=== PATIENT | male | born 1945 | race Caucasian/White ===

== ENCOUNTER 2024-03-09 11:07 | Inpatient (IN) | payer MEDICARE, BC, SELFPAY ==
[2024-03-09] VITALS (84 sets, daily range): BP systolic 63–128; BP diastolic 33–93; BMI 25.7; BMI 25.1
--- NOTE | 2024-03-09 08:41 | ED.GENMED ---
History of Present Illness
General
Chief Complaint: Breathing Problem
Source: patient and ambulance crew
Exam Limitations: none
Time Seen by Provider: 03/09/24 08:25
Nursing documentation reviewed up to this point in time: agreed with
Travel History
Have you had any contact with someone who has COVID-19?: No
Do you have any symptoms of coronavirus? Fever > 100 degrees, chills, cough, shortness of breath, sore throat, loss of taste or smell, muscle aches, or headache?: No
History of Present Illness
History of Present Illness:
78-year-old male presents emerged department due to weakness, shortness of breath and fever. Last night he started coughing up blood. He has a history of CHF, COPD, atrial fibrillation. He takes CPAP at night.
Past History
Past History
ED Past Medical History: Arrthythmia (Atrial fibrillation), CAD, COPD, GERD, HTN and Other (History of sleep apnea, diverticulosis, stomach ulcers, back pain, degenerative joint disease,); Negative NIDDM
ED Past Surgical History: Tonsilectomy and Other (Recent surgery for bilateral knee replacements, multiple cardioversions, right wrist carpal total surgery, L4-L5 laminectomy)
Social History
Tobacco: Former smoker
Alcohol: Occasional
Drug: None
Personal:
Living: alone
Employment: Employed
Family History
Family History: Other (Father with cancer of the pancreas)
Review of Systems
Review of Systems
Allergies reviewed?: Yes
All Other Systems: Not applicable
Constitutional: Reports fever
EENT: Reports no symptoms
Respiratory: Reports cough, hemoptysis and trouble breathing
Cardiac: Reports no symptoms
ABD/GI: Reports no symptoms
: Reports no symptoms
Musculoskeletal: Reports no symptoms
Skin: Reports no symptoms
Neurological: Reports weakness
Endocrine: Reports no symptoms
Hematologic/Lymphatic: Reports no symptoms
Psychiatric: Reports no symptoms
Phy Exam
Physical Exam
Physical Exam:
Physical Exam
General: Ill-appearing, temperature 100.1
Neck: supple. no meningeal signs. normal posterior pharynx
Heart: s1/s2 tachycardia, no murmur. equal radial
pulses.
HEENT: Pupils equal round reactive to light, EOMI
Lungs: Moderate respiratory distress. Rhonchi and rails bilaterally, decreased breath sounds right lower lung
Abdomen: normal bowel sounds. not tender. no CVAT
Neuro: alert and oriented. no focal neurological deficits cranial nerves II through XII intact
Skin: no rash
Psychiatric: well kept. interactive and cooperative
Extremities: Bilateral tibial edema. no calf tenderness. negative homans. good distal pulses
Scores
Heart Failure Risk
Heart Failure Risk Score: Yes
History of Stroke or TIA: No
History of intubation for respiratory distress: No
Heart rate on ED arrival >/= 110: Yes
SaO2 <90% on arrival on room air: No
HR >/=110 during 3min walk test (or too ill to perform test): Yes
ECG has acute ischemic changes: No
Urea >/=12mmol/L (BUN 33.6mg/dL): Yes
Serum CO2>/=35mmol/L: No
Troponin I or T elevated to [place] Level (0.4mg/dL): No
NT-proBNP >/=5,000ng/L (5,000pg/ml): Yes
HF Risk Score: 4
Admission Status: HIGH RISK 26.1% Consider SNF treatment or admission to hospital
Course
Orders/Labs/Results
Orders:
Orders
03/09/24 08:28
Electrocardiogram (*1) Urgent
Reason for Study: Atrial Fibrillation
03/09/24 08:29
EKG- Treatment ONCE
Cr Chest Portable [CR Chest Portable - 1 View] Urgent
Comment:
Reason For Exam: coughing up blood
Reason Study Needs to be Portable: Patient Unstable
03/09/24 08:37
0.9% Sodium Chloride 500 ml [Nss] 500 ml IV BOLUS
Cefepime HCl [Maxipime] 2,000 mg IV NOW STA
Ipratropium/Albuterol Sulfate [Duoneb] 3 ml INH R NOW STA
03/09/24 08:40
O2 Therapy [RESP] Urgent
High Flow Nasal Cannula FIO2%: 50
Titrate/Wean O2 to maintain O2 sat greater than (%): 90
03/09/24 08:50
BNP [NT-proBNP] Urgent
COVID-19 Antigen Urgent
Source: Nasal Swab
Complete Blood Count/With Diff Urgent
Comprehensive Metabolic Panel Urgent
Lactic Acid Q4H
Comment: ON ICE, CANCEL 2ND ORDER IF FIRST LACTIC ACID LEVEL <2
Manual Differential Urgent
Prothrombin Time Urgent
Troponin I Urgent
Blood Culture Q30M
JAMIN Source: Blood/Venous
Specimen Description:
Comment: FROM 2 SEPARATE SITES
Blood Culture Q30M
JAMIN Source: Blood/Venous
Specimen Description:
Comment: FROM 2 SEPARATE SITES
Influenza A+B Rapid Molecular Urgent
JAMIN Source: Nasal Swab
Specimen Description:
03/09/24 09:30
Vancomycin [Vancocin] 2,000 mg 0.9% Sodium Chloride 500 ml [Nss] 500 ml IV NOW
03/09/24 Lunch
NPO
Allow oral meds: Yes
Allow clear liquids: Sips of Clears
03/09/24 10:15
Behavioral Health Technician Consult Urgent
Consulting Provider: Hector Marlow
Was physician already notified: Yes
Reason for consult: septic shock, PNA vs pulm hemorrhage/pulm edema
NORepinephrine 4 MG/250 ML [Levophed] 4 mg in 250 ml IV PER PROTOCOL
Initial dose in mcg/min, then titrate:: 4
Titrate to keep:: MAP > 65 mmHg
Titrate by mcg/min:: 1-2 mcg/min
Frequency of titrations (minutes):: 5
Maximum dose in ICU in mcg/min:: 30
Maximum dose in IMU in mcg/min:: 8
Maximum dose in IVU in mcg/min:: 4
Begin to taper infusion when:: Remained at goal for 4hrs
Taper by mcg/min:: 1-2 mcg/min
Frequency of taper (minutes) if patient maintains goal:: 30
Taper to off?: Yes
If infusion off & no longer maintaining goal:: Contact Provider
03/09/24 10:33
Procalcitonin Urgent
PCT Algorithmm Indication: Respiratory
03/09/24 10:40
Admit/Transfer Patient As Directed
Co-Sign Provider:
Level of Care: Inpatient admission
Assign to:: ICU
Physician / Group: mann gtz
Diagnosis: Septic shock, pneumonia, respiratory failure
Reason for Hospitalization: septic shock, PNA vs pulm hemorrhage/pulm edema,
Expected length of stay greater than two midnights?: Yes
ELOS- Estimated Length of Stay in days: 5
I certify the patient meets the requirements for IP care: Yes
IRAD CONSULT Routine
Consulting Provider: Silvano Shine
Was physician already notified: Yes
Reason for Consult/Procedure: Central Line
Acknowledgement that appropriate orders are entered: N/A
03/09/24 10:45
Hydrocortisone Sod Succinate [Solu-Cortef] 50 mg IV Q8
03/09/24 10:49
Code Status As Directed
Resuscitation Status: Full Code
03/09/24 12:23
Acetaminophen [Tylenol] 650 mg PO Q6HPRN PRN
NORepinephrine 4 MG/250 ML [Levophed] 4 mg in 250 ml IV PER PROTOCOL
Initial dose in mcg/min, then titrate:: 6
Titrate to keep:: MAP > 65 mmHg
Titrate by mcg/min:: 1-2 mcg/min
Frequency of titrations (minutes):: 5
Maximum dose in ICU in mcg/min:: 30
Maximum dose in IMU in mcg/min:: 8
Maximum dose in IVU in mcg/min:: 4
Begin to taper infusion when:: Remained at goal for 4hrs
Taper by mcg/min:: 1-2 mcg/min
Frequency of taper (minutes) if patient maintains goal:: 30
Taper to off?: Yes
If infusion off & no longer maintaining goal:: Contact Provider
Pantoprazole [Protonix IV] 40 mg IV BID
VANCOMYCIN Pharmacy to Dose [VANCOCIN Pharmacy to Dose] 1 each Pharmacy To Prepare [Call Pharmacy To Prepare] 0 ml IV PER PROTOCOL
03/09/24 12:23
CARDIOLOGY CONSULT Routine
Consulting Provider: Salvador He
Was physician already notified: Yes
Reason for consult: CHF
Legionella Urinary Antigen Urgent
JAMIN Source: Urine
Specimen Description:
Respiratory Culture/Gram Stain Urgent
JAMIN Source: Sputum
Specimen Description:
Strep pneumoniae Antigen Urgent
JAMNI Source: Urine
Specimen Description:
Activity As Directed
Activity Level: Out of Bed-Early Mobility
Intake/ Output As Directed
Frequency: Per unit guidelines
Pneumatic Compression Sleeves As Directed
Type: Knee high
Vital Signs As Directed
Frequency: Per unit guidelines
Weight As Directed
Frequency: Once
Comment: on admission
Pt Eval And Treat Routine
Activity Level: Out of Bed-Early Mobility
DX Deep Vein Thrombosis Video Routine
03/09/24 13:02
Lactic Acid Q4H
Comment: ON ICE, CANCEL 2ND ORDER IF FIRST LACTIC ACID LEVEL <2
03/09/24 20:00
Cefepime HCl [Maxipime] 1,000 mg IV Q12H
03/10/24 06:00
Basic Metabolic Panel IN AM
Comprehensive Metabolic Panel IN AM
03/10/24 08:00
Empagliflozin [Jardiance] 10 mg PO DAILY
03/11/24 06:00
Basic Metabolic Panel IN AM
03/12/24 06:00
Basic Metabolic Panel IN AM
Abnormal Lab Results
03/09/24 03/09/24
08:50 10:33
WBC 2.7 L 10^3/uL
(4.8-10.8)
RBC 3.70 L 10^6/uL
(4.70-6.10)
Hgb 12.0 L g/dL
(13.0-18.0)
Hct 35.6 L %
(39.0-52.0)
MCV 96.2 H fL
(80.0-94.0)
MCH 32.4 H pg
(27.0-31.0)
RDW 15.2 H %
(11.5-14.5)
Plt Count 95 L 10^3/uL
(130-400)
Band Neutrophils 20 H %
(0-3)
Lymphocytes (Manual) 14 L %
(20-51)
PT 43.5 H Sec
(11.4-14.6)
Sodium 130 L mmol/L
(135-145)
BUN 42 H mg/dl
(9-20)
Creatinine 1.5 H mg/dL
(0.7-1.3)
Lactic Acid 2.3 H mmol/L
(0.7-2.0)
Calcium 8.3 L mg/dl
(8.4-10.2)
Total Bilirubin 2.9 H mg/dl
(0.2-1.3)
Troponin I 0.148 H* ng/ml
Albumin 3.2 L g/dl
(3.5-5.0)
Procalcitonin 14.84 H* ng/ml
(0.0-0.25)
03/09/24 08:50
03/09/24 08:50
Vital Signs
Initial and Last Documented VS:
Initial Vital Signs
Temp Pulse Resp BP Pulse Ox
100.1 F 115 25 72/44 66
03/09/24 08:31 03/09/24 08:31 03/09/24 08:31 03/09/24 08:31 03/09/24 08:31
Last Documented Vital Signs
Temp Pulse Resp BP Pulse Ox
98.6 F 102 21 93/48 94
03/09/24 12:24 03/09/24 14:30 03/09/24 14:30 03/09/24 14:30 03/09/24 14:30
MDM/Problems Addressed
Differential Diagnosis Includes:
CHF, pneumonia, sepsis
MDM/Problems Addressed:
78-year-old male with pneumonia, hypotension, concerning for sepsis and CHF, right pleural effusion. Will give small dose IV fluids due to patient's CHF history, IV cefepime and vancomycin ordered. Will place on mid flow. Will likely add
Levophed. Admit to ICU
Chronic conditions affecting care: Cardiomyopathy, Arrhythmia, COPD and Cancer (non hodgkins)
Acute Exacerbation and/or Progression of Chronic Illness: Cardiomyopathy, Arrhythmia, COPD and Cancer (non hodgkins)
*Radiology
Radiology exam reviewed: preliminary read by ED provider (Left-sided infiltrate, right pleural effusion on chest x-ray)
*Pulse Oximetry
Patient hypoxic: yes
*EKG
Interpreted by ED Provider?: Yes
EKG Intrepretation Date: 03/09/24
EKG Intrepretation Time: 08:30
Interpretation: abnormal
Comparison EKG: no changes
Heart Rate: 122
Rate: tachycardiac
Rhythm: PVC's, sinus tachycardia and ventricular paced
[place]: left axis deviation
Interval: normal interval
QRS Pattern: right bundle branch block
Ischemia: non-specific ST changes
*Water/Wastewater Engineer Interpretation
Rate: tachycardiac
Interpretation: abnormal
Rhythm: PVC's, sinus tachycardia and ventricular paced
*Critical Care Note
Total Time (30-74mins, 75-104mins- exclusive of procedures): 30
comment:
Critical care statement: A total of 30 minutes of critical care time was provided for this patient. This includes management of unstable vital signs, evaluation of the patient at bedside, reviewing the patient's pertinent medical records, discussion
with consultants, review of old EKGs and review of pertinent medical records. This time with separate from time utilized to perform the aforementioned documented procedures
Data Reviewed
Review of Other/Old Records Reveals: Testing (Echocardiogram 06/05/2023 shows EF 30 to 35%)
Source: records
Further Testing Considered But Not Given:
CT scan considered, but not indicated at this time
Patient Management
Social determinants of health affecting care: Living situation
Discussion with other providers: Hospitalist
Escalation/DeEscalation of care consider admission/obs:
Admit to ICU indicated
ED Attending Note
-
Portions of this chart may have been created with voice recognition software.� Occasional wrong word or��sound alike� substitutions may have occurred due to the inherent limitations of voice recognition software.
Discharge Plan
Departure
Patient Disposition: Admit
Date of Disposition: 03/09/24
Time of Disposition: 09:25
Admit to: ICU
Presentation/result/management discussed w/ accepting MD/DO: Hospitalist
Patient with high blood pressure during this ER visit?: No
Condition: Serious
Discharge Problem:
Pneumonia, Pleural effusion on right, Hemoptysis
Interventions
Interventions:
*Risk Screen - Suicide Last Done: 03/09/24 08:31
*General Assessment Last Done: 03/09/24 08:31
*Neglect/Abuse Screening Last Done: 03/09/24 08:31
ED- Fall Risk Assessment Last Done: 03/09/24 08:38
*ED COVID-19 Vaccine History Last Done: 03/09/24 08:31
*Nursing Disposition Last Done: 03/09/24 12:28
ED- Cardiac Assessment Last Done: 03/09/24 08:38
ED- Pulmonary Assessment Last Done: 03/09/24 08:54
Discharge Date and Time
Discharge Date/Time: 03/09/24 12:28
[2024-03-09] MEDS: DUONEB 3 ML INH ×4 (09:00→20:34)
[2024-03-09] MEDS: NSS 500 IV ×2 (09:01→11:40)
[2024-03-09] MEDS: MAXIPIME 2000 MG IV (09:03)
[2024-03-09 09:15] LABS: Lactic Acid 2.3 mmol/L (0.7-2.0)
[2024-03-09 09:17] LABS: Hematocrit 35.6 % (39.0-52.0); Mean Corp Hgb Conc. 33.7 g/dL (33.0-37.0); Mean Corpuscular Hgb 32.4 pg (27.0-31.0); Mean Corpuscular Volume 96.2 fL (80.0-94.0); Mean Platelet Volume 9.4 fL (7.4-10.4); Nucleated Red Blood Cells % 0 % (-); Platelet Count 95 10^3/uL (130-400); Red Cell Dist. Width 15.2 % (11.5-14.5); White Blood Cell Count 2.7 10^3/uL (4.8-10.8)
[2024-03-09 09:18] LABS: INR 4.58; PT 43.5 Sec (11.4-14.6)
[2024-03-09 09:23] LABS: COVID-19 Antigen Negative (Negative)
[2024-03-09 09:35] LABS: NT-proBNP > 27000 pg/ml; Troponin I 0.148 ng/ml
[2024-03-09] MEDS: VANCOCIN 540 MG IV (09:51)
[2024-03-09] MEDS: LEVOPHED 250 IV ×4 (10:09→18:30)
[2024-03-09 10:20] LABS: Absolute Neutrophils -Man Diff 1.9 10^3/uL (1.4-6.5); Band Neutrophils 20 % (0-3); Lymphocytes 14 % (20-51); Segmented Neutrophils 53 % (42-75)
[2024-03-09 10:21] LABS: Metamyelocytes 3 % (-); Monocytes 8 % (2-9); Myelocytes 2 % (-); Normal RBC Morphology Yes; Platelets Checked Yes; Total Cells Counted 100
[2024-03-09 10:22] LABS: ALT (SGPT) 17 U/L (0-50); AST (SGOT) 37 U/L (17-59); Albumin 3.2 g/dl (3.5-5.0); Alkaline Phosphatase 110 U/L (38-126); Blood Urea Nitrogen 42 mg/dl (9-20); Calcium 8.3 mg/dl (8.4-10.2); Carbon Dioxide 29 mmol/L (22-30); Chloride 98 mmol/L (98-107); Estimated Creatinine Clearance 44 ml/min; Glucose 93 mg/dl (70-99); Potassium 3.9 mmol/L (3.5-5.1); Sodium 130 mmol/L (135-145); Total Bilirubin 2.9 mg/dl (0.2-1.3); Total Protein 6.5 g/dl (6.3-8.2); eGFR 47.65
--- NOTE | 2024-03-09 10:40 | HPS.HSE ---
Family Physician
-
Family Physician: Kylie Liu DO
Chief Complaint
-
Fever, hemoptysis, shortness of breath
History of Present Illness
78-year-old male with a past medical history of atrial fibrillation on Coumadin, newly diagnosed cirrhosis, CAD, COPD, KIKI on CPAP, GERD, peptic ulcer disease, CHF, and hypertension presents with a 1 day history of fever, hemoptysis, and shortness
of breath. Family reports that he was coughing up blood intermittently overnight, with fever. Associated symptoms include hematemesis, lethargy, agitation. Patient was found to be in acute hypoxic respiratory failure in the ER, and placed on a
nonrebreather. He was also found to have septic shock from pneumonia, with pulmonary edema. He is getting vancomycin and cefepime in the ER, and currently on a Levophed drip. He is on prednisone 60 mg daily since June 2023, unclear why.
Medical History
Past Medical History
Past Medical History: Reports Other
Additional Past Medical History:
Atrial fibrillation on Coumadin
Newly diagnosed cirrhosis
CAD
COPD
KIKI on CPAP
GERD
Essential hypertension
Peptic ulcer disease
History of non-Hodgkin's lymphoma status post chemo and radiation 2003
Diverticulosis
Chronic back pain
Degenerative joint disease
Bilateral inguinal hernia status post surgery
Past Surgical History: Reports Other
Additional Past Surgical History:
Bilateral knee replacements
Multiple cardioversions
Right wrist carpal tunnel surgery
L4-L5 laminectomy
Robot assisted laparoscopic repair bilateral inguinal hernias
Social History
Tobacco: Former Smoker
Alcohol: Former
Drug: None
Living: With Family
Family History
Family History: Not pertinent
Allergies / Home Medications
Allergies reflects when Allergies were last updated in [facility].
Home Medications with original date entered in [facility]
Allergy/Medication List:
Allergies
Allergy/AdvReac Type Severity Reaction Status Date / Time
No Known Allergies Allergy Verified 03/09/24 09:51
Home Medications Table - record
�Medication �Instructions �Recorded �Confirmed
warfarin 2.5 mg tablet (Jantoven) 2.5 mg PO DAILY Blood clot 07/13/21 03/09/24
prevention/tx
furosemide 20 mg tablet 20 mg PO DAILY 11/01/21 03/09/24
metoprolol succinate 50 mg 25 mg PO DAILY 11/01/21 03/09/24
tablet,extended release 24 hr
fluticasone fur. 100 mcg-umeclid 1 inh inhalation Q24H 10/23/22 03/09/24
62.5 mcg-vilant 25 mcg
inhalat.powder (Trelegy Ellipta)
potassium chloride 20 mEq 20 meq PO DAILY 10/23/22 03/09/24
tablet,extended
release(part/cryst) (Klor-Con M)
empagliflozin 10 mg tablet 10 mg PO DAILY 07/26/23 03/09/24
(Jardiance)
omeprazole 20 mg capsule,delayed 40 mg PO DAILY 07/26/23 03/09/24
release
prednisone 20 mg tablet 60 mg PO DAILY 03/09/24 03/09/24
Review of Systems
-
A 12 point ROS was completed and negative except as noted: Yes
Physical Exam
Vital Signs
Vital Signs
Temp Pulse Resp BP Pulse Ox
100.1 F 119 34 87/70 91
03/09/24 08:31 03/09/24 10:35 03/09/24 10:35 03/09/24 10:35 03/09/24 10:35
Physical Exam
General: Appears in Distress (In respiratory distress, appears acutely ill, lethargic appearing)
HEENT: NormoCephalic, Anicteric, Moist mucous membranes and Atraumatic
Respiratory: Crackles
Cardiac: Tachycardia
GI: Soft, Non Tender, Non Distended and Normal Bowel Sounds
Musculoskeletal: No Clubbing, No Cyanosis, Edema, Left Lower Extremity and Edema, Right Lower Extremity
Skin: Other (Hyperpigmentation of shins reflective of chronic venous stasis dermatitis)
Neuro: Other (Lethargic appearing)
Psych: Agitated
Laboratory Results
-
03/09/24 08:50
03/09/24 08:50
Laboratory Results
PT 43.5 Sec (11.4-14.6) H 03/09/24 08:50
INR 4.58 03/09/24 08:50
Lactic Acid 2.3 mmol/L (0.7-2.0) H 03/09/24 08:50
Total Bilirubin 2.9 mg/dl (0.2-1.3) H 03/09/24 08:50
AST 37 U/L (17-59) 03/09/24 08:50
ALT 17 U/L (0-50) 03/09/24 08:50
Alkaline Phosphatase 110 U/L (38-126) 03/09/24 08:50
Troponin I 0.148 ng/ml H* 03/09/24 08:50
Impression/Plan
-
HPI: 78-year-old male with a past medical history of atrial fibrillation on Coumadin, newly diagnosed cirrhosis, CAD, COPD, KIKI on CPAP, GERD, peptic ulcer disease, CHF, and hypertension presents with a 1 day history of fever, hemoptysis, and
shortness of breath. Family reports that he was coughing up blood intermittently overnight, with fever. Associated symptoms include hematemesis, lethargy, agitation. Patient was found to be in acute hypoxic respiratory failure in the ER, and
placed on a nonrebreather. He was also found to have septic shock from pneumonia, with pulmonary edema. He is getting vancomycin and cefepime in the ER, and currently on a Levophed drip. He is on prednisone 60 mg daily since June 2023, unclear
why.
#Septic shock, present upon admission
#Severe pneumonia
Patient with bandemia, tachycardia upon admission
Admit to ICU, high lift mule operator consulted, continue Levophed for MAP greater than 65
Unable to give fluid boluses secondary to CHF
IR consulted for central line placement
Follow-up blood cultures, check sputum culture and Gram stain, check urine Legionella/strep antigen, check MRSA nares
Start stress dose IV steroids�patient is on prednisone 60 mg p.o. daily since July 2023 at home, unclear why
Continue vancomycin and cefepime
Trend lactic acid, trend fever, trend white count
#Hemoptysis with concern for pulmonary hemorrhage
Check chest CT
#Acute on chronic heart failure with reduced ejection fraction
Echo 06/05/2023 EF 30-35%, global hypokinesis, mechanical mitral valve, mild MR, moderate TR
Unable to give Lasix now secondary to hypotension
Consult cardiology, patient will need Lasix once his blood pressure improves
Continue Jardiance, trend weights
#Coagulopathy
#Paroxysmal atrial fibrillation
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
EKG shows sinus tachycardia with first-degree AV block and occasional V paced complexes
INR elevated at 4.58 today, goal is 2.5�3.5
Hold Coumadin, trend INR
Hold home beta-kyle until blood pressure improves
Will order metoprolol 5 mg IV as needed
#Type II CO from demand ischemia
Trend troponin
#Hematemesis
Likely from swallowed blood products from hemoptysis
Protonix 40 mg IV twice daily, trend hemoglobin
#Hyponatremia
Due to CHF, monitor
#Acute kidney injury
Creatinine 1.5 today, baseline is normal
From CHF and sepsis
Monitor creatinine, no nephrotoxic drugs/NSAIDs
#Thrombocytopenia
Due to sepsis, monitor
#Recently diagnosed cirrhosis
Follows with Dr. Saunders outpatient
DVT prophylaxis�SCDs, hold Coumadin secondary to INR of 4.58
Full code
Updated family at bedside
Critical care time 33 minutes
--- NOTE | 2024-03-09 10:47 | CON.INTV ---
Consultation
Consultation Request
Date/Time Consultation Requested: 03/09/2024 - 1014
Date/Time Consultation Performed: 03/09/2024 - 1039
Requesting Provider: Dr. Junior
Performing Provider: Dr. Marlow
Reason for Consultation: Shock/PNA/Hemoptysis
Medical History
-
Chief Complaint: Weakness/SOB/fever/coughing up blood
History of Present Illness:
78-year-old male former tobacco smoker with a past medical history of moderate COPD, moderate restrictive lung disease, history of hemoptysis, history of LLL bronchiectasis, history of left-sided pneumonia, history of aspergillus, chronic
anticoagulation for mechanical mitral valve replacement (July 2021), history of COVID-19, HFrEF with RV dysfunction, pulmonary hypertension, history of NHL s/p chemo/XRT (2003), and chronic thrombocytopenia with unremarkable bone marrow biopsy
(10/2023) who presents with shortness of breath, weakness and fever. 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 Patient has low-grade fever to 100.1 �F in the ER, and tachycardic to 115 bpm, tachypnea to 25 respirator,
hypotensive to 72/44, and initially was saturating 66% on room air. Saturations improved to 91% with nonrebreather. Labs showed leukopenia to 2.7 with 20% bands, anemia to 12, elevated INR 4.58, hyponatremia 130, ADRIANA to 1.5, lactic acid elevated
at 2.3, elevated troponin 0.148, increased proBNP of >27,000, and negative COVID-19 antigen; flu A/B swab also negative. Blood cultures were collected. CXR shows a 10 cm left midlung airspace opacity with acute cardiogenic pulmonary edema and a
right-sided pleural effusion with compressive atelectasis. In the ER antibiotics were given with cefepime/vancomycin, he was also given DuoNebs x 1, given IV fluids with NS 0.5L and started on Levophed due to persistent hypotension with SBP in the
80s. Due to patient's vasopressor and oxygen requirements, he is being admitted to the ICU. Critical care services now consulted for additional management/recommendations.
When I saw the pt in ER, he was sitting upright in bed, in acute respiratory distress on NRB, saturating 89%, BP low w/ SBP in mid-80s on levophed at 16mcg/min. Pt awake, answering questions, but occasionally lethargic. and 2 sons at bedside -
I answered all their questions. Pt says he 'wants to go home.' He is ok with being placed onto a ventilator if it comes to that. He currently is not coughing up blood since he has been here in ER. He feels SOB, but denies chest pain, ANDRADE, abd
pain, N/V/f/c.
Of note, patient follows with us in the office with Dr. Nicolas, last office visit on 12/05/2023. Patient has known COPD with bronchiectasis, restrictive lung disease, history of left-sided pneumonia, history of Aspergillus, hemoptysis, and is on
chronic anticoagulation for mechanical mitral valve replacement in July 2021. He takes Trelegy for COPD. He has known bronchiectasis in the left lower lobe originally seen on CT from 2010. He also has a history of an elevated left
hemidiaphragm. Has history of KIKI on CPAP. His last PFT was from 12/05/2020 for showing moderate severity COPD with a positive/non-significant bronchodilator response, with evidence of moderate restrictive lung disease (vital capacity: 67%
predicted), with a very severe gas exchange capacity defect (DLco: 30%).
PMHx: COPD, restrictive lung disease, history of hemoptysis, chronic anticoagulation with warfarin due to mechanical mitral valve replacement (07/2021), history of left lower lobe bronchiectasis, elevated left hemidiaphragm, KIKI on CPAP, personal
history of COVID-19, chronic atrial fibrillation on Coumadin, history of tobacco abuse with [id number] history (quit in 2017), history of HFrEF with RV dysfunction, mild�moderate pulmonary hypertension, history of GI bleed, postnasal drip, history
of non-Hodgkin's lymphoma s/p chemo/radiation (2003), history of left-sided pneumonia due to Streptococcus pneumonia, history of aspergillus, history of Vieira's esophagus, history of thrombocytopenia s/p unremarkable bone marrow biopsy
PSHx: Appendectomy, right carpal tunnel repair, bilateral TKR, tonsillectomy, L4-L5 laminectomy, left�THR, DCCV X8 for recurrent A-fib, mitral valve replacement with Saint Deep mechanical valve (07/2021), bilateral inguinal hernia repair with mesh
(10/2021), bone marrow biopsy (October 2023)
Past Medical History
Past Medical History: Other (Above as per HPI)
Past Surgical History: Other (Above as per HPI)
Social History
Tobacco: Former Smoker ([id number] history, quit in 2017)
Alcohol: Daily (2-3 glasses of wine with dinner)
Drug: None
Personal:
Family History
Family History: CAD (Father), Cancer (Father: Pancreatic cancer) and Other (Mother: Alzheimer's dementia)
Allergies / Home Medications
Allergies
Allergy/AdvReac Type Severity Reaction Status Date / Time
No Known Allergies Allergy Verified 03/09/24 09:51
Home Medications
�Medication �Instructions �Recorded �Confirmed �Last Taken �Type
warfarin 2.5 mg tablet (Jantoven) 2.5 mg PO DAILY Blood clot 07/13/21 03/09/24 03/07/24 History
prevention/tx
furosemide 20 mg tablet 20 mg PO DAILY 11/01/21 03/09/24 03/08/24 History
metoprolol succinate 50 mg 25 mg PO DAILY 11/01/21 03/09/24 03/08/24 History
tablet,extended release 24 hr
fluticasone fur. 100 mcg-umeclid 1 inh inhalation Q24H 10/23/22 03/09/24 03/08/24 History
62.5 mcg-vilant 25 mcg
inhalat.powder (Trelegy Ellipta)
potassium chloride 20 mEq 20 meq PO DAILY 10/23/22 03/09/24 03/08/24 History
tablet,extended
release(part/cryst) (Klor-Con M)
empagliflozin 10 mg tablet 10 mg PO DAILY 07/26/23 03/09/24 07/25/23 History
(Jardiance)
omeprazole 20 mg capsule,delayed 40 mg PO DAILY 07/26/23 03/09/24 03/08/24 History
release
prednisone 20 mg tablet 60 mg PO DAILY 03/09/24 03/09/24 03/08/24 History
Review of Systems
-
History Source: Patient
All other systems: Negative unless noted
Vitals / Labs / Diagnostic Testing
Vital Signs
Temp Pulse Resp BP Pulse Ox
100.1 F 120 22 85/73 89
03/09/24 08:31 03/09/24 10:41 03/09/24 10:41 03/09/24 10:41 03/09/24 10:41
Lab Data
03/09/24 08:50
03/09/24 08:50
Laboratory Results
03/09/24
08:50
PT 43.5 H
INR 4.58
Microbiology
03/09/24 08:50 Nasal Swab Influenza Types A & B (RACHEL) - Final
Negative for Influenza A & B, NAAT
Negative results must be combined with clinical observations
and patient history.
Nucleic Acid Amplification test (NAAT)performed on the
[employer] platform.
Diagnostic Testing:
Physical Exam
-
HEENT: Normocephalic and Anicteric
Cardiovascular: S1/S2 and Peripheral Edema (+2 LE pitting edema)
Respiratory: Wheeze (negative), Rales (bilaterally), Rhonchi (bilaterally (L>R)) and Accessory Resp Muscle Use
GI: Soft, Non Distended and Non Tender
Neurology: Awake and Alert
Skin: Warm and Dry
General: Respiratory Distress, Fever (negative) and Chills (negative)
Assessment
-
Assessment: 78-year-old male former tobacco smoker with a past medical history of moderate COPD, moderate restrictive lung disease, history of hemoptysis, history of LLL bronchiectasis, history of left-sided pneumonia, history of aspergillus,
chronic anticoagulation for mechanical mitral valve replacement (July 2021), history of COVID-19, HFrEF with RV dysfunction, pulmonary hypertension, history of NHL s/p chemo/XRT (2003), and chronic thrombocytopenia with unremarkable bone marrow
biopsy (10/2023) who presents with shortness of breath, weakness and fever. 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 Patient has low-grade fever to 100.1 �F in the ER, and tachycardic to 115 bpm, tachypnea to 25 respirator,
hypotensive to 72/44, and initially was saturating 66% on room air. Saturations improved to 91% with nonrebreather. Labs showed leukopenia to 2.7 with 20% bands, anemia to 12, elevated INR 4.58, hyponatremia 130, ADRIANA to 1.5, lactic acid elevated
at 2.3, elevated troponin 0.148, increased proBNP of >27,000, and negative COVID-19 antigen; flu A/B swab also negative. Blood cultures were collected. CXR shows a 10 cm left midlung airspace opacity with acute cardiogenic pulmonary edema and a
right-sided pleural effusion with compressive atelectasis. In the ER antibiotics were given with cefepime/vancomycin, he was also given DuoNebs x 1, given IV fluids with NS 0.5L and started on Levophed due to persistent hypotension with SBP in the
80s. Due to patient's vasopressor and oxygen requirements, he is being admitted to the ICU. Critical care services now consulted for additional management/recommendations.
Chronic conditions BUSINESS PROJECT ANALYST: COPD, restrictive lung disease, history of hemoptysis, chronic anticoagulation with warfarin due to mechanical mitral valve replacement (07/2021), history of left lower lobe bronchiectasis, elevated left hemidiaphragm, KIKI on
CPAP, personal history of COVID-19, chronic atrial fibrillation on Coumadin, history of tobacco abuse with [id number]-uviz history (quit in 2018), history of HFrEF with RV dysfunction, mild�moderate pulmonary hypertension, history of GI bleed,
postnasal drip, history of non-Hodgkin's lymphoma s/p chemo/radiation (2004), history of left-sided pneumonia due to Streptococcus pneumonia, history of aspergillus, history of Vieira's esophagus, history of thrombocytopenia s/p unremarkable bone
marrow biopsy
Impression:
#Acute respiratory failure with hypoxia due to CAP + acute pulmonary edema with right pleural effusion
#Bandemia with 20% bands -due to septic shock from left side pneumonia
#Severe left-sided CAP
#Septic shock due to above
#Lactic acidosis
#Acute COPD exacerbation due to above
#Hemoptysis due to pneumonia in the setting of chronic anticoagulation with supratherapeutic INR
#Supratherapeutic INR (INR: 4.58)
#Hyponatremia
#Acute kidney injury (Cr baseline approx 1.1)
#Elevated troponin likely due to demand ischemia with type II AL
#Chronic pancytopenia
#Mechanical mitral valve replacement on Coumadin
#Chronic A-fib on Coumadin
#DM type II
Plan:
- Broad spectrum Abx with cefepime/vanc
- Infectious workup with blood, sputum and urine Cx with legionella/Strep PNA urine antigens, and MRSA swab
- May need bronchoscopy if hemoptysis worsens
- For now, administer small dose of vitamin K (2.5mg IVP x1) and hold coumadin; may need PCC vs FFP if hemoptysis worsens, but need to be very careful given his mechanical prosthesis in his MV
- Given his Hx of COPD and concurrent PNA with septic shock, start stress dose steroids with hydrocortisone 50mg IV q6hr x 3 days then wean as tolerated from there
- Check CT chest without contrast
- Maintain SpO2 >88-94%
- DuoNebs ATC with prn duonebs in between
- Wean off vasopressors as tolerated and maintain MAP>65
- Low threshold to intubate but need to be aware of his hypotension as he is at high risk of cardiac arrest with RSI as we would remove his respiratory drive
- Renally dose all meds and trend UOP, and sCr daily
- Trend sNa
- Replete electrolytes with K>4, Mg>2
- Maintain euglycemia with goal BG 140-180
- Incentive spirometer
- DVT ppx
- Guarded prognosis
I answered all the and sons questions. Pt remains full code. They are aware he is critically ill and at high risk of multiorgan failure and .
Critical care statement: A total of 40 minutes of critical care time was provided for this patient today. This includes management of unstable vital signs, evaluation of the patient at bedside, reviewing the patient's pertinent medical records
including radiographs, microbiology, laboratory evaluations, and discussion with primary team, consultants, pharmacy, nutrition, physical therapy, case management, charge nurse, critical care nursing, and respiratory therapy.
Data:
CXR 03-09-2024:
1. New large 10 cm airspace opacity in the left mid and lower lung which was not present 12/05/2023. Diagnostic possibilities are (1) severe pneumonia, (2) pulmonary hemorrhage, or (3) asymmetric alveolar pulmonary edema.
2. Moderate acute interstitial cardiogenic pulmonary edema.
3. Moderate to severe bilateral upper lobe emphysema.
4. Mild cardiomegaly with evidence for previous mitral valve replacement.
5. Small right pleural effusion and adjacent moderate compressive atelectasis in the right lower lobe.
[2024-03-09] MEDS: SOLU-CORTEF 50 MG IV ×2 (11:09→17:00)
[2024-03-09 11:31] LABS: Procalcitonin 14.84 ng/ml (0.0-0.25)
[2024-03-09 12:36] LABS: B.E. -0.3 mmol/L; HCO3 27.3 mmol/L (21-28); O2 Saturation % 91.3 % (94-98); PCO2 58 mmHg (35-48); PO2 61 mmHg (83-108); pH 7.28 (7.35-7.45)
--- NOTE | 2024-03-09 12:54 | PHA.VAN.IN ---
Assessment
- Assessment
Renal Function: Appears elevated from baseline
Maximum Temperature: 100.1
Minimum Temperature: 98.6
Concomitant Antimicrobials: Cefepime
Plan
- Plan
Initial / Loading Dose: Vanc 2000mg IV. Given 03/09 at 0951
Maintenance Regimen: PRN by level
Monitoring: R 03/10 AM
Pharmacokinetics Vancomycin I
- -
Patient Age: 78
Patient Sex: Male
Vancomycin Day #: 1
Indication: Pulmonary/Respiratory
Requesting Provider: Do
Height / Weight:
Height 5 ft 11 in
Actual Weight 81.6 kg
IBW in k.3
Adjusted BW in k.8
Pertinent Past Medical History: ADRIANA.
- Vital Signs / Lab Results
Temp Pulse Resp BP Pulse Ox
98.6 F 101 31 99/69 89
03/09/24 12:24 03/09/24 12:36 03/09/24 12:36 03/09/24 12:10 03/09/24 12:36
Lab Results - Hematology
03/09/24
08:50
WBC 2.7 L
Band Neutrophils 20 H
Lab Results - Chemistry
03/09/24
08:50
BUN 42 H
Creatinine 1.5 H
Estimated Creat Clear 44
Albumin 3.2 L
03/09/24
08:50
Lactic Acid 2.3 H
Microbiology Results
03/09/24 08:50 Influenza Types A & B (RACHEL) - Final
Nasal Swab Negative for Influenza A & B, NAAT
Negative results must be combined with clinical observations
and patient history.
Nucleic Acid Amplification test (NAAT)performed on the
[employer] platform.
--- NOTE | 2024-03-09 13:00 | PTCARENOTE ---
Pt arrived to ICU approx 1245 from ER via stretcher. Pt is oriented x3, BECKER, and cooperative. HR Afib with occ Sinus tach beat, occ PVC, 30% V paced, with BBB. Pt arrived with 2 L FA int's, new R FA 20g int placed on arrival. Levophed was at 18
mcg/min on arrival, and being titrated to presently to keeping MAP>65. Pt had 500 ml IVF boluses x2. Pt arrived on 15 L mid flow and was changed to high flow 55L, 100% as per Dr Marlow. Lobes with rhonchi noted bilat, diminished at R base. Pt
remains NPO. Attempted to use urinal, but did not have a need to void. Bladder scan done=96. Urinal at bedside. Lactic acid and PT/PTT drawn and sent to lab. Protonix and abx iv hung. Pt's and son at bedside and updated. Pt willing to bein
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 Pt denies any pain at this time. pneumatic bilat teds applied to lower exts.
[2024-03-09] MEDS: AQUAMEPHYTON 50.25 MG IV (13:20)
[2024-03-09 13:26] LABS: Lactic Acid 2.2 mmol/L (0.7-2.0)
[2024-03-09 13:30] LABS: APTT 54.5 Sec (23.4-35.0)
[2024-03-09] MEDS: NSS (PRESERVATIVE FREE) 10 ML IV ×2 (13:35→19:32)
[2024-03-09] MEDS: PROTONIX IV 40 MG IV ×2 (13:35→19:32)
[2024-03-09 15:29] LABS: B.E. -1.1 mmol/L; HCO3 25.7 mmol/L (21-28); O2 Saturation % 98.2 % (94-98); PCO2 51 mmHg (35-48); PO2 108 mmHg (83-108); pH 7.31 (7.35-7.45)
--- NOTE | 2024-03-09 16:00 | PTCARENOTE ---
Pt's levophed presently at 30 mcg keeping MAP>65. Dr Marlow in to see pt and updated. Central line R IJ was placed by IR Dr Shine at bedside as pt was unstable to go to IR. PCXR done. ABG was done on high flow, and pt was changed to NIV 10/16,
100% at 1300. Fio2 now weaned to 80%. O2 sat= presently 92%.
[2024-03-09] MEDS: ZITHROMAX INFUSION 250 IV (17:15)
--- NOTE | 2024-03-09 17:27 | PTCARENOTE ---
Pt's MAP was 63 with levophed at maxed titration rate. Dr Eid updated. Vasopressin drip started continuously at 0.03 units/h at 1700. MAP is presently 72 with levophed at 30 mcg/min and vasopressin drips. Pt urinated 100 ml of colleen urine in
urinal. Urine specimens sent to lab for Legionella and strep pna tests. Pt's son and daughter in room and updated. Pt denies any pain at this time. O2 sat=93% on NIV 10/16, 80%.
[2024-03-09] MEDS: FLEXBUMIN 100 IV (18:14)
--- NOTE | 2024-03-09 18:19 | PTCARENOTE ---
Albumin 25 gm/100ml hung now at 60 ml/hr x [address] Marlow. BP 110/64 (78), O2 sat=94% on present NIV settings. Pt turned to R and made comfortable.
[2024-03-09] MEDS: MAXIPIME 1000 MG IV (19:32)
[2024-03-09] MEDS: STERILE WATER FOR INJECTION 10 ML IV (19:32)
[2024-03-09 19:35] LABS: Lactic Acid 3.3 mmol/L (0.7-2.0)
--- NOTE | 2024-03-09 20:00 | PTCARENOTE ---
received patient. oriented x3. afib on monitor. levo and vaso gtts infusing to maintain MAP >65. + pulses. NIV in place, settings 12/5 FiO2 80%, satting 90-94%. denies SOB at this time. diminished breath sounds noted. NPO, hypoactive bowel sounds.
urinal at bedside. family at bedside and updated. supportive care provided. pt repositioned. RIJ CVC in place, CXR confirmed placement. levo gtt adjusted to double concentration. care ongoing.
[2024-03-09] MEDS: LEVOPHED 258 MG IV (20:04)
[2024-03-09] MEDS: NSS (PRESERVATIVE FREE) 0.125 ML IV (21:01)
[2024-03-09] MEDS: PITRESSIN 100 IV (21:01)
[2024-03-09] MEDS: ATIVAN 0.25 MG IV (21:01)
[2024-03-09] MEDS: LOPRESSOR 5 MG IV (21:54)
--- NOTE | 2024-03-09 23:46 | PTCARENOTE ---
patient reassessed. NIV settings unchanged, satting 90-93%. afib on monitor, PRN lopressor given for HR in 130s. pt repositioned for comfort. call cheatham within reach, care ongoing.
[2024-03-10] VITALS (23 sets, daily range): BP systolic 83–129; BP diastolic 54–80; BMI 25.3
[2024-03-10] MEDS: SOLU-CORTEF 50 MG IV ×5 (00:02→23:06)
[2024-03-10] MEDS: LEVOPHED 258 MG IV ×6 (00:02→22:37)
[2024-03-10] MEDS: DUONEB 3 ML INH ×6 (00:10→19:33)
[2024-03-10 03:37] LABS: Hematocrit 38.2 % (39.0-52.0); Hemoglobin 12.9 g/dL (13.0-18.0); Mean Corp Hgb Conc. 33.8 g/dL (33.0-37.0); Mean Corpuscular Hgb 32.4 pg (27.0-31.0); Mean Platelet Volume 9.4 fL (7.4-10.4); Platelet Count 121 10^3/uL (130-400); Red Blood Cell Count 3.98 10^6/uL (4.70-6.10); Red Cell Dist. Width 15.4 % (11.5-14.5); White Blood Cell Count 12.3 10^3/uL (4.8-10.8)
[2024-03-10 03:47] LABS: INR 3.76; PT 37.2 Sec (11.4-14.6)
[2024-03-10 03:51] LABS: Lactic Acid 2.8 mmol/L (0.7-2.0)
[2024-03-10 04:00] LABS: ALT (SGPT) 19 U/L (0-50); AST (SGOT) 43 U/L (17-59); Albumin 3.4 g/dl (3.5-5.0); Alkaline Phosphatase 78 U/L (38-126); Blood Urea Nitrogen 50 mg/dl (9-20); Calcium 7.8 mg/dl (8.4-10.2); Carbon Dioxide 21 mmol/L (22-30); Chloride 98 mmol/L (98-107); Estimated Creatinine Clearance 31 ml/min; Glucose 112 mg/dl (70-99); Magnesium 1.3 mg/dl (1.6-2.3); Phosphorus 5.7 mg/dl (2.5-4.5); Potassium 4.2 mmol/L (3.5-5.1); Sodium 129 mmol/L (135-145); Total Bilirubin 2.3 mg/dl (0.2-1.3); Total Protein 6.7 g/dl (6.3-8.2); eGFR 31.82
[2024-03-10 04:04] LABS: Vancomycin Random 13.8 ug/ml
[2024-03-10] MEDS: PITRESSIN 100 IV ×3 (04:10→23:45)
[2024-03-10] MEDS: NSS (PRESERVATIVE FREE) 0.125 ML IV (04:17)
[2024-03-10] MEDS: ATIVAN 0.25 MG IV (04:18)
[2024-03-10 04:41] LABS: Absolute Neutrophils -Man Diff 10.3 10^3/uL (1.4-6.5); Band Neutrophils 39 % (0-3); Lymphocytes 4 % (20-51); Segmented Neutrophils 45 % (42-75)
[2024-03-10 04:42] LABS: Metamyelocytes 6 % (-); Monocytes 5 % (2-9); Myelocytes 1 % (-); Normal RBC Morphology Yes; Platelets Checked Yes; Total Cells Counted 100
--- NOTE | 2024-03-10 04:55 | W.PN.UPDATE ---
Update Note
Progress Note Update
ARTERIAL LINE (A-Line) PLACEMENT
Date: 03/10/24
Time: 0445
Indication: Hemodynamic monitoring
Consent: patient able to verbalize consent
A time-out was completed verifying correct patient, procedure, site, positioning. Kulwant�s test was performed to ensure adequate perfusion. The patient�s left wrist was prepped and draped in sterile fashion.�A�20G Arrow arterial line was introduced
into the left radial artery. The catheter was threaded over the guide wire and the needle was removed with appropriate pulsatile�blood return. A sterile dressing applied. Perfusion to the extremity distal to the point of catheter insertion was
checked and found to be adequate.
Estimated Blood Loss: <5cc
The patient tolerated the procedure well and there were no complications.
--- NOTE | 2024-03-10 05:06 | PTCARENOTE ---
patient reassessed. pt drowsy but arousable to voice, remains oriented. NIV settings unchanged. ICU HOSPICE VOLUNTEER COORDINATOR placed left radial arterial line at bedside. AM labs sent. pt repositioned. call cheatham within reach, care ongoing.
[2024-03-10 05:17] LABS: B.E. -8.7 mmol/L; HCO3 21.3 mmol/L (21-28); O2 Saturation % 98.6 % (94-98); PCO2 64 mmHg (35-48); PO2 105 mmHg (83-108)
[2024-03-10 05:18] LABS: pH 7.13 (7.35-7.45)
[2024-03-10] MEDS: MAGNESIUM SULFATE 102 GRAMS IV (05:24)
--- NOTE | 2024-03-10 05:24 | PTCARENOTE ---
ABG results: pH 7.13, ICU FIELD ORGANIZER aware, NIV settings adjusted to 15/5 80%. repeat ABG ordered for 1000.
--- NOTE | 2024-03-10 05:50 | W.PN.HOSP.TC ---
Today's Communication/Plan
-
Vent settings sedation as per ICU
replete Mg
cont abx
pressor support
continue stress dose IV steroids
monitor renal function
Assessment / Plan
Assessment / Plan
Physical Exam
General: sedated intubated
HEENT: NormoCephalic, Anicteric, Moist mucous membranes and Atraumatic Pinpoint Pupils b/l Intubated
Respiratory: Clear to Auscultation b/l
Cardiac: Tachycardia
GI: Soft, Non Tender, Non Distended and Normal Bowel Sounds
Musculoskeletal: No Clubbing, No Cyanosis, No edema
Neuro: Sedated
HPI: 78-year-old male with a past medical history of atrial fibrillation on Coumadin, newly diagnosed cirrhosis, CAD, COPD, KIKI on CPAP, GERD, peptic ulcer disease, CHF, and hypertension presents with a 1 day history of fever, hemoptysis, and
shortness of breath. Family reports that he was coughing up blood intermittently overnight, with fever. Associated symptoms include hematemesis, lethargy, agitation. Patient was found to be in acute hypoxic respiratory failure in the ER, and
placed on a nonrebreather. He was also found to have septic shock from pneumonia, with pulmonary edema. He is getting vancomycin and cefepime in the ER, and currently on a Levophed drip. He is on prednisone 60 mg daily since June 2023, unclear
why.
#Septic shock, present upon admission
#Severe pneumonia
Patient with bandemia, tachycardia upon admission
Admitted to ICU, charge entry specialist consult appreciated, continue Levophed for MAP greater than 65, later vasopressin and phenylephrine added
Unable to give fluid boluses secondary to CHF
IR consult appreciated central line placed 03/09
Arterial Line placed 03/09
blood cultures NGTD, check sputum culture and Gram stain, check urine Legionella/strep antigen, check MRSA nares
Started on stress dose IV steroids�patient is on prednisone 60 mg p.o. daily since July 2023 at home, unclear why
cont stress dose IV steroids
Continue vancomycin cefepime azithromycin
Trend lactic acid, trend fever, trend white count
#Respiratory Failure/Acidosis s/p intubation 03/10 in AM following Manager Wastewater discussion with family
cont Vent settings sedation as Per ICU
#Hypomagnesemia
Monitor and Replete as necessary
#Hemoptysis with concern for pulmonary hemorrhage
CT Chest appreciated
1. Small bilateral pleural effusions, right greater than left.
2. Near complete atelectasis of the right lower lobe with soft tissue attenuation material within bronchi to the right lower lobe which could be related to either secretions or aspiration.
3. Combination of atelectasis and dense airspace consolidation throughout the left upper and lower lobes as above. As on the right, there is soft tissue attenuation opacification of left lower lobe bronchi could be related to either secretions or
aspiration.
4. Advanced emphysematous changes.
#Acute on chronic heart failure with reduced ejection fraction
Echo 06/05/2023 EF 30-35%, global hypokinesis, mechanical mitral valve, mild MR, moderate TR
Lasix on Hold d/t shock/hypotension
Cardio Consult Requested
Continue Jardiance, trend weights
#Coagulopathy
#Paroxysmal atrial fibrillation
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
EKG shows sinus tachycardia with first-degree AV block and occasional V paced complexes
INR elevated at 4.58 today, goal is 2.5�3.5
Hold Coumadin, INR trending down remains supratherapeutic
Holding home beta-kyle due to shock/hypotension
metoprolol 5 mg IV prn HR>120
#Type II AK from demand ischemia
Trend troponin
#Hematemesis
Likely from swallowed blood products from hemoptysis
Protonix 40 mg IV twice daily
H&H stable
#Hyponatremia
Due to CHF, monitor
#Acute kidney injury
baseline is normal, initial creatine 1.5 increased to 2.1
From CHF and septic shock
Monitor creatinine, avoid nephrotoxic drugs/NSAIDs
cont pressor support
#Thrombocytopenia
Due to sepsis, monitor
#Recently diagnosed cirrhosis
Follows with Dr. Saunders outpatient
DVT prophylaxis�SCDs, hold Coumadin secondary to supratherapeutic INR
Full code
Manager Wastewater discussion with family appreciated.
Total Critical Care Time___45__ minutes. I was immediately available to the patient and staff. I personally examined, reviewed labs, diagnostic images/reports, interpretations, treatment plans, discussed patient care with other providers entered
orders as appropriate and documented the medical record.
Anticipated Discharge: > 48 hours
Subjective/Interval History
-
Date of Service: March 10, 2024
intubated sedated in morning due to AMS respiratory failure acidosis pH 7.13.
Objective Data
-
Labs:
Laboratory Results
03/10/24 03/10/24 03/10/24
03:23 04:52 10:00
WBC 12.3 H
Hgb 12.9 L
Hct 38.2 L
Plt Count 121 L D
PT 37.2 H
INR 3.76
HCO3 Cancelled 21.3 Pending
Sodium 129 L
Potassium 4.2
Chloride 98
Carbon Dioxide 21 L
BUN 50 H
Creatinine 2.1 H
Glucose 112 H
Calcium 7.8 L
Total Bilirubin 2.3 H
AST 43
ALT 19
Alkaline Phosphatase 78
Vital Signs:
Vital Signs
Temp Pulse Resp BP Pulse Ox
97.5 F 114 33 83/54 94
03/10/24 03:40 03/10/24 05:30 03/10/24 05:30 03/10/24 05:03 03/10/24 05:30
I&O
03/08/24 03/09/24 03/10/24
06:59 06:59 06:59
Intake Total 1518.0 / 1518.0
Output Total 500 / 500
Balance 1018.0 / 1018.0
--- NOTE | 2024-03-10 06:32 | PTCARENOTE ---
pt less responsive this morning, ICU APPARATUS REPAIR MECHANIC made aware. no new orders at this time. bladder scan for 20ml. RIJ CVC dressing changed. care ongoing.
[2024-03-10] MEDS: STERILE WATER FOR INJECTION 10 ML IV (07:33)
[2024-03-10] MEDS: PROTONIX IV 40 MG IV ×2 (07:33→19:07)
[2024-03-10] MEDS: NSS (PRESERVATIVE FREE) 10 ML IV ×2 (07:33→19:07)
[2024-03-10] MEDS: MAXIPIME 1000 MG IV (07:33)
[2024-03-10 07:43] LABS: Glucose - Point of Care 110 mg/dl (70-99)
--- NOTE | 2024-03-10 07:43 | PHA.VAN.FU ---
Vancomycin Assessment / Plan
- Assessment
Renal Function: SCR Increasing
WBC's are: Trending Up
In the past 24 hrs, patient has been: Afebrile
Concomitant Antimicrobials: Azithromycin, Cefepime
- Assessment - Therapeutic Drug Monitoring
Random Level: 13.8
- Dosing Plan
Dosing by Level: Re-dose today (500mg)
- Monitoring Plan
Random Level: 03/11 @0600
- Follow Up
Pharmacy will continue to follow.
Vancomycin Follow UP
- -
Patient Age: 78
Patient Sex: Male
Vancomycin Day #: 2
Indication: Pulmonary/Respiratory
Requesting Provider: Do
Height / Weight:
Height 5 ft 11 in
Actual Weight 82.4 kg
IBW in k.3
Adjusted BW in k.8
Pertinent Past Medical History: ADRIANA.
- Vital Signs / Lab Results
Temp Pulse Resp BP Pulse Ox
97.4 F 118 28 83/54 97
03/10/24 06:55 03/10/24 07:23 03/10/24 07:23 03/10/24 05:03 03/10/24 07:23
Lab Results - Hematology
03/09/24 03/10/24
08:50 03:23
WBC 2.7 L 12.3 H
Band Neutrophils 20 H 39 H D
Lab Results - Chemistry
03/09/24 03/10/24
08:50 03:23
BUN 42 H 50 H
Creatinine 1.5 H 2.1 H
Estimated Creat Clear 44 31
Albumin 3.2 L 3.4 L
03/09/24 03/09/24 03/09/24
08:50 13:02 19:15
Lactic Acid 2.3 H 2.2 H 3.3 H
03/10/24
03:23
Lactic Acid 2.8 H
Microbiology Results
03/09/24 08:50 Influenza Types A & B (RACHEL) - Final
Nasal Swab Negative for Influenza A & B, NAAT
Negative results must be combined with clinical observations
and patient history.
Nucleic Acid Amplification test (NAAT)performed on the
[employer] platform.
Therapeutic Drug Monitoring
Random Vancomycin 13.8 ug/ml 03/10/24 03:23
[2024-03-10] MEDS: SODIUM BICARBONATE 50 MEQ IV (08:35)
[2024-03-10] MEDS: SUBLIMAZE 80 MCG IV (08:37)
[2024-03-10] MEDS: SUBLIMAZE 100 IV (08:40)
--- NOTE | 2024-03-10 08:43 | W.PN.ANESINT ---
Anesthesia Intubation Note
- Intubation Note
Intubation Note:
Diagnosis: Respiratory acidosis, respiratory distress
Blade: UE # 4
Tube Size: 8.0 hi lo ETT
Depth: 23 cm at Right lip
Side Taped: Right
Drugs Used: Propofol 50 mg
Grade View: Grade 1
EtCO2 Present: +ETCO2 via stat cap
Atraumatic: yes
Attempts: 1
Insertion Start and Stop Time:
SaO2 Pre: 97
SaO2 Post: 93
Glidescope Used: yes
Other Airway Adjustments:
Pre-Oxygenated: Bipap on arrival and ambu prior to intubation, easy ambu bag ventilation
Portable Chest X-Ray: ordered
RSI:
Suctioned: suctioned for bloody secretions in airway
Bilateral Breath Sounds Confirmed: yes +BBS
Vent Settings: See respiratory flow sheet
Left in care of respiratory, ICU staff and Dr. Sellers in stable condition...Pt on pressors (Vasopressin/Levo)
Settings per ___Attending Physician
[2024-03-10] MEDS: MAGNESIUM SULFATE 50 IV (09:17)
[2024-03-10] MEDS: VANCOCIN HCL 500 MG 100 IV (09:27)
[2024-03-10 09:33] LABS: COVID-19 Antigen Negative (Negative)
--- NOTE | 2024-03-10 10:11 | CON.CAR ---
Addendum entered and electronically signed by Channing Leo MD 03/10/24 12:02:
I saw and examined the patient.
The ELECTRICAL ASSEMBLY TECHNICIAN's note was reviewed and I agree with the note.
Comment: 78-year-old gentleman with a past medical history of permanent atrial fibrillation, mechanical mitral valve replacement on chronic Coumadin, coronary artery disease, heart failure with reduced EF, COPD, pulmonary hypertension non-Hodgkin's
lymphoma presents with shortness of breath and hemoptysis. Currently he is intubated and sedated. He is in septic shock requiring 3 vasopressors. Hemoglobin has been stable. He received a small dose of vitamin K for an INR 4.5 with hemoptysis.
Hemoglobin remained stable. On exam, he has significant bitemporal wasting and appears cachectic, ET tube in place, mechanical S1 with an irregularly irregular rhythm. He has rales mostly on the left side when auscultated anteriorly, no lower
extremity edema. CT scan reviewed shows extensive right-sided infiltrates on my review. The official report also discussed combination of atelectasis and consolidation in the left upper lobe and lower lobe. Advanced emphysema attic changes also
seen. I discussed this case with Dr. Eid, would avoid further vitamin K use as he has a mechanical mitral valve and permanent atrial fibrillation. There is no clear evidence of hemorrhagic shock. Hemoptysis seems to be secondary to pneumonia
and hypotension seems to be septic in etiology. He agrees. Would hold warfarin tonight as his INR is still greater than 3.5. But will consider to add back tomorrow. He is agreeable to this. Will follow clinically. Otherwise, ongoing treatment
of his acute septic shock with multiorgan system failure requiring ventilation and 3 vasopressors. Remainder as below..
Original Note:
Consultation
Consultation Request
Date/Time Consultation Requested: 03/09/2024 12:30
Date/Time Consultation Performed: 03/10/2024 10:00
Requesting Provider: Dr. Wallace
Performing Provider: DAV Veras for Dr. Leo
Reason for Consultation: Acute on chronic heart failure
Medical History
-
Chief Complaint: Hemoptysis
History of Present Illness:
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 Srinivasan), with permanent atrial fibrillation, mitral valve replacement (on warfarin), coronary artery disease, HFrEF, COPD, hypertension,
pulmonary hypertension, cirrhosis, and non-Hodgkin's lymphoma s/p chemo/XRT (2003), presented to the emergency department with a chief complaint of shortness of breath with associated hemoptysis. He presented with a low-grade fever, tachycardia,
tachypnea, and hypotension. He was placed on a nonrebreather and saturation improved from 66% to 91%. He had leukopenia on admission with 20% bands. His INR was 4.58 and he received vitamin K. His chest x-ray showed pleural effusions and near
complete atelectasis of the right lower lobe. He was admitted to the intensive care unit due to vasopressor and oxygen requirement. An A-line was placed overnight. This morning he was intubated.
Past Medical History
Past Medical History: Arrhythmias (Permanent atrial fibrillation), CAD, Cancer (NHL [prior XRT and chemotherapy, 2003]), CHF (HFrEF), COPD, HTN and Valvular Disease (S/p MVR)
Past Surgical History: Appendectomy and Cardiac
Social History
Tobacco: Former Smoker
Alcohol: Other (Unable to obtain)
Living: With Family
Employment: Retired
Family History
Family History: Unable to Obtain
Allergies / Home Medications
Allergy/AdvReac Type Severity Reaction Status Date / Time
No Known Allergies Allergy Verified 03/09/24 09:51
�Medication �Instructions �Recorded �Confirmed �Type
warfarin 2.5 mg tablet (Jantoven) 2.5 mg PO DAILY Blood clot 07/13/21 03/09/24 History
prevention/tx
furosemide 20 mg tablet 20 mg PO DAILY Fluid 11/01/21 03/09/24 History
Retention/Swelling
metoprolol succinate 50 mg 25 mg PO DAILY Heart 11/01/21 03/09/24 History
tablet,extended release 24 hr Disease/Condition
fluticasone fur. 100 mcg-umeclid 1 inh inhalation Q24H 10/23/22 03/09/24 History
62.5 mcg-vilant 25 mcg Lung/Breathing Issues
inhalat.powder (Trelegy Ellipta)
potassium chloride 20 mEq 20 meq PO DAILY Electrolyte 10/23/22 03/09/24 History
tablet,extended Repletion
release(part/cryst) (Klor-Con M)
empagliflozin 10 mg tablet 10 mg PO DAILY Heart Failure 07/26/23 03/09/24 History
(Jardiance)
omeprazole 20 mg capsule,delayed 40 mg PO DAILY Gastrointestinal 07/26/23 03/09/24 History
release Issue
prednisone 20 mg tablet 60 mg PO DAILY Anti-Inflammatory 03/09/24 03/09/24 History
Review of Systems
-
Unable to obtain full review of systems at this time due to: Patient Intubation
Physical Exam
Vital Signs
Temp Pulse Resp BP Pulse Ox
97.4 F 118 28 83/54 97
03/10/24 06:55 03/10/24 07:23 03/10/24 07:23 03/10/24 05:03 03/10/24 09:12
Lab Results
03/10/24 03:23
Troponin I 0.148 ng/ml H* 03/09/24 08:50
Zja-I-Lnkyydfopoc Pept > 35540 pg/ml 03/09/24 08:50
Physical Exam
General: Well Developed, Well Nourished, No Apparent Distress and Comfortable
HEENT: Normocephalic and Anicteric
Respiratory: Crackles and Other (Intubated)
Cardiac: S1/S2 and Irregular Rhythm
Breast: Deferred by me
GI: Soft, Non Tender and Non Distended
Rectal: Deferred by Provider
Genito-urinary: No Costovertebral Tender
Musculoskeletal: No Clubbing, No Cyanosis and No Edema
Skin: Warm
Neuro: Sedated
Hematologic/Lymphatic: No Lymphadenopathy
Psych: Calm
Impression / Plan
-
Septic shock, in the setting of pneumonia
-Hypotension, lactic acidosis, ADRIANA, hypoxia, and procalcitonin of 14.84
-Intubated 03/10/2024
-High vasopressor requirement (Levophed, vasopressin, phenylephrine), echocardiogram today
Hemoptysis, s/p vitamin K without acute blood loss
HFrEF (EF 30-35%), acute on chronic
-Diuresis with furosemide 40mg IV BID, closely monitor given ADRIANA
-Hold Jardiance in the setting of ADRIANA
-Trend daily weight, I/O, and BMP with diuresis
-Echocardiogram today
ADRIANA, trend
Permanent atrial fibrillation
-Rates will be elevated in the setting of septic shock
-Oral Anticoagulation: Warfarin (mechanical mitral valve), on hold
-[id number]: score at least 4 (Heart failure, age 75 or more, Vascular disease)
Abnormal troponin, likely nonischemic myocardial injury in the setting of acute illness (sepsis)
-Trend to peak
Status post mechanical mitral valve replacement
-Goal INR 2.5�3, warfarin on hold in the setting of hematemesis
-Hold further vitamin K
Hyponatremia, hypervolemic, follow with diuresis
CAD, nonobstructive, 20-30% pLAD stenosis by [facility] 2020
S/p Micra PPM
Cirrhosis
COPD
Former smoker, continued cessation recommended
Data Reviewed
-
EKG: Report Reviewed by me (Sinus tachycardia with some ventricular paced complexes, incomplete right bundle branch block, rate 122)
Radiology: Report Reviewed by me (CXR: Placement of ET tube. Large pneumonia throughout the left lung. Small bilateral pleural effusions)
Labs: Labs Reviewed by me
Old Records: Reviewed
[2024-03-10 10:18] LABS: B.E. -7.5 mmol/L; HCO3 20.1 mmol/L (21-28); O2 Saturation % 99.1 % (94-98); PCO2 48 mmHg (35-48); PO2 139 mmHg (83-108); pH 7.23 (7.35-7.45)
--- NOTE | 2024-03-10 10:32 | W.PN.INTV ---
Today's Communication / Plan
Recommendations
Mechanical ventilation started
Will adjust based on ABG results
Continue vasopressors
Continue with sedation
Repeat labs later today, may need bicarbonate drip
Follow renal function
Continue antibiotic
Follow cultures
Obtain tracheal aspirate
Prognosis guarded
Assessment
-
Assessment: 78-year-old male former tobacco smoker with a past medical history of moderate COPD, moderate restrictive lung disease, history of hemoptysis, history of LLL bronchiectasis, history of left-sided pneumonia, history of aspergillus,
chronic anticoagulation for mechanical mitral valve replacement (July 2021), history of COVID-19, HFrEF with RV dysfunction, pulmonary hypertension, history of NHL s/p chemo/XRT (2003), and chronic thrombocytopenia with unremarkable bone marrow
biopsy (10/2023) who presents with shortness of breath, weakness and fever. He also has been coughing up blood which started 1 night ACQUISITION LEAD. Patient has low-grade fever to 100.1 �F in the ER, and tachycardic to 115 bpm, tachypnea to 25 respirator,
hypotensive to 72/44, and initially was saturating 66% on room air. Saturations improved to 91% with nonrebreather. Labs showed leukopenia to 2.7 with 20% bands, anemia to 12, elevated INR 4.58, hyponatremia 130, ADRIANA to 1.5, lactic acid elevated
at 2.3, elevated troponin 0.148, increased proBNP of >27,000, and negative COVID-19 antigen; flu A/B swab also negative. Blood cultures were collected. CXR shows a 10 cm left midlung airspace opacity with acute cardiogenic pulmonary edema and a
right-sided pleural effusion with compressive atelectasis. In the ER antibiotics were given with cefepime/vancomycin, he was also given DuoNebs x 1, given IV fluids with NS 0.5L and started on Levophed due to persistent hypotension with SBP in the
80s. Due to patient's vasopressor and oxygen requirements, he is being admitted to the ICU. Critical care services now consulted for additional management/recommendations.
Chronic conditions ACQUISITION LEAD: COPD, restrictive lung disease, history of hemoptysis, chronic anticoagulation with warfarin due to mechanical mitral valve replacement (07/2021), history of left lower lobe bronchiectasis, elevated left hemidiaphragm, KIKI on
CPAP, personal history of COVID-19, chronic atrial fibrillation on Coumadin, history of tobacco abuse with [id number] history (quit in 2018), history of HFrEF with RV dysfunction, mild�moderate pulmonary hypertension, history of GI bleed,
postnasal drip, history of non-Hodgkin's lymphoma s/p chemo/radiation (2003), history of left-sided pneumonia due to Streptococcus pneumonia, history of aspergillus, history of Vieira's esophagus, history of thrombocytopenia s/p unremarkable bone
marrow biopsy
Impression:
#Acute respiratory failure with hypoxia due to CAP + acute pulmonary edema with right pleural effusion
Intubated 03/10/2024
#Bandemia with 20% bands -due to septic shock from left side pneumonia
#Severe left-sided CAP
#Septic shock due to above
#Lactic acidosis
#Acute COPD exacerbation due to above
#Hemoptysis due to pneumonia in the setting of chronic anticoagulation with supratherapeutic INR
#Supratherapeutic INR (INR: 4.58)
#Hyponatremia
#Acute kidney injury (Cr baseline approx 1.1)
#Elevated troponin likely due to demand ischemia with type II DE
#Chronic pancytopenia
#Mechanical mitral valve replacement on Coumadin
#Chronic A-fib on Coumadin
#DM type II
Former smoker
Former alcohol use.
Plan:
Critically ill, condition has deteriorated.
Intubated emergently 03/10/2024 due to worsening hypercapnic respiratory failure and septic shock.
-
Mechanical ventilation settings reviewed
Assist-control/450/24/80%/+5
Pkp 24.
appears comfortable. .
X-ray postintubation: ET tube in place. No pneumothorax. Severe pneumonia left greater than right. Improved lung volumes.
-
Sedation with fentanyl and propofol
Maintain RASS (0-1)
Continue- Broad spectrum Abx with cefepime/vanc/azithromycin
CT chest noted: Showed small bilateral pleural effusions. Right greater than left. Near complete atelectasis of the right lower lobe, soft tissue attenuation of the right mainstem bronchus. Likely mucous plugging. Left upper lobe infiltrate.
Advanced emphysema.
-Cultures negative so far.
Unable to provide a sputum, Obtain tracheal aspirate now that he is intubated.
- May need bronchoscopy if hemoptysis worsens, hold for now as FiO2 is 80%.
If on mechanical ventilation pulmonary mechanics suggest mucous plugging then bronchoscopy will be necessary. Will reevaluate later today.
-
Continue to quantify hemoptysis:
Status post vitamin K (2.5mg IVP x1) and hold coumadin; hold off on further reversal of INR given presence of mechanical valve. Today's INR 3.76.
Hemoglobin 12.9.
Coumadin on hold until INR is under 3.
-
Septic shock:
Norepinephrine/vasopressin/Herbert-Synephrine
Maintain mean arterial blood pressure 65 mmHg
Follow renal function.
Cote in place: Cote urinary output. Currently adequate.
Function and lactic acid.
Last echocardiogram available 06/05/2023: Showed moderate to severe reduced left ventricular action fraction. Global hypokinesis. EF 30-35%. Mechanical mitral valve. Moderate TR.
-
Continue stress dose of steroids for now. Hydrocortisone.
-
COPD history:
Continue DuoNebs
Steroids as above
-
Acute kidney injury
Metabolic acidosis
Continue hemodynamic support
Repeat BMP later, if acidosis worsen will place on bicarbonate drip.
Patient did receive 1 amp of bicarbonate earlier this morning.
Continue to follow electrolytes daily.
-
Maintain euglycemia with goal BG 140-180
Insulin will be provided as needed.
-
DVT ppx
GI prophylaxis with Protonix
OG tube
N.p.o. for now
-
Dr. Eid discussed in detail with son and at the bedside 03/10/2024.
They are aware he is critically ill and at high risk of multiorgan failure and .
Prognosis is guarded
Critical care statement: A total of 45 minutes of critical care time was provided for this patient today. This includes management of unstable vital signs, evaluation of the patient at bedside, reviewing the patient's pertinent medical records
including radiographs, microbiology, laboratory evaluations, and discussion with primary team, consultants, pharmacy, nutrition, physical therapy, case management, charge nurse, critical care nursing, and respiratory therapy.

Data:
CXR 03-09-2024:
1. New large 10 cm airspace opacity in the left mid and lower lung which was not present 12/05/2023. Diagnostic possibilities are (1) severe pneumonia, (2) pulmonary hemorrhage, or (3) asymmetric alveolar pulmonary edema.
2. Moderate acute interstitial cardiogenic pulmonary edema.
3. Moderate to severe bilateral upper lobe emphysema.
4. Mild cardiomegaly with evidence for previous mitral valve replacement.
5. Small right pleural effusion and adjacent moderate compressive atelectasis in the right lower lobe.
Subjective Dataa
Subjective Data
Date of Service:
Date of Service: March 10, 2024
Chief Complaint: Environmental Science Technician Follow Up (Acute hypoxemic and hypercarbic respiratory failure requiring intubation)
Subjective:
Patient deteriorated this morning, lethargic on noninvasive mechanical ventilation.
ABG demonstrated acute respiratory acidosis.
On multiple pressors, critically ill.
Anesthesia called for intubation immediately.
Review of Systems
General: Other (Unable to provide due to respiratory status)
Objective Data
Data Reviewed
Vital Signs / I&O / Oxygen:
Vital Signs
Temp Pulse Resp BP Pulse Ox
97.4 F 118 28 83/54 97
03/10/24 06:55 03/10/24 07:23 03/10/24 07:23 03/10/24 05:03 03/10/24 09:12
Intake and Output
03/09/24 03/10/24 03/11/24
06:59 06:59 06:59
Intake Total 1685.3 / 1750.6 340.7 / 340.7
Output Total 400 / 400 90 / 90
Balance 1285.3 / 1350.6 250.7 / 250.7
SaO2 [A/C] 93
SaO2 [NIV (Non Invasive 96
Ventilation)]
SaO2 97
Nasal Cannula flow liters per 55
minute
Physical Exam
General: Respiratory Distress (On noninvasive mechanical ventilation)
HEENT: Normocephalic
Cardiovascular: S1-S2
Respiratory: Crackles and Accessory Resp Muscle Use
GI: Soft and Non Distended
Neurology: Other (Lethargic, occasionally moving 4 extremities. Not following commands.)
Skin: Warm
Labs/Micro/Reports
Lab Data
03/10/24 03:23
Laboratory Results
03/09/24 03/09/24 03/09/24
12:26 13:02 15:22
PT
INR
APTT 54.5 H
pH 7.28 L 7.31 L
pCO2 58 H 51 H
pO2 61 L 108
HCO3 27.3 25.7
O2 Delivery Level
03/10/24 03/10/24 03/10/24
03:23 04:52 10:04
PT 37.2 H
INR 3.76
APTT
pH Cancelled 7.13 L* 7.23 L
pCO2 Cancelled 64 H 48
pO2 Cancelled 105 139 H
HCO3 Cancelled 21.3 20.1 L
O2 Delivery Level Cancelled
Microbiology
03/09/24 17:27 Urine Legionella Urinary Antigen - Final
Negative for Legionella pneumophila Serogroup 1 antigen.
A negative result does not rule out the possiblity of
Legionella infection due to other serogroups or species of
Legionella. Clinical correlation is recommended.
03/09/24 17:27 Urine Streptococcus pneumoniae Antigen (M - Final
Negative for Streptococcus pneumoniae antigen.
A negative result does not exclude infection with
Streptococcus pneumoniae. Clinical correlation is
recommended.
03/09/24 08:50 Blood/Venous Blood Culture - Preliminary
No Growth in 24 hours- Final report to follow
03/09/24 08:50 Blood/Venous Blood Culture - Preliminary
No Growth in 24 hours- Final report to follow
03/09/24 08:50 Nasal Swab Influenza Types A & B (RACHEL) - Final
Negative for Influenza A & B, NAAT
Negative results must be combined with clinical observations
and patient history.
Nucleic Acid Amplification test (NAAT)performed on the
[employer] platform.
[2024-03-10] MEDS: ZITHROMAX INFUSION 250 IV (11:11)
--- NOTE | 2024-03-10 11:45 | CM ---
CM following re: discharge planning.
Discussed in rounds, reviewed pt's chart, met with pt. Pt's spouse Connie and a niece at bedside.
Pt is a 78 year old male, admitted with primary dx of Acute respiratory failure with hypoxia due to CAP + acute pulmonary edema with right pleural effusion. Intubated 03/10/2024.
Per family, pt lives with spouse 2SH, 3 steps to enter, has 6 supportive children/stepchildren. 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 No DME, VN or SNF history.
PCP: Kylie Liu
Pharmacy: [facility].
D/C plan: uncertain at this time, most likely home with family support.
CM will follow with discharge plan updates as hospitalization progresses
[2024-03-10 12:56] LABS: Lactic Acid 3.6 mmol/L (0.7-2.0)
[2024-03-10 12:57] LABS: Chloride 98 mmol/L (98-107); Estimated Creatinine Clearance 31 ml/min; Glucose 132 mg/dl (70-99); Potassium 4.2 mmol/L (3.5-5.1); Sodium 129 mmol/L (135-145); eGFR 31.82
[2024-03-10 13:01] LABS: Blood Urea Nitrogen 53 mg/dl (9-20); Calcium 7.7 mg/dl (8.4-10.2); Carbon Dioxide 18 mmol/L (22-30); Magnesium 2.3 mg/dl (1.6-2.3)
[2024-03-10 13:04] LABS: Troponin I 0.531 ng/ml
[2024-03-10] MEDS: NEO-SYNEPHRINE 1% 260 MG IV (14:45)
--- NOTE | 2024-03-10 14:54 | PTCARENOTE ---
Patient received in AM with assessment as noted. Initially on NIV with no sedation, minimally responsive and not speaking. Sao2 98% on NIV 15/5, Fio2 80% with a resp rate in the 40's. made aware and patient intubated at approx 0810. #8 ET
tube, 23 cm on the right with good placement noted by CXR. Sao2 maintained >95%. Received hypotensive with MAP's in the 50's with Levophed infusing at 30 mcg/min and Vasopressin infusing 0.03 units/min. aware and Neosynepherine gtt added
post intubation. Initially infusing at 50 mcg/min but titrated up to 100 mcg by 0900 and again increased to 125 mcg at 1120 finally to 150 mcg/min at 1250 to maintain MAP's >65. Pressors infusing via right IJ TLC. Fentanyl gtt started post
intubation and currently infusing at 30 mcg/hr with the patient arousable to voice and able to interact weakly when awake. Denies pain. Soft wrist restraints maintained for patient safety with current order on chart and documentation as noted. A-fib
on monitor. Afebrile. B/P's as noted. Lungs decreased through out. Sao2 96% on vent setting A/C 24-450-70% peep 5. Suctions for scant blood tinged secretions. Hypo BS. No bowel movement today. Cote placed with small amounts of yellow/colleen urine
output noted. Family present through out shift and updated to patient condition. Patient currently in bed with side rails up, soft wrist restraints in place and at bedside.
--- NOTE | 2024-03-10 16:23 | W.PN.UPDATE ---
Update Note
Progress Note Update
Remains critically ill with multiorgan failure.
Multiple pressors.
Currently on high doses of norepinephrine, Herbert-Synephrine and also vasopressin.
Epinephrine will be added next if there is need for more support.
I have personally discussed critical situation with his .
Prognosis remains guarded.
Repeat ABG and laboratories now.
Ventilator will be adjusted. If there is significant metabolic acidosis will start bicarbonate drip as well.
[2024-03-10 16:33] LABS: B.E. -6.5 mmol/L; HCO3 20.6 mmol/L (21-28); O2 Saturation % 98.2 % (94-98); PCO2 46 mmHg (35-48); PO2 93 mmHg (83-108); pH 7.26 (7.35-7.45)
[2024-03-10 17:03] LABS: Blood Urea Nitrogen 54 mg/dl (9-20); Calcium 7.6 mg/dl (8.4-10.2); Carbon Dioxide 19 mmol/L (22-30); Chloride 97 mmol/L (98-107); Estimated Creatinine Clearance 35 ml/min; Glucose 135 mg/dl (70-99); Potassium 4.3 mmol/L (3.5-5.1); Sodium 127 mmol/L (135-145); eGFR 35.88
--- NOTE | 2024-03-10 19:30 | PTCARENOTE ---
rec'd patient. pt intubated, b/l soft wrist restraints in place. arouses to voice, follows commands, nods appropriately. denies pain. fent gtt infusing for sedation. afib on monitor w/ BBB. + pulses. levo, vaso, julia gtts infusing to maintain MAP
>65. #8 ETT, 23 @ lip. vent settings: AC 26/500/60%/5. RT adjusted FiO2 to 50% upon assessment. diminished breath sounds noted, especially in R base. blood tinged secretions through ETT and orally. ETT adjusted. NPO, hypoactive bowel sounds. lovelace
w/ therm in place, colleen urine noted. pt repositioned, extremities elevated on pillows. care ongoing.
[2024-03-10] MEDS: SUBLIMAZE 50 MCG IV (23:45)
[2024-03-11] VITALS (7 sets, daily range): BP systolic 88–137; BP diastolic 63–83; BMI 25.7
[2024-03-11] MEDS: OFIRMEV 100 IV ×4 (00:24→23:16)
[2024-03-11] MEDS: DUONEB 3 ML INH ×7 (00:52→23:09)
[2024-03-11] MEDS: LEVOPHED 258 MG IV ×4 (02:56→19:12)
[2024-03-11] MEDS: NEO-SYNEPHRINE 1% 260 MG IV (02:56)
[2024-03-11] MEDS: SUBLIMAZE 50 MCG IV ×2 (02:56→06:46)
[2024-03-11 03:16] LABS: B.E. -3.3 mmol/L; HCO3 21.3 mmol/L (21-28); Ionized Calcium 1.05 mMOL/L (1.15-1.33); O2 Saturation % 98.8 % (94-98); PCO2 36 mmHg (35-48); PO2 89 mmHg (83-108); Potassium 4.2 mMOL/L (3.5-5.1); Sodium 125 mMOL/L (136-145); pH 7.38 (7.35-7.45)
[2024-03-11 03:20] LABS: Hemoglobin 12.3 g/dL (13.0-18.0); Mean Corp Hgb Conc. 34.2 g/dL (33.0-37.0); Mean Corpuscular Hgb 31.9 pg (27.0-31.0); Mean Corpuscular Volume 93.5 fL (80.0-94.0); Mean Platelet Volume 10.7 fL (7.4-10.4); Platelet Count 100 10^3/uL (130-400); Red Blood Cell Count 3.85 10^6/uL (4.70-6.10); Red Cell Dist. Width 15.2 % (11.5-14.5); White Blood Cell Count 18.7 10^3/uL (4.8-10.8)
[2024-03-11 03:30] LABS: INR 2.59; PT 27.7 Sec (11.4-14.6)
[2024-03-11 03:32] LABS: Lactic Acid 2.9 mmol/L (0.7-2.0)
[2024-03-11 03:45] LABS: Blood Urea Nitrogen 58 mg/dl (9-20); Calcium 7.8 mg/dl (8.4-10.2); Carbon Dioxide 19 mmol/L (22-30); Chloride 96 mmol/L (98-107); Estimated Creatinine Clearance 39 ml/min; Glucose 165 mg/dl (70-99); Potassium 4.2 mmol/L (3.5-5.1); Sodium 127 mmol/L (135-145); eGFR 41.01
[2024-03-11 03:47] LABS: Troponin I 0.582 ng/ml
[2024-03-11 04:39] LABS: Magnesium 1.8 mg/dl (1.6-2.3)
[2024-03-11] MEDS: CALCIUM CHLORIDE 10% SYRINGE 60 MG IV (04:51)
--- NOTE | 2024-03-11 05:00 | PTCARENOTE ---
patient reassessed. neuro status unchanged. remains afib on monitor. temp increasing overnight, PRN ofirmev ordered. levo/vaso/julia gtts titrated per protocol to maintain MAP goal >65. fent gtt titrated per protocol. FiO2 decreased to 40%. ETT
adjusted, tube fragoso replaced. oral care and sxn provided q4h and as needed. lovelace care provided. AM labs sent. repleting lytes. pt repositioned. care ongoing.
[2024-03-11] MEDS: SOLU-CORTEF 50 MG IV ×4 (05:02→23:17)
[2024-03-11] MEDS: MAGNESIUM SULFATE 102 GRAMS IV (06:25)
--- NOTE | 2024-03-11 07:25 | W.PN.CD ---
Today's Communication / Plan
-
Restart warfarin
Wean pressors and vent as able
Impression / Plan
-
A: 78-year-old gentleman with a past medical history of permanent atrial fibrillation, mechanical mitral valve replacement on chronic Coumadin, coronary artery disease, heart failure with reduced EF, COPD, pulmonary hypertension non-Hodgkin's
lymphoma presents with shortness of breath and hemoptysis. He currently has respiratory failure 2/2 PNA requiring intubation and mechanical ventilation and septic shock requiring pressor support.
Septic shock, in the setting of pneumonia
-Hypotension, lactic acidosis, ADRIANA, hypoxia, and procalcitonin of 14.84
-Intubated 03/10/2024
-Continued high vasopressor requirement (Levophed, vasopressin, phenylephrine), echocardiogram below
Hemoptysis, s/p vitamin K without acute blood loss
HFrEF now 15-20% new, acute on chronic likely start diuresis tomorrow
-Oxygenating OK hold diuresis today, closely monitor given ADRIANA
-Hold Jardiance in the setting of ADRIANA
-Trend daily weight, I/O, and BMP with diuresis
-Echocardiogram below
ADRIANA, trend improving 1.7 today from 1.9 03/10
Permanent atrial fibrillation
-Rates will be elevated in the setting of septic shock and use of inotropes
-Oral Anticoagulation: Warfarin (mechanical mitral valve), restart warfarin if able to obtain NG tube or Enoxaparin 1/mg/kg SQ q12hr if unable to give warfarin
-[id number]: score at least 4 (Heart failure, age 75 or more, Vascular disease)
Abnormal troponin, likely nonischemic myocardial injury in the setting of acute illness (sepsis)
-Trend to peak
Status post mechanical mitral valve replacement
-Goal INR 2.5�3
-Restart warfarin Hgb stable
- warfarin 2.5 mg
Hyponatremia, hypervolemic, follow with diuresis
CAD, nonobstructive, 20-30% pLAD stenosis by [facility] 2020
S/p Micra PPM
Cirrhosis
COPD
Former smoker, continued cessation recommended
TTE March 10 2024: CONCLUSIONS
Severely reduced left ventricular systolic function. Left ventricular ejection
fraction appears 15-20% by visual assessment.
Global hypokinesis.
Normal right ventricular size with reduced systolic function.
Well seated normally functioning mechanical mitral valve.
Moderate tricuspid regurgitation with moderate pulmonary hypertension.
Compared to the images from 06/05/2023, the left ventricular systolic function
has decreased from 30 to 35% to 15 to 20%. The right ventricle is no longer
dilated but reduced systolic function is now seen.
Physical Exam
Vital Signs/Labs
Vital Signs
Temp Pulse Resp BP Pulse Ox
100.3 F 113 26 114/75 98
03/11/24 06:30 03/11/24 06:30 03/11/24 06:30 03/11/24 04:00 03/11/24 06:30
03/10/24 03/11/24 03/12/24
06:59 06:59 06:59
Actual Weight 181 lb 10.574 oz 183 lb 13.848 oz
03/11/24 03:06
03/11/24 03:06
PT 27.7 Sec (11.4-14.6) H 03/11/24 03:06
INR 2.59 03/11/24 03:06
APTT 54.5 Sec (23.4-35.0) H 03/09/24 13:02
Magnesium 1.8 mg/dl (1.6-2.3) 03/11/24 03:06
03/09/24
08:50
Ixh-L-Ohyllhcjurw Pept > 72625
LAB Results
03/09/24 03/10/24 03/11/24
08:50 12:26 03:06
Troponin I 0.148 H* 0.531 H* 0.582 H*
Physical Exam
Constitutional: No acute distress (intubated sedated )
Cardiovascular: Pedal edema is absent and Rhythm/rate is irregular
Respiratory: Respiratory effort normal (mechanical ventilation ) and Crackles Present (trace b/l )
GI: Soft
Neuro/Psych: Other (intubated sedated )
Data Reviewed
-
Date of Service: March 11, 2024
EKG: Tracing Personally Visualized and interpreted (AF RVR )
Echo: Report Reviewed by me
Labs: Labs Reviewed by me
--- NOTE | 2024-03-11 07:31 | W.PN.HOSP.TC ---
Today's Communication/Plan
-
antibiotics
vent settings sedation possible bronchoscopy as per ICU
monitor and replete electrolytes
resume Coumadin
wean pressors as tolerated
cont stress dose steroids
monitor renal function
Assessment / Plan
Assessment / Plan
Physical Exam
General: sedated intubated
HEENT: NormoCephalic, Anicteric, Moist mucous membranes and Atraumatic Pinpoint Pupils b/l Intubated
Respiratory: Clear to Auscultation b/l
Cardiac: Tachycardia
GI: Soft, Non Tender, Non Distended and Normal Bowel Sounds
Musculoskeletal: No Clubbing, No Cyanosis, No edema
Neuro: Sedated
HPI: 78-year-old male with a past medical history of atrial fibrillation on Coumadin, newly diagnosed cirrhosis, CAD, COPD, KIKI on CPAP, GERD, peptic ulcer disease, CHF, and hypertension presents with a 1 day history of fever, hemoptysis, and
shortness of breath. Family reports that he was coughing up blood intermittently overnight, with fever. Associated symptoms include hematemesis, lethargy, agitation. Patient was found to be in acute hypoxic respiratory failure in the ER, and
placed on a nonrebreather. He was also found to have septic shock from pneumonia, with pulmonary edema. He is getting vancomycin and cefepime in the ER, and currently on a Levophed drip. He is on prednisone 60 mg daily since June 2023, unclear
why.
#Septic shock, present upon admission
#Severe pneumonia
Patient with bandemia, tachycardia upon admission
Admitted to ICU, adjunct instructor in economics consult appreciated, continue Levophed for MAP greater than 65, later vasopressin and phenylephrine added
Unable to give fluid boluses secondary to CHF
IR consult appreciated central line placed 03/09
Arterial Line placed 03/09
blood cultures NGTD, check sputum culture and Gram stain, check urine Legionella/strep antigen, check MRSA nares
Started on stress dose IV steroids�patient is on prednisone 60 mg p.o. daily since July 2023 at home, unclear why
cont stress dose IV steroids
Continue cefepime azithromycin, MRSA screen neg Vancomycin discontinued
Trend lactic acid, monitor fever white count
IV Tylenol prn as per ICU
#Respiratory Failure/Acidosis s/p intubation 03/10 in AM following Warehouse Delivery Manager discussion with family
cont Vent settings sedation as Per ICU
#Hypomagnesemia
Monitor and Replete as necessary
#Hypocalcemia
Monitor and replete as necessary
#Hemoptysis with concern for pulmonary hemorrhage
CT Chest appreciated
1. Small bilateral pleural effusions, right greater than left.
2. Near complete atelectasis of the right lower lobe with soft tissue attenuation material within bronchi to the right lower lobe which could be related to either secretions or aspiration.
3. Combination of atelectasis and dense airspace consolidation throughout the left upper and lower lobes as above. As on the right, there is soft tissue attenuation opacification of left lower lobe bronchi could be related to either secretions or
aspiration.
4. Advanced emphysematous changes.
Possible bronchoscopy today 03/11 as per ICU
#Acute on chronic heart failure with reduced ejection fraction
Echo 06/05/2023 EF 30-35%, global hypokinesis, mechanical mitral valve, mild MR, moderate TR
Lasix on Hold d/t shock/hypotension
Cardio Consult Appreciated
Hold Jardiance d/t ADRIANA,
trend weights
#Coagulopathy
#Paroxysmal atrial fibrillation
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
EKG shows sinus tachycardia with first-degree AV block and occasional V paced complexes
INR elevated at 4.58 today, goal is 2.5�3.5
INR trended down to therapeutic levels, Coumadin resumed 03/11
Holding home beta-kyle due to shock/hypotension
metoprolol 5 mg IV prn HR>120
#Type II IA from demand ischemia
Trend troponin appears to have peaked at 0.148
#Hematemesis
Likely from swallowed blood products from hemoptysis
Protonix 40 mg IV twice daily
H&H stable
#Hyponatremia
Due to CHF, monitor
#Acute kidney injury likely d/t shock as above
baseline is normal, initial creatine 1.5 increased to 2.1 since trending down
From CHF and septic shock
Monitor creatinine, avoid nephrotoxic drugs/NSAIDs
cont pressor support
#Thrombocytopenia
Due to sepsis, monitor
Plt stable at this time
#Recently diagnosed cirrhosis
Follows with Dr. Saunders outpatient
DVT prophylaxis�SCDs, Coumadin resumed
Full code
Warehouse Delivery Manager discussion with family appreciated.
Total Critical Care Time___45__ minutes. I was immediately available to the patient and staff. I personally examined, reviewed labs, diagnostic images/reports, interpretations, treatment plans, discussed patient care with other providers entered
orders as appropriate and documented the medical record.
Anticipated Discharge: > 48 hours
Subjective/Interval History
-
Date of Service: March 11, 2024
Intubated sedated on 3 pressors
Objective Data
-
Labs:
Laboratory Results
03/11/24
03:06
WBC 18.7 H
Hgb 12.3 L
Hct 36.0 L
Plt Count 100 L
PT 27.7 H
INR 2.59
HCO3 21.3
Sodium 127 L
Potassium 4.2
Chloride 96 L
Carbon Dioxide 19 L
BUN 58 H
Creatinine 1.7 H
Glucose 165 H
Calcium 7.8 L
Vital Signs:
Vital Signs
Temp Pulse Resp BP Pulse Ox
100.3 F 118 26 114/75 97
03/11/24 06:30 03/11/24 07:27 03/11/24 07:27 03/11/24 04:00 03/11/24 07:28
I&O
0403/11/24 03/12/24
06:59 06:59 06:59
Intake Total 1685.3 / 1750.6 2701.6 / 2701.6
Output Total 400 / 400 905 / 905
Balance 1285.3 / 1350.6 1796.6 / 1796.6
[2024-03-11] MEDS: MAXIPIME 1000 MG IV ×3 (07:34→23:17)
[2024-03-11] MEDS: NSS (PRESERVATIVE FREE) 10 ML IV ×2 (07:35→19:12)
[2024-03-11] MEDS: STERILE WATER FOR INJECTION 10 ML IV ×3 (07:35→23:17)
[2024-03-11] MEDS: PROTONIX IV 40 MG IV ×2 (07:35→19:12)
[2024-03-11] MEDS: MIRALAX TUBE (07:35)
[2024-03-11 08:02] LABS: Absolute Neutrophils -Man Diff 18.1 10^3/uL (1.4-6.5); Band Neutrophils 29 % (0-3); Lymphocytes 1 % (20-51); Monocytes 2 % (2-9); Segmented Neutrophils 68 % (42-75)
[2024-03-11 08:03] LABS: Acanthocytes 1+; Anisocytosis Slight; Burr Cells 1+; Normal RBC Morphology No; Platelets Checked Yes; Total Cells Counted 100
[2024-03-11] MEDS: DIPRIVAN 100 IV ×2 (08:30→23:17)
--- NOTE | 2024-03-11 09:01 | PTOTSP ---
Chart reviewed. Patient is intubated, on 3 vasopressors and upwards trending troponins. Patient is not currently appropriate for skilled therapy evaluation. Will discharge at this time.
When patient is medically appropriate to participate in evaluation, please re-consult. Will discuss with RN and follow.
[2024-03-11 09:18] LABS: Troponin I 0.589 ng/ml
[2024-03-11 09:29] LABS: Triglycerides 119 mg/dl (10-149)
[2024-03-11] MEDS: SUBLIMAZE 100 IV (09:40)
[2024-03-11] MEDS: PITRESSIN 100 IV ×2 (09:40→19:12)
--- NOTE | 2024-03-11 10:43 | W.PN.INTV ---
Today's Communication / Plan
Recommendations
Continue mechanical ventilation without change
Continue current antibiotics
Bronchoscopy today
Follow renal function and electrolytes
Restart Coumadin
Start tube feedings today
Continue sedation without change
Prognosis is guarded
Assessment
-
Assessment: 78-year-old male former tobacco smoker with a past medical history of moderate COPD, moderate restrictive lung disease, history of hemoptysis, history of LLL bronchiectasis, history of left-sided pneumonia, history of aspergillus,
chronic anticoagulation for mechanical mitral valve replacement (July 2021), history of COVID-19, HFrEF with RV dysfunction, pulmonary hypertension, history of NHL s/p chemo/XRT (2003), and chronic thrombocytopenia with unremarkable bone marrow
biopsy (10/2023) who presents with shortness of breath, weakness and fever. He also has been coughing up blood which started 1 night MANAGER DISCOVERY. Patient has low-grade fever to 100.1 �F in the ER, and tachycardic to 115 bpm, tachypnea to 25 respirator,
hypotensive to 72/44, and initially was saturating 66% on room air. Saturations improved to 91% with nonrebreather. Labs showed leukopenia to 2.7 with 20% bands, anemia to 12, elevated INR 4.58, hyponatremia 130, ADRIANA to 1.5, lactic acid elevated
at 2.3, elevated troponin 0.148, increased proBNP of >27,000, and negative COVID-19 antigen; flu A/B swab also negative. Blood cultures were collected. CXR shows a 10 cm left midlung airspace opacity with acute cardiogenic pulmonary edema and a
right-sided pleural effusion with compressive atelectasis. In the ER antibiotics were given with cefepime/vancomycin, he was also given DuoNebs x 1, given IV fluids with NS 0.5L and started on Levophed due to persistent hypotension with SBP in the
80s. Due to patient's vasopressor and oxygen requirements, he is being admitted to the ICU. Critical care services now consulted for additional management/recommendations.
Chronic conditions MANAGER DISCOVERY: COPD, restrictive lung disease, history of hemoptysis, chronic anticoagulation with warfarin due to mechanical mitral valve replacement (07/2021), history of left lower lobe bronchiectasis, elevated left hemidiaphragm, KIKI on
CPAP, personal history of COVID-19, chronic atrial fibrillation on Coumadin, history of tobacco abuse with [id number] history (quit in 2018), history of HFrEF with RV dysfunction, mild�moderate pulmonary hypertension, history of GI bleed,
postnasal drip, history of non-Hodgkin's lymphoma s/p chemo/radiation (2003), history of left-sided pneumonia due to Streptococcus pneumonia, history of aspergillus, history of Vieira's esophagus, history of thrombocytopenia s/p unremarkable bone
marrow biopsy
Impression:
#Acute respiratory failure with hypoxia due to CAP + acute pulmonary edema with right pleural effusion
Intubated 03/10/2024
#Bandemia with 20% bands -due to septic shock from left side pneumonia
#Severe left-sided CAP
#Septic shock due to above
#Lactic acidosis
#Acute COPD exacerbation due to above
#Hemoptysis due to pneumonia in the setting of chronic anticoagulation with supratherapeutic INR
#Supratherapeutic INR (INR: 4.58)
#Hyponatremia
#Acute kidney injury (Cr baseline approx 1.1)
#Elevated troponin likely due to demand ischemia with type II MO
#Chronic pancytopenia
#Mechanical mitral valve replacement on Coumadin
#Chronic A-fib on Coumadin
#DM type II
Former smoker
Former alcohol use.
Plan:
Remains critically ill, requiring multiple vasopressors.
Intubated emergently 03/10/2024 due to worsening hypercapnic respiratory failure and septic shock.
-
Mechanical ventilation settings reviewed
Assist-control/500/24/40%/+5
Pkp 23-26.
appears comfortable on current mechanical ventilation settings.
Chest x-ray 03/11/2024: Reviewed showed persistent bilateral infiltrates left greater than right. Better variation. No pneumothorax.
ET tube in place
ABG 7.38
Continue mechanical ventilation without change.
-
Sedation with fentanyl and propofol
Maintain RASS (0-1)
-
Continue- Broad spectrum Abx with cefepime/azithromycin
Vancomycin discontinued 03/10/2024-MRSA screening negative.
Persistent low-grade fevers.
Leukocytosis noted.
CT chest noted: Showed small bilateral pleural effusions. Right greater than left. Near complete atelectasis of the right lower lobe, soft tissue attenuation of the right mainstem bronchus. Likely mucous plugging. Left upper lobe infiltrate.
Advanced emphysema.
-Cultures negative so far.
Unable to provide a sputum, Obtain tracheal aspirate now that he is intubated. Has not been able to produce.
Plan for bronchoscopy today. FiO2 is now 40%.
-
Continue to quantify hemoptysis: Improved.
INR is under 3.
Okay to restart Coumadin.
Doppler tube has been placed.
-
Septic shock:
Norepinephrine/vasopressin/Shc-Dtqfpyczjn-nicylmribte slightly better.
Maintain mean arterial blood pressure 65 mmHg
Follow renal function.Creatinine is improved today.
Continue Cote urinary output.
Lactic acid is slightly increased
Last echocardiogram available 06/05/2023: Showed moderate to severe reduced left ventricular action fraction. Global hypokinesis. EF 30-35%. Mechanical mitral valve. Moderate TR.
-
Echocardiogram 03/10/2024 noted with decreased LVEF down to 15-20 %.
Global hypokinesis
Normal right ventricle size with reduced systolic function. Moderate TR.
Cannot rule out cardiogenic component
Continue hemodynamic support
Restart Coumadin
-
Continue stress dose of steroids for now. Hydrocortisone without change.
-
COPD history:
Continue DuoNebs
Steroids as above
-
Acute kidney injury-creatinine is slightly improved.
Hyponatremia-continue support. Unable to diurese.
Metabolic acidosis, stable compared to yesterday. Will follow. May need low-dose bicarbonate drip.
Based on ABG acid-base status is compensated
Continue hemodynamic support
Continue to follow electrolytes daily.
-
Maintain euglycemia with goal BG 140-180
Insulin will be provided as needed.
-
DVT ppx
GI prophylaxis with Protonix
OG tube-start tube feedings today.
N.p.o. for now
-
Dr. Eid discussed in detail with son and at the bedside 03/10/2024, 03/11/2024.
They are aware he is critically ill and at high risk of multiorgan failure and .
Prognosis is guarded
Critical care statement: A total of 41 minutes of critical care time was provided for this patient today. This includes management of unstable vital signs, evaluation of the patient at bedside, reviewing the patient's pertinent medical records
including radiographs, microbiology, laboratory evaluations, and discussion with primary team, consultants, pharmacy, nutrition, physical therapy, case management, charge nurse, critical care nursing, and respiratory therapy.

Data:
CXR 03-09-2024:
1. New large 10 cm airspace opacity in the left mid and lower lung which was not present 12/05/2023. Diagnostic possibilities are (1) severe pneumonia, (2) pulmonary hemorrhage, or (3) asymmetric alveolar pulmonary edema.
2. Moderate acute interstitial cardiogenic pulmonary edema.
3. Moderate to severe bilateral upper lobe emphysema.
4. Mild cardiomegaly with evidence for previous mitral valve replacement.
5. Small right pleural effusion and adjacent moderate compressive atelectasis in the right lower lobe.
Subjective Dataa
Subjective Data
Date of Service:
Date of Service: March 11, 2024
Chief Complaint: Miner Follow Up (Acute hypoxemic and hypercarbic respiratory failure requiring intubation)
Subjective:
Remains critically ill, intubated, sedated on mechanical ventilation.
Requiring multiple pressors.
Review of Systems
General: Unobtainable - Sedation
Objective Data
Data Reviewed
Vital Signs / I&O / Oxygen:
Vital Signs
Temp Pulse Resp BP Pulse Ox
100.3 F 118 26 114/75 97
03/11/24 07:52 03/11/24 07:27 03/11/24 07:27 03/11/24 04:00 03/11/24 07:28
Intake and Output
03/10/24 03/11/24 03/12/24
06:59 06:59 06:59
Intake Total 1685.3 / 1750.6 2701.6 / 2701.6
Output Total 400 / 400 905 / 905
Balance 1285.3 / 1350.6 1796.6 / 1796.6
SaO2 [A/C] 96
SaO2 [NIV (Non Invasive 96
Ventilation)]
SaO2 97
Nasal Cannula flow liters per 55
minute
Physical Exam
General: Respiratory Distress (On noninvasive mechanical ventilation)
HEENT: Normocephalic and Other (ET tube with intermittent minimal bloody secretions.)
Cardiovascular: S1-S2
Respiratory: Crackles and Accessory Resp Muscle Use
GI: Soft and Non Distended
Neurology: Other (Lethargic, occasionally moving 4 extremities. Sedated.)
Skin: Warm
Labs/Micro/Reports
Lab Data
03/11/24 03:06
03/11/24 03:06
Laboratory Results
03/10/24 03/11/24
16:23 03:06
PT 27.7 H
INR 2.59
pH 7.26 L 7.38
pCO2 46 36
pO2 93 89
HCO3 20.6 L 21.3
O2 Delivery Level
Microbiology
03/09/24 08:50 Blood/Venous Blood Culture - Preliminary
No Growth in 48 hours- Final report to follow
03/09/24 08:50 Blood/Venous Blood Culture - Preliminary
No Growth in 48 hours- Final report to follow
03/10/24 11:48 Tracheal Aspirate Gram Stain - Preliminary
03/10/24 12:26 Nose Nasal Screen MRSA (PCR) - Final
MRSA not detected - performed by PCR methodology.
03/09/24 17:27 Urine Legionella Urinary Antigen - Final
Negative for Legionella pneumophila Serogroup 1 antigen.
A negative result does not rule out the possiblity of
Legionella infection due to other serogroups or species of
Legionella. Clinical correlation is recommended.
03/09/24 17:27 Urine Streptococcus pneumoniae Antigen (M - Final
Negative for Streptococcus pneumoniae antigen.
A negative result does not exclude infection with
Streptococcus pneumoniae. Clinical correlation is
recommended.
03/09/24 08:50 Nasal Swab Influenza Types A & B (RACHEL) - Final
Negative for Influenza A & B, NAAT
Negative results must be combined with clinical observations
and patient history.
Nucleic Acid Amplification test (NAAT)performed on the
[employer] platform.
[2024-03-11] MEDS: ZITHROMAX INFUSION 250 IV (11:58)
--- NOTE | 2024-03-11 13:17 | CM ---
CM following re: discharge planning.
Discussed in rounds, reviewed pt's chart, met with pt. Family at bedside. Per Rounds meeting, pt remains intubated, prognosis is guarded.
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
D/C plan: uncertain at this time and will depend on pt's progress.
CM will follow with discharge plan updates as hospitalization progresses
--- NOTE | 2024-03-11 13:35 | W.PN.UPDATE ---
Update Note
Progress Note Update
Procedure note: Bronchoscopy.
Consent obtained from 03/11/2024.
Patient already intubated and sedated.
Portable bronchoscope was introduced through the ET tube without resistance. ET tube is in adequate position.
Luz was sharp.
There is no significant secretions on the main luz.
On both mainstem bronchus there was scant whitish secretion. Easily clear with suctioning.
Bronchoscope was advanced through the tracheobronchial tree. Right lower lobe and right upper lobe clear of secretion or active bleeding.
Left upper lobe clear of secretion and bleeding.
Right lower lobe with a scant whitish secretion, washings were performed, about 30 cc of saline was instilled. Pinkish return.
No active bleeding was found.
Patient tolerated procedure well.
Sent for bacterial and fungal cultures.
--- NOTE | 2024-03-11 17:32 | PTCARENOTE ---
Patient received in AM with assessment as noted. Continues intubated and sedated with Fentanyl and Propofol. RASS -2 level of sedation maintained with the patient arousable to touch. Soft wrist restraints maintained with current order on chart and
documentation as noted. A-fib on monitor. Coumadin to be restarted today via Dobhoff feeding tube. T-max 101.5 and Ofirmev 1000 mg IV given. Continues on Levophed, Vasopressin and Neosynepherine gtts to maintained MAP's >65. Titration as noted on
process interventions. Lungs diminished but otherwise CTA. Tolerated bedside bronchoscopy without difficulty. Sao2 97% on vent setting A/C 26-500-40% peep 5. Suctions for scant olson secretions. Hypo BS. Left nares Dobhoff placed with good placement
noted by auscultation and x-ray. Jevity 1.5 at an initial rate of 10 ml/hr started. No bowel movement today. Cote draining colleen urine. Family into visit through shift and updated to patient condition. Patient currently in bed with soft wrist
restraints in place. Family at bedside. Will continue to monitor closely.
[2024-03-11] MEDS: COUMADIN 2.5 MG PO (17:47)
--- NOTE | 2024-03-11 20:00 | PTCARENOTE ---
rec'd patient. assessment as documented. b/l soft wrist restraints in place. drowsy but arouses to voice. sedated with prop and fent gtts. afib on monitor. levo/vaso/julia gtts infusing to maintain MAP >65 through RIJ CVC. arterial line leveled and
zeroed, correlating with NIBP. #8 ETT, 23 at lip, moved to center of lip. oral care and sxn provided. vent settings: AC 26/500/40%/5. scant secretions. diminished breath sounds noted. TF infusing through L nare DHT, increasing rate per order. no BM
noted. temp sensing lovelace draining colleen urine. pt repositioned. safe environment maintained. care ongoing.
[2024-03-11] MEDS: NOVOLOG FLEXPEN-LOW RESISTANCE 1 UNITS SC (23:28)
[2024-03-11 23:39] LABS: Glucose - Point of Care 189 mg/dl (70-99)
[2024-03-12] VITALS: BP 101/86
--- NOTE | 2024-03-12 | PTCARENOTE ---
no changes in assessment. CHG bath, lovelace care, oral care and sxn provided. levo/vaso/julia/prop/fent gtts continue. safe environment maintained. care ongoing.
[2024-03-12] MEDS: NEO-SYNEPHRINE 1% 260 MG IV (01:33)
[2024-03-12] MEDS: LEVOPHED 258 MG IV ×3 (01:34→21:47)
[2024-03-12] MEDS: DUONEB 3 ML INH ×6 (03:33→23:49)
[2024-03-12 04:00] VITALS: BP 108/71
--- NOTE | 2024-03-12 04:30 | PTCARENOTE ---
no changes noted in assessment. AM labs sent. pt repositioned, oral care and sxn provided, ETT adjusted. extremities remain elevated on pillows. care ongoing.
[2024-03-12 04:38] VITALS: BMI 26.2
[2024-03-12 04:45] LABS: B.E. -2.4 mmol/L; HCO3 21.6 mmol/L (21-28); PCO2 34 mmHg (35-48); PO2 144 mmHg (83-108); pH 7.41 (7.35-7.45)
[2024-03-12 04:46] LABS: O2 Therapy 40%
[2024-03-12 04:54] LABS: INR 1.98; PT 22.3 Sec (11.4-14.6)
[2024-03-12 04:59] LABS: Hematocrit 34.2 % (39.0-52.0); Mean Corp Hgb Conc. 35.1 g/dL (33.0-37.0); Mean Corpuscular Hgb 32.3 pg (27.0-31.0); Mean Corpuscular Volume 92.2 fL (80.0-94.0); Mean Platelet Volume 10.6 fL (7.4-10.4); Nucleated Red Blood Cells % 0 % (-); Platelet Count 98 10^3/uL (130-400); Red Blood Cell Count 3.71 10^6/uL (4.70-6.10); Red Cell Dist. Width 14.9 % (11.5-14.5); White Blood Cell Count 18.8 10^3/uL (4.8-10.8)
[2024-03-12 05:15] LABS: Blood Urea Nitrogen 60 mg/dl (9-20); Calcium 7.9 mg/dl (8.4-10.2); Carbon Dioxide 21 mmol/L (22-30); Chloride 97 mmol/L (98-107); Estimated Creatinine Clearance 51 ml/min; Glucose 198 mg/dl (70-99); Magnesium 2.1 mg/dl (1.6-2.3); Phosphorus 2.7 mg/dl (2.5-4.5); Potassium 4.3 mmol/L (3.5-5.1); Sodium 124 mmol/L (135-145); eGFR 56.58
[2024-03-12] MEDS: PITRESSIN 100 IV ×2 (05:17→16:17)
[2024-03-12] MEDS: SOLU-CORTEF 50 MG IV ×3 (05:17→22:55)
[2024-03-12] MEDS: NOVOLOG FLEXPEN-LOW RESISTANCE 1 UNITS SC (05:17)
[2024-03-12 05:56] LABS: Absolute Neutrophils -Man Diff 17.4 10^3/uL (1.4-6.5); Band Neutrophils 21 % (0-3); Lymphocytes 2 % (20-51); Monocytes 5 % (2-9); Normal RBC Morphology Yes; Platelets Checked Yes; Segmented Neutrophils 72 % (42-75); Total Cells Counted 100
[2024-03-12] MEDS: SUBLIMAZE 100 IV (05:57)
--- NOTE | 2024-03-12 07:03 | W.PN.HOSP.TC ---
Today's Communication/Plan
-
wean pressors as tolerated
stress dose steroids vent settings sedation as per ICU
cont abx
Warfarin Lovenox bridging
monitor and replete electrolytes
Hyperglycemia likely steroid induced, cont sliding scale glycemic control
Assessment / Plan
Assessment / Plan
Physical Exam
General: sedated intubated
HEENT: NormoCephalic, Anicteric, Moist mucous membranes and Atraumatic Pinpoint Pupils b/l Intubated
Respiratory: Clear to Auscultation b/l
Cardiac: Tachycardia
GI: Soft, Non Tender, Non Distended and Normal Bowel Sounds
Musculoskeletal: No Clubbing, No Cyanosis, No edema
Neuro: Sedated
HPI: 78-year-old male with a past medical history of atrial fibrillation on Coumadin, newly diagnosed cirrhosis, CAD, COPD, KIKI on CPAP, GERD, peptic ulcer disease, CHF, and hypertension presents with a 1 day history of fever, hemoptysis, and
shortness of breath. Family reports that he was coughing up blood intermittently overnight, with fever. Associated symptoms include hematemesis, lethargy, agitation. Patient was found to be in acute hypoxic respiratory failure in the ER, and
placed on a nonrebreather. He was also found to have septic shock from pneumonia, with pulmonary edema. He is getting vancomycin and cefepime in the ER, and currently on a Levophed drip. He is on prednisone 60 mg daily since June 2023, unclear
why.
#Septic shock, present upon admission
#Severe pneumonia
#Persistent Fever possible Drug Induced as opposed to infection
Admitted to ICU, power station operator consult appreciated
COVID Flu Neg
IR consult appreciated central line placed 03/09
Arterial Line placed 03/09
blood cultures NGTD
urine Legionella/strep antigen neg
patient is on prednisone 60 mg p.o. daily since July 2023 at home, unclear why
cont stress dose IV steroids as per ICU
Pressor requirement improved down from three pressors to two Levophed and vasopressin, phenylephrine discontinued
MRSA screen neg Vancomycin discontinued
empiric cefepime azithromycin changed to Levofloxacin d/t concern drug fever
urinalysis neg for UTI
Blood Cultures repeated 03/12
follow bronchoscopy culture results, tracheal aspirate cx appreciated rare usual respiratory tony
Trend lactic acid, monitor fever white count
IV Tylenol prn as per ICU
#Respiratory Failure/Acidosis s/p intubation 03/10 in AM following Facilities Specialist discussion with family
cont Vent settings sedation as Per ICU
#Hyperglycemia likely steroid induced
A1c appreciated 5.6 non-diabetic
cont sliding scale glycemic control
#Hypomagnesemia
Monitor and Replete as necessary
#Hypocalcemia
Monitor and replete as necessary
#Hemoptysis with concern for pulmonary hemorrhage
CT Chest appreciated
1. Small bilateral pleural effusions, right greater than left.
2. Near complete atelectasis of the right lower lobe with soft tissue attenuation material within bronchi to the right lower lobe which could be related to either secretions or aspiration.
3. Combination of atelectasis and dense airspace consolidation throughout the left upper and lower lobes as above. As on the right, there is soft tissue attenuation opacification of left lower lobe bronchi could be related to either secretions or
aspiration.
4. Advanced emphysematous changes.
Bronchoscopy performed 03/11 no active bleeding found
#Acute on chronic heart failure with reduced ejection fraction
Echo 06/05/2023 EF 30-35%, global hypokinesis, mechanical mitral valve, mild MR, moderate TR
Lasix on Hold d/t shock/hypotension
Cardio Consult Appreciated
Hold Jardiance d/t ADRIANA,
trend weights
#Coagulopathy
#Paroxysmal atrial fibrillation
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
EKG shows sinus tachycardia with first-degree AV block and occasional V paced complexes
INR elevated at 4.58 today, goal is 2.5�3.5
INR trended down to therapeutic levels, Coumadin resumed 03/11 levels then became subtherapeutic bridging with Lovenox started 03/12 As per Cardio
Holding home beta-kyle due to shock/hypotension
metoprolol 5 mg IV prn HR>120
#Type II AL from demand ischemia
Trend troponin appears to have peaked at 0.148
#Hematemesis
Likely from swallowed blood products from hemoptysis
Protonix 40 mg IV twice daily
H&H stable
#Hyponatremia
Due to CHF, monitor
#Acute kidney injury likely d/t shock as above
baseline is normal, initial creatine 1.5 increased to 2.1 since trending down
From CHF and septic shock
Monitor creatinine, avoid nephrotoxic drugs/NSAIDs
cont pressor support
#Thrombocytopenia
Due to sepsis, monitor
Plt stable at this time
#Recently diagnosed cirrhosis
Follows with Dr. Saunders outpatient
DVT prophylaxis�SCDs, Coumadin resumed
Full code
Facilities Specialist discussion with family appreciated.
Total Critical Care Time___44__ minutes. I was immediately available to the patient and staff. I personally examined, reviewed labs, diagnostic images/reports, interpretations, treatment plans, discussed patient care with other providers entered
orders as appropriate and documented the medical record.
Anticipated Discharge: > 48 hours
Subjective/Interval History
-
Date of Service: March 12, 2024
Sedated intubated. Pressor requirement down from 3 pressors to two. Fever resolved
Objective Data
-
Labs:
Laboratory Results
03/12/24 03/12/24
04:33 04:34
WBC 18.8 H
Hgb 12.0 L
Hct 34.2 L
Plt Count 98 L
PT 22.3 H
INR 1.98
HCO3 21.6
Sodium 124 L
Potassium 4.3
Chloride 97 L
Carbon Dioxide 21 L
BUN 60 H
Creatinine 1.3
Glucose 198 H
Calcium 7.9 L
Vital Signs:
Vital Signs
Temp Pulse Resp BP Pulse Ox
100.2 F 100 26 108/71 98
03/12/24 03:39 03/12/24 06:30 03/12/24 06:30 03/12/24 04:00 03/12/24 06:30
I&O
03/11/24 03/12/24 03/13/24
06:59 06:59 06:59
Intake Total 2701.6 / 2774.9 2630.2 / 2630.2
Output Total 905 / 905 1130 / 1130
Balance 1796.6 / 1869.9 1500.2 / 1500.2
[2024-03-12] MEDS: MAXIPIME 1000 MG IV (07:40)
[2024-03-12] MEDS: NSS (PRESERVATIVE FREE) 10 ML IV ×2 (07:40→19:25)
[2024-03-12] MEDS: MIRALAX 17 GRAMS TUBE (07:40)
[2024-03-12] MEDS: STERILE WATER FOR INJECTION 10 ML IV (07:40)
[2024-03-12] MEDS: PROTONIX IV 40 MG IV ×2 (07:40→19:25)
[2024-03-12 08:00] VITALS: BP 114/79
--- NOTE | 2024-03-12 08:00 | W.PN.CD ---
Today's Communication / Plan
-
- Shock physiology slowly improving
- LMWH to warfarin for MVR/AF (vitamin K given this admit...)
Impression / Plan
-
A: 78-year-old gentleman with a past medical history of permanent atrial fibrillation, mechanical mitral valve replacement on chronic Coumadin, coronary artery disease, heart failure with reduced EF, COPD, pulmonary hypertension non-Hodgkin's
lymphoma presents with shortness of breath and hemoptysis. He currently has respiratory failure 2/2 PNA requiring intubation and mechanical ventilation and shock requiring pressor support.
Septic shock, in the setting of pneumonia (could be component of cardiogenic with this EF)
-Intubated 03/10/2024
-Continued high vasopressor requirement (Levophed, vasopressin, <del>phenylephrine</del>)
Hemoptysis, s/p vitamin K without acute blood loss
HFrEF now 15-20% new, acute on chronic
-Hold Jardiance in the setting of ADRIANA
-Trend daily weight, I/O, and BMP with diuresis
-Echocardiogram below
ADRIANA, trend improving 1.7 today from 1.9 03/10
Permanent atrial fibrillation
-Rates OK
-Oral Anticoagulation: Warfarin (mechanical mitral valve), restart warfarin and bridge with LMWH.
Abnormal troponin, likely nonischemic myocardial injury in the setting of acute illness (sepsis)
Status post mechanical mitral valve replacement
- Goal INR 2.5�3.5
- Restart warfarin Hgb stable
- warfarin 5 mg
Hyponatremia, hypervolemic, follow with diuresis
CAD, nonobstructive, 20-30% pLAD stenosis by [facility] 2020
S/p Micra PPM
Cirrhosis
COPD
Former smoker, continued cessation recommended
CCT 34 minutes
Subjective: sedated
TTE March 10 2024: Severely reduced left ventricular systolic function. Left ventricular ejection fraction appears 15-20%. Well seated normally functioning mechanical mitral valve. Moderate tricuspid regurgitation with moderate pulmonary
hypertension.
Laboratory Data
07/18/21 03/10/24 03/10/24
03:59 03:23 12:26
Hgb 8.8 L
INR 3.76
Creatinine 1.0 2.1 H
03/10/24 03/11/24 03/12/24
16:23 03:06 04:33
Hgb 12.0 L
INR 2.59 1.98
Creatinine 1.9 H 1.7 H
03/12/24
04:34
Hgb
INR
Creatinine 1.3
Selected Entries
07/18/21
08:57 07/18/21
09:18
Pulse 60
Blood pressure 139/50
Generic Name Dose Route Start Last Admin
Trade Name Freq PRN Reason Stop Dose Admin
Aspirin 81 mg 07/16/21 08:00 07/18/21 07:29
Aspirin 81 Mg Chewable Tablet PO 08/13/21 07:59 Not Given
DAILY TINY
Atorvastatin Calcium 10 mg 07/16/21 18:00 07/17/21 18:13
Atorvastatin (Lipitor) 10 Mg Tablet PO 08/13/21 17:59 Not Given
QPM TINY
Furosemide 40 mg 07/17/21 08:00 07/18/21 08:57
Furosemide 40 Mg (10 Mg/Ml) 4 Ml Vial IV 08/14/21 07:59 40 mg
BID AT 0800,1600 TINY
Empagliflozin 10 mg 03/10/24 08:00 03/10/24 09:14
Empagliflozin (Jardiance) 10 Mg Tablet PO 04/07/24 07:59 Not Given
DAILY TINY
Vasopressin 20 units in 100 mls @ 0 mls/hr 03/09/24 16:45 03/12/24 05:17
Pitressin IV 100 mls
PER PROTOCOL TINY
Protocol
Per Protocol
Norepinephrine Bitartrate 8 mg 258 mls @ 0 mls/hr 03/09/24 20:00 03/12/24 07:41
/ Dextrose IV 258 mls
PER PROTOCOL TINY
Protocol
Per Protocol
Phenylephrine HCl 100 mg/ 260 mls @ 0 mls/hr 03/10/24 09:15 03/12/24 01:33
Sodium Chloride IV 260 mls
PER PROTOCOL TINY
Protocol
Per Protocol
Warfarin Sodium 2.5 mg 03/11/24 18:00 03/11/24 17:47
Warfarin 2.5 Mg Tablet PO 03/16/24 17:59 2.5 mg
QPM TINY
Physical Exam
Vital Signs/Labs
Vital Signs
Temp Pulse Resp BP Pulse Ox
37.5 C 100 26 108/71 98
03/12/24 07:37 03/12/24 06:30 03/12/24 06:30 03/12/24 04:00 03/12/24 06:30
03/11/24 03/12/24 03/13/24
06:59 06:59 06:59
Actual Weight 183 lb 13.848 oz 187 lb 9.814 oz
03/12/24 04:33
03/12/24 04:34
PT 22.3 Sec (11.4-14.6) H 03/12/24 04:33
INR 1.98 03/12/24 04:33
APTT 54.5 Sec (23.4-35.0) H 03/09/24 13:02
Magnesium 2.1 mg/dl (1.6-2.3) 03/12/24 04:34
Triglycerides 119 mg/dl (10-149) 03/11/24 08:44
03/09/24
08:50
Kll-R-Bxfeqjlgjon Pept > 62318
LAB Results
03/09/24 03/10/24 03/11/24
08:50 12:26 03:06
Troponin I 0.148 H* 0.531 H* 0.582 H*
03/11/24
08:44
Troponin I 0.589 H*
Physical Exam
Constitutional: No acute distress
EENT: Anicteric
Cardiovascular: Pedal edema is absent, Diastolic murmur absent, Rhythm/rate is irregular and Other ([facility] S1)
Respiratory: Respiratory effort normal
GI: Soft
Data Reviewed
-
Date of Service: March 12, 2024
--- NOTE | 2024-03-12 08:44 | PN.CDI ---
CDI
- -
CDI:
Physician Documentation Request
Admit Date: 03/09/24 11:07
Dear Doctor Krystal,
Patient admitted with septic shock.
03/11 Cardiology note, 'Abnormal troponin, likely nonischemic myocardial injury in the setting of acute illness (sepsis).'
03/11 PN, 'Type II AK from demand ischemia....Trend troponin appears to have peaked at 0.148.'
Laboratory Tests
03/09/24 03/10/24 03/11/24
08:50 12:26 03:06
Troponin I 0.148 H* 0.531 H* 0.582 H*
03/11/24
08:44
Troponin I 0.589 H*
Due to conflicting documentation, please clarify in your note the diagnosis associated with the elevated troponin levels:
Non-ischemic myocardial injury
Type 2 AK from demand ischemia
Other
Use of terms such as suspected, likely, concern for, or probable (associated with a specific diagnosis that is being evaluated, monitored, or treated as if it exists) are acceptable and can be coded in the inpatient setting, when documented at the
time of discharge.
Thank you,
Aruna BOTELLO,RN,CCDS
CDI Specialist
Available via [employer] text
Please use your independent medical judgment in providing your response.
[2024-03-12 09:55] LABS: Urine Albumin 1+ (Neg - Trace); Urine Bilirubin 1+ (Negative); Urine Character Slightly Cloudy (Clear); Urine Color Yellow; Urine Glucose Negative (Negative); Urine Ketone Negative (Negative); Urine Leukocyte Negative (Negative); Urine Nitrite Negative (Negative); Urine Occult Blood 3+ (Negative); Urine Specific Gravity 1.015 (<1.030); Urine Urobilinogen Negative (Neg - 1+)
[2024-03-12 10:18] LABS: Urine Hyaline Cast 0-2 /LPF (0-2)
[2024-03-12 10:20] LABS: Urine Amorphous Seen; Urine Bacteria Few (Negative); Urine White Cell 0-2 /HPF (0-5)
[2024-03-12] MEDS: LOVENOX 80 MG SC ×2 (10:26→20:22)
--- NOTE | 2024-03-12 10:45 | W.PN.INTV ---
Today's Communication / Plan
Recommendations
Continue mechanical ventilation without change
Check UA
Check blood cultures
Transition to Levaquin
Discontinue cefepime and azithromycin
Follow renal function
Will consider diuretics
Coumadin/Lovenox bridge
Continue tube feedings
Will consider spontaneous breathing trial in the next 24 hours.
Assessment
-
Assessment: 78-year-old male former tobacco smoker with a past medical history of moderate COPD, moderate restrictive lung disease, history of hemoptysis, history of LLL bronchiectasis, history of left-sided pneumonia, history of aspergillus,
chronic anticoagulation for mechanical mitral valve replacement (July 2021), history of COVID-19, HFrEF with RV dysfunction, pulmonary hypertension, history of NHL s/p chemo/XRT (2003), and chronic thrombocytopenia with unremarkable bone marrow
biopsy (10/2023) who presents with shortness of breath, weakness and fever. 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 Patient has low-grade fever to 100.1 �F in the ER, and tachycardic to 115 bpm, tachypnea to 25 respirator,
hypotensive to 72/44, and initially was saturating 66% on room air. Saturations improved to 91% with nonrebreather. Labs showed leukopenia to 2.7 with 20% bands, anemia to 12, elevated INR 4.58, hyponatremia 130, ADRIANA to 1.5, lactic acid elevated
at 2.3, elevated troponin 0.148, increased proBNP of >27,000, and negative COVID-19 antigen; flu A/B swab also negative. Blood cultures were collected. CXR shows a 10 cm left midlung airspace opacity with acute cardiogenic pulmonary edema and a
right-sided pleural effusion with compressive atelectasis. In the ER antibiotics were given with cefepime/vancomycin, he was also given DuoNebs x 1, given IV fluids with NS 0.5L and started on Levophed due to persistent hypotension with SBP in the
80s. Due to patient's vasopressor and oxygen requirements, he is being admitted to the ICU. Critical care services now consulted for additional management/recommendations.
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
CPAP, personal history of COVID-19, chronic atrial fibrillation on Coumadin, history of tobacco abuse with 24-byir-rpvh history (quit in 2018), history of HFrEF with RV dysfunction, mild�moderate pulmonary hypertension, history of GI bleed,
postnasal drip, history of non-Hodgkin's lymphoma s/p chemo/radiation (2003), history of left-sided pneumonia due to Streptococcus pneumonia, history of aspergillus, history of Vieira's esophagus, history of thrombocytopenia s/p unremarkable bone
marrow biopsy
Impression:
#Acute respiratory failure with hypoxia due to CAP + acute pulmonary edema with right pleural effusion
Intubated 03/10/2024
#Bandemia with 20% bands -due to septic shock from left side pneumonia
#Severe left-sided CAP
#Septic shock due to above
#Lactic acidosis
#Acute COPD exacerbation due to above
#Hemoptysis due to pneumonia in the setting of chronic anticoagulation with supratherapeutic INR
#Supratherapeutic INR (INR: 4.58)
#Hyponatremia
#Acute kidney injury (Cr baseline approx 1.1)
#Elevated troponin likely due to demand ischemia with type II WA
#Chronic pancytopenia
#Mechanical mitral valve replacement on Coumadin
#Chronic A-fib on Coumadin
#DM type II
Former smoker
Former alcohol use.
Plan:
Remains critically ill, requiring multiple vasopressors.
Intubated emergently 03/10/2024 due to worsening hypercapnic respiratory failure and septic shock.
-
Mechanical ventilation settings reviewed
Assist-control/500/24/40%/+5
Pkp 23-26.
appears comfortable on current mechanical ventilation settings.
Chest x-ray 03/12/2024: Stable small to moderate right pleural effusion. Left-sided infiltrate to my view improved. No pneumothorax.
ET tube in place-no significant secretions
ABG 03/12/2024: 7.41//144.
Continue mechanical ventilation without change.
-
Sedation with fentanyl and propofol
Maintain RASS (0-1)
Continue with sedation breaks per protocol
-
Persistent leukocytosis and fevers.
Hemodynamics improved. Less pressor requirements.
Rule out noninfectious fever
Discontinue cefepime and azithromycin.
Start levofloxacin, I will completing this patient total 7 days of antibiotics.
Bronchoscopy performed 03/11/2024: Scant whitish secretion. No active bleeding.
Bronchoscopy cultures pending.
Will check urine culture and repeat blood cultures.
Clinically does not appear to have worsening pneumonia. Pulmonary mechanics improved. No significant increase secretions. FiO2 improved.
-
Vancomycin discontinued 03/10/2024-MRSA screening negative.
-
CT chest noted: Showed small bilateral pleural effusions. Right greater than left. Near complete atelectasis of the right lower lobe, soft tissue attenuation of the right mainstem bronchus. Likely mucous plugging. Left upper lobe infiltrate.
Advanced emphysema.
Chest x-ray as above.
Will obtain right sided ultrasound, if pleural effusion moderate likely thoracentesis.
-
Continue to quantify hemoptysis: Resolved.
Bronchoscopy 03/11/2024 without active bleeding per
Continue Coumadin
Discussed with cardiology started Lovenox for bridge.
-
Septic shock:
Vasopressor requirement significantly improved.
Now on Levophed and vasopressin
Herbert-Synephrine has been discontinued
Renal function is improving.
Maintain mean arterial blood pressure 65 mmHg
Continue Cote urinary output.
-
Last echocardiogram available 06/05/2023: Showed moderate to severe reduced left ventricular action fraction. Global hypokinesis. EF 30-35%. Mechanical mitral valve. Moderate TR.
-
Echocardiogram 03/10/2024 noted with decreased LVEF down to 15-20 %.
Global hypokinesis
Normal right ventricle size with reduced systolic function. Moderate TR.
Cannot rule out cardiogenic component
Continue hemodynamic support
Continue Coumadin/Lovenox
Will consider some diuresis in the next 24 hours.
-
Continue stress dose of steroids for now. Hydrocortisone has been decreased to 50 mL IV every 8 on 03/12/2024.
If hemodynamics continues to improve we will continue to wean down.
-
COPD history:
Continue DuoNebs
Steroids as above
-
Acute kidney injury-creatinine is slightly improved.
Hyponatremia-continue support. Will consider diuresis in the next 24 hours.
Metabolic acidosis, improved.
Based on ABG acid-base status is compensated
Continue hemodynamic support
Continue to follow electrolytes daily.
-
Maintain euglycemia with goal BG 140-180
Insulin will be provided as needed.
-
DVT ppx-on anticoagulation.
GI prophylaxis with Protonix
OG tube-tube feedings tolerating
N.p.o. for now
-
Dr. Eid discussed in detail with son and at the bedside 03/10/2024, 03/11/2024, 03/12/2024.
Remains critically ill but slightly improved compared to last 24 hours.
Prognosis is guarded
Critical care statement: A total of 43 minutes of critical care time was provided for this patient today. This includes management of unstable vital signs, evaluation of the patient at bedside, reviewing the patient's pertinent medical records
including radiographs, microbiology, laboratory evaluations, and discussion with primary team, consultants, pharmacy, nutrition, physical therapy, case management, charge nurse, critical care nursing, and respiratory therapy.

Data:
CXR 03-09-2024:
1. New large 10 cm airspace opacity in the left mid and lower lung which was not present 12/05/2023. Diagnostic possibilities are (1) severe pneumonia, (2) pulmonary hemorrhage, or (3) asymmetric alveolar pulmonary edema.
2. Moderate acute interstitial cardiogenic pulmonary edema.
3. Moderate to severe bilateral upper lobe emphysema.
4. Mild cardiomegaly with evidence for previous mitral valve replacement.
5. Small right pleural effusion and adjacent moderate compressive atelectasis in the right lower lobe.
Subjective Dataa
Subjective Data
Date of Service:
Date of Service: March 12, 2024
Chief Complaint: Systems Manager Follow Up (Acute hypoxemic and hypercarbic respiratory failure requiring intubation)
Subjective:
Remains critically ill, intubated, on mechanical ventilation, on pressors.
Now also febrile
Vasopressor requirements has improved.
Review of Systems
General: Unobtainable - Sedation
Objective Data
Data Reviewed
Vital Signs / I&O / Oxygen:
Vital Signs
Temp Pulse Resp BP Pulse Ox
99.5 F 93 26 114/79 99
03/12/24 07:37 03/12/24 08:33 03/12/24 08:33 03/12/24 08:00 03/12/24 08:33
Intake and Output
03/11/24 03/12/24 03/13/24
06:59 06:59 06:59
Intake Total 2701.6 / 2774.9 2630.2 / 2741.7 539.9 / 539.9
Output Total 905 / 905 1130 / 1130 135 / 135
Balance 1796.6 / 1869.9 1500.2 / 1611.7 404.9 / 404.9
SaO2 [A/C] 98
SaO2 [NIV (Non Invasive 96
Ventilation)]
SaO2 99
Nasal Cannula flow liters per 55
minute
Physical Exam
General: Respiratory Distress (On noninvasive mechanical ventilation)
HEENT: Normocephalic and Other (ET tube no significant secretions.)
Cardiovascular: S1-S2
Respiratory: Crackles and Accessory Resp Muscle Use
GI: Soft and Non Distended
Neurology: Other (Lethargic, occasionally moving 4 extremities. Sedated. )
Skin: Warm
Labs/Micro/Reports
Lab Data
03/12/24 04:33
03/12/24 04:34
Laboratory Results
03/12/24
04:33
PT 22.3 H
INR 1.98
pH 7.41
pCO2 34 L
pO2 144 H
HCO3 21.6
O2 Delivery Level 40%
Microbiology
03/09/24 08:50 Blood/Venous Blood Culture - Preliminary
No Growth in 72 hours- Final report to follow
03/09/24 08:50 Blood/Venous Blood Culture - Preliminary
No Growth in 72 hours- Final report to follow
03/11/24 15:19 Bronch Right Lower Lobe Gram Stain - Preliminary
03/11/24 15:19 Bronch Washing Fungal Culture - Preliminary
Culture in progress.
Positive cultures are reported as soon as detected.
Final report to follow in four to five weeks.
03/10/24 11:48 Tracheal Aspirate Respiratory Culture - Preliminary
03/10/24 11:48 Tracheal Aspirate Gram Stain - Preliminary
03/10/24 12:26 Nose Nasal Screen MRSA (PCR) - Final
MRSA not detected - performed by PCR methodology.
03/09/24 17:27 Urine Legionella Urinary Antigen - Final
Negative for Legionella pneumophila Serogroup 1 antigen.
A negative result does not rule out the possiblity of
Legionella infection due to other serogroups or species of
Legionella. Clinical correlation is recommended.
03/09/24 17:27 Urine Streptococcus pneumoniae Antigen (M - Final
Negative for Streptococcus pneumoniae antigen.
A negative result does not exclude infection with
Streptococcus pneumoniae. Clinical correlation is
recommended.
03/09/24 08:50 Nasal Swab Influenza Types A & B (RACHEL) - Final
Negative for Influenza A & B, NAAT
Negative results must be combined with clinical observations
and patient history.
Nucleic Acid Amplification test (NAAT)performed on the
[employer] platform.
[2024-03-12 11:05] LABS: Glycohemoglobin (HgbA1c) 5.6 % (4.0-5.6)
[2024-03-12] MEDS: NOVOLOG FLEXPEN-LOW RESISTANCE 2 UNITS SC (11:37)
[2024-03-12 11:41] LABS: Glucose - Point of Care 211 mg/dl (70-99)
--- NOTE | 2024-03-12 11:55 | PTCARENOTE ---
Pt opens eyes. Sedation weaned. Follows simple commands. Afib, HR 70-80s. +1 general pitting edema, +2 in hands. SpO2 99% on A/C 26/500/40%/5. No secretions noted from ETT. 700ml residual from NGT. MD notified and tube feeds placed on hold.
No BM this shift. Abdomen soft, + BS. Patti urine via lovelace. Weaning Levophed. Remains on Vasopressin. Family updated at beside.
[2024-03-12 12:45] LABS: ALT (SGPT) 20 U/L (0-50); AST (SGOT) 37 U/L (17-59); Albumin 2.7 g/dl (3.5-5.0); Alkaline Phosphatase 82 U/L (38-126); Direct Bilirubin 1.3 mg/dl (0.0-0.4); Total Bilirubin 2.1 mg/dl (0.2-1.3); Total Protein 5.9 g/dl (6.3-8.2)
[2024-03-12] MEDS: JARDIANCE 10 MG TUBE (12:59)
--- NOTE | 2024-03-12 14:22 | CM ---
CM following re: discharge planning.
Discussed in rounds, reviewed pt's chart, met with pt. Family at bedside. Per Rounds meeting, pt remains intubated, remains critically ill but slightly improved compared to last 24 hours.
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
D/C plan: uncertain at this time and will depend on pt's progress.
CM will follow with discharge plan updates as hospitalization progresses
[2024-03-12] MEDS: LASIX 20 MG IV (15:30)
[2024-03-12] MEDS: LEVAQUIN 750 MG TUBE (15:30)
[2024-03-12 16:00] VITALS: BP 91/74
--- NOTE | 2024-03-12 16:00 | PTCARENOTE ---
Weaning pressors as able. noted new DTI on sacrum. barrier cream applied. all other assessments unchanged.
[2024-03-12] MEDS: DIPRIVAN 100 IV (16:17)
[2024-03-12 17:51] LABS: Glucose - Point of Care 184 mg/dl (70-99)
[2024-03-12] MEDS: COUMADIN 5 MG PO (18:19)
[2024-03-12] MEDS: NOVOLOG FLEXPEN-MODERATE RESISTANCE 1 UNITS SC (18:23)
--- NOTE | 2024-03-12 20:00 | PTCARENOTE ---
Resumed care of pt this evening. Received pt on two pressors, Levo gtt at 8 mcg/min and vaso gtt at 0.03 units/min, both infusing via rt triple lumen IJ central line. Pt is also on fentanyl gtt at 25mcg/hr and propofol gtt 10 mcg/kg/min also both
infusing via rt IJ. Upon assessment pt is intubated and sedated. Pt opens eyes spontaneously and responds to verbal and tactile cues by nodding head appropriately. Pt has generalized weakness but can move all 4 extremities. Pt has a #8 ETT, marked
23cm at the left lip. Pt is tolerating current vent settings: FIO2 0.40/TV 400/Rate 26/PEEP +5, satting at 99% pulse ox. No secretions noted upon suction and during mouth care. On auscultation pt lungs sound diminished at the bases. Pt is in Afib on
tele monitor, has an irregular apical, and B/L pedal pulses are present by doppler. Pt has +2 pitting edema B/L hands and +1 GA. Pt has a rt nare dobhoff w/ placement verified by this RN. Tube feeds held due to excess residuals, 250mL drawn and
instilled back by this RN. BS are hypoactive. Cote cath in place draining clear yellow urine. Protective sacral foam in place. VSS.
[2024-03-12 21:22] VITALS: BP 100/68
[2024-03-12 21:29] LABS: B.E. 0.7 mmol/L; HCO3 24.2 mmol/L (21-28); Ionized Calcium 1.13 mMOL/L (1.15-1.33); O2 Saturation % 99.2 % (94-98); PCO2 34 mmHg (35-48); PO2 149 mmHg (83-108); Potassium 3.7 mMOL/L (3.5-5.1); Sodium 125 mMOL/L (136-145); pH 7.46 (7.35-7.45)
[2024-03-12 23:24] LABS: Glucose - Point of Care 247 mg/dl (70-99)
[2024-03-12] MEDS: NOVOLOG FLEXPEN-MODERATE RESISTANCE 3 UNITS SC (23:34)
[2024-03-13] VITALS (15 sets, daily range): BP systolic 84–98; BP diastolic 49–65; PULSE 2–88; BMI 26.3
--- NOTE | 2024-03-13 00:22 | PTCARENOTE ---
Levo gtt titrated down to 5mcg/min per protocol. Pt continues to tolerate vent settings satting at 99% pulse ox.
[2024-03-13 01:50] LABS: % Basophils 0.5 % (0-2); % Immature Granulocytes 0.6 % (0-0.5); % Lymphocytes 3.8 % (20.5-51.1); % Neutrophils 87.1 % (42.2-75.2); Absolute Basophils 0.1 10^3/uL (0-0.2); Absolute Immature Granulocytes 0.1 10^3/uL (0-0.05); Absolute Lymphocytes 0.4 10^3/uL (1.2-3.4); Absolute Monocytes 0.9 10^3/uL (0.1-0.6); Hemoglobin 11.4 g/dL (13.0-18.0); Mean Corp Hgb Conc. 36.8 g/dL (33.0-37.0); Mean Corpuscular Hgb 32.5 pg (27.0-31.0); Mean Corpuscular Volume 88.3 fL (80.0-94.0); Mean Platelet Volume 11.8 fL (7.4-10.4); Nucleated Red Blood Cells % 0 % (-); Platelet Count 64 10^3/uL (130-400); Red Blood Cell Count 3.51 10^6/uL (4.70-6.10); White Blood Cell Count 11.5 10^3/uL (4.8-10.8)
[2024-03-13 02:03] LABS: INR 2.52; Lactic Acid 1.5 mmol/L (0.7-2.0); PT 27.5 Sec (11.4-14.6)
[2024-03-13 02:23] LABS: Blood Urea Nitrogen 60 mg/dl (9-20); Calcium 8.2 mg/dl (8.4-10.2); Carbon Dioxide 22 mmol/L (22-30); Chloride 96 mmol/L (98-107); Estimated Creatinine Clearance 51 ml/min; Glucose 160 mg/dl (70-99); Phosphorus 1.9 mg/dl (2.5-4.5); Potassium 3.7 mmol/L (3.5-5.1); Sodium 125 mmol/L (135-145); eGFR 56.58
[2024-03-13] MEDS: PITRESSIN 100 IV (02:38)
[2024-03-13] MEDS: DIPRIVAN 100 IV (04:12)
[2024-03-13] MEDS: DUONEB 3 ML INH ×2 (04:16→07:15)
[2024-03-13] MEDS: KCL 50 IV (04:24)
[2024-03-13] MEDS: SODIUM PHOSPHATE 255 MEQ IV (04:24)
[2024-03-13] MEDS: SOLU-CORTEF 50 MG IV ×2 (05:23→20:56)
[2024-03-13 05:25] LABS: Glucose - Point of Care 154 mg/dl (70-99)
[2024-03-13] MEDS: NOVOLOG FLEXPEN-MODERATE RESISTANCE 1 UNITS SC ×2 (05:27→17:21)
--- NOTE | 2024-03-13 06:00 | PTCARENOTE ---
Unable to taper pressors any further due to intolerance.
--- NOTE | 2024-03-13 06:51 | W.PN.HOSP.TC ---
Today's Communication/Plan
-
wean pressors as tolerated
stress dose steroids vent settings sedation breathing trials as per ICU
cont abx
cont Warfarin hold Lovenox INR therapeutic
monitor and replete electrolytes
Hyperglycemia likely steroid induced, cont sliding scale glycemic control
Assessment / Plan
Assessment / Plan
Physical Exam
General: Awake calm cooperative on breathing trial
HEENT: NormoCephalic, Anicteric, Moist mucous membranes and Atraumatic Pinpoint Pupils b/l Intubated
Respiratory: Clear to Auscultation b/l
Cardiac: S1/S2 NSR
GI: Soft, Non Tender, Non Distended and Normal Bowel Sounds
Musculoskeletal: No Clubbing, No Cyanosis, No edema
Neuro: Awake calm cooperative on breathing trial
HPI: 78-year-old male with a past medical history of atrial fibrillation on Coumadin, newly diagnosed cirrhosis, CAD, COPD, KIKI on CPAP, GERD, peptic ulcer disease, CHF, and hypertension presents with a 1 day history of fever, hemoptysis, and
shortness of breath. Family reports that he was coughing up blood intermittently overnight, with fever. Associated symptoms include hematemesis, lethargy, agitation. Patient was found to be in acute hypoxic respiratory failure in the ER, and
placed on a nonrebreather. He was also found to have septic shock from pneumonia, with pulmonary edema. He is getting vancomycin and cefepime in the ER, and currently on a Levophed drip. He is on prednisone 60 mg daily since June 2023, unclear
why.
#Septic shock, present upon admission
#Severe pneumonia
#Persistent Fever possible Drug Induced as opposed to infection
Admitted to ICU, fagot maker consult appreciated
COVID Flu Neg
IR consult appreciated central line placed 03/09
Arterial Line placed 03/09
blood cultures NGTD
urine Legionella/strep antigen neg
patient is on prednisone 60 mg p.o. daily since July 2023 at home, unclear why
cont stress dose IV steroids as per ICU
Pressor requirement improved down from three pressors to two Levophed and vasopressin, phenylephrine discontinued
03/13 pressor requirements cont to improve, on low dose levophed and vasopressin
MRSA screen neg Vancomycin discontinued
empiric cefepime azithromycin changed to Levofloxacin d/t concern drug fever (fever since resolved)
urinalysis neg for UTI
Blood Cultures repeated 03/12 NGTD
follow bronchoscopy culture results, tracheal aspirate cx appreciated rare usual respiratory tony
Lactic Acidosis resolved
monitor fever white count
IV Tylenol prn as per ICU
#Respiratory Failure/Acidosis s/p intubation 03/10
cont Vent settings, sedation, breathing trials started 03/13 as Per ICU
#Hyperglycemia likely steroid induced
A1c appreciated 5.6 non-diabetic
cont sliding scale glycemic control
#Hypophosphatemia
#Hypomagnesemia
#Hypocalcemia
Monitor and replete as necessary
#Hemoptysis with concern for pulmonary hemorrhage
CT Chest appreciated
1. Small bilateral pleural effusions, right greater than left.
2. Near complete atelectasis of the right lower lobe with soft tissue attenuation material within bronchi to the right lower lobe which could be related to either secretions or aspiration.
3. Combination of atelectasis and dense airspace consolidation throughout the left upper and lower lobes as above. As on the right, there is soft tissue attenuation opacification of left lower lobe bronchi could be related to either secretions or
aspiration.
4. Advanced emphysematous changes.
Bronchoscopy performed 03/11 no active bleeding found
#Acute on chronic heart failure with reduced ejection fraction
Echo 06/05/2023 EF 30-35%, global hypokinesis, mechanical mitral valve, mild MR, moderate TR
Lasix Held d/t shock/hypotension
Cardio Consult Appreciated
Holding Jardiance d/t ADRIANA,
trend weights
agree start of lasix as per ICU 03/12
#Coagulopathy
#Paroxysmal atrial fibrillation
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
EKG shows sinus tachycardia with first-degree AV block and occasional V paced complexes
INR elevated at 4.58 today, goal is 2.5�3.5
INR trended down to therapeutic levels, Coumadin resumed 03/11 levels then became subtherapeutic bridging with Lovenox started 03/12
03/13 INR therapeutic Lovenox placed on hold, continuing Coumadin
Holding home beta-kyle due to shock/hypotension
metoprolol 5 mg IV prn HR>120
#Type II OR from demand ischemia
Troponin peaked at 0.148 since trended down
#Hematemesis
Likely from swallowed blood products from hemoptysis
Protonix 40 mg IV twice daily
H&H stable
#Hyponatremia
Due to CHF, monitor
Stable 120s
monitor response to lasix as above
#Acute kidney injury likely d/t shock as above resolving
baseline is normal, initial creatine 1.5 increased to 2.1 since trended down to 1.3
From CHF and septic shock
Monitor creatinine, avoid nephrotoxic drugs/NSAIDs
weaning off pressor support as above
#Thrombocytopenia
Due to sepsis, monitor
will transfuse if <20 or <50 with active bleeding
#Recently diagnosed cirrhosis
Follows with Dr. Saunders outpatient
DVT prophylaxis�SCDs, Coumadin resumed
Full code
Preventative Maintenance Technician discussion with family appreciated.
Total Critical Care Time___46__ minutes. I was immediately available to the patient and staff. I personally examined, reviewed labs, diagnostic images/reports, interpretations, treatment plans, discussed patient care with other providers entered
orders as appropriate and documented the medical record.
Anticipated Discharge: > 48 hours
Subjective/Interval History
-
Date of Service: March 13, 2024
Remains intubated but off sedation on breathing trial, no acute distress, awake, communicative with head gestures (nodding/shaking). Calm cooperative.
Objective Data
-
Labs:
Laboratory Results
03/12/24 03/12/24 03/13/24
20:39 21:16 01:33
WBC 11.5 H
Hgb 11.4 L
Hct 31.0 L
Plt Count 64 L D
PT 27.5 H
INR 2.52
HCO3 Cancelled 24.2
Sodium 125 L
Potassium 3.7
Chloride 96 L
Carbon Dioxide 22
BUN 60 H
Creatinine 1.3
Glucose 160 H
Calcium 8.2 L
Vital Signs:
Vital Signs
Temp Pulse Resp BP Pulse Ox
98.3 F 85 26 97/62 98
03/13/24 03:28 03/13/24 06:00 03/13/24 06:00 03/13/24 04:06 03/13/24 06:00
I&O
03/11/24 03/12/24 03/13/24
06:59 06:59 06:59
Intake Total 2701.6 / 2774.9 2630.2 / 2741.7 1196.1 / 1196.1
Output Total 905 / 905 1130 / 1130 2267 / 2267
Balance 1796.6 / 1869.9 1500.2 / 1611.7 -1070.9 / -1070.9
--- NOTE | 2024-03-13 08:27 | W.PN.CD ---
Today's Communication / Plan
-
Diuresis
Wean pressors/vent
starting warfarin tonight INR goal 2.5-3 for mechanical MVR and AF if <2.5 lovenox bridge
Impression / Plan
-
A: 78-year-old gentleman with a past medical history of permanent atrial fibrillation, mechanical mitral valve replacement on chronic Coumadin, coronary artery disease, heart failure with reduced EF, COPD, pulmonary hypertension non-Hodgkin's
lymphoma presents with shortness of breath and hemoptysis. He currently has respiratory failure 2/2 PNA requiring intubation and mechanical ventilation and shock requiring pressor support.
Septic shock, in the setting of pneumonia (could be component of cardiogenic with this EF) Resolving
-Intubated 03/10/2024
-Improving vasopressor requirement (Levophed, vasopressin, <del>phenylephrine</del>)
Hemoptysis, s/p vitamin K without acute blood loss resolveed
HFrEF now 15-20% new, acute on chronic
- Agree with diuresis he has some pitting edema around his hips
-Hold Jardiance in the setting of ADRIANA
-Trend daily weight, I/O, and BMP with diuresis
-Echocardiogram below
ADRIANA, nearly resolved 1.3 March 2
Permanent atrial fibrillation
-Rates OK and improving
-Oral Anticoagulation: Warfarin (mechanical mitral valve), restart warfarin and bridge with LMWH.
Status post mechanical mitral valve replacement
- Goal INR 2.5�3.5
- Restart warfarin Hgb stable
- warfarin 5 mg
Abnormal troponin, likely nonischemic myocardial injury in the setting of acute illness (sepsis)
Hyponatremia, hypervolemic, follow with diuresis
CAD, nonobstructive, 20-30% pLAD stenosis by [facility] 2020
S/p Micra PPM
Cirrhosis
COPD
Former smoker, continued cessation recommended
Subjective: sedated by able to shake head yes/no to questions
TTE March 10 2024: Severely reduced left ventricular systolic function. Left ventricular ejection fraction appears 15-20%. Well seated normally functioning mechanical mitral valve. Moderate tricuspid regurgitation with moderate pulmonary
hypertension.
Laboratory Data
07/18/21 03/10/24 03/10/24
03:59 03:23 12:26
Hgb 8.8 L
INR 3.76
Creatinine 1.0 2.1 H
03/10/24 03/11/24 03/12/24
16:23 03:06 04:33
Hgb 12.0 L
INR 2.59 1.98
Creatinine 1.9 H 1.7 H
03/12/24
04:34
Hgb
INR
Creatinine 1.3
Selected Entries
07/18/21
08:57 07/18/21
09:18
Pulse 60
Blood pressure 139/50
Generic Name Dose Route Start Last Admin
Trade Name Freq PRN Reason Stop Dose Admin
Aspirin 81 mg 07/16/21 08:00 07/18/21 07:29
Aspirin 81 Mg Chewable Tablet PO 08/13/21 07:59 Not Given
DAILY TINY
Atorvastatin Calcium 10 mg 07/16/21 18:00 07/17/21 18:13
Atorvastatin (Lipitor) 10 Mg Tablet PO 08/13/21 17:59 Not Given
QPM TINY
Furosemide 40 mg 07/17/21 08:00 07/18/21 08:57
Furosemide 40 Mg (10 Mg/Ml) 4 Ml Vial IV 08/14/21 07:59 40 mg
BID AT 0800,1600 TINY
Empagliflozin 10 mg 03/10/24 08:00 03/10/24 09:14
Empagliflozin (Jardiance) 10 Mg Tablet PO 04/07/24 07:59 Not Given
DAILY TINY
Vasopressin 20 units in 100 mls @ 0 mls/hr 03/09/24 16:45 03/12/24 05:17
Pitressin IV 100 mls
PER PROTOCOL TINY
Protocol
Per Protocol
Norepinephrine Bitartrate 8 mg 258 mls @ 0 mls/hr 03/09/24 20:00 03/12/24 07:41
/ Dextrose IV 258 mls
PER PROTOCOL TINY
Protocol
Per Protocol
Phenylephrine HCl 100 mg/ 260 mls @ 0 mls/hr 03/10/24 09:15 03/12/24 01:33
Sodium Chloride IV 260 mls
PER PROTOCOL TINY
Protocol
Per Protocol
Warfarin Sodium 2.5 mg 03/11/24 18:00 03/11/24 17:47
Warfarin 2.5 Mg Tablet PO 03/16/24 17:59 2.5 mg
QPM TINY
Physical Exam
Vital Signs/Labs
Vital Signs
Temp Pulse Resp BP Pulse Ox
99.0 F 78 15 97/62 98
03/13/24 07:43 03/13/24 07:23 03/13/24 07:23 03/13/24 04:06 03/13/24 07:23
03/12/24 03/13/24 03/14/24
06:59 06:59 06:59
Actual Weight 187 lb 9.814 oz 188 lb 7.924 oz
03/13/24 01:33
03/13/24 01:33
PT 27.5 Sec (11.4-14.6) H 03/13/24 01:33
INR 2.52 03/13/24 01:33
APTT 54.5 Sec (23.4-35.0) H 03/09/24 13:02
Magnesium 2.0 mg/dl (1.6-2.3) 03/13/24 01:33
Triglycerides 119 mg/dl (10-149) 03/11/24 08:44
03/09/24
08:50
Tgc-G-[id number] Pept > 71702
LAB Results
03/10/24 03/11/24 03/11/24
12:26 03:06 08:44
Troponin I 0.531 H* 0.582 H* 0.589 H*
03/13/24
01:33
Troponin I 0.200 H*
Physical Exam
Constitutional: No acute distress
Cardiovascular: Rhythm/rate is irregular, Pedal edema present (trace around hips ) and Other (mechanical s1 )
Respiratory: Respiratory effort normal
GI: Soft
Neuro/Psych: Oriented (to person can shake head )
Data Reviewed
-
Date of Service: March 13, 2024
Medical Decision Making: Reviewed Test Results
EKG: Tracing Personally Visualized and interpreted (AF )
Echo: Report Reviewed by me
Labs: Labs Reviewed by me
Critical Care Time (in minutes): 32 discussed with pond sawyer
[2024-03-13] MEDS: LASIX 20 MG IV (08:47)
[2024-03-13] MEDS: PROTONIX IV 40 MG IV ×2 (08:47→20:56)
[2024-03-13] MEDS: MIRALAX 17 GRAMS TUBE (08:48)
[2024-03-13] MEDS: FLUSH (NSS) 1 FLUSH IV (08:48)
[2024-03-13] MEDS: NSS (PRESERVATIVE FREE) 10 ML IV ×2 (08:48→20:56)
[2024-03-13 08:52] LABS: B.E. 0.8 mmol/L; HCO3 23.6 mmol/L (21-28); O2 Saturation % 98.5 % (94-98); PCO2 31 mmHg (35-48); PO2 121 mmHg (83-108); pH 7.49 (7.35-7.45)
--- NOTE | 2024-03-13 09:59 | W.PN.INTV ---
Today's Communication / Plan
Recommendations
Spontaneous breathing trial today
IV Lasix
Continue antibiotics
Continue nebulizers
Tube feedings
Bowel regimen
Continue Coumadin
Assessment
-
Assessment: 78-year-old male former tobacco smoker with a past medical history of moderate COPD, moderate restrictive lung disease, history of hemoptysis, history of LLL bronchiectasis, history of left-sided pneumonia, history of aspergillus,
chronic anticoagulation for mechanical mitral valve replacement (July 2021), history of COVID-19, HFrEF with RV dysfunction, pulmonary hypertension, history of NHL s/p chemo/XRT (2003), and chronic thrombocytopenia with unremarkable bone marrow
biopsy (10/2023) who presents with shortness of breath, weakness and fever. He also has been coughing up blood which started 1 night [employer]. Patient has low-grade fever to 100.1 �F in the ER, and tachycardic to 115 bpm, tachypnea to 25 respirator,
hypotensive to 72/44, and initially was saturating 66% on room air. Saturations improved to 91% with nonrebreather. Labs showed leukopenia to 2.7 with 20% bands, anemia to 12, elevated INR 4.58, hyponatremia 130, ADRIANA to 1.5, lactic acid elevated
at 2.3, elevated troponin 0.148, increased proBNP of >27,000, and negative COVID-19 antigen; flu A/B swab also negative. Blood cultures were collected. CXR shows a 10 cm left midlung airspace opacity with acute cardiogenic pulmonary edema and a
right-sided pleural effusion with compressive atelectasis. In the ER antibiotics were given with cefepime/vancomycin, he was also given DuoNebs x 1, given IV fluids with NS 0.5L and started on Levophed due to persistent hypotension with SBP in the
80s. Due to patient's vasopressor and oxygen requirements, he is being admitted to the ICU. Critical care services now consulted for additional management/recommendations.
Chronic conditions [employer]: COPD, restrictive lung disease, history of hemoptysis, chronic anticoagulation with warfarin due to mechanical mitral valve replacement (07/2021), history of left lower lobe bronchiectasis, elevated left hemidiaphragm, KIKI on
CPAP, personal history of COVID-19, chronic atrial fibrillation on Coumadin, history of tobacco abuse with [id number] history (quit in 2018), history of HFrEF with RV dysfunction, mild�moderate pulmonary hypertension, history of GI bleed,
postnasal drip, history of non-Hodgkin's lymphoma s/p chemo/radiation (2003), history of left-sided pneumonia due to Streptococcus pneumonia, history of aspergillus, history of Vieira's esophagus, history of thrombocytopenia s/p unremarkable bone
marrow biopsy
Impression:
#Acute respiratory failure with hypoxia due to CAP + acute pulmonary edema with right pleural effusion
Intubated 03/10/2024
#Bandemia with 20% bands -due to septic shock from left side pneumonia
#Severe left-sided CAP
#Septic shock due to above
#Lactic acidosis
#Acute COPD exacerbation due to above
#Hemoptysis due to pneumonia in the setting of chronic anticoagulation with supratherapeutic INR
#Supratherapeutic INR (INR: 4.58)
#Hyponatremia
#Acute kidney injury (Cr baseline approx 1.1)
#Elevated troponin likely due to demand ischemia with type II [place]
#Chronic pancytopenia
#Mechanical mitral valve replacement on Coumadin
#Chronic A-fib on Coumadin
#DM type II
Former smoker
Former alcohol use.
Plan:
Remains critically ill, requiring multiple vasopressors.
Intubated emergently 03/10/2024 due to worsening hypercapnic respiratory failure and septic shock.
-
Mechanical ventilation settings reviewed
Assist-control/500/16/40%/+5
Pkp 24
appears comfortable on current mechanical ventilation settings.
Chest x-ray 03/12/2024: Stable small to moderate right pleural effusion. Left-sided infiltrate to my view improved. No pneumothorax.
ET tube in place-no significant secretions
ABG 03/13/2024: 7.4/40/141
Continue mechanical ventilation without change.
Will attempt to wean off sedation and start spontaneous breathing trial. Hopefully can extubate.
-
Sedation with fentanyl and propofol if not extubated. Will try to minimize.
Maintain RASS (0-1)
Continue with sedation breaks per protocol
-/
Fever improved/leukocytosis improved.
Hemodynamics improved. Less pressor requirements.
Suspect noninfectious fever.
Vancomycin discontinued 03/10/2024-MRSA screening negative.
Discontinued cefepime and azithromycin. 03/12/2024.
Started levofloxacin, complete 2 more days of antibiotics. 03/15/2024 will be last day.
Monitor QT.
-
Bronchoscopy performed 03/11/2024: Scant whitish secretion. No active bleeding.
Bronchoscopy cultures pending.
Repeat urine and blood cultures negative
-
CT chest noted: Showed small bilateral pleural effusions. Right greater than left. Near complete atelectasis of the right lower lobe, soft tissue attenuation of the right mainstem bronchus. Likely mucous plugging. Left upper lobe infiltrate.
Advanced emphysema.
Chest x-ray as above.
Right ultrasound with moderate effusion. Given improved leukocytosis and fever hold on thoracentesis. Will readdress at a later point.
-
Hemoptysis: Resolved.
Bronchoscopy 03/11/2024 without active bleeding
Continue Coumadin, follow INR.
-
Septic shock:
Vasopressor requirement significantly improved.
Now on Levophed and vasopressin
Herbert-Synephrine has been discontinued
Renal function is improving.
Maintain mean arterial blood pressure 65 mmHg
Continue Cote urinary output.
-
Last echocardiogram available 06/05/2023: Showed moderate to severe reduced left ventricular action fraction. Global hypokinesis. EF 30-35%. Mechanical mitral valve. Moderate TR.
-
Echocardiogram 03/10/2024 noted with decreased LVEF down to 15-20 %.
Global hypokinesis
Normal right ventricle size with reduced systolic function. Moderate TR.
Cannot rule out cardiogenic component
Continue Coumadin/Lovenox
20 mg of IV Lasix will be given today.
Responded well to diuresis negative fluid balance.
-
Continue stress dose of steroids for now. Hydrocortisone decreased to 50 mg every 12 hours. Will need to maintain baseline dose as the patient is chronically on prednisone.
-
COPD history:
Continue DuoNebs
Steroids as above
-
Acute kidney injury-improved.
Hyponatremia-continue support. Hopefully to improve with diuresis.
Metabolic acidosis, improved.
Based on ABG acid-base status is compensated
Continue hemodynamic support
Continue to follow electrolytes daily.
-
Maintain euglycemia with goal BG 140-180
Insulin will be provided as needed.
-
DVT ppx-on anticoagulation.
GI prophylaxis with Protonix
OG tube-tube feedings tolerating, bowel regimen will be started.
N.p.o. for now
-
Dr. Eid discussed in detail with son and at the bedside 03/10/2024, 03/11/2024, 03/12/2024, 03/13/2024.
Prognosis is guarded
Critical care statement: A total of 37 minutes of critical care time was provided for this patient today. This includes management of unstable vital signs, evaluation of the patient at bedside, reviewing the patient's pertinent medical records
including radiographs, microbiology, laboratory evaluations, and discussion with primary team, consultants, pharmacy, nutrition, physical therapy, case management, charge nurse, critical care nursing, and respiratory therapy.

Data:
CXR 03-09-2024:
1. New large 10 cm airspace opacity in the left mid and lower lung which was not present 12/05/2023. Diagnostic possibilities are (1) severe pneumonia, (2) pulmonary hemorrhage, or (3) asymmetric alveolar pulmonary edema.
2. Moderate acute interstitial cardiogenic pulmonary edema.
3. Moderate to severe bilateral upper lobe emphysema.
4. Mild cardiomegaly with evidence for previous mitral valve replacement.
5. Small right pleural effusion and adjacent moderate compressive atelectasis in the right lower lobe.
Subjective Dataa
Subjective Data
Date of Service:
Date of Service: March 13, 2024
Chief Complaint: Central Supply Technician Follow Up (Acute hypoxemic and hypercarbic respiratory failure requiring intubation)
Subjective:
Remains critically ill, on mechanical ventilation. On pressors.
Overall FiO2 has improved.
Vasopressor requirement has decreased.
Unable to provide history.
Review of Systems
General: Unobtainable - Sedation
Objective Data
Data Reviewed
Vital Signs / I&O / Oxygen:
Vital Signs
Temp Pulse Resp BP Pulse Ox
99.0 F 114 25 97/54 98
03/13/24 07:43 03/13/24 09:30 03/13/24 09:30 03/13/24 08:00 03/13/24 09:30
Intake and Output
03/12/24 03/13/24 03/14/24
06:59 06:59 06:59
Intake Total 2630.2 / 2741.7 1196.1 / 1222.0 443.7 / 443.7
Output Total 1130 / 1130 2267 / 2307 125 / 125
Balance 1500.2 / 1611.7 -1070.9 / -1085.0 318.7 / 318.7
SaO2 [A/C] 98
SaO2 [NIV (Non Invasive 96
Ventilation)]
SaO2 98
Nasal Cannula flow liters per 55
minute
Physical Exam
General: Respiratory Distress (On noninvasive mechanical ventilation)
HEENT: Normocephalic and Other (ET tube no significant secretions.)
Cardiovascular: S1-S2
Respiratory: Crackles and Accessory Resp Muscle Use
GI: Soft and Non Distended
Neurology: Other (Lethargic, occasionally moving 4 extremities. Follows commands with sedation breaks per)
Skin: Warm
Labs/Micro/Reports
Lab Data
03/13/24 01:33
03/13/24 01:33
Laboratory Results
03/12/24 03/12/24 03/13/24
20:39 21:16 01:33
PT 27.5 H
INR 2.52
pH Cancelled 7.46 H
pCO2 Cancelled 34 L
pO2 Cancelled 149 H
HCO3 Cancelled 24.2
O2 Delivery Level Cancelled Not Reportable
03/13/24
08:40
PT
INR
pH 7.49 H
pCO2 31 L
pO2 121 H
HCO3 23.6
O2 Delivery Level
Microbiology
03/12/24 09:35 Blood/Venous Blood Culture - Preliminary
No Growth in 24 hours- Final report to follow
03/12/24 09:32 Blood/Venous Blood Culture - Preliminary
No Growth in 24 hours- Final report to follow
03/09/24 08:50 Blood/Venous Blood Culture - Preliminary
No Growth in 4 days- Final report to follow
03/09/24 08:50 Blood/Venous Blood Culture - Preliminary
No Growth in 4 days- Final report to follow
03/11/24 15:19 Bronch Washing Fungal Smear - Final
No yeast or fungal elements seen.
03/10/24 11:48 Tracheal Aspirate Respiratory Culture - Final
03/10/24 11:48 Tracheal Aspirate Gram Stain - Final
03/11/24 15:19 Bronch Right Lower Lobe Respiratory Culture - Preliminary
NO GROWTH
03/11/24 15:19 Bronch Right Lower Lobe Gram Stain - Preliminary
03/11/24 15:19 Bronch Washing Fungal Culture - Preliminary
Culture in progress.
Positive cultures are reported as soon as detected.
Final report to follow in four to five weeks.
03/10/24 12:26 Nose Nasal Screen MRSA (PCR) - Final
MRSA not detected - performed by PCR methodology.
03/09/24 17:27 Urine Legionella Urinary Antigen - Final
Negative for Legionella pneumophila Serogroup 1 antigen.
A negative result does not rule out the possiblity of
Legionella infection due to other serogroups or species of
Legionella. Clinical correlation is recommended.
03/09/24 17:27 Urine Streptococcus pneumoniae Antigen (M - Final
Negative for Streptococcus pneumoniae antigen.
A negative result does not exclude infection with
Streptococcus pneumoniae. Clinical correlation is
recommended.
[2024-03-13 10:04] LABS: B.E. 0 mmol/L; HCO3 24.8 mmol/L (21-28); O2 Saturation % 99.1 % (94-98); PCO2 40 mmHg (35-48); PO2 141 mmHg (83-108)
[2024-03-13] MEDS: JARDIANCE 10 MG TUBE (10:19)
[2024-03-13] MEDS: SENOKOT-S 1 TABLET TUBE ×2 (10:19→20:56)
--- NOTE | 2024-03-13 10:34 | PTCARENOTE ---
Pt successfully extubated at 1025 to aerosol mask. Sats currently 98%. Weaning levo as able, vasopressin remains off. Family at bedside.
[2024-03-13 11:47] LABS: Glucose - Point of Care 135 mg/dl (70-99)
[2024-03-13] MEDS: NOVOLOG FLEXPEN-MODERATE RESISTANCE SC (11:56)
--- NOTE | 2024-03-13 12:21 | PTCARENOTE ---
Systems reviewed. No new changes. Pt groggy since extubation. Currently weaned levo to 2mc/min, bp borderline. Family at bedside. Pt remains on aerosol mask.
--- NOTE | 2024-03-13 14:11 | PN.CDI ---
CDI
- -
CDI:
Physician Documentation Request
Admit Date: 03/09/24 11:07
Dear Doctor Krystal,
Patient admitted with septic shock.
03/12 Nursing skin assessment, 'DTI (Deep Tissue Injury) sacral pressure injury.'
Physician documentation of the type and location of wounds is required for compliant documentation. Based on the above clinical findings and your assessment, please provide the following in your progress note:
Type (etiology) of ulcer/wound:
- Pressure (decubitus) ulcer
- Other
- Unable to determine
For a pressure ulcer, please also include the stage* of the ulcer:
- Stage 1 - Skin intact, non-blanchable redness
- Stage 2 - Partial thickness loss of dermis, includes intact or open blister
- Stage 3 - Full thickness tissue not including bone, tendon or muscle
- Stage 4 - Full thickness tissue loss, including exposed bone, tendon or muscle
- Unstageable - Full thickness loss in which the base of the ulcer is covered by slough (yellow, olson, posey, green or brown) and/or eschar (olson, brown or black) in the wound bed.
- Unable to determine
Use of terms such as suspected, likely, concern for, or probable (associated with a specific diagnosis that is being evaluated, monitored, or treated as if it exists) are acceptable and can be coded in the inpatient setting, when documented at the
time of discharge.
Thank you,
Aruna BOTELLO,RN,CCDS
CDI Specialist
Available via Sharon text
Please use your independent medical judgment in providing your response.
*Source: National Pressure Ulcer Advisory Panel (NPUAP)
--- NOTE | 2024-03-13 14:18 | WOUNDNOTE ---
SACRUM/LEFT BUTTOCK
--- NOTE | 2024-03-13 14:23 | WOUNDNOTE ---
WOC RN NOTE: Patient on HAP report for new DTI of sacrum reported on 03/12. Patient admitted to [facility] on 03/09 and was intubated on 03/10. Chart reviewed and patient assessed with the assistance of RN, Annelise. Patient has evolving DTI of sacral coccxy and
left buttock that may worsen or open. The wound is blue/purple and non-blanchable. There is also a serous filled blister on the left buttock. Staff had already properly sacral foam dressing and maintained patient on turning schedule. At time of
assessment, no sting barrier was applied to wound and the silicone foam dressing was maintained. Patient was positioned on a left semi-side lying position. Heels intact. Patient is on a Centrella Max Air and receiving nutrition through feeding tube.
Patients and other family members were informed about the wound by this jingle writer. Family made aware that wound may worsen. Hospitalist made aware of new DTI. Patient has multiple co-morbidities including use of multiple vasopressors, respiratory
failure, sepsis, and chronic steroid use. Wounds may worsen and new wounds may develop even with optimal care. Please contact WOC RN if wound worsens or new wounds develop.
--- NOTE | 2024-03-13 15:24 | PTCARENOTE ---
Pt c/o sob. Does not appear in distress, just very weak. Dr Eid aware. Pt placed on bipap, less tachy, less tachypneic. Sleeping currently with sats 96%. 10/16 with 8l
[2024-03-13] MEDS: LEVAQUIN 750 MG TUBE (15:35)
--- NOTE | 2024-03-13 15:46 | W.PN.UPDATE ---
Update Note
Progress Note Update
Will maintain BiPAP for increased work of breathing.
He looks more comfortable.
May take breaks if necessary.
Hold on further diuresis, blood pressure is borderline. Will keep A-line for today.
Will obtain electrolytes and replete as necessary.
--- NOTE | 2024-03-13 16:15 | WOUNDNOTE ---
LEFT UPPER ARM WOUND
[2024-03-13 17:03] LABS: Blood Urea Nitrogen 67 mg/dl (9-20); Calcium 8.2 mg/dl (8.4-10.2); Carbon Dioxide 23 mmol/L (22-30); Chloride 95 mmol/L (98-107); Estimated Creatinine Clearance 47 ml/min; Glucose 144 mg/dl (70-99); Sodium 126 mmol/L (135-145); eGFR 51.77
[2024-03-13 17:21] LABS: Glucose - Point of Care 151 mg/dl (70-99)
[2024-03-13] MEDS: COUMADIN 2.5 MG TUBE (17:21)
--- NOTE | 2024-03-13 23:00 | PTCARENOTE ---
Titrated x2 concentrated levo gtt to 4mcg/min per protocol.
[2024-03-14] VITALS (23 sets, daily range): BP systolic 86–108; BP diastolic 54–92; PULSE 2–90; O2SAT 100; BMI 26.4
[2024-03-14] MEDS: NOVOLOG FLEXPEN-MODERATE RESISTANCE 1 UNITS SC (00:29)
[2024-03-14 00:39] LABS: Glucose - Point of Care 153 mg/dl (70-99)
[2024-03-14 05:36] LABS: % Basophils 0.5 % (0-2); % Immature Granulocytes 1.2 % (0-0.5); % Lymphocytes 4.6 % (20.5-51.1); % Monocytes 7.5 % (1.7-9.3); % Neutrophils 86.2 % (42.2-75.2); Absolute Basophils 0.1 10^3/uL (0-0.2); Absolute Immature Granulocytes 0.1 10^3/uL (0-0.05); Absolute Lymphocytes 0.5 10^3/uL (1.2-3.4); Absolute Monocytes 0.7 10^3/uL (0.1-0.6); Absolute Neutrophils 8.6 10^3/uL (1.4-6.5); Hematocrit 30.9 % (39.0-52.0); Mean Corp Hgb Conc. 35.6 g/dL (33.0-37.0); Mean Corpuscular Hgb 32.1 pg (27.0-31.0); Mean Corpuscular Volume 90.1 fL (80.0-94.0); Mean Platelet Volume 11.3 fL (7.4-10.4); Nucleated Red Blood Cells % 0 % (-); Platelet Count 66 10^3/uL (130-400); Red Blood Cell Count 3.43 10^6/uL (4.70-6.10); Red Cell Dist. Width 15.3 % (11.5-14.5); White Blood Cell Count 9.9 10^3/uL (4.8-10.8)
[2024-03-14 05:46] LABS: PT 48.7 Sec (11.4-14.6)
[2024-03-14] MEDS: LEVOPHED 258 MG IV (05:58)
[2024-03-14 06:02] LABS: Blood Urea Nitrogen 65 mg/dl (9-20); Calcium 8.5 mg/dl (8.4-10.2); Carbon Dioxide 24 mmol/L (22-30); Chloride 96 mmol/L (98-107); Estimated Creatinine Clearance 47 ml/min; Glucose 146 mg/dl (70-99); Phosphorus 2.8 mg/dl (2.5-4.5); Potassium 3.9 mmol/L (3.5-5.1); Sodium 128 mmol/L (135-145); Triglycerides 96 mg/dl (10-149); eGFR 51.77
[2024-03-14] MEDS: NOVOLOG FLEXPEN-MODERATE RESISTANCE SC ×2 (06:11→12:07)
[2024-03-14 06:32] LABS: INR 5.18
--- NOTE | 2024-03-14 07:01 | W.PN.HOSP.TC ---
Today's Communication/Plan
-
wean pressors as tolerated
wean O2 supplementation as tolerated
cont abx
hold Coumadin, daily INR checks
ST/PT/OT
diuresis as per cardio
Assessment / Plan
Assessment / Plan
Physical Exam
General: Awake calm cooperative on breathing trial
HEENT: NormoCephalic, Anicteric, Moist mucous membranes on 4L nasal cannula
Respiratory: Clear to Auscultation b/l
Cardiac: S1/S2 NSR
GI: Soft, Non Tender, Non Distended and Normal Bowel Sounds
Musculoskeletal: No Clubbing, No Cyanosis, No edema
Neuro: AOx3
HPI: 78-year-old male with a past medical history of atrial fibrillation on Coumadin, newly diagnosed cirrhosis, CAD, COPD, KIKI on CPAP, GERD, peptic ulcer disease, CHF, and hypertension presents with a 1 day history of fever, hemoptysis, and
shortness of breath. Family reports that he was coughing up blood intermittently overnight, with fever. Associated symptoms include hematemesis, lethargy, agitation. Patient was found to be in acute hypoxic respiratory failure in the ER, and
placed on a nonrebreather. He was also found to have septic shock from pneumonia, with pulmonary edema. He is getting vancomycin and cefepime in the ER, and currently on a Levophed drip. He is on prednisone 60 mg daily since June 2023, unclear
why.
#Septic shock, present upon admission
#Severe pneumonia
#Persistent Fever possible Drug Induced as opposed to infection
Admitted to ICU, supercalender operator helper consult appreciated
COVID Flu Neg
IR consult appreciated central line placed 03/09
Arterial Line placed 03/09
blood cultures NGTD
urine Legionella/strep antigen neg
patient is on prednisone 60 mg p.o. daily since July 2023 at home, unclear why
cont stress dose IV steroids as per ICU
Pressor requirement improved down from three pressors to two Levophed and vasopressin, phenylephrine discontinued, further improved to low dose Levophed only, vasopressin discontinued
MRSA screen neg Vancomycin discontinued
empiric cefepime azithromycin changed to Levofloxacin d/t concern drug fever (fever since resolved)
cont Levaquin total 6 days of abx received since admission, planned for 3 more days, total 9 days
urinalysis neg for UTI
Blood Cultures repeated 03/12 NGTD
follow bronchoscopy culture results, tracheal aspirate cx appreciated rare usual respiratory tony
Lactic Acidosis resolved
monitor fever white count
#Respiratory Failure/Acidosis s/p intubation 03/10
extubated 03/13 to BIPAP gradually weaned off, stable respiratory status on 4L 03/14 speech eval appreciated appropriate regular diet, NG tube discontinued
#Hyperglycemia likely steroid induced
A1c appreciated 5.6 non-diabetic
cont sliding scale glycemic control
#Hypophosphatemia
#Hypomagnesemia
#Hypocalcemia
Monitor and replete as necessary
#Hemoptysis with concern for pulmonary hemorrhage
CT Chest appreciated
1. Small bilateral pleural effusions, right greater than left.
2. Near complete atelectasis of the right lower lobe with soft tissue attenuation material within bronchi to the right lower lobe which could be related to either secretions or aspiration.
3. Combination of atelectasis and dense airspace consolidation throughout the left upper and lower lobes as above. As on the right, there is soft tissue attenuation opacification of left lower lobe bronchi could be related to either secretions or
aspiration.
4. Advanced emphysematous changes.
Bronchoscopy performed 03/11 no active bleeding found
#Acute on chronic heart failure with reduced ejection fraction
Echo 06/05/2023 EF 30-35%, global hypokinesis, mechanical mitral valve, mild MR, moderate TR
Lasix Held d/t shock/hypotension
Jardiance held d/t ADRIANA, since resumed as per Cardio
trend weights
cardio eval appreciated
diuresis as per supercalender operator helper/cardio
#Coagulopathy
#Paroxysmal atrial fibrillation
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
EKG shows sinus tachycardia with first-degree AV block and occasional V paced complexes
INR elevated at 4.58 today, goal is 2.5�3.5
INR trended down to therapeutic levels, Coumadin resumed 03/11 levels then became subtherapeutic bridging with Lovenox started 03/12
03/13 INR therapeutic Lovenox placed on hold, continuing Coumadin
03/14 INR supratherapeutic Coumadin placed on hold, resume when INR therapeutic
Holding home beta-kyle due to shock/hypotension
metoprolol 5 mg IV prn HR>120
#Type II NE from demand ischemia vs nonischemic myocardial injury in the setting of acute illness (sepsis)
Troponin peaked at 0.148 since trended down
#Hematemesis
Likely from swallowed blood products from hemoptysis
Protonix 40 mg PO twice daily
H&H stable
#Hyponatremia
Due to CHF, monitor
Stable 120s improving following restart Lasix
#Acute kidney injury likely d/t shock as above resolving
baseline is normal, initial creatine 1.5 increased to 2.1 since trended down
From CHF and septic shock
Monitor creatinine, avoid nephrotoxic drugs/NSAIDs
weaning off pressor support as above
#Thrombocytopenia
Due to sepsis, monitor
will transfuse if <20 or <50 with active bleeding
#Recently diagnosed cirrhosis
Follows with Dr. Saunders outpatient
DVT prophylaxis�supratherapeutic INR (coumadin on hold)
Full code
Pack Master discussion with family appreciated.
Total Critical Care Time___45__ minutes. I was immediately available to the patient and staff. I personally examined, reviewed labs, diagnostic images/reports, interpretations, treatment plans, discussed patient care with other providers entered
orders as appropriate and documented the medical record.
Anticipated Discharge: 24 - 48 hours
Subjective/Interval History
-
Date of Service: March 14, 2024
Awake coherent conversant, no acute distress sitting up comfortably in bed reports feeling 'much better' stable respiratory status on 4L. Son Eber present during evaluation.
Objective Data
-
Labs:
Laboratory Results
03/14/24
05:18
WBC 9.9
Hgb 11.0 L
Hct 30.9 L
Plt Count 66 L
PT 48.7 H
INR 5.18 H* D
Sodium 128 L
Potassium 3.9
Chloride 96 L
Carbon Dioxide 24
BUN 65 H
Creatinine 1.4 H
Glucose 146 H
Calcium 8.5
Vital Signs:
Vital Signs
Temp Pulse Resp BP Pulse Ox
96.9 F L 72 24 94/62 97
03/14/24 05:00 03/14/24 06:00 03/14/24 06:00 03/14/24 06:00 03/14/24 06:00
I&O
03/13/24 03/14/24 03/15/24
06:59 06:59 06:59
Intake Total 1196.1 / 1222.0 944.6 / 944.6
Output Total 2267 / 2307 1313 / 1313
Balance -1070.9 / -1085.0 -368.4 / -368.4
[2024-03-14] MEDS: MIRALAX 17 GRAMS TUBE (07:44)
[2024-03-14] MEDS: SENOKOT-S 1 TABLET TUBE (07:44)
[2024-03-14] MEDS: PROTONIX IV 40 MG IV (07:44)
[2024-03-14] MEDS: JARDIANCE 10 MG TUBE (07:44)
[2024-03-14] MEDS: SOLU-CORTEF 50 MG IV (07:44)
[2024-03-14] MEDS: NSS (PRESERVATIVE FREE) 10 ML IV (07:45)
--- NOTE | 2024-03-14 08:27 | W.PN.INTV ---
Today's Communication / Plan
Recommendations
Supratherapeutic INR, hold warfarin
Levophed and vasopressin discontinued
Monitor blood pressure with target MAP> 65
Monitor and replete electrolytes
Speech and swallow
BiPAP as needed
PT/OT
Assessment
-
Assessment: 78-year-old male former tobacco smoker with a past medical history of moderate COPD, moderate restrictive lung disease, history of hemoptysis, history of LLL bronchiectasis, history of left-sided pneumonia, history of aspergillus,
chronic anticoagulation for mechanical mitral valve replacement (July 2021), history of COVID-19, HFrEF with RV dysfunction, pulmonary hypertension, history of NHL s/p chemo/XRT (2003), and chronic thrombocytopenia with unremarkable bone marrow
biopsy (10/2023) who presents with shortness of breath, weakness and fever. 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 Patient has low-grade fever to 100.1 �F in the ER, and tachycardic to 115 bpm, tachypnea to 25 respirator,
hypotensive to 72/44, and initially was saturating 66% on room air. Saturations improved to 91% with nonrebreather. Labs showed leukopenia to 2.7 with 20% bands, anemia to 12, elevated INR 4.58, hyponatremia 130, ADRIANA to 1.5, lactic acid elevated
at 2.3, elevated troponin 0.148, increased proBNP of >27,000, and negative COVID-19 antigen; flu A/B swab also negative. Blood cultures were collected. CXR shows a 10 cm left midlung airspace opacity with acute cardiogenic pulmonary edema and a
right-sided pleural effusion with compressive atelectasis. In the ER antibiotics were given with cefepime/vancomycin, he was also given DuoNebs x 1, given IV fluids with NS 0.5L and started on Levophed due to persistent hypotension with SBP in the
80s. Due to patient's vasopressor and oxygen requirements, he is being admitted to the ICU. Critical care services now consulted for additional management/recommendations.
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
CPAP, personal history of COVID-19, chronic atrial fibrillation on Coumadin, history of tobacco abuse with [id number] history (quit in 2018), history of HFrEF with RV dysfunction, mild�moderate pulmonary hypertension, history of GI bleed,
postnasal drip, history of non-Hodgkin's lymphoma s/p chemo/radiation (2003), history of left-sided pneumonia due to Streptococcus pneumonia, history of aspergillus, history of Vieira's esophagus, history of thrombocytopenia s/p unremarkable bone
marrow biopsy
Impression:
#Acute respiratory failure with hypoxia due to CAP + acute pulmonary edema with right pleural effusion
Intubated 03/10/2024, extubated 03/13/2024.
#Bandemia with 20% bands -due to septic shock from left side pneumonia
#Severe left-sided CAP
#Septic shock due to above
#Lactic acidosis
#Acute COPD exacerbation due to above
#Hemoptysis due to pneumonia in the setting of chronic anticoagulation with supratherapeutic INR
#Supratherapeutic INR (INR: 5.18)
#Hyponatremia
#Acute kidney injury (Cr baseline approx 1.1)
#Elevated troponin likely due to demand ischemia with type II [place]
#Chronic pancytopenia
#Mechanical mitral valve replacement on Coumadin
#Chronic A-fib on Coumadin
#DM type II
Former smoker
Former alcohol use.
Plan:
Acute respiratory failure with hypoxia due to CAP + acute pulmonary edema with right pleural effusion:
- Intubated emergently 03/10/2024 due to worsening hypercapnic respiratory failure and septic shock.
- Extubated 03/13/2024 to BiPAP,
- Oxygen requirement improved, now on 4 L oxygen NC and saturating at 97%.
- BiPAP at night, and as needed during the day.
- Patient appears comfortable sitting and tolerated out of bed.
- Continue Levophed, vasopressin discontinued.
- Monitor BP and wean off Levophed as needed, maintain MAP> 65.
- Continue levofloxacin day 3.
- Chest x-ray 03/12/2024: Stable small to moderate right pleural effusion. Left-sided infiltrate to my view improved. No pneumothorax.
Fever improved/leukocytosis improved.
- Suspect noninfectious fever.
- Bronchoscopy performed 03/11/2024: Scant whitish secretion. No active bleeding. Cultures with no growth.
- Repeat urine and blood cultures negative.
- Discontinued 03/10/2024-MRSA screening negative.
- Discontinued cefepime and azithromycin. 03/12/2024.
- Continue levofloxacin, complete 1 more day of antibiotics. 03/15/2024 will be last day.
- Monitor QT.
- Speech and swallow evaluation.
- PT/OT .
CT chest noted: Showed small bilateral pleural effusions. Right greater than left. Near complete atelectasis of the right lower lobe, soft tissue attenuation of the right mainstem bronchus. Likely mucous plugging. Left upper lobe infiltrate.
Advanced emphysema.
Chest x-ray as above.
Right ultrasound with moderate effusion. Given improved leukocytosis and fever hold on thoracentesis. Will readdress at a later point.
Hemoptysis: Resolved.
- Bronchoscopy 03/11/2024 without active bleeding
- Supratherapeutic INR 5.18 after resuming warfarin.
- Hold Coumadin for today, follow INR.
-
Septic shock:
- Vasopressor requirement significantly improved.
- Levophed and vasopressin has been discontinued.
- Herbert-Synephrine has been discontinued.
- Renal function is improving, continue to monitor.
- IV fluid as needed, restart Levophed if appropriate.
- Maintain mean arterial blood pressure >65 mmHg
- Discontinue Cote when appropriate.
HFrEF:
- S/p mechanical mitral valve replacement. On warfarin with goal INR 2.5-3 5.5.
- Supratherapeutic INR as above.
- Hold anticoagulation.
- Echocardiogram 03/10/2024 noted with decreased LVEF down to 15-20 %. Last echocardiogram available 06/05/2023: Showed moderate to severe reduced left ventricular action fraction. Global hypokinesis. EF 30-35%. Mechanical mitral valve. Moderate
TR.
- Hold IV diuresis.
- Discontinue A-line when appropriate.
- Monitor and replete electrolytes as necessary.
- Responded well to diuresis negative fluid balance.
- Repeat echo prior to discharge and consider cath if LVEF remains severely depressed per cardiology.
COPD history:
- Continue DuoNebs
-Steroids discontinued
Acute kidney injury-
- Improved.
- Hyponatremia-continue support. Improving.
- Metabolic acidosis with compensated acid-base status, improved.
- Continue hemodynamic support
- Continue to follow electrolytes daily.
Maintain euglycemia with goal BG 140-180
- Weight trending up, will treat with 40 mg IV Lasix once.
- Resume Jardiance.
- Insulin will be provided as needed.
-
DVT ppx- SCD
GI prophylaxis with Protonix

Data:
CXR 03/13/2024:
There is moderate diffuse prominence of the bronchovascular markings throughout both lungs which more likely reflects pulmonary edema than diffuse interstitial pneumonia as there is mild cardiomegaly and small bilateral pleural effusions.
Correlation with the patient's BNP is recommended.
Chest ultrasound 03/12/2024:
Moderate right pleural effusion. Stable
CXR 03-09-2024:
1. New large 10 cm airspace opacity in the left mid and lower lung which was not present 12/05/2023. Diagnostic possibilities are (1) severe pneumonia, (2) pulmonary hemorrhage, or (3) asymmetric alveolar pulmonary edema.
2. Moderate acute interstitial cardiogenic pulmonary edema.
3. Moderate to severe bilateral upper lobe emphysema.
4. Mild cardiomegaly with evidence for previous mitral valve replacement.
5. Small right pleural effusion and adjacent moderate compressive atelectasis in the right lower lobe.
Chest CT 03/09/2024:
1. Small bilateral pleural effusions, right greater than left.
2. Near complete atelectasis of the right lower lobe with soft tissue attenuation material within bronchi to the right lower lobe which could be related to either secretions or aspiration.
3. Combination of atelectasis and dense airspace consolidation throughout the left upper and lower lobes as above. As on the right, there is soft tissue attenuation opacification of left lower lobe bronchi could be related to either secretions or
aspiration.
4. Advanced emphysematous changes.
Echo 03/10/2024:
Severely reduced left ventricular systolic function. Left ventricular ejection
fraction appears 15-20% by visual assessment.
Global hypokinesis.
Normal right ventricular size with reduced systolic function.
Well seated normally functioning mechanical mitral valve.
Moderate tricuspid regurgitation with moderate pulmonary hypertension.
Compared to the images from 06/05/2023, the left ventricular systolic function
has decreased from 30 to 35% to 15 to 20%. The right ventricle is no longer
dilated but reduced systolic function is now seen.
Subjective Dataa
Subjective Data
Date of Service:
Date of Service: March 14, 2024
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
Subjective:
There was no significant acute events reported overnight. Pressor requirements has decreased, vasopressor discontinued, BP not at goal yet with titration of x 2 Levophed per protocol. However overall FiO2 continue to improve, patient currently on
4L oxygen via NC and saturating at 100%. Patient seen this morning in bed, comfortable with son at bedside.
Review of Systems
General: Fever (Negative) and Chills (Negative)
Cardiopulmonary: Dyspnea (Negative), Wheezing (Negative), Chest Pain (Negative) and Edema (Negative)
GI: Abdominal Pain (Negative) and Nausea (Negative)
Neuro: Headache (Negative)
Genitourinary: Cote
Objective Data
Data Reviewed
Vital Signs / I&O / Oxygen:
Vital Signs
Temp Pulse Resp BP Pulse Ox
96.9 F L 70 23 94/62 96
03/14/24 07:39 03/14/24 07:00 03/14/24 07:00 03/14/24 06:00 03/14/24 07:00
Intake and Output
03/13/24 03/14/24 03/15/24
06:59 06:59 06:59
Intake Total 1196.1 / 1222.0 944.6 / 1007.1 260.0 / 260.0
Output Total 2267 / 2307 1313 / 1313 150 / 150
Balance -1070.9 / -1085.0 -368.4 / -305.9 110.0 / 110.0
SaO2 [A/C] 98
SaO2 [NIV (Non Invasive 96
Ventilation)]
SaO2 96
Nasal Cannula flow liters per 55
minute
Physical Exam
General: Respiratory Distress (On noninvasive mechanical ventilation) and Comfortable
HEENT: Normocephalic
Cardiovascular: S1-S2, Irregular Rhythm, Murmur (Negative) and JVD (Negative)
Respiratory: Clear, Crackles and Non-Labored Respirations
GI: Soft, Non Distended and Non Tender
Neurology: Awake, Alert, Oriented, AO x 3 and Other (Lethargic, occasionally moving 4 extremities. Follows commands with sedation breaks per)
Skin: Warm
Labs/Micro/Reports
Lab Data
03/14/24 05:18
03/14/24 05:18
Laboratory Results
03/13/24 03/13/24 03/14/24
08:40 09:51 05:18
PT 48.7 H
INR 5.18 H* D
pH 7.49 H 7.40
pCO2 31 L 40
pO2 121 H 141 H
HCO3 23.6 24.8
O2 Delivery Level
Microbiology
03/11/24 15:19 Bronch Right Lower Lobe Respiratory Culture - Final
NO GROWTH
03/11/24 15:19 Bronch Right Lower Lobe Gram Stain - Final
03/12/24 09:35 Blood/Venous Blood Culture - Preliminary
No Growth in 24 hours- Final report to follow
03/12/24 09:32 Blood/Venous Blood Culture - Preliminary
No Growth in 24 hours- Final report to follow
03/09/24 08:50 Blood/Venous Blood Culture - Preliminary
No Growth in 4 days- Final report to follow
03/09/24 08:50 Blood/Venous Blood Culture - Preliminary
No Growth in 4 days- Final report to follow
03/11/24 15:19 Bronch Washing Fungal Smear - Final
No yeast or fungal elements seen.
03/10/24 11:48 Tracheal Aspirate Respiratory Culture - Final
03/10/24 11:48 Tracheal Aspirate Gram Stain - Final
03/11/24 15:19 Bronch Washing Fungal Culture - Preliminary
Culture in progress.
Positive cultures are reported as soon as detected.
Final report to follow in four to five weeks.
--- NOTE | 2024-03-14 08:49 | W.PN.CD ---
Today's Communication / Plan
-
still on pressors: once off, will resume Toprol XL first; then assess for other GDMT
jardiance has been resumed
weight is up: lasix 40mg IV x1
Impression / Plan
-
A: 78-year-old gentleman with a past medical history of permanent atrial fibrillation, mechanical mitral valve replacement on chronic Coumadin, coronary artery disease, heart failure with reduced EF, COPD, pulmonary hypertension non-Hodgkin's
lymphoma presents with shortness of breath and hemoptysis. Also respiratory failure 2/2 PNA requiring intubation and mechanical ventilation and shock requiring pressor support.
Shock, likely primarily septic in the setting of pneumonia (could be component of cardiogenic with severely depressed EF): improved
-now extubated
-Improving vasopressor requirement: was on 3 pressors, now down to levophed
-weaning levophed
Hemoptysis, s/p vitamin K
-hemoptysis resolved, INR trended down, but now supratherapeutic INR after resuming warfarin (5.18)
-no coumadin today
-trend INR
h/o NICM, now with decline in LVEF, HFrEF now 15-20%, acute on chronic (prior LVEF 30-35% in 05/2023)
-Echocardiogram 03/10 below
-still on pressors: once off, will resume Toprol XL first; then assess for other GDMT
-jardiance has been resumed
-weight is up: lasix 40mg IV x1
-will repeat echo when patient closer to discharge: will need to consider cath if LVEF remains severely depressed
ADRIANA: peak 2.1
-improving, down to 1.4
Permanent atrial fibrillation
-Rate controlled
-Oral Anticoagulation: Warfarin (mechanical mitral valve), per INR
Status post mechanical mitral valve replacement
- Goal INR 2.5�3.5
- warfarin per INR
Abnormal troponin, likely nonischemic myocardial injury in the setting of acute illness (sepsis)
Hyponatremia, hypervolemic, follow with diuresis
CAD, nonobstructive, 20-30% pLAD stenosis by [facility] 2020
S/p Micra PPM
Cirrhosis
COPD
Former smoker, continued cessation recommended
CCT 35 minutes.
Subjective: sedated by able to shake head yes/no to questions
TTE March 10 2024: Severely reduced left ventricular systolic function. Left ventricular ejection fraction appears 15-20%. Well seated normally functioning mechanical mitral valve. Mean gradient 5. Moderate tricuspid regurgitation with moderate
pulmonary hypertension.
Laboratory Data
07/18/21 03/10/24 03/10/24
03:59 03:23 12:26
Hgb 8.8 L
INR 3.76
Creatinine 1.0 2.1 H
03/10/24 03/11/24 03/12/24
16:23 03:06 04:33
Hgb 12.0 L
INR 2.59 1.98
Creatinine 1.9 H 1.7 H
03/12/24
04:34
Hgb
INR
Creatinine 1.3
Selected Entries
07/18/21
08:57 07/18/21
09:18
Pulse 60
Blood pressure 139/50
Generic Name Dose Route Start Last Admin
Trade Name Freq PRN Reason Stop Dose Admin
Aspirin 81 mg 07/16/21 08:00 07/18/21 07:29
Aspirin 81 Mg Chewable Tablet PO 08/13/21 07:59 Not Given
DAILY TINY
Atorvastatin Calcium 10 mg 07/16/21 18:00 07/17/21 18:13
Atorvastatin (Lipitor) 10 Mg Tablet PO 08/13/21 17:59 Not Given
QPM TINY
Furosemide 40 mg 07/17/21 08:00 07/18/21 08:57
Furosemide 40 Mg (10 Mg/Ml) 4 Ml Vial IV 08/14/21 07:59 40 mg
BID AT 0800,1600 TINY
Empagliflozin 10 mg 03/10/24 08:00 03/10/24 09:14
Empagliflozin (Jardiance) 10 Mg Tablet PO 04/07/24 07:59 Not Given
DAILY TINY
Vasopressin 20 units in 100 mls @ 0 mls/hr 03/09/24 16:45 03/12/24 05:17
Pitressin IV 100 mls
PER PROTOCOL TINY
Protocol
Per Protocol
Norepinephrine Bitartrate 8 mg 258 mls @ 0 mls/hr 03/09/24 20:00 03/12/24 07:41
/ Dextrose IV 258 mls
PER PROTOCOL TINY
Protocol
Per Protocol
Phenylephrine HCl 100 mg/ 260 mls @ 0 mls/hr 03/10/24 09:15 03/12/24 01:33
Sodium Chloride IV 260 mls
PER PROTOCOL TINY
Protocol
Per Protocol
Warfarin Sodium 2.5 mg 03/11/24 18:00 03/11/24 17:47
Warfarin 2.5 Mg Tablet PO 03/16/24 17:59 2.5 mg
QPM TINY
Physical Exam
Vital Signs/Labs
Vital Signs
Temp Pulse Resp BP Pulse Ox
96.9 F L 70 23 94/62 96
03/14/24 07:39 03/14/24 07:00 03/14/24 07:00 03/14/24 06:00 03/14/24 07:00
03/13/24 03/14/24 03/15/24
06:59 06:59 06:59
Actual Weight 85.5 kg 85.7 kg
03/14/24 05:18
03/14/24 05:18
PT 48.7 Sec (11.4-14.6) H 03/14/24 05:18
INR 5.18 H* D 03/14/24 05:18
APTT 54.5 Sec (23.4-35.0) H 03/09/24 13:02
Magnesium 2.0 mg/dl (1.6-2.3) 03/14/24 05:18
Triglycerides 96 mg/dl (10-149) 03/14/24 05:18
03/09/24
08:50
Cjn-L-Jchpyujhakh Pept > 73556
LAB Results
03/11/24 03/13/24
08:44 01:33
Troponin I 0.589 H* 0.200 H*
Physical Exam
Constitutional: No acute distress
EENT: Moist mucous membranes
Cardiovascular: Systolic murmur absent, Rhythm/rate is irregular, Pedal edema present and JVD present
Respiratory: Respiratory effort normal and Lungs clear to auscul.
GI: Soft and Distention absent
Neuro/Psych: AO x 3
Data Reviewed
-
Date of Service: March 14, 2024
EKG: Other (Tele: A fib 70s, 5 beats NSVT)
Echo: Report Reviewed by me
Labs: Labs Reviewed by me
Critical Care Time (in minutes): 35
[2024-03-14 09:44] LABS: TSH Reflex To Free T4 3.62 uIU/ml (0.47-4.68)
[2024-03-14] MEDS: LASIX 40 MG IV (10:23)
--- NOTE | 2024-03-14 10:35 | PTOTSP ---
Speech Language Pathology
Pt seen for clinical bedside swallow evaluation. P.O. trials of puree, regular solids, and thin liquids provided. Adequate mastication, bolus formation, and A-P transit noted with no oral residue. No overt signs of aspiration. Pt is at
increased risk of aspiration given recent extubation.
Recommend:
(1) Regular solids/thin liquids
(2) Aspiration precautions: slow rate, single sips, sit upright
(3) Meds as tolerated
(4) CASING FLUSHER to continue to follow
[2024-03-14 12:16] LABS: Glucose - Point of Care 128 mg/dl (70-99)
--- NOTE | 2024-03-14 12:20 | PTCARENOTE ---
Levophed weaned off. A-line, lovelace and DHT d/c'd. Pt OOB in chair. SpO2 96 - 100% on 4L NC. Lungs diminished. No BM. Pt denies feeling constipated. All other assessments unchanged.
[2024-03-14 12:55] LABS: Cortisol, Random 92.5 ug/dl
--- NOTE | 2024-03-14 14:08 | CM ---
CM following re: discharge planning.
Reviewed pt's chart, met with pt. pt's family at bedside. Pt extubated on 03/13/24, doing better, Bi-pap as need, on 4L NC.
Pt and OT evaluations noted - acute rehab recommended. Both pt and his family are aware and they requested [place] [facility]. A referral to [place] [facility] made.
D/C plan: [place] [facility] when medically stable.
CM will follow to assist pt with discharge to [place] [facility].
[2024-03-14] MEDS: LEVAQUIN 750 MG PO (16:35)
[2024-03-14 16:48] LABS: Glucose - Point of Care 112 mg/dl (70-99)
--- NOTE | 2024-03-14 19:15 | PTCARENOTE ---
Pt c/o frequent urge to void. Has voided 700ml+ since catheter d/c'd but in small amounts (50-100ml at a time). PVR bladder scan 336 ml.
Poor appetite. Refused lunch. Ate 25-30% of dinner.
Up to [facility] with 2 assist and walker. Only smear of BM. Pt requesting to try again later tonight.
[2024-03-14] MEDS: PROTONIX 40 MG PO (20:26)
[2024-03-14] MEDS: SENOKOT-S 1 TABLET PO (20:26)
--- NOTE | 2024-03-14 20:45 | PTCARENOTE ---
Rec'd care of patient at 1910. Patient oob in chair. Alert and oriented. Afib with BBB and PVCs on tele monitor. Trace anasarca. +1 edema in b/l LE. Palpable pulses. Pulse ox 99-100% on 4L nc. Lung sounds diminished in b/l base. Moist, productive
cough. Utilizing yankauer. +BS. No BM. Will attempt to use bedside commode prior to going to bed. Voiding frequent, small amounts in urinal. Scrotal edema present. Sacral foam c/d/i. VSS. No complaints. RIJ triple lumen cath capped.
[2024-03-14 21:59] LABS: Glucose - Point of Care 154 mg/dl (70-99)
[2024-03-15] VITALS (21 sets, daily range): BP systolic 90–105; BP diastolic 49–77; PULSE 2–77; BMI 25.5
--- NOTE | 2024-03-15 00:04 | PTCARENOTE ---
2330 patient transferred from chair to bedside commode for BM. Small amount of brown, liquid stool. Assisted with 2 RNs and RW to bed. Small shuffled steps. Once back in bed, RT contacted to place patient on BiPAP 10/16 for HS. VSS. All other
assessments unchanged.
--- NOTE | 2024-03-15 03:40 | PTCARENOTE ---
No changes in assessment. VSS. AM labs sent.
[2024-03-15 03:41] LABS: % Basophils 0.6 % (0-2); % Eosinophils 0.1 % (0-6); % Immature Granulocytes 1.4 % (0-0.5); % Lymphocytes 5.6 % (20.5-51.1); % Monocytes 5.8 % (1.7-9.3); % Neutrophils 86.5 % (42.2-75.2); Absolute Basophils 0.1 10^3/uL (0-0.2); Absolute Immature Granulocytes 0.1 10^3/uL (0-0.05); Absolute Lymphocytes 0.5 10^3/uL (1.2-3.4); Absolute Monocytes 0.5 10^3/uL (0.1-0.6); Absolute Neutrophils 7.2 10^3/uL (1.4-6.5); Hemoglobin 10.6 g/dL (13.0-18.0); Mean Corp Hgb Conc. 35.3 g/dL (33.0-37.0); Mean Corpuscular Hgb 32.2 pg (27.0-31.0); Mean Corpuscular Volume 91.2 fL (80.0-94.0); Mean Platelet Volume 10.5 fL (7.4-10.4); Nucleated Red Blood Cells % 0.2 % (-); Platelet Count 52 10^3/uL (130-400); Red Blood Cell Count 3.29 10^6/uL (4.70-6.10); Red Cell Dist. Width 14.9 % (11.5-14.5); White Blood Cell Count 8.4 10^3/uL (4.8-10.8)
[2024-03-15 03:58] LABS: PT 54.1 Sec (11.4-14.6)
[2024-03-15 04:00] LABS: INR 6.03
--- NOTE | 2024-03-15 04:02 | PTCARENOTE ---
INR 6.03. ENGINEERING INTERN notified.
[2024-03-15 04:04] LABS: Blood Urea Nitrogen 71 mg/dl (9-20); Calcium 8.5 mg/dl (8.4-10.2); Carbon Dioxide 30 mmol/L (22-30); Chloride 97 mmol/L (98-107); Estimated Creatinine Clearance 55 ml/min; Glucose 87 mg/dl (70-99); Magnesium 1.9 mg/dl (1.6-2.3); Phosphorus 2.3 mg/dl (2.5-4.5); Potassium 3.7 mmol/L (3.5-5.1); Sodium 130 mmol/L (135-145); eGFR > 60.00
--- NOTE | 2024-03-15 05:17 | PTCARENOTE ---
Pt continuing to void in small increments. Voided 125. PVR checked- 210.
--- NOTE | 2024-03-15 06:39 | W.PN.HOSP.TC ---
Today's Communication/Plan
-
IMU Downgrade
wean O2 supplementation as tolerated
once Albumin for blood pressure support
PT/OT
Assessment / Plan
Assessment / Plan
Physical Exam
General: Awake calm cooperative on breathing trial
HEENT: NormoCephalic, Anicteric, Moist mucous membranes on 4L nasal cannula
Respiratory: Clear to Auscultation b/l
Cardiac: S1/S2 NSR
GI: Soft, Non Tender, Non Distended and Normal Bowel Sounds
Musculoskeletal: No Clubbing, No Cyanosis, No edema
Neuro: AOx3
HPI: 78-year-old male with a past medical history of atrial fibrillation on Coumadin, newly diagnosed cirrhosis, CAD, COPD, KIKI on CPAP, GERD, peptic ulcer disease, CHF, and hypertension presents with a 1 day history of fever, hemoptysis, and
shortness of breath. Family reports that he was coughing up blood intermittently overnight, with fever. Associated symptoms include hematemesis, lethargy, agitation. Patient was found to be in acute hypoxic respiratory failure in the ER, and
placed on a nonrebreather. He was also found to have septic shock from pneumonia, with pulmonary edema. He is getting vancomycin and cefepime in the ER, and currently on a Levophed drip. He is on prednisone 60 mg daily since June 2023, unclear
why.
#Septic shock, present upon admission
#Severe pneumonia
#Persistent Fever possible Drug Induced as opposed to infection
Admitted to ICU, regulatory coordinator consult appreciated
COVID Flu Neg
IR consult appreciated central line placed 03/09 discontinued
Arterial Line placed 03/09 discontinued
blood cultures NGTD
urine Legionella/strep antigen neg
reportedly patient was on prednisone 60 mg p.o. daily since July 2023 at home, unclear why
Weaned off pressors Levophed vasopressin phenylephrine, tapered off stress dose steroids, BP relatively stable albeit low normal, once albumin given.
MRSA screen neg Vancomycin discontinued
empiric cefepime azithromycin changed to Levofloxacin d/t concern drug fever (fever since resolved)
completed total 7 days abx
urinalysis neg for UTI
Blood Cultures repeated 03/12 NGTD
follow bronchoscopy culture results, tracheal aspirate cx appreciated rare usual respiratory tony
Lactic Acidosis resolved
monitor fever white count
#Respiratory Failure/Acidosis s/p intubation 03/10
extubated 03/13 to BIPAP gradually weaned off, stable respiratory status on 4L 03/14 speech eval appreciated appropriate regular diet, NG tube discontinued
Downgraded to IMU 03/15 CXR planned Mon 03/17 as per pulm
#Hyperglycemia likely steroid induced
A1c appreciated 5.6 non-diabetic
cont sliding scale glycemic control
#Hypophosphatemia
#Hypomagnesemia
#Hypocalcemia
Monitor and replete as necessary
#Hemoptysis with concern for pulmonary hemorrhage
CT Chest appreciated
1. Small bilateral pleural effusions, right greater than left.
2. Near complete atelectasis of the right lower lobe with soft tissue attenuation material within bronchi to the right lower lobe which could be related to either secretions or aspiration.
3. Combination of atelectasis and dense airspace consolidation throughout the left upper and lower lobes as above. As on the right, there is soft tissue attenuation opacification of left lower lobe bronchi could be related to either secretions or
aspiration.
4. Advanced emphysematous changes.
Bronchoscopy performed 03/11 no active bleeding found
#Acute on chronic heart failure with reduced ejection fraction
Echo 06/05/2023 EF 30-35%, global hypokinesis, mechanical mitral valve, mild MR, moderate TR
Lasix Held d/t shock/hypotension
Jardiance held d/t ADRIANA, since resumed as per Cardio
trend weights
intermittent diuresis over course of hospitalization limited by low pressures/pressor requirements
cardio eval appreciated
#Coagulopathy
#Paroxysmal atrial fibrillation
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
EKG shows sinus tachycardia with first-degree AV block and occasional V paced complexes
INR elevated at 4.58 today, goal is 2.5�3.5
INR trended down to therapeutic levels, Coumadin resumed 03/11 levels then became subtherapeutic bridging with Lovenox started 03/12
03/13 INR therapeutic Lovenox placed on hold, continuing Coumadin
03/14 INR supratherapeutic Coumadin placed on hold, resume when INR therapeutic
Holding home beta-kyle due to shock/hypotension
metoprolol 5 mg IV prn HR>120
#Type II VT from demand ischemia vs nonischemic myocardial injury in the setting of acute illness (sepsis)
Troponin peaked at 0.148 since trended down
#Hematemesis
Likely from swallowed blood products from hemoptysis
Protonix 40 mg PO twice daily
H&H stable
#Hyponatremia
Due to CHF, monitor
Stable 120s improving following restart Lasix
#Acute kidney injury likely d/t shock as above resolving
baseline is normal, initial creatine 1.5 increased to 2.1 since trended down
From CHF and septic shock
Monitor creatinine, avoid nephrotoxic drugs/NSAIDs
weaned off pressor support as above
#Thrombocytopenia
Due to sepsis, monitor
will transfuse if <20 or <50 with active bleeding
DTI (Deep Tissue Injury) sacral pressure injury
cont local wound care
#Recently diagnosed cirrhosis
Follows with Dr. Saunders outpatient
PT/OT appreciated Acute Rehab
DVT prophylaxis�supratherapeutic INR (coumadin on hold)
Full code
Discussed with patient and his son Eber
I spent a total of 55 minutes with the patient or on the floor. More than 50% of this time involved counseling and coordination of care.
Anticipated Discharge: 24 - 48 hours
Subjective/Interval History
-
Date of Service: March 15, 2024
AOx3 reports overall feeling well though weak. Remains dependent on nasal cannula oxygen supplementation.
Objective Data
-
Labs:
Laboratory Results
03/15/24
03:29
WBC 8.4
Hgb 10.6 L
Hct 30.0 L
Plt Count 52 L D
PT 54.1 H
INR 6.03 H*
Sodium 130 L
Potassium 3.7
Chloride 97 L
Carbon Dioxide 30
BUN 71 H
Creatinine 1.2
Glucose 87
Calcium 8.5
Vital Signs:
Vital Signs
Temp Pulse Resp BP Pulse Ox
97.6 F 74 19 90/49 99
03/15/24 03:24 03/15/24 06:00 03/15/24 06:00 03/15/24 06:00 03/15/24 05:30
I&O
03/13/24 03/14/24 03/15/24
06:59 06:59 06:59
Intake Total 1196.1 / 1222.0 944.6 / 1007.1 788.8 / 788.8
Output Total 2267 / 2307 1313 / 1313 1650 / 1650
Balance -1070.9 / -1085.0 -368.4 / -305.9 -861.2 / -861.2
[2024-03-15 07:44] LABS: Glucose - Point of Care 115 mg/dl (70-99)
[2024-03-15] MEDS: SENOKOT-S 1 TABLET PO ×2 (09:25→20:30)
[2024-03-15] MEDS: MIRALAX 17 GRAMS PO (09:25)
[2024-03-15] MEDS: JARDIANCE 10 MG PO (09:26)
[2024-03-15] MEDS: NEUTRA-PHOS POWDER PACKET 250 MG PO ×3 (09:26→22:05)
[2024-03-15] MEDS: PROTONIX 40 MG PO ×2 (09:26→20:30)
[2024-03-15 09:34] LABS: ALT (SGPT) 24 U/L (0-50); AST (SGOT) 32 U/L (17-59); Albumin 2.6 g/dl (3.5-5.0); Alkaline Phosphatase 71 U/L (38-126); Total Bilirubin 1.8 mg/dl (0.2-1.3); Total Protein 5.6 g/dl (6.3-8.2)
--- NOTE | 2024-03-15 09:48 | W.PN.INTV ---
Today's Communication / Plan
Recommendations
Complete antibiotics today
Diuresis as able
Nebulizers as needed
Eventually restart inhalers
Continue nutrition orally
Physical therapy/Occupational Therapy
Wean down FiO2 as able
Monitor off of steroids
Chest x-ray 03/17/2024
Transfer to IMU
Pulmonary will follow
Assessment
-
Assessment: 78-year-old male former tobacco smoker with a past medical history of moderate COPD, moderate restrictive lung disease, history of hemoptysis, history of LLL bronchiectasis, history of left-sided pneumonia, history of aspergillus,
chronic anticoagulation for mechanical mitral valve replacement (July 2021), history of COVID-19, HFrEF with RV dysfunction, pulmonary hypertension, history of NHL s/p chemo/XRT (2003), and chronic thrombocytopenia with unremarkable bone marrow
biopsy (10/2023) who presents with shortness of breath, weakness and fever. 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 Patient has low-grade fever to 100.1 �F in the ER, and tachycardic to 115 bpm, tachypnea to 25 respirator,
hypotensive to 72/44, and initially was saturating 66% on room air. Saturations improved to 91% with nonrebreather. Labs showed leukopenia to 2.7 with 20% bands, anemia to 12, elevated INR 4.58, hyponatremia 130, ADRIANA to 1.5, lactic acid elevated
at 2.3, elevated troponin 0.148, increased proBNP of >27,000, and negative COVID-19 antigen; flu A/B swab also negative. Blood cultures were collected. CXR shows a 10 cm left midlung airspace opacity with acute cardiogenic pulmonary edema and a
right-sided pleural effusion with compressive atelectasis. In the ER antibiotics were given with cefepime/vancomycin, he was also given DuoNebs x 1, given IV fluids with NS 0.5L and started on Levophed due to persistent hypotension with SBP in the
80s. Due to patient's vasopressor and oxygen requirements, he is being admitted to the ICU. Critical care services now consulted for additional management/recommendations.
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
CPAP, personal history of COVID-19, chronic atrial fibrillation on Coumadin, history of tobacco abuse with [id number] history (quit in 2017), history of HFrEF with RV dysfunction, mild�moderate pulmonary hypertension, history of GI bleed,
postnasal drip, history of non-Hodgkin's lymphoma s/p chemo/radiation (2003), history of left-sided pneumonia due to Streptococcus pneumonia, history of aspergillus, history of Vieira's esophagus, history of thrombocytopenia s/p unremarkable bone
marrow biopsy
Impression:
#Acute respiratory failure with hypoxia due to CAP + acute pulmonary edema with right pleural effusion
Intubated 03/10/2024, extubated 03/13/2024.
#Bandemia with 20% bands -due to septic shock from left side pneumonia
#Severe left-sided CAP
#Septic shock due to above
#Lactic acidosis
#Acute COPD exacerbation due to above
#Hemoptysis due to pneumonia in the setting of chronic anticoagulation with supratherapeutic INR
#Supratherapeutic INR (INR: 5.18)
#Hyponatremia
#Acute kidney injury (Cr baseline approx 1.1)
#Elevated troponin likely due to demand ischemia with type II KS
#Chronic pancytopenia
#Mechanical mitral valve replacement on Coumadin
#Chronic A-fib on Coumadin
#DM type II
Former smoker
Former alcohol use.
Plan:
Acute respiratory failure with hypoxia due to CAP + acute pulmonary edema with right pleural effusion:
- Intubated emergently 03/10/2024 due to worsening hypercapnic respiratory failure and septic shock.
- Extubated 03/13/2024 to BiPAP.
-Clinically improving.
Continue to wean down FiO2 to maintain pulse ox above 90%. Currently at 3-4 L.
- BiPAP at night, and as needed during the day.
-Increase physical activity as tolerated.
Shock: Improving.
Wean off Levophed as able
- Monitor BP and wean off Levophed as needed, maintain MAP> 65.
- Continue levofloxacin day 02/13.
- Chest x-ray 03/12/2024: Stable small to moderate right pleural effusion. Left-sided infiltrate to my view improved. No pneumothorax.
Repeat chest x-ray 03/17/2024.
Afebrile. Leukocytosis resolved.
- Suspect noninfectious fever.
- Bronchoscopy performed 03/11/2024: Scant whitish secretion. No active bleeding. Cultures with no growth.
- Repeat urine and blood cultures negative.
- Discontinued 03/10/2024-MRSA screening negative.
- Discontinued cefepime and azithromycin. 03/12/2024.
- Continue levofloxacin- 03/15/2024 will be last day.
- Monitor QT.
-
- PT/OT as tolerated.
CT chest noted: Showed small bilateral pleural effusions. Right greater than left. Near complete atelectasis of the right lower lobe, soft tissue attenuation of the right mainstem bronchus. Likely mucous plugging. Left upper lobe infiltrate.
Advanced emphysema.
Chest x-ray as above.
Right ultrasound with moderate effusion. Given improved leukocytosis and fever hold on thoracentesis. Repeat chest x-ray 03/17/2024.
Hemoptysis: Resolved.
- Bronchoscopy 03/11/2024 without active bleeding
- Supratherapeutic INR 5.18 after resuming warfarin.
- Hold Coumadin for today, follow INR daily.
-
Septic shock: Resolved.
At some point on 3 pressors.
-
HFrEF:
- S/p mechanical mitral valve replacement. On warfarin with goal INR 2.5-3 5.5.
- Supratherapeutic INR as above.
- Hold anticoagulation.
- Echocardiogram 03/10/2024 noted with decreased LVEF down to 15-20 %. Last echocardiogram available 06/05/2023: Showed moderate to severe reduced left ventricular action fraction. Global hypokinesis. EF 30-35%. Mechanical mitral valve. Moderate
TR.
-Intermittent diuresis as able
Sodium improving
Negative fluid balance
Arterial line has been discontinued per
Cardiology following
COPD history: Not bronchospastic on exam.
- Continue DuoNebs
-Steroids discontinued, monitor closely
Acute kidney injury-
- Improved.
- Hyponatremia-continue support. Improving. Should improve with diuresis.
- Metabolic acidosis resolved.
- Continue to follow electrolytes daily.
Maintain euglycemia with goal BG 140-180
- Weight trending up, will treat with 40 mg IV Lasix once.
- Resume Jardiance.
- Insulin will be provided as needed.
-
DVT ppx- SCD
GI prophylaxis with Protonix
-
Transfer to intermediate care unit.

Data:
CXR 03/13/2024:
There is moderate diffuse prominence of the bronchovascular markings throughout both lungs which more likely reflects pulmonary edema than diffuse interstitial pneumonia as there is mild cardiomegaly and small bilateral pleural effusions.
Correlation with the patient's BNP is recommended.
Chest ultrasound 03/12/2024:
Moderate right pleural effusion. Stable
CXR 03-09-2024:
1. New large 10 cm airspace opacity in the left mid and lower lung which was not present 12/05/2023. Diagnostic possibilities are (1) severe pneumonia, (2) pulmonary hemorrhage, or (3) asymmetric alveolar pulmonary edema.
2. Moderate acute interstitial cardiogenic pulmonary edema.
3. Moderate to severe bilateral upper lobe emphysema.
4. Mild cardiomegaly with evidence for previous mitral valve replacement.
5. Small right pleural effusion and adjacent moderate compressive atelectasis in the right lower lobe.
Chest CT 03/09/2024:
1. Small bilateral pleural effusions, right greater than left.
2. Near complete atelectasis of the right lower lobe with soft tissue attenuation material within bronchi to the right lower lobe which could be related to either secretions or aspiration.
3. Combination of atelectasis and dense airspace consolidation throughout the left upper and lower lobes as above. As on the right, there is soft tissue attenuation opacification of left lower lobe bronchi could be related to either secretions or
aspiration.
4. Advanced emphysematous changes.
Echo 03/10/2024:
Severely reduced left ventricular systolic function. Left ventricular ejection
fraction appears 15-20% by visual assessment.
Global hypokinesis.
Normal right ventricular size with reduced systolic function.
Well seated normally functioning mechanical mitral valve.
Moderate tricuspid regurgitation with moderate pulmonary hypertension.
Compared to the images from 06/05/2023, the left ventricular systolic function
has decreased from 30 to 35% to 15 to 20%. The right ventricle is no longer
dilated but reduced systolic function is now seen.
Subjective Dataa
Subjective Data
Date of Service:
Date of Service: March 15, 2024
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
Subjective:
No new complaints
Improving respiratory symptoms
Intermittent coughing without hemoptysis
Review of Systems
General: Fever (n)
Cardiopulmonary: Dyspnea (improved)
GI: Abdominal Pain (n), Nausea (n) and Vomiting (n)
Neuro: Headache (n)
Objective Data
Data Reviewed
Vital Signs / I&O / Oxygen:
Vital Signs
Temp Pulse Resp BP Pulse Ox
97.6 F 74 19 90/49 99
03/15/24 07:15 03/15/24 06:00 03/15/24 06:00 03/15/24 06:00 03/15/24 05:30
Intake and Output
03/14/24 03/15/24 03/16/24
06:59 06:59 06:59
Intake Total 944.6 / 1007.1 788.8 / 788.8
Output Total 1313 / 1313 1650 / 1650
Balance -368.4 / -305.9 -861.2 / -861.2
SaO2 [A/C] 98
SaO2 [NIV (Non Invasive 96
Ventilation)]
SaO2 99
Nasal Cannula flow liters per 4
minute
Physical Exam
General: Respiratory Distress (On noninvasive mechanical ventilation) and Comfortable
HEENT: Normocephalic
Cardiovascular: S1-S2, Irregular Rhythm, Murmur (Negative) and JVD (Negative)
Respiratory: Clear, Crackles and Non-Labored Respirations
GI: Soft, Non Distended and Non Tender
Neurology: Awake, Alert, Oriented, AO x 3 and Other (Lethargic, occasionally moving 4 extremities. Follows commands with sedation breaks per)
Skin: Warm
Labs/Micro/Reports
Lab Data
03/15/24 03:29
03/15/24 03:29
Laboratory Results
03/15/24
03:29
PT 54.1 H
INR 6.03 H*
Microbiology
03/12/24 09:35 Blood/Venous Blood Culture - Preliminary
No Growth in 72 hours- Final report to follow
03/12/24 09:32 Blood/Venous Blood Culture - Preliminary
No Growth in 72 hours- Final report to follow
03/09/24 08:50 Blood/Venous Blood Culture - Final
No Growth - Final Report
03/09/24 08:50 Blood/Venous Blood Culture - Final
No Growth - Final Report
03/11/24 15:19 Bronch Right Lower Lobe Respiratory Culture - Final
NO GROWTH
03/11/24 15:19 Bronch Right Lower Lobe Gram Stain - Final
03/11/24 15:19 Bronch Washing Fungal Smear - Final
No yeast or fungal elements seen.
03/10/24 11:48 Tracheal Aspirate Respiratory Culture - Final
03/10/24 11:48 Tracheal Aspirate Gram Stain - Final
--- NOTE | 2024-03-15 11:50 | W.PN.CD ---
Addendum entered and electronically signed by Lior Lebron MD 03/15/24 13:53:
Patient seen and examined in collaboration with GANDY DANCER; agree with below.
-Slowly improving; now off of pressors.
-Volume status appears to be relatively stable today; no Lasix due to low blood pressure.
-Continue to monitor INR.
Original Note:
Today's Communication / Plan
-
-monitor BP's and assess for timing for resumption of metoprolol (not yet, BP still low)
-monitor volume. No lasix today.
Impression / Plan
-
A: 78-year-old gentleman with a past medical history of permanent atrial fibrillation, mechanical mitral valve replacement on chronic Coumadin, coronary artery disease, heart failure with reduced EF, COPD, pulmonary hypertension non-Hodgkin's
lymphoma presents with shortness of breath and hemoptysis. Also respiratory failure 2/2 PNA requiring intubation and mechanical ventilation and shock requiring pressor support.
Shock, likely primarily septic in the setting of pneumonia (could be component of cardiogenic with severely depressed EF): improved
-now extubated and off pressors
Hemoptysis, s/p vitamin K
-hemoptysis resolved, INR trended down, but now supratherapeutic INR after resuming warfarin (6.03)
-no Coumadin today
-trend INR
h/o NICM, now with decline in LVEF, HFrEF now 15-20%, acute on chronic (prior LVEF 30-35% in 05/2023)
-BP still low. Hopefully will be able to resume Toprol XL soon; then assess for other GDMT
-Jardiance has been resumed
-s/p a dose of IV lasix yesterday- weight down. No lasix today.
-will repeat echo when patient closer to discharge: will need to consider cath if LVEF remains severely depressed
ADRIANA: peak 2.1
-improved, down to 1.2
Permanent atrial fibrillation
-Rate controlled
-Oral Anticoagulation: Warfarin (mechanical mitral valve), per INR- as above
Status post mechanical mitral valve replacement
- Goal INR 2.5�3.5
- warfarin per INR- as above
Abnormal troponin, likely nonischemic myocardial injury in the setting of acute illness (sepsis)
Hyponatremia, hypervolemic, follow with diuresis
CAD, nonobstructive, 20-30% pLAD stenosis by [facility] 2020
S/p Micra PPM
Cirrhosis
COPD
Former smoker, continued cessation recommended
Subjective:
Breathing better, but feels tired overall.
TTE March 10 2024: Severely reduced left ventricular systolic function. Left ventricular ejection fraction appears 15-20%. Well seated normally functioning mechanical mitral valve. Mean gradient 5. Moderate tricuspid regurgitation with moderate
pulmonary hypertension.
Laboratory Data
07/18/21 03/10/24 03/10/24
03:59 03:23 12:26
Hgb 8.8 L
INR 3.76
Creatinine 1.0 2.1 H
03/10/24 03/11/24 03/12/24
16:23 03:06 04:33
Hgb 12.0 L
INR 2.59 1.98
Creatinine 1.9 H 1.7 H
03/12/24
04:34
Hgb
INR
Creatinine 1.3
Selected Entries
07/18/21
08:57 07/18/21
09:18
Pulse 60
Blood pressure 139/50
Generic Name Dose Route Start Last Admin
Trade Name Freq PRN Reason Stop Dose Admin
Aspirin 81 mg 07/16/21 08:00 07/18/21 07:29
Aspirin 81 Mg Chewable Tablet PO 08/13/21 07:59 Not Given
DAILY TINY
Atorvastatin Calcium 10 mg 07/16/21 18:00 07/17/21 18:13
Atorvastatin (Lipitor) 10 Mg Tablet PO 08/13/21 17:59 Not Given
QPM TINY
Furosemide 40 mg 07/17/21 08:00 07/18/21 08:57
Furosemide 40 Mg (10 Mg/Ml) 4 Ml Vial IV 08/14/21 07:59 40 mg
BID AT 0800,1600 TINY
Empagliflozin 10 mg 03/10/24 08:00 03/10/24 09:14
Empagliflozin (Jardiance) 10 Mg Tablet PO 04/07/24 07:59 Not Given
DAILY TINY
Vasopressin 20 units in 100 mls @ 0 mls/hr 03/09/24 16:45 03/12/24 05:17
Pitressin IV 100 mls
PER PROTOCOL TINY
Protocol
Per Protocol
Norepinephrine Bitartrate 8 mg 258 mls @ 0 mls/hr 03/09/24 20:00 03/12/24 07:41
/ Dextrose IV 258 mls
PER PROTOCOL TINY
Protocol
Per Protocol
Phenylephrine HCl 100 mg/ 260 mls @ 0 mls/hr 03/10/24 09:15 03/12/24 01:33
Sodium Chloride IV 260 mls
PER PROTOCOL TINY
Protocol
Per Protocol
Warfarin Sodium 2.5 mg 03/11/24 18:00 03/11/24 17:47
Warfarin 2.5 Mg Tablet PO 03/16/24 17:59 2.5 mg
QPM TINY
Physical Exam
Vital Signs/Labs
Vital Signs
Temp Pulse Resp BP Pulse Ox
97.9 F 75 20 105/50 95
03/15/24 11:27 03/15/24 09:30 03/15/24 09:30 03/15/24 09:00 03/15/24 09:30
03/14/24 03/15/24 03/16/24
06:59 06:59 06:59
Actual Weight 85.7 kg 82.8 kg
03/15/24 03:29
05/04/24 03:29
PT 54.1 Sec (11.4-14.6) H 03/15/24 03:29
INR 6.03 H* 03/15/24 03:29
APTT 54.5 Sec (23.4-35.0) H 03/09/24 13:02
Magnesium 1.9 mg/dl (1.6-2.3) 03/15/24 03:29
Triglycerides 96 mg/dl (10-149) 03/14/24 05:18
03/09/24
08:50
Czp-[id number] Pept > 37554
LAB Results
03/13/24
01:33
Troponin I 0.200 H*
Physical Exam
Constitutional: No acute distress
EENT: Anicteric
Cardiovascular: Rhythm/rate is irregular
Respiratory: Wheeze Absent
Neuro/Psych: AO x 3
Data Reviewed
-
Date of Service: March 15, 2024
EKG: Other (AFIB)
[2024-03-15] MEDS: SYMBICORT 160/4.5 MCG INHALER INH (11:59)
[2024-03-15] MEDS: SPIRIVA RESPIMAT 2.5 MCG INH (11:59)
[2024-03-15] MEDS: NEUTRA-PHOS POWDER PACKET PO ×2 (14:16→18:16)
--- NOTE | 2024-03-15 14:19 | PTCARENOTE ---
Pt reports feeling tired today. Pt refusing to get OOB at this time. Per report, pt was OOB in recliner for about 12hrs yesterday. Turning pt q2h. Pt has not has significant BM since admission. Hyperactive BS at this time. Pt denies feeling
constipated and denies urge to go at this time. notified and ordering Dulcolax PO.
[2024-03-15] MEDS: FLEXBUMIN 50 IV (15:18)
[2024-03-15] MEDS: LEVAQUIN 750 MG PO (15:19)
[2024-03-15] MEDS: DULCOLAX 5 MG PO (15:19)
[2024-03-15 17:58] LABS: Glucose - Point of Care 95 mg/dl (70-99)
[2024-03-15 17:58] LABS: Glucose - Point of Care 106 mg/dl (70-99)
[2024-03-15] MEDS: SYMBICORT 160/4.5 MCG INHALER 2 PUFF INH (20:18)
[2024-03-15 22:19] LABS: Glucose - Point of Care 127 mg/dl (70-99)
[2024-03-16] VITALS (12 sets, daily range): BP systolic 95–113; BP diastolic 46–61; PULSE 2–86; BMI 25.2
--- NOTE | 2024-03-16 03:27 | PTCARENOTE ---
Rec'd care of patient at 1900. Patient resting comfortably in chair. Assisted x2 RW back to bed at 2200. Patient alert and oriented. Utilizing call cheatham appropriately. Afib on tele monitor. Rate controlled. VSS. Transitioned from 2L nc to BiPAP HS
around 2200. Lung sounds diminished in b/l bases. Crackles auscultated scattered on right posteriorly. Edema in b/l LE also noted to be increased to +2. When asked about fluid intake for the day, patient stated he drank a lot. Education on HF and
fluid restriction provided.
[2024-03-16 05:02] LABS: % Basophils 0.4 % (0-2); % Eosinophils 0.4 % (0-6); % Immature Granulocytes 1.4 % (0-0.5); % Lymphocytes 5.6 % (20.5-51.1); % Neutrophils 88.2 % (42.2-75.2); Absolute Immature Granulocytes 0.1 10^3/uL (0-0.05); Absolute Lymphocytes 0.5 10^3/uL (1.2-3.4); Absolute Monocytes 0.3 10^3/uL (0.1-0.6); Absolute Neutrophils 7.3 10^3/uL (1.4-6.5); Hematocrit 28.5 % (39.0-52.0); Mean Corp Hgb Conc. 35.1 g/dL (33.0-37.0); Mean Corpuscular Hgb 32.6 pg (27.0-31.0); Mean Corpuscular Volume 92.8 fL (80.0-94.0); Mean Platelet Volume 9.4 fL (7.4-10.4); Nucleated Red Blood Cells % 0 % (-); Platelet Count 65 10^3/uL (130-400); Red Blood Cell Count 3.07 10^6/uL (4.70-6.10); White Blood Cell Count 8.3 10^3/uL (4.8-10.8)
[2024-03-16 05:15] LABS: PT 47.4 Sec (11.4-14.6)
[2024-03-16 05:43] LABS: INR 5.11
[2024-03-16 05:45] LABS: Blood Urea Nitrogen 65 mg/dl (9-20); Calcium 8.7 mg/dl (8.4-10.2); Carbon Dioxide 29 mmol/L (22-30); Chloride 97 mmol/L (98-107); Estimated Creatinine Clearance 60 ml/min; Glucose 98 mg/dl (70-99); Magnesium 1.9 mg/dl (1.6-2.3); Phosphorus 3.5 mg/dl (2.5-4.5); Sodium 131 mmol/L (135-145); eGFR > 60.00
[2024-03-16 05:55] LABS: Potassium 4.3 mmol/L (3.5-5.1)
--- NOTE | 2024-03-16 06:42 | W.PN.HOSP.TC ---
Today's Communication/Plan
-
Downgrade to Tele
wean O2 supplementation as tolerated
bowel regimen
PT/OT
lasix BB as per Cardio
discharge planning Acute rehab
Assessment / Plan
Assessment / Plan
Physical Exam
General: Awake calm cooperative on breathing trial
HEENT: NormoCephalic, Anicteric, Moist mucous membranes on 2L nasal cannula
Respiratory: Clear to Auscultation b/l
Cardiac: S1/S2 NSR
GI: Soft, Non Tender, Non Distended and Normal Bowel Sounds
Musculoskeletal: No Clubbing, No Cyanosis, No edema
Neuro: AOx3
HPI: 78-year-old male with a past medical history of atrial fibrillation on Coumadin, newly diagnosed cirrhosis, CAD, COPD, KIKI on CPAP, GERD, peptic ulcer disease, CHF, and hypertension presents with a 1 day history of fever, hemoptysis, and
shortness of breath. Family reports that he was coughing up blood intermittently overnight, with fever. Associated symptoms include hematemesis, lethargy, agitation. Patient was found to be in acute hypoxic respiratory failure in the ER, and
placed on a nonrebreather. He was also found to have septic shock from pneumonia, with pulmonary edema. He is getting vancomycin and cefepime in the ER, and currently on a Levophed drip. He is on prednisone 60 mg daily since June 2023, unclear
why.
#Septic shock, present upon admission
#Severe pneumonia
#Persistent Fever possible Drug Induced as opposed to infection
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
COVID Flu Neg
IR consult appreciated central line placed 03/09 to be discontinued prior to downgrade from ICU
Arterial Line placed 03/09 discontinued
blood cultures NGTD
urine Legionella/strep antigen neg
reportedly patient was on prednisone 60 mg p.o. daily since July 2023 at home, unclear why, this has been refuted though following discussion with family, likely was not taking.
Weaned off pressors Levophed vasopressin phenylephrine, tapered off stress dose steroids, BP relatively stable albeit low normal, once albumin given.
MRSA screen neg Vancomycin discontinued
empiric cefepime azithromycin changed to Levofloxacin d/t concern drug fever (fever since resolved)
completed total 7 days abx
urinalysis neg for UTI
Blood Cultures repeated 03/12 NGTD
follow bronchoscopy culture results, tracheal aspirate cx appreciated rare usual respiratory tony
Lactic Acidosis resolved
monitor fever white count
#Respiratory Failure/Acidosis s/p intubation 03/10
extubated 03/13 to BIPAP gradually weaned off, stable respiratory status on 4L 03/14 speech eval appreciated appropriate regular diet, NG tube discontinued
Downgraded to IMU 03/15 CXR planned Mon 03/17 as per pulm
BP and respiratory status continues to improve. Downgraded to Tele 03/16 (remains in ICU bed pending room placement)
#Constipation
miralax senna colace,
Lactulose added to bowel regimen
#Hyperglycemia likely steroid induced
A1c appreciated 5.6 non-diabetic
no significant hyperglycemia since discontinuation of stress steroids
ok to discontinue routine FS at this time
#Hypophosphatemia
#Hypomagnesemia
#Hypocalcemia
Monitor and replete as necessary
#Hemoptysis with concern for pulmonary hemorrhage
CT Chest appreciated
1. Small bilateral pleural effusions, right greater than left.
2. Near complete atelectasis of the right lower lobe with soft tissue attenuation material within bronchi to the right lower lobe which could be related to either secretions or aspiration.
3. Combination of atelectasis and dense airspace consolidation throughout the left upper and lower lobes as above. As on the right, there is soft tissue attenuation opacification of left lower lobe bronchi could be related to either secretions or
aspiration.
4. Advanced emphysematous changes.
Bronchoscopy performed 03/11 no active bleeding found
#Acute on chronic heart failure with reduced ejection fraction
Echo 06/05/2023 EF 30-35%, global hypokinesis, mechanical mitral valve, mild MR, moderate TR
Lasix Held d/t shock/hypotension
Jardiance held d/t ADRIANA, since resumed as per Cardio
trend weights
intermittent diuresis over course of hospitalization limited by low pressures/pressor requirements
cardio eval appreciated
#Coagulopathy
#Paroxysmal atrial fibrillation
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
EKG shows sinus tachycardia with first-degree AV block and occasional V paced complexes
INR elevated at 4.58 today, goal is 2.5�3.5
INR trended down to therapeutic levels, Coumadin resumed 03/11 levels then became subtherapeutic bridging with Lovenox started 03/12
03/13 INR therapeutic Lovenox placed on hold, continuing Coumadin
03/14 INR supratherapeutic Coumadin placed on hold, resume when INR therapeutic
Holding home beta-kyle due to shock/hypotension, defer to cardiology when safe to resume
metoprolol 5 mg IV prn HR>120
#Type II IA from demand ischemia vs nonischemic myocardial injury in the setting of acute illness (sepsis)
Troponin peaked at 0.148 since trended down
#Hematemesis
Likely from swallowed blood products from hemoptysis
Protonix 40 mg PO twice daily
H&H stable
#Hyponatremia
Due to CHF, monitor
Stable 120s improving following restart Lasix
Since improved, at appropriate rate, to low 130s
#Acute kidney injury likely d/t shock as above resolving
baseline is normal, initial creatine 1.5 increased to 2.1 since trended down
From CHF and septic shock
Monitor creatinine, avoid nephrotoxic drugs/NSAIDs
weaned off pressor support as above
#Thrombocytopenia
Due to sepsis, monitor
will transfuse if <20 or <50 with active bleeding
DTI (Deep Tissue Injury) sacral pressure injury
cont local wound care
#Recently diagnosed cirrhosis
Follows with Dr. Saunders outpatient
PT/OT appreciated Acute Rehab
DVT prophylaxis�supratherapeutic INR (coumadin on hold)
Full code
Discussed with patient and his son Eber
I spent a total of 55 minutes with the patient or on the floor. More than 50% of this time involved counseling and coordination of care.
Anticipated Discharge: 24 - 48 hours
Subjective/Interval History
-
Date of Service: March 16, 2024
Seen and examined at bedside in no acute distress sitting up comfortably in bed. AOx3 denies new acute issues. Remains on low dose oxygen NC supplementation. Denies SOB.
Objective Data
-
Labs:
Laboratory Results
03/16/24
04:53
WBC 8.3
Hgb 10.0 L
Hct 28.5 L
Plt Count 65 L D
PT 47.4 H
INR 5.11 H*
Sodium 131 L
Potassium 4.3
Chloride 97 L
Carbon Dioxide 29
BUN 65 H
Creatinine 1.1
Glucose 98
Calcium 8.7
Vital Signs:
Vital Signs
Temp Pulse Resp BP Pulse Ox
98.1 F 78 27 106/54 96
03/16/24 03:21 03/16/24 06:00 03/16/24 06:00 03/16/24 06:00 03/16/24 05:30
I&O
03/14/24 03/15/24 03/16/24
06:59 06:59 06:59
Intake Total 944.6 / 1007.1 788.8 / 788.8 510 / 510
Output Total 1313 / 1313 1650 / 1650 1025 / 1025
Balance -368.4 / -305.9 -861.2 / -861.2 -515 / -515
[2024-03-16] MEDS: JARDIANCE 10 MG PO (07:51)
[2024-03-16] MEDS: MIRALAX 17 GRAMS PO (07:51)
[2024-03-16] MEDS: SENOKOT-S 1 TABLET PO ×2 (07:51→20:03)
[2024-03-16] MEDS: PROTONIX 40 MG PO ×2 (07:51→20:03)
[2024-03-16 08:01] LABS: Glucose - Point of Care 107 mg/dl (70-99)
[2024-03-16] MEDS: SYMBICORT 160/4.5 MCG INHALER 2 PUFF INH ×2 (08:35→19:59)
[2024-03-16] MEDS: SPIRIVA RESPIMAT 2.5 MCG 2 PUFF INH (08:35)
[2024-03-16 09:59] LABS: ALT (SGPT) 19 U/L (0-50); AST (SGOT) 32 U/L (17-59); Albumin 2.6 g/dl (3.5-5.0); Alkaline Phosphatase 78 U/L (38-126); Direct Bilirubin 1.2 mg/dl (0.0-0.4); Total Bilirubin 2.1 mg/dl (0.2-1.3); Total Protein 5.5 g/dl (6.3-8.2)
--- NOTE | 2024-03-16 10:12 | W.PN.CD ---
Today's Communication / Plan
-
-Hemoptysis resolved; INR trended down, but now supratherapeutic INR after resuming warfarin (6.03-->5.11 today).
-Will continue to hold Lasix for now due to low blood pressure.
Impression / Plan
-
A: 78-year-old gentleman with a past medical history of permanent atrial fibrillation, mechanical mitral valve replacement on chronic Coumadin, coronary artery disease, heart failure with reduced EF (15-20%), COPD, pulmonary hypertension
non-Hodgkin's lymphoma presents with shortness of breath and hemoptysis. Also respiratory failure 2/2 PNA requiring intubation and mechanical ventilation and shock requiring pressor support.
Shock, likely primarily septic in the setting of pneumonia (could be component of cardiogenic with severely depressed EF): improved
-now extubated and off pressors
Hemoptysis, s/p vitamin K
-Hemoptysis resolved; INR trended down, but now supratherapeutic INR after resuming warfarin (6.03-->5.11 today).
-Coumadin again being held.
NICM, now with decline in LVEF, HFrEF now 15-20%, acute on chronic (prior LVEF 30-35% in 05/2023)
-Unable to resume Toprol-XL or other GDMT due to low blood pressure.
-Jardiance has been resumed
-Will continue to hold Lasix for now due to low blood pressure.
-Will repeat echo when patient closer to discharge; will need to consider cath if LVEF remains severely depressed.
ADRIANA: peak 2.1
-improved, down to 1.2
Permanent atrial fibrillation
-Remains rate controlled
-Oral Anticoagulation: Warfarin (mechanical mitral valve), per INR- as above
Status post mechanical mitral valve replacement
- Goal INR 2.5�3.5
- warfarin per INR- as above
Abnormal troponin, likely nonischemic myocardial injury in the setting of acute illness (sepsis)
Hyponatremia, hypervolemic, follow with diuresis
CAD, nonobstructive, 20-30% pLAD stenosis by [facility] 2020
S/p Micra PPM
Cirrhosis
COPD
Former smoker, continued cessation recommended
Subjective:
No major events overnight.
TTE March 10 2024: Severely reduced left ventricular systolic function. Left ventricular ejection fraction appears 15-20%. Well seated normally functioning mechanical mitral valve. Mean gradient 5. Moderate tricuspid regurgitation with moderate
pulmonary hypertension.
Laboratory Data
07/18/21 03/10/24 03/10/24
03:59 03:23 12:26
Hgb 8.8 L
INR 3.76
Creatinine 1.0 2.1 H
03/10/24 03/11/24 03/12/24
16:23 03:06 04:33
Hgb 12.0 L
INR 2.59 1.98
Creatinine 1.9 H 1.7 H
03/12/24
04:34
Hgb
INR
Creatinine 1.3
Selected Entries
07/18/21
08:57 07/18/21
09:18
Pulse 60
Blood pressure 139/50
Generic Name Dose Route Start Last Admin
Trade Name Freq PRN Reason Stop Dose Admin
Aspirin 81 mg 07/16/21 08:00 07/18/21 07:29
Aspirin 81 Mg Chewable Tablet PO 08/13/21 07:59 Not Given
DAILY TINY
Atorvastatin Calcium 10 mg 07/16/21 18:00 07/17/21 18:13
Atorvastatin (Lipitor) 10 Mg Tablet PO 08/13/21 17:59 Not Given
QPM TINY
Furosemide 40 mg 07/17/21 08:00 07/18/21 08:57
Furosemide 40 Mg (10 Mg/Ml) 4 Ml Vial IV 08/14/21 07:59 40 mg
BID AT 0800,1600 TINY
Empagliflozin 10 mg 03/10/24 08:00 03/10/24 09:14
Empagliflozin (Jardiance) 10 Mg Tablet PO 04/07/24 07:59 Not Given
DAILY TINY
Vasopressin 20 units in 100 mls @ 0 mls/hr 03/09/24 16:45 03/12/24 05:17
Pitressin IV 100 mls
PER PROTOCOL TINY
Protocol
Per Protocol
Norepinephrine Bitartrate 8 mg 258 mls @ 0 mls/hr 03/09/24 20:00 03/12/24 07:41
/ Dextrose IV 258 mls
PER PROTOCOL TINY
Protocol
Per Protocol
Phenylephrine HCl 100 mg/ 260 mls @ 0 mls/hr 03/10/24 09:15 03/12/24 01:33
Sodium Chloride IV 260 mls
PER PROTOCOL TINY
Protocol
Per Protocol
Warfarin Sodium 2.5 mg 03/11/24 18:00 03/11/24 17:47
Warfarin 2.5 Mg Tablet PO 03/16/24 17:59 2.5 mg
QPM TINY
Physical Exam
Vital Signs/Labs
Vital Signs
Temp Pulse Resp BP Pulse Ox
97.8 F 88 22 102/57 95
03/16/24 07:30 03/16/24 09:30 03/16/24 09:30 03/16/24 08:00 03/16/24 09:30
03/15/24 03/16/24 03/17/24
06:59 06:59 06:59
Actual Weight 82.8 kg 82 kg
03/16/24 04:53
03/16/24 04:53
PT 47.4 Sec (11.4-14.6) H 03/16/24 04:53
INR 5.11 H* 03/16/24 04:53
APTT 54.5 Sec (23.4-35.0) H 03/09/24 13:02
Magnesium 1.9 mg/dl (1.6-2.3) 03/16/24 04:53
Triglycerides 96 mg/dl (10-149) 03/14/24 05:18
03/09/24
08:50
[id number] Pept > [id number]
Physical Exam
Constitutional: No acute distress and Comfortable
EENT: Anicteric
Cardiovascular: Systolic murmur absent, Rhythm/rate is irregular, Pedal edema present (1+) and S1S2 is normal
Respiratory: Respiratory effort normal and Lungs clear to auscul.
GI: Soft
Neuro/Psych: AO x 3
Other: Skin (warm, dry, intact)
Data Reviewed
-
Date of Service: March 16, 2024
EKG: Tracing Personally Visualized and interpreted (Telemetry: A-fib)
Labs: Labs Reviewed by me
Critical Care Time (in minutes): 34
--- NOTE | 2024-03-16 10:30 | PTCARENOTE ---
pt received aox3, on 2LNC, afib on monitor. able to make needs known. turned and repositioned. educated about importance of turning with at bedside- verbalized understanding. all safety precautions in place, call cheatham within reach
[2024-03-16] MEDS: DUPHALAC/CHRONULAC 20 GRAMS PO ×2 (11:39→20:03)
--- NOTE | 2024-03-16 13:26 | W.PN.INTV ---
Today's Communication / Plan
Recommendations
Continue with current care
BiPAP as needed at during the night
Oxygen supplementation, currently on 2 L per
Inhalers
Physical therapy as tolerated
Diuresis as able per cardiology
Follow INR
Assessment
-
Assessment: 78-year-old male former tobacco smoker with a past medical history of moderate COPD, moderate restrictive lung disease, history of hemoptysis, history of LLL bronchiectasis, history of left-sided pneumonia, history of aspergillus,
chronic anticoagulation for mechanical mitral valve replacement (July 2021), history of COVID-19, HFrEF with RV dysfunction, pulmonary hypertension, history of NHL s/p chemo/XRT (2003), and chronic thrombocytopenia with unremarkable bone marrow
biopsy (10/2023) who presents with shortness of breath, weakness and fever. 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 Patient has low-grade fever to 100.1 �F in the ER, and tachycardic to 115 bpm, tachypnea to 25 respirator,
hypotensive to 72/44, and initially was saturating 66% on room air. Saturations improved to 91% with nonrebreather. Labs showed leukopenia to 2.7 with 20% bands, anemia to 12, elevated INR 4.58, hyponatremia 130, ADRIANA to 1.5, lactic acid elevated
at 2.3, elevated troponin 0.148, increased proBNP of >27,000, and negative COVID-19 antigen; flu A/B swab also negative. Blood cultures were collected. CXR shows a 10 cm left midlung airspace opacity with acute cardiogenic pulmonary edema and a
right-sided pleural effusion with compressive atelectasis. In the ER antibiotics were given with cefepime/vancomycin, he was also given DuoNebs x 1, given IV fluids with NS 0.5L and started on Levophed due to persistent hypotension with SBP in the
80s. Due to patient's vasopressor and oxygen requirements, he is being admitted to the ICU. Critical care services now consulted for additional management/recommendations.
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
CPAP, personal history of COVID-19, chronic atrial fibrillation on Coumadin, history of tobacco abuse with [id number] history (quit in 2018), history of HFrEF with RV dysfunction, mild�moderate pulmonary hypertension, history of GI bleed,
postnasal drip, history of non-Hodgkin's lymphoma s/p chemo/radiation (2003), history of left-sided pneumonia due to Streptococcus pneumonia, history of aspergillus, history of Veiira's esophagus, history of thrombocytopenia s/p unremarkable bone
marrow biopsy.
Transferred out of the ICU 03/15/2024. Pulmonary will continue to follow for hypoxemia.
Impression:
#Acute respiratory failure with hypoxia due to CAP + acute pulmonary edema with right pleural effusion
Intubated 03/10/2024, extubated 03/13/2024.
#Bandemia with 20% bands -due to septic shock from left side pneumonia
#Severe left-sided CAP
#Septic shock due to above
#Lactic acidosis
#Acute COPD exacerbation due to above
#Hemoptysis due to pneumonia in the setting of chronic anticoagulation with supratherapeutic INR
#Supratherapeutic INR (INR: 5.18)
#Hyponatremia
#Acute kidney injury (Cr baseline approx 1.1)
#Elevated troponin likely due to demand ischemia with type II SD
#Chronic pancytopenia
#Mechanical mitral valve replacement on Coumadin
#Chronic A-fib on Coumadin
#DM type II
Former smoker
Former alcohol use.
Plan:
Acute respiratory failure with hypoxia due to CAP + acute pulmonary edema with right pleural effusion:
- Intubated emergently 03/10/2024 due to worsening hypercapnic respiratory failure and septic shock.
- Extubated 03/13/2024 to BiPAP.
-Clinically improving.
-
Continues to clinically improve. 03/16/2024
Oxygen supplementation down to 2 L.
-
Shock has resolved
Completed course of Levaquin 03/15/2024
-
- Chest x-ray 03/12/2024: Stable small to moderate right pleural effusion. Left-sided infiltrate to my view improved. No pneumothorax.
Repeat chest x-ray 03/17/2024.
Afebrile. Leukocytosis resolved.
- Bronchoscopy performed 03/11/2024: Scant whitish secretion. No active bleeding. Cultures with no growth.
- Repeat urine and blood cultures negative.
- Discontinued 03/10/2024-MRSA screening negative.
- Discontinued cefepime and azithromycin. 03/12/2024.
- Continue levofloxacin- 03/15/2024 completed course per
CT chest noted: Showed small bilateral pleural effusions. Right greater than left. Near complete atelectasis of the right lower lobe, soft tissue attenuation of the right mainstem bronchus. Likely mucous plugging. Left upper lobe infiltrate.
Advanced emphysema.
Chest x-ray as above.
Right ultrasound with moderate effusion. Given improved leukocytosis and fever hold on thoracentesis. Repeat chest x-ray 03/17/2024.
Hemoptysis: Resolved.
- Bronchoscopy 03/11/2024 without active bleeding
- Supratherapeutic INR 5.11 after resuming warfarin.
- Hold Coumadin for today, follow INR daily.
-
HFrEF:
- S/p mechanical mitral valve replacement. On warfarin with goal INR 2.5-3 5.5.
- Supratherapeutic INR as above.
- Hold anticoagulation.
- Echocardiogram 03/10/2024 noted with decreased LVEF down to 15-20 %. Last echocardiogram available 06/05/2023: Showed moderate to severe reduced left ventricular action fraction. Global hypokinesis. EF 30-35%. Mechanical mitral valve. Moderate
TR.
-Intermittent diuresis as able
Cardiology following
COPD history: Not bronchospastic on exam.
Restarted Pulmicort/Spiriva.
DuoNebs as needed.
-Steroids discontinued, monitor closely
-
Acute kidney injury-resolved
-
Significant deconditioning/muscle mass loss.
Aggressive physical therapy/Occupational Therapy/nutrition
May need placement prior to going home.
-
Maintain euglycemia with goal BG 140-180
Insulin as needed
-
DVT ppx- SCD
GI prophylaxis with Protonix
-
Okay to transition to telemetry.
Pulmonary will continue to follow

Data:
CXR 03/13/2024:
There is moderate diffuse prominence of the bronchovascular markings throughout both lungs which more likely reflects pulmonary edema than diffuse interstitial pneumonia as there is mild cardiomegaly and small bilateral pleural effusions.
Correlation with the patient's BNP is recommended.
Chest ultrasound 03/12/2024:
Moderate right pleural effusion. Stable
CXR 03-09-2024:
1. New large 10 cm airspace opacity in the left mid and lower lung which was not present 12/05/2023. Diagnostic possibilities are (1) severe pneumonia, (2) pulmonary hemorrhage, or (3) asymmetric alveolar pulmonary edema.
2. Moderate acute interstitial cardiogenic pulmonary edema.
3. Moderate to severe bilateral upper lobe emphysema.
4. Mild cardiomegaly with evidence for previous mitral valve replacement.
5. Small right pleural effusion and adjacent moderate compressive atelectasis in the right lower lobe.
Chest CT 03/09/2024:
1. Small bilateral pleural effusions, right greater than left.
2. Near complete atelectasis of the right lower lobe with soft tissue attenuation material within bronchi to the right lower lobe which could be related to either secretions or aspiration.
3. Combination of atelectasis and dense airspace consolidation throughout the left upper and lower lobes as above. As on the right, there is soft tissue attenuation opacification of left lower lobe bronchi could be related to either secretions or
aspiration.
4. Advanced emphysematous changes.
Echo 03/10/2024:
Severely reduced left ventricular systolic function. Left ventricular ejection
fraction appears 15-20% by visual assessment.
Global hypokinesis.
Normal right ventricular size with reduced systolic function.
Well seated normally functioning mechanical mitral valve.
Moderate tricuspid regurgitation with moderate pulmonary hypertension.
Compared to the images from 06/05/2023, the left ventricular systolic function
has decreased from 30 to 35% to 15 to 20%. The right ventricle is no longer
dilated but reduced systolic function is now seen.
Subjective Dataa
Subjective Data
Date of Service:
Date of Service: March 16, 2024
Chief Complaint: Authorization Rep Follow Up (Acute hypoxemic and hypercarbic respiratory failure requiring intubation)
Subjective:
No overnight events
Continues to improve
Continues to feel better
Continues to have minimal intermittent coughing
On low rate supplemental oxygen per
Review of Systems
General: Fever (n)
Cardiopulmonary: Dyspnea (none at rest) and Cough
GI: Abdominal Pain (n) and Nausea (n)
Objective Data
Data Reviewed
Vital Signs / I&O / Oxygen:
Vital Signs
Temp Pulse Resp BP Pulse Ox
97.4 F 90 28 95/54 92
03/16/24 11:30 03/16/24 13:00 03/16/24 13:00 03/16/24 12:00 03/16/24 13:00
Intake and Output
03/15/24 03/16/24 03/17/24
06:59 06:59 06:59
Intake Total 788.8 / 788.8 510 / 510
Output Total 1650 / 1650 1025 / 1025 375 / 375
Balance -861.2 / -861.2 -515 / -515 -375 / -375
SaO2 [A/C] 98
SaO2 [NIV (Non Invasive 96
Ventilation)]
SaO2 92
Nasal Cannula flow liters per 2
minute
Physical Exam
General: Respiratory Distress (On noninvasive mechanical ventilation) and Comfortable
HEENT: Normocephalic
Cardiovascular: S1-S2, Irregular Rhythm, Murmur (Negative) and JVD (Negative)
Respiratory: Clear, Crackles and Non-Labored Respirations
GI: Soft, Non Distended and Non Tender
Neurology: Awake, Alert, Oriented, AO x 3 and Other (Lethargic, occasionally moving 4 extremities. Follows commands with sedation breaks per)
Skin: Warm
Labs/Micro/Reports
Lab Data
03/16/24 04:53
03/16/24 04:53
Laboratory Results
03/16/24
04:53
PT 47.4 H
INR 5.11 H*
Microbiology
03/12/24 09:35 Blood/Venous Blood Culture - Preliminary
No Growth in 4 days- Final report to follow
03/12/24 09:32 Blood/Venous Blood Culture - Preliminary
No Growth in 4 days- Final report to follow
03/09/24 08:50 Blood/Venous Blood Culture - Final
No Growth - Final Report
03/09/24 08:50 Blood/Venous Blood Culture - Final
No Growth - Final Report
03/11/24 15:19 Bronch Right Lower Lobe Respiratory Culture - Final
NO GROWTH
03/11/24 15:19 Bronch Right Lower Lobe Gram Stain - Final
--- NOTE | 2024-03-16 15:41 | PTCARENOTE ---
pt oob to commode- large bm- transfer to chair. no complaints at this time. family at bedside.
--- NOTE | 2024-03-16 16:22 | PTCARENOTE ---
pt tolerating clears. 3rd unit of prbc infusing. assessment unchanged. one large bm.
[2024-03-16 16:46] LABS: Glucose - Point of Care 149 mg/dl (70-99)
[2024-03-16 21:25] LABS: Glucose - Point of Care 225 mg/dl (70-99)
[2024-03-16] MEDS: MELATONIN 5 MG PO (23:31)
[2024-03-17] VITALS (12 sets, daily range): BP systolic 94–119; BP diastolic 52–58; PULSE 2–88; O2SAT 99; BMI 25.6
--- NOTE | 2024-03-17 00:08 | PTCARENOTE ---
Rec'd care of patient at 1915. Patient resting comfortably in bed. VSS. Afib on tele monitor. Rate controlled. Transitioned from 2L nc to BiPAP at 2200. Patient complaining of being unable to sleep. Order for melatonin obtained and administered.
Full assessment and care as charted on worklist.
[2024-03-17 03:41] LABS: % Basophils 0.3 % (0-2); % Eosinophils 0.9 % (0-6); % Immature Granulocytes 1.3 % (0-0.5); % Lymphocytes 4.9 % (20.5-51.1); % Monocytes 3.8 % (1.7-9.3); % Neutrophils 88.8 % (42.2-75.2); Absolute Eosinophils 0.1 10^3/uL (0-0.7); Absolute Immature Granulocytes 0.1 10^3/uL (0-0.05); Absolute Lymphocytes 0.4 10^3/uL (1.2-3.4); Absolute Monocytes 0.3 10^3/uL (0.1-0.6); Absolute Neutrophils 6.9 10^3/uL (1.4-6.5); Hematocrit 29.2 % (39.0-52.0); Hemoglobin 10.2 g/dL (13.0-18.0); Mean Corp Hgb Conc. 34.9 g/dL (33.0-37.0); Mean Corpuscular Hgb 32.9 pg (27.0-31.0); Mean Corpuscular Volume 94.2 fL (80.0-94.0); Mean Platelet Volume 10.8 fL (7.4-10.4); Nucleated Red Blood Cells % 0 % (-); Platelet Count 76 10^3/uL (130-400); White Blood Cell Count 7.7 10^3/uL (4.8-10.8)
[2024-03-17 03:57] LABS: PT 49.1 Sec (11.4-14.6)
[2024-03-17 04:02] LABS: Blood Urea Nitrogen 55 mg/dl (9-20); Calcium 8.5 mg/dl (8.4-10.2); Carbon Dioxide 31 mmol/L (22-30); Chloride 98 mmol/L (98-107); Estimated Creatinine Clearance 66 ml/min; Glucose 128 mg/dl (70-99); Magnesium 1.9 mg/dl (1.6-2.3); Phosphorus 3.4 mg/dl (2.5-4.5); Potassium 4.3 mmol/L (3.5-5.1); Sodium 130 mmol/L (135-145); eGFR > 60.00
[2024-03-17 04:07] LABS: INR 5.34
--- NOTE | 2024-03-17 04:15 | PTCARENOTE ---
INR 5.34. CAP AND STUD MACHINE OPERATOR notified.
[2024-03-17] MEDS: SPIRIVA RESPIMAT 2.5 MCG 2 PUFF INH (07:28)
[2024-03-17] MEDS: SYMBICORT 160/4.5 MCG INHALER 2 PUFF INH ×2 (07:28→19:43)
--- NOTE | 2024-03-17 07:45 | W.PN.INTV ---
Today's Communication / Plan
Recommendations
Coumadin remains on hold
Antibiotics, steroids discontinued
Chest x-ray stable
Increase activity, out of bed to chair, PT/OT
Will require intermittent chest x-ray
Will require follow-up CT chest in 4 to 6 weeks
Disposition efforts
Assessment
-
Assessment: 78-year-old male former tobacco smoker with a past medical history of moderate COPD, moderate restrictive lung disease, history of hemoptysis, history of LLL bronchiectasis, history of left-sided pneumonia, history of aspergillus,
chronic anticoagulation for mechanical mitral valve replacement (July 2021), history of COVID-19, HFrEF with RV dysfunction, pulmonary hypertension, history of NHL s/p chemo/XRT (2003), and chronic thrombocytopenia with unremarkable bone marrow
biopsy (10/2023) who presents with shortness of breath, weakness and fever. He also has been coughing up blood which started 1 night [employer]. Patient has low-grade fever to 100.1 �F in the ER, and tachycardic to 115 bpm, tachypnea to 25 respirator,
hypotensive to 72/44, and initially was saturating 66% on room air. Saturations improved to 91% with nonrebreather. Labs showed leukopenia to 2.7 with 20% bands, anemia to 12, elevated INR 4.58, hyponatremia 130, ADRIANA to 1.5, lactic acid elevated
at 2.3, elevated troponin 0.148, increased proBNP of >27,000, and negative COVID-19 antigen; flu A/B swab also negative. Blood cultures were collected. CXR shows a 10 cm left midlung airspace opacity with acute cardiogenic pulmonary edema and a
right-sided pleural effusion with compressive atelectasis. In the ER antibiotics were given with cefepime/vancomycin, he was also given DuoNebs x 1, given IV fluids with NS 0.5L and started on Levophed due to persistent hypotension with SBP in the
80s. Due to patient's vasopressor and oxygen requirements, he is being admitted to the ICU. Critical care services now consulted for additional management/recommendations.
Chronic conditions [employer]: COPD, restrictive lung disease, history of hemoptysis, chronic anticoagulation with warfarin due to mechanical mitral valve replacement (07/2021), history of left lower lobe bronchiectasis, elevated left hemidiaphragm, KIKI on
CPAP, personal history of COVID-19, chronic atrial fibrillation on Coumadin, history of tobacco abuse with 43-ujde-lrit history (quit in 2018), history of HFrEF with RV dysfunction, mild�moderate pulmonary hypertension, history of GI bleed,
postnasal drip, history of non-Hodgkin's lymphoma s/p chemo/radiation (2003), history of left-sided pneumonia due to Streptococcus pneumonia, history of aspergillus, history of Vieira's esophagus, history of thrombocytopenia s/p unremarkable bone
marrow biopsy.
Transferred out of the ICU 03/15/2024. Pulmonary will continue to follow for hypoxemia.
Impression:
#Acute respiratory failure with hypoxia due to CAP + acute pulmonary edema with right pleural effusion
Intubated 03/10/2024, extubated 03/13/2024.
#Bandemia with 20% bands -due to septic shock from left side pneumonia
#Severe left-sided CAP
#Septic shock due to above
#Lactic acidosis
#Acute COPD exacerbation due to above
#Hemoptysis due to pneumonia in the setting of chronic anticoagulation with supratherapeutic INR
#Supratherapeutic INR (INR: 5.18)
#Hyponatremia
#Acute kidney injury (Cr baseline approx 1.1)
#Elevated troponin likely due to demand ischemia with type II TX
#Chronic pancytopenia
#Mechanical mitral valve replacement on Coumadin
#Chronic A-fib on Coumadin
#DM type II
Former smoker
Former alcohol use.
Plan:
At this time, patient appears to be objectively and subjectively improved
Denies any further episodes of hemoptysis, INR 5.34, platelets trending upwards
Chest x-ray today with persistent bibasilar infiltrate, rounded area of consolidation/effusion right base
Tolerated BiPAP overnight 12/5 with 2 L
-1 L
Moving forward
Continue to wean oxygen as able
Continue with nocturnal BiPAP
Oxygen supplementation down to 2 L.
Shock has resolved
Completed course of Levaquin 03/15/2024
Chest x-ray with stable right pleuroparenchymal process
Follow clinically
Will require eventual CT chest, consider in the next 4 to [address] chest with near complete atelectasis of right lower lobe with questionable soft tissue attenuation of the right mainstem bronchus
Bronchoscopy unremarkable, no obvious airway process
Follow right pleuroparenchymal process, may require thoracentesis but can follow clinically for now
Intermittent chest x-ray as clinically indicated
Coumadin remains on hold, supratherapeutic INR noted
Follow-up for hemoptysis recurrent
Cultures negative, remains off antibiotic, completed course
S/p mechanical mitral valve replacement. On warfarin with goal INR 2.5-3 5.5.
- Supratherapeutic INR as above.
- Hold anticoagulation.
- Echocardiogram 03/10/2024 noted with decreased LVEF down to 15-20 %. Last echocardiogram available 06/05/2023: Showed moderate to severe reduced left ventricular action fraction. Global hypokinesis. EF 30-35%. Mechanical mitral valve. Moderate
TR.
-Intermittent diuresis as able
Cardiology following
COPD history: Not bronchospastic on exam.
Restarted Pulmicort/Spiriva.
DuoNebs as needed.
Steroids discontinued
Significant deconditioning/muscle mass loss.
Aggressive physical therapy/Occupational Therapy/nutrition
May need placement prior to going home.
DVT ppx- SCD
GI prophylaxis with Protonix
Disposition efforts

Data:
CXR 03/13/2024:
There is moderate diffuse prominence of the bronchovascular markings throughout both lungs which more likely reflects pulmonary edema than diffuse interstitial pneumonia as there is mild cardiomegaly and small bilateral pleural effusions.
Correlation with the patient's BNP is recommended.
Chest ultrasound 03/12/2024:
Moderate right pleural effusion. Stable
CXR 03-09-2024:
1. New large 10 cm airspace opacity in the left mid and lower lung which was not present 12/05/2023. Diagnostic possibilities are (1) severe pneumonia, (2) pulmonary hemorrhage, or (3) asymmetric alveolar pulmonary edema.
2. Moderate acute interstitial cardiogenic pulmonary edema.
3. Moderate to severe bilateral upper lobe emphysema.
4. Mild cardiomegaly with evidence for previous mitral valve replacement.
5. Small right pleural effusion and adjacent moderate compressive atelectasis in the right lower lobe.
Chest CT 03/09/2024:
1. Small bilateral pleural effusions, right greater than left.
2. Near complete atelectasis of the right lower lobe with soft tissue attenuation material within bronchi to the right lower lobe which could be related to either secretions or aspiration.
3. Combination of atelectasis and dense airspace consolidation throughout the left upper and lower lobes as above. As on the right, there is soft tissue attenuation opacification of left lower lobe bronchi could be related to either secretions or
aspiration.
4. Advanced emphysematous changes.
Echo 03/10/2024:
Severely reduced left ventricular systolic function. Left ventricular ejection
fraction appears 15-20% by visual assessment.
Global hypokinesis.
Normal right ventricular size with reduced systolic function.
Well seated normally functioning mechanical mitral valve.
Moderate tricuspid regurgitation with moderate pulmonary hypertension.
Compared to the images from 06/05/2023, the left ventricular systolic function
has decreased from 30 to 35% to 15 to 20%. The right ventricle is no longer
dilated but reduced systolic function is now seen.
Subjective Dataa
Subjective Data
Date of Service:
Date of Service: March 17, 2024
Chief Complaint: Shanker Out Follow Up (Acute hypoxemic and hypercarbic respiratory failure requiring intubation)
Subjective:
Patient denies significant shortness of breath, denies any further hemoptysis, chest pain, nausea, hematemesis.
Objective Data
Data Reviewed
Vital Signs / I&O / Oxygen:
Vital Signs
Temp Pulse Resp BP Pulse Ox
97.7 F 78 17 104/53 96
03/17/24 07:22 03/17/24 07:34 03/17/24 07:34 03/17/24 04:00 03/17/24 07:34
Intake and Output
03/16/24 03/17/24 03/18/24
06:59 06:59 06:59
Intake Total 510 / 510
Output Total 1025 / 1025 1050 / 1050
Balance -515 / -515 -1050 / -1050
SaO2 [A/C] 98
SaO2 [NIV (Non Invasive 96
Ventilation)]
SaO2 96
Nasal Cannula flow liters per 2
minute
Physical Exam
General: Comfortable and Other (Right IJ dressing)
HEENT: Normocephalic and Anicteric (n)
Cardiovascular: S1-S2, Irregular Rhythm, Murmur (Negative), JVD (Negative), Peripheral Edema (1+) and Calf Tenderness (n)
Respiratory: Clear, Wheeze (n), Crackles ( mild at the base), Rhonchi (n), Non-Labored Respirations and Stridor (n)
GI: Soft, Non Distended and Non Tender
Neurology: Awake, Alert and No Motor Deficits (Follows commands, moves extremities)
Skin: Warm
Labs/Micro/Reports
Lab Data
03/17/24 03:24
03/17/24 03:24
Laboratory Results
03/17/24
03:24
PT 49.1 H
INR 5.34 H*
Microbiology
03/12/24 09:35 Blood/Venous Blood Culture - Preliminary
No Growth in 4 days- Final report to follow
03/12/24 09:32 Blood/Venous Blood Culture - Preliminary
No Growth in 4 days- Final report to follow
03/09/24 08:50 Blood/Venous Blood Culture - Final
No Growth - Final Report
03/09/24 08:50 Blood/Venous Blood Culture - Final
No Growth - Final Report
[2024-03-17] MEDS: JARDIANCE 10 MG PO (07:57)
[2024-03-17] MEDS: SENOKOT-S 1 TABLET PO ×2 (07:57→20:00)
[2024-03-17] MEDS: PROTONIX 40 MG PO ×2 (07:57→20:00)
[2024-03-17] MEDS: MIRALAX PO (07:57)
[2024-03-17] MEDS: DUPHALAC/CHRONULAC 20 GRAMS PO ×2 (07:57→20:00)
--- NOTE | 2024-03-17 08:22 | PTCARENOTE ---
Addendum entered by Abigail Marc RN 03/17/24 10:45:
a paced on monitor at times
Original Note:
pt received aox3, on 2LNC. denies discomfort at this time. afib with pvcs on monitor. all safety precautions in place, call cheatham within reach.
--- NOTE | 2024-03-17 09:44 | W.PN.CD ---
Today's Communication / Plan
-
-Hemoptysis resolved; INR trended down, but now supratherapeutic INR after resuming warfarin (6.03-->5.11-->5.34 today).
-Coumadin is being held.
-Holding Lasix for now due to low blood pressure.
Impression / Plan
-
A: 78-year-old gentleman with a past medical history of permanent atrial fibrillation, mechanical mitral valve replacement on chronic Coumadin, coronary artery disease, heart failure with reduced EF (15-20%), COPD, pulmonary hypertension
non-Hodgkin's lymphoma presents with shortness of breath and hemoptysis. Also respiratory failure 2/2 PNA requiring intubation and mechanical ventilation and shock requiring pressor support.
Shock, likely primarily septic in the setting of pneumonia (could be component of cardiogenic with severely depressed EF): improved
-now extubated and off pressors
Hemoptysis, s/p vitamin K
-Hemoptysis resolved; INR trended down, but now supratherapeutic INR after resuming warfarin (6.03-->5.11--> 5.34 today).
-Coumadin is being held.
NICM, now with decline in LVEF, HFrEF now 15-20%, acute on chronic (prior LVEF 30-35% in 05/2023)
-Unable to resume Toprol-XL or other GDMT due to low blood pressure.
-Jardiance has been resumed
-Holding Lasix for now due to low blood pressure.
-Will repeat echo when patient closer to discharge; will need to consider cath if LVEF remains severely depressed.
ADRIANA: peak 2.1
-resolved
Permanent atrial fibrillation
-Remains rate controlled
-Oral Anticoagulation: Warfarin (mechanical mitral valve), per INR- held as above
Status post mechanical mitral valve replacement
- Goal INR 2.5�3.5
- warfarin being held per INR- as above
Abnormal troponin, likely nonischemic myocardial injury in the setting of acute illness (sepsis)
Hyponatremia, hypervolemic, follow with diuresis
CAD, nonobstructive, 20-30% pLAD stenosis by [facility] 2020
S/p Micra PPM
Cirrhosis
COPD
Former smoker, continued cessation recommended
Subjective:
No major cardiac events overnight.
TTE March 10 2024: Severely reduced left ventricular systolic function. Left ventricular ejection fraction appears 15-20%. Well seated normally functioning mechanical mitral valve. Mean gradient 5. Moderate tricuspid regurgitation with moderate
pulmonary hypertension.
Laboratory Data
07/18/21 03/10/24 03/10/24
03:59 03:23 12:26
Hgb 8.8 L
INR 3.76
Creatinine 1.0 2.1 H
03/10/24 03/11/24 03/12/24
16:23 03:06 04:33
Hgb 12.0 L
INR 2.59 1.98
Creatinine 1.9 H 1.7 H
03/12/24
04:34
Hgb
INR
Creatinine 1.3
Selected Entries
07/18/21
08:57 07/18/21
09:18
Pulse 60
Blood pressure 139/50
Generic Name Dose Route Start Last Admin
Trade Name Freq PRN Reason Stop Dose Admin
Aspirin 81 mg 07/16/21 08:00 07/18/21 07:29
Aspirin 81 Mg Chewable Tablet PO 08/13/21 07:59 Not Given
DAILY TINY
Atorvastatin Calcium 10 mg 07/16/21 18:00 07/17/21 18:13
Atorvastatin (Lipitor) 10 Mg Tablet PO 08/13/21 17:59 Not Given
QPM TINY
Furosemide 40 mg 07/17/21 08:00 07/18/21 08:57
Furosemide 40 Mg (10 Mg/Ml) 4 Ml Vial IV 08/14/21 07:59 40 mg
BID AT 0800,1600 TINY
Empagliflozin 10 mg 03/10/24 08:00 03/10/24 09:14
Empagliflozin (Jardiance) 10 Mg Tablet PO 04/07/24 07:59 Not Given
DAILY TINY
Vasopressin 20 units in 100 mls @ 0 mls/hr 03/09/24 16:45 03/12/24 05:17
Pitressin IV 100 mls
PER PROTOCOL TINY
Protocol
Per Protocol
Norepinephrine Bitartrate 8 mg 258 mls @ 0 mls/hr 03/09/24 20:00 03/12/24 07:41
/ Dextrose IV 258 mls
PER PROTOCOL TINY
Protocol
Per Protocol
Phenylephrine HCl 100 mg/ 260 mls @ 0 mls/hr 03/10/24 09:15 03/12/24 01:33
Sodium Chloride IV 260 mls
PER PROTOCOL TINY
Protocol
Per Protocol
Warfarin Sodium 2.5 mg 03/11/24 18:00 03/11/24 17:47
Warfarin 2.5 Mg Tablet PO 03/16/24 17:59 2.5 mg
QPM TINY
Physical Exam
Vital Signs/Labs
Vital Signs
Temp Pulse Resp BP Pulse Ox
97.7 F 80 25 102/54 93
03/17/24 07:22 03/17/24 08:00 03/17/24 08:00 03/17/24 08:00 03/17/24 08:00
03/16/24 03/17/24 03/18/24
06:59 06:59 06:59
Actual Weight 82 kg 83.2 kg
03/17/24 03:24
03/17/24 03:24
PT 49.1 Sec (11.4-14.6) H 03/17/24 03:24
INR 5.34 H* 03/17/24 03:24
APTT 54.5 Sec (23.4-35.0) H 03/09/24 13:02
Magnesium 1.9 mg/dl (1.6-2.3) 03/17/24 03:24
Triglycerides 96 mg/dl (10-149) 03/14/24 05:18
03/09/24
08:50
Ivb-O-Srjflphylaw Pept > 01028
Physical Exam
Constitutional: No acute distress and Comfortable
EENT: Anicteric
Cardiovascular: Pedal edema is absent, Systolic murmur absent, Rhythm/rate is irregular and S1S2 is normal
Respiratory: Respiratory effort normal and Rhonchi Present
GI: Soft
Neuro/Psych: AO x 3
Other: Skin (warm, dry, intact)
Data Reviewed
-
Date of Service: March 17, 2024
EKG: Tracing Personally Visualized and interpreted (Telemetry: Afib)
Labs: Labs Reviewed by me
--- NOTE | 2024-03-17 14:20 | CM ---
Addendum entered by Madan Mccurdy 03/17/24 15:23:
Updated PT and OT evaluations requested, spoke to PT and OT and they will evaluate the pt shortly
[facility] rehab nursing report: [phone]
Discharge instructions fax: [phone]
D/C plan: [facility]
Original Note:
CM following re: discharge planning.
Reviewed pt's chart, met with pt. Pt's family at bedside. Per Rounds meeting, pt requires 2L NC, doing better, continue supportive care.
Pt and OT evaluations noted - acute rehab recommended. Pt referred to [facility] on Sunday and pt is accepted based on bed availability.
D/C plan: [facility] when medically stable.
CM will follow to assist pt with discharge to [facility].
--- NOTE | 2024-03-17 14:27 | W.PN.HOSP.TC ---
Today's Communication/Plan
-
consult PMR for placement
wean O2
monitor labs, vitals
Assessment / Plan
Assessment / Plan
HPI: 78-year-old male with a past medical history of atrial fibrillation on Coumadin, newly diagnosed cirrhosis, CAD, COPD, KIKI on CPAP, GERD, peptic ulcer disease, CHF, and hypertension presents with a 1 day history of fever, hemoptysis, and
shortness of breath. Family reports that he was coughing up blood intermittently overnight, with fever. Associated symptoms include hematemesis, lethargy, agitation. Patient was found to be in acute hypoxic respiratory failure in the ER, and
placed on a nonrebreather. He was also found to have septic shock from pneumonia, with pulmonary edema. He is getting vancomycin and cefepime in the ER, and currently on a Levophed drip. He is on prednisone 60 mg daily since June 2023, unclear
why.
Assessment:
Septic shock, present upon admission
Severe pneumonia
- completed antibiotics and steroid course
Acute respiratory failure with hypoxia due to severe left sided CAP + acute pulmonary edema with right pleural effusion
VDRF (Intubated 03/10/2024, extubated 03/13/2024)
- extubated to BiPAP and now on 2L NC
Acute COPD exacerbation due to above
- steroids discontinued
Hemoptysis due to pneumonia in the setting of chronic anticoagulation with supratherapeutic INR
- s/p bronch 03/11: unremarkable
Constipation
- Miralax/Senna/Colace
- Lactulose added to bowel regimen
Hyperglycemia likely steroid induced
- A1c appreciated 5.6 non-diabetic
- no significant hyperglycemia since discontinuation of stress steroids
Hypophosphatemia
Hypomagnesemia
Hypocalcemia
- Monitor and replete as necessary
Acute on chronic heart failure with reduced ejection fraction
- Echo 06/05/2023 EF 30-35%, global hypokinesis, mechanical mitral valve, mild MR, moderate TR
- Lasix Held d/t shock/hypotension
- Jardiance held d/t ADRIANA, since resumed as per Cardiology
Coagulopathy
Paroxysmal atrial fibrillation
Mechanical aortic valve on Coumadin
- supratherapeutic INR (goal 2.5 to 3.5)
- holding Coumadin
- holding off BB due to hypotension
Type II SD from demand ischemia vs nonischemic myocardial injury in the setting of acute illness (sepsis)
- Troponin peaked at 0.148 since trended down
Hematemesis
- Likely from swallowed blood products from hemoptysis
- Protonix 40 mg PO twice daily
- H&H stable
Hyponatremia
- Due to CHF, monitor
- Stable 120s improving following restart Lasix
- Since improved, at appropriate rate, to low 130s
Acute kidney injury likely d/t shock as above resolving
- baseline is normal, initial creatine 1.5 increased to 2.1 since trended down
- From CHF and septic shock
- Monitor creatinine, avoid nephrotoxic drugs/NSAIDs
- weaned off pressor support as above
Thrombocytopenia
- Due to sepsis, monitor
- will transfuse if <20 or <50 with active bleeding
DTI (Deep Tissue Injury) sacral pressure injury
- cont local wound care
Recently diagnosed cirrhosis
- Follows with Dr. Saunders outpatient
DVT ppx: Supratherapeutic INR
Code: Full
Dispo: Acute rehab pending evaluations
Anticipated Discharge: 24 - 48 hours
Subjective/Interval History
-
Date of Service: March 17, 2024
no SOB, hemoptysis
no chest pain
now down to 2L NC
Objective Data
-
Labs:
Laboratory Results
03/17/24
03:24
WBC 7.7
Hgb 10.2 L
Hct 29.2 L
Plt Count 76 L
PT 49.1 H
INR 5.34 H*
Sodium 130 L
Potassium 4.3
Chloride 98
Carbon Dioxide 31 H
BUN 55 H
Creatinine 1.0
Glucose 128 H
Calcium 8.5
Vital Signs:
Vital Signs
Temp Pulse Resp BP Pulse Ox
98 F 77 28 101/52 95
03/17/24 11:06 03/17/24 13:00 03/17/24 13:00 03/17/24 12:00 03/17/24 13:00
I&O
03/16/24 03/17/24 03/18/24
06:59 06:59 06:59
Intake Total 510 / 510 480 / 480
Output Total 1025 / 1025 1050 / 1050 500 / 500
Balance -515 / -515 -1050 / -1050 -20 / -20
Physical Exam
-
General: No Apparent Distress
HEENT: Normocephalic and Atraumatic
Respiratory: Crackles (mild at bases); Negative Wheezes
Cardiac: Irregular Rhythm
GI: Soft
Genito-urinary: No Costovertebral Tender
Neuro: AO x 3
Psych: Calm
Data Reviewed
-
Total Time Spent with Patient (in minutes): 41
Labs: Labs Reviewed by me
--- NOTE | 2024-03-17 15:09 | PTCARENOTE ---
pt sent to 336- report given to rn- and family aware of transfer- pt verbalized understanding. sent with all belongings. oob to chair for couple hours. poc discussed with dr. mantilla
--- NOTE | 2024-03-17 17:44 | WOUNDNOTE ---
WOC RN note: t/c [address] and spoke with PCT Jose who confirmed patient is on an air overlay mattress.
[2024-03-17] MEDS: FIRST-MOUTHWASH BLM SUSPENSION 5 ML PO (18:04)
[2024-03-18] VITALS (8 sets, daily range): BP systolic 103–123; BP diastolic 45–56; PULSE 2–90; O2SAT 94; BMI 25.0
--- NOTE | 2024-03-18 04:55 | PTCARENOTE ---
pt had 26 beat run of VT, typically in afib and apaced. pt asymptomatic. DAV Barr notified, no new orders. has 6am labs ordered already. pt comfortable with call cheatham in reach.
[2024-03-18] MEDS: FIRST-MOUTHWASH BLM SUSPENSION 5 ML PO ×3 (04:58→17:44)
[2024-03-18 06:15] LABS: INR 4.37; PT 41.9 Sec (11.4-14.6)
[2024-03-18 06:26] LABS: % Basophils 0.1 % (0-2); % Eosinophils 1.6 % (0-6); % Immature Granulocytes 1.7 % (0-0.5); % Lymphocytes 4.2 % (20.5-51.1); % Monocytes 4.3 % (1.7-9.3); % Neutrophils 88.1 % (42.2-75.2); Absolute Eosinophils 0.1 10^3/uL (0-0.7); Absolute Immature Granulocytes 0.1 10^3/uL (0-0.05); Absolute Lymphocytes 0.3 10^3/uL (1.2-3.4); Absolute Monocytes 0.3 10^3/uL (0.1-0.6); Absolute Neutrophils 6.7 10^3/uL (1.4-6.5); Hematocrit 31.9 % (39.0-52.0); Hemoglobin 10.4 g/dL (13.0-18.0); Mean Corp Hgb Conc. 32.6 g/dL (33.0-37.0); Mean Corpuscular Hgb 31.8 pg (27.0-31.0); Mean Corpuscular Volume 97.6 fL (80.0-94.0); Mean Platelet Volume 9.9 fL (7.4-10.4); Nucleated Red Blood Cells % 0 % (-); Platelet Count 86 10^3/uL (130-400); Red Blood Cell Count 3.27 10^6/uL (4.70-6.10); Red Cell Dist. Width 15.3 % (11.5-14.5); White Blood Cell Count 7.6 10^3/uL (4.8-10.8)
[2024-03-18 06:44] LABS: Blood Urea Nitrogen 40 mg/dl (9-20); Calcium 8.6 mg/dl (8.4-10.2); Carbon Dioxide 33 mmol/L (22-30); Chloride 98 mmol/L (98-107); Estimated Creatinine Clearance 73 ml/min; Glucose 108 mg/dl (70-99); Magnesium 1.9 mg/dl (1.6-2.3); Phosphorus 3.1 mg/dl (2.5-4.5); Potassium 4.3 mmol/L (3.5-5.1); Sodium 131 mmol/L (135-145); eGFR > 60.00
[2024-03-18] MEDS: SYMBICORT 160/4.5 MCG INHALER 2 PUFF INH ×2 (08:03→18:08)
[2024-03-18] MEDS: SPIRIVA RESPIMAT 2.5 MCG 2 PUFF INH (08:03)
[2024-03-18] MEDS: DUPHALAC/CHRONULAC 20 GRAMS PO (08:16)
[2024-03-18] MEDS: PROTONIX 40 MG PO ×2 (08:16→19:36)
[2024-03-18] MEDS: JARDIANCE 10 MG PO (08:16)
[2024-03-18] MEDS: MIRALAX 17 GRAMS PO (08:17)
[2024-03-18] MEDS: SENOKOT-S 1 TABLET PO ×2 (08:17→19:36)
--- NOTE | 2024-03-18 08:33 | CON.MD ---
Documented by User: Lady Cabrera PA-C 03/18/24 20:31
Consultation - Medical
-
Referring Provider: Tyrone Mix
Chief Complaint: deconditioning, s/p shock, Pneumonia, respiratory failure
History of Present Illness: 78-year-old male with PMH of (atrial fibrillation on Coumadin, CHF, and hypertension newly diagnosed cirrhosis, CAD, COPD, KIKI on CPAP, GERD, peptic ulcer disease, Chronic Prednisone use since 2022) presented to ER on
with a 1 day history of fever, hemoptysis, lethargy, agitation and shortness of breath. He was found to be in acute hypoxic respiratory failure in the ER. He was then found to have septic shock from pneumonia, with pulmonary edema. He received
vancomycin, cefepime and Levophed drip in the ER. He was intubated on 03/10/2024, and extubated on 03/13/2024. Currently on BiPAP and 2 L nasal cannula. He is status post bronchoscopy on 03/11 due to hemoptysis in the setting of pneumonia and chronic
anticoagulation. Study was unremarkable. He completed a course of antibiotic and steroid for septic shock and severe pneumonia.
Had echocardiogram done today showing 03/18/24- Left ventricular ejection fraction is 25% with global hypokinesis.
Normal right ventricular size and function.
Severe biatrial enlargement.
Mechanical MV is well seated with a mean gradient of 4 mmHg.
Moderate tricuspid regurgitation.
Estimated PASP 58 mmHg and an estimated RA 15 mmHg.
Compared to previous echo images of 03/10/2024 there has been some improvement
in LVEF from 15-20% to 25%.
Past Medical History: atrial fibrillation on Coumadin, CHF, and hypertension newly diagnosed cirrhosis, CAD, COPD, KIKI on CPAP, GERD, peptic ulcer disease, Chronic Prednisone use since 2022)
Procedure History: Bilateral Knee Replacement
Family History: not pertinent
Social History:
Functional Level Premorbidly: Independent with all activities
Functional Level Currently: Bed mobility�min assist, transfer sit to stand�min assist, ambulates 20 x 3 with rolling walker with min assist. Standing
Tobacco: Denies
Alcohol: Denies
Drug use: Denies
Lives with: Spouse
24-hour assistance available:
Number of floors: multi level
# steps to enter: 3
# steps to second floor: FF
Potential First floor set up: no
Driving:
Occupation: Retired
�
Allergies:
Allergy/AdvReac Type Severity Reaction Status Date / Time
No Known Allergies Allergy Verified 03/09/24 09:51
Review of Systems:
Constitutional: (x) Normal _
Eye: (x) Normal _
Ear/Nose/Throat: (x) Normal _
Respiratory: (x) septic shock, pneumonia
Cardiovascular: (x) PAF
Gastrointestinal: (x) Normal _
Genitourinary: (x) Normal _
Musculoskeletal: (x) Normal _
Integumentary: (x) DTI sacral
Neurologic: (x) Normal _
Psychiatric: (x) Normal _
Endocrine: (x) Normal _
Hematologic/Lymphatic: (x) Normal _
Allergic/Immunologic: (x) Normal _
Medications:
Active Current Visit Medication List
Category Date Time Status
Budesonide/Formoterol 160/4.5 [Symbicort 160/4.5 Mcg Med 03/15/24 10:30 Active
Inhaler]
2 puff INH R BID
Dextrose 50%-Water [Dextrose 50% Syringe] Med 03/11/24 21:00 Active
12.5 grams IV [id number] PRN
Docusate W/Senna [Senokot-S] Med 03/14/24 12:41 Active
1 tablet PO BID
Empagliflozin [Jardiance] Med 03/14/24 12:41 Active
10 mg PO DAILY
Flush (0.9% Sodium Chloride) [Flush (Nss)] Med 03/09/24 13:00 Active
See Dose Instructions IV PER PROTOCOL
Glucagon [GlucaGen] Med 03/11/24 21:00 Active
1 mg IM PRN PRN
Ipratropium/Albuterol Sulfate [Duoneb] Med 03/13/24 11:27 Active
3 ml INH R Q4HPRN PRN
Lactulose [Duphalac/Chronulac] Med 03/16/24 11:00 Active
20 grams PO BID
Mag&Al/Sim/Diphenhyd/Lidocaine [First-Mouthwash Blm Med 03/17/24 13:45 Active
Suspension]
5 ml PO QIDPRN PRN
Pantoprazole [Protonix] Med 03/14/24 20:00 Active
40 mg PO BID
Polyethylene Glycol Powder [Miralax] Med 03/14/24 12:43 Active
17 grams PO DAILY
Tiotropium [place] 2.5 Mcg [Spiriva Respimat 2.5 Mcg] Med 03/15/24 11:00 Active
2 puff INH R DAILY
Vitals:
Temp Pulse Resp BP Pulse Ox
97.6 F 79 16 110/56 99
03/18/24 07:30 03/18/24 07:30 03/18/24 07:30 03/18/24 07:30 03/18/24 07:30
Height 5 ft 11 in
Actual Weight 81.25 kg
Body Mass Index (BMI) 25.0
Physical Exam:
General Appearance/Observation: Thin individual with muscle wasting, resting in bed, appears in no apparent distress on 3L O2
Pain/Comfort Assessment: Denies
Mood/Affect: Appropriate
Integumentary/Operative Site:
�� Pressure Ulcer Evaluation: absent over heels.
��
�� Other Type of Wound: none notable at the moment. Ecchymosis noted, dressing on right lateral neck
��
Eyes: Conjunctiva/Lids: normal ��� Pupils: pupils equal round
Ears/Nose/Throat: oral mucosa some what dry,,� throat clear.������������ Lips/Teeth/Gums: normal
Neck: No muscle spasm or tenderness
Cardiovascular: Heart: regular, murmur
Pulses: dorsalis pedis 1+ bilaterally
Respiratory: Respiratory Effort/Chest Expansion: normal ������� Auscultation: Clear to auscultation bilaterally
Gastrointestinal: abdomen not tender, no distension, normal abdominal bowel sounds
Genitourinary: No Cote
Extremities: Edema: bilateral feet Cyanosis: None Trophic changes: None
Neurology Exam:
Orientation: Alert, Oriented to self, Time, Place
Memory: Intact for immediate medical concerns
Higher cortical function
Repetition: Intact
Comprehension: Intact
Two step command: Intact
Naming: Intact
Cranial Nerves:
�� CNII: Pupillary light reflex: Intact��� Visual Field:
�� CN III, IV, : Extraocular muscles: Intact
�� CN V: Facial Sensation at Forehead: Intact, Maxilla: Intact, Mandible: Intact
�� CN VII: Facial movement: Symmetric
�� CN VIII: Hearing: Normal
�� CN IX/X: Speech & swallow: Normal, Position of Uvula: Midline
�� CN XI: Shoulder shrug: Symmetric
�� CN XII: Tongue protrusion: Midline
Sensory:
�� Light touch: Intact in bilateral upper and lower extremities
��
Reflexes:
�� Biceps: 2+ bilaterally
�� Brachioradialis: 2+ bilaterally
�� Triceps: 2+ bilaterally
�� Patellar: 2+ bilaterally
�� Achilles: 2+ bilaterally
�� Babinski: Down going bilaterally
�� Clonus: None
�� Iveth: Negative bilaterally
Cerebellar: Dysmetria/Ataxia:
Musculoskeletal:
Motor: (Manual muscle scale 0-5)
Muscle SA EF WE EE FF FA HF KE DF EHL PF
Right� 5 5 5 5 5 5 5 5 5
Left 5 5 5 5 5 5 5 5 5
Tone: Normal in all extremities
Range of Motion: Passively within normal limits in all extremities
Lab Results:
Labs
WBC 7.6 10^3/uL (4.8-10.8) 03/18/24 05:33
RBC 3.27 10^6/uL (4.70-6.10) L 03/18/24 05:33
Hgb 10.4 g/dL (13.0-18.0) L 03/18/24 05:33
Hct 31.9 % (39.0-52.0) L 03/18/24 05:33
MCV 97.6 fL (80.0-94.0) H 03/18/24 05:33
MCH 31.8 pg (27.0-31.0) H 03/18/24 05:33
MCHC 32.6 g/dL (33.0-37.0) L 03/18/24 05:33
RDW 15.3 % (11.5-14.5) H 03/18/24 05:33
Plt Count 86 10^3/uL (130-400) L 03/18/24 05:33
Plt Count Comment Yes 03/12/24 04:33
MPV 9.9 fL (7.4-10.4) 03/18/24 05:33
Abs Immat Gran (auto) 0.1 10^3/uL (0-0.05) H 03/18/24 05:33
Absolute Neuts (auto) 6.7 10^3/uL (1.4-6.5) H 03/18/24 05:33
Absolute Lymphs (auto) 0.3 10^3/uL (1.2-3.4) L 03/18/24 05:33
Absolute Monos (auto) 0.3 10^3/uL (0.1-0.6) 03/18/24 05:33
Absolute Eos (auto) 0.1 10^3/uL (0-0.7) 03/18/24 05:33
Absolute Basos (auto) 0.0 10^3/uL (0-0.2) 03/18/24 05:33
Total Counted 100 03/12/24 04:33
Immature Gran % 1.7 % (0-0.5) H 03/18/24 05:33
Neutrophils % 88.1 % (42.2-75.2) H 03/18/24 05:33
Lymphocytes % 4.2 % (20.5-51.1) L 03/18/24 05:33
Monocytes % 4.3 % (1.7-9.3) 03/18/24 05:33
Eosinophils % 1.6 % (0-6) 03/18/24 05:33
Basophils % 0.1 % (0-2) 03/18/24 05:33
Nucleated RBC % 0 % (-) 03/18/24 05:33
Abs Neuts (Manual) 17.4 10^3/uL (1.4-6.5) H 03/12/24 04:33
Segmented Neutrophils 72 % (42-75) 03/12/24 04:33
Band Neutrophils 21 % (0-3) H D 03/12/24 04:33
Lymphocytes (Manual) 2 % (20-51) L 03/12/24 04:33
Monocytes (Manual) 5 % (2-9) 03/12/24 04:33
Metamyelocytes 6 % (-) 03/10/24 03:23
Myelocytes 1 % (-) 03/10/24 03:23
Normal RBC Morphology Yes 03/12/24 04:33
Anisocytosis Slight 03/11/24 03:06
Steven Cells 1+ 03/11/24 03:06
Acanthocytes (Spur) 1+ 03/11/24 03:06
PT 41.9 Sec (11.4-14.6) H 03/18/24 05:33
INR 4.37 03/18/24 05:33
APTT 54.5 Sec (23.4-35.0) H 03/09/24 13:02
pH 7.40 (7.35-7.45) 03/13/24 09:51
pCO2 40 mmHg (35-48) 03/13/24 09:51
pO2 141 mmHg (83-108) H 03/13/24 09:51
HCO3 24.8 mmol/L (21-28) 03/13/24 09:51
Base Excess 0 mmol/L 03/13/24 09:51
ABG O2 Sat (Measured) 99.1 % (94-98) H 03/13/24 09:51
Sodium 125 mMOL/L (136-145) L 03/12/24 21:16
Potassium 3.7 mMOL/L (3.5-5.1) 03/12/24 21:16
O2 Delivery Level 03/13/24 09:51
Sodium 131 mmol/L (135-145) L 03/18/24 05:33
Potassium 4.3 mmol/L (3.5-5.1) 03/18/24 05:33
Chloride 98 mmol/L (98-107) 03/18/24 05:33
Carbon Dioxide 33 mmol/L (22-30) H 03/18/24 05:33
BUN 40 mg/dl (9-20) H 03/18/24 05:33
Creatinine 0.9 mg/dL (0.7-1.3) 03/18/24 05:33
Estimated Creat Clear 73 ml/min 03/18/24 05:33
eGFR > 60.00 03/18/24 05:33
Glucose 108 mg/dl (70-99) H 03/18/24 05:33
Hemoglobin A1c 5.6 % (4.0-5.6) 03/12/24 04:33
Lactic Acid 1.5 mmol/L (0.7-2.0) 03/13/24 01:33
Calcium 8.6 mg/dl (8.4-10.2) 03/18/24 05:33
Ionized Calcium 1.13 mMOL/L (1.15-1.33) L 03/12/24 21:16
Phosphorus 3.1 mg/dl (2.5-4.5) 03/18/24 05:33
Magnesium 1.9 mg/dl (1.6-2.3) 03/18/24 05:33
Total Bilirubin 2.1 mg/dl (0.2-1.3) H 03/16/24 04:53
Direct Bilirubin 1.2 mg/dl (0.0-0.4) H 03/16/24 04:53
AST 32 U/L (17-59) 03/16/24 04:53
ALT 19 U/L (0-50) 03/16/24 04:53
Alkaline Phosphatase 78 U/L (38-126) 03/16/24 04:53
Troponin I 0.200 ng/ml H* 03/13/24 01:33
Kpc-C-Oenzfltgigi Pept > 21566 pg/ml 03/09/24 08:50
Total Protein 5.5 g/dl (6.3-8.2) L 03/16/24 04:53
Albumin 2.6 g/dl (3.5-5.0) L 03/16/24 04:53
Triglycerides 96 mg/dl (10-149) 03/14/24 05:18
Procalcitonin 14.84 ng/ml (0.0-0.25) H* 03/09/24 10:33
TSH (Reflex) 3.62 uIU/ml (0.47-4.68) 03/14/24 05:18
Random Cortisol 92.5 ug/dl 03/14/24 05:18
Urine Color Yellow 03/12/24 09:34
Urine Clarity Slightly cloudy (Clear) 03/12/24 09:34
Urine pH 5.0 (5.0-9.0) 03/12/24 09:34
Ur Specific [place] 1.015 (<1.030) 03/12/24 09:34
Urine Ketones Negative (Negative) 03/12/24 09:34
Urine Occult Blood 3+ (Negative) A 03/12/24 09:34
Urine Nitrite Negative (Negative) 03/12/24 09:34
Urine Bilirubin 1+ (Negative) A 03/12/24 09:34
Urine Urobilinogen Negative (Neg - 1+) 03/12/24 09:34
Ur Leukocyte Esterase Negative (Negative) 03/12/24 09:34
Urine RBC 3-6 /HPF (0-2) A 03/12/24 09:34
Urine WBC 0-2 /HPF (0-5) 03/12/24 09:34
Amorphous Crystals Seen 03/12/24 09:34
Urine Bacteria Few (Negative) A 03/12/24 09:34
Hyaline Casts 0-2 /LPF (0-2) 03/12/24 09:34
Granular Casts 6-10 /LPF (0) 03/12/24 09:34
Urine Glucose Negative (Negative) 03/12/24 09:34
Urine Albumin 1+ (Neg - Trace) A 03/12/24 09:34
Random Vancomycin 13.8 ug/ml 03/10/24 03:23
SARS-CoV-2 Antigen Negative (Negative) 03/10/24 09:12
POC Glucose 225 mg/dl (70-99) H 03/16/24 21:13
�
Diagnostic Results: as per HPI
Assessment: 78-year-old male with PMH of (atrial fibrillation on Coumadin, CHF, and hypertension newly diagnosed cirrhosis, CAD, COPD, KIKI on CPAP, GERD, peptic ulcer disease, Chronic Prednisone use since 2022) presented to ER on with a 1 day
history of fever, hemoptysis, lethargy, agitation and shortness of breath. He was found to be in acute hypoxic respiratory failure in the ER. He was then found to have septic shock from pneumonia, with pulmonary edema. He received vancomycin,
cefepime and Levophed drip in the ER. He was intubated on 03/10/2024, and extubated on 03/13/2024. Currently on BiPAP and 2 L nasal cannula. He is status post bronchoscopy on 03/11 due to hemoptysis in the setting of pneumonia and chronic
anticoagulation. Study was unremarkable. He completed a course of antibiotic and steroid for septic shock and severe pneumonia.
Plan
PT/OT to increase independence with ADLs, improve balance, coordination, endurance, strength, mobility, community reintegration, decreased burden of care on others and family education.
Deconditioning: s/p shock. pneumonia and acute on chronic heart failure. Cont PT/OT
Acute on chronic heart failure with reduced ejection fraction: Echo 06/05/2023 EF 30-35%, global hypokinesis, mechanical mitral valve, mild MR, moderate TR. 03/18/24- Left ventricular ejection fraction is 25% with global hypokinesis. Normal right
ventricular size and function. Severe biatrial enlargement. Compared to previous echo images of 03/10/2024 there has been some improvement in LVEF from 15-20% to 25%.
- Lasix Held d/t shock/hypotension
- Jardiance held d/t ADRIANA, since resumed as per Cardiology
Septic shock, Severe pneumonia: completed antibiotics and steroid course. Guaifenesin for thick secretions if needed
Acute respiratory failure with hypoxia: due to severe left sided CAP + acute pulmonary edema with right pleural effusion. (Intubated 03/10/2024, extubated 03/13/2024- on BiPAP and now on 3L NC)
Hemoptysis: In the setting of chronic anticoagulation and pneumonia. Bronchoscopy 03/11: unremarkable
Hyperglycemia: likely steroid induced. Improved since discontinuation of steroids- A1c- 5.6 non-diabetic
Paroxysmal atrial fibrillation: Mechanical aortic valve on Coumadin. Coumadin on hold due to elevated INR. BB held due to hypotension.
UT from demand ischemia vs nonischemic myocardial injury in the setting of acute illness (sepsis)
- Troponin peaked at 0.148 since trended down
Hyponatremia:
- Due to CHF, monitor
- Stable 120s improving following restart Lasix
- Since improved, at appropriate rate, to low 130s
Acute kidney injury: likely d/t shock and CHF. Initial creatine 1.5 up to to 2.1 since trended down. avoid nephrotoxic drugs/NSAIDs
Cirrhosis of the liver: Recently diagnosed. Follow-up with Dr. Chip VAZ
Thrombocytopenia: Due to sepsis. Per neuro: will transfuse if <20 or <50 with active bleeding
HTN: continue medications, monitor closely
HLD: Statin
COPD: Acute exacerbation was due to respiratory failure. Steroids discontinued
Bilateral lower extremity edema: Consider TEDS as able. Increased fluid will cause more force requirement to move lower extremities which requires more strength and increases fatigue.
DTI- Sacral Pressure injury:� Vitamin C, zinc, multivitamin.� Weight shifts in wheelchair and bed.� Roho cushion.� Pressure-relief boots.� Continue local wound care.
Skin: monitor for pressure sores/rashes/lesions.
Psych: Psychology consult.� Monitor mood, adjust medications as needed.
Pain: acetaminophen or oxycodone as needed.
Bowel: Colace and Senna, PRN bisacodyl.
Bladder: Time void, PVRs, PRN straight cath.
Alcohol Abuse: Alcohol cessation education, offering of outpatient alcohol abuse program
GI Prophylaxis: Pantoprazole
DVT Prophylaxis: Mechanical. On No anticoagulation currently due to supratherapeutic INR.
Pulmonary: Incentive spirometry
Safety: Continue to reinforce assistance with all transfers.
Code Status:� Full code
Dispo (date/plan/equipment needs): Home with family care.� Social history reviewed.
Functional and Medical Goals: Modified Independent with ADL�s, ambulation, transfers
Summary of recommendations:
- Discharge Destination: Acute inpatient rehabilitation when patient is medically stable and able to tolerate 3 hours of intense therapy. Would appreciate cardiology input regarding treatment plan or intervention based on current EF, INR level, UT,
if any restrictions,etc prior to discharge/transfer.
Deconditioning: s/p shock. pneumonia and acute on chronic heart failure. Cont PT/OT
Acute on chronic heart failure with reduced ejection fraction: Echo 06/05/2023 EF 30-35%, global hypokinesis, mechanical mitral valve, mild MR, moderate TR. 03/18/24- Left ventricular ejection fraction is 25% with global hypokinesis. Normal right
ventricular size and function. Severe biatrial enlargement. Compared to previous echo images of 03/10/2024 there has been some improvement in LVEF from 15-20% to 25%.
- Lasix Held d/t shock/hypotension
- Jardiance held d/t ADRIANA, since resumed as per Cardiology
* Would appreciate cardiology input regarding treatment intervention, plans based on current EF, INR level, UT, restrictions,etc prior to discharge/transfer.
Paroxysmal atrial fibrillation: Mechanical aortic valve on Coumadin. Coumadin on hold due to elevated INR. BB held due to hypotension.
UT from demand ischemia vs nonischemic myocardial injury in the setting of acute illness (sepsis)
- Troponin peaked at 0.148 since trended down
Hyponatremia:
- Due to CHF, monitor
- Stable 120s improving following restart Lasix
- Since improved, at appropriate rate, to low 130s
Bowel: Colace and Senna, PRN bisacodyl.
Bladder: Time void, PVRs, PRN straight cath.
Thank you for allowing me to care for your patient. Please contact me with any questions or concerns.
This note was dictated using a voice recognition system. Please excuse any typographical errors from [employer] emergency services manager. If you believe there are any discrepancies, please notify our office.

Documented by User: Silvano French MD 03/18/24 21:55
Consultation - Medical
-
Referring Provider: Tyrone Mix
Chief Complaint: deconditioning, s/p shock, Pneumonia, respiratory failure
History of Present Illness: 78-year-old male with PMH of (atrial fibrillation on Coumadin, CHF, and hypertension newly diagnosed cirrhosis, CAD, COPD, KIKI on CPAP, GERD, peptic ulcer disease, Chronic Prednisone use since 2022) presented to ER on
with a 1 day history of fever, hemoptysis, lethargy, agitation and shortness of breath. He was found to be in acute hypoxic respiratory failure in the ER. He was then found to have septic shock from pneumonia, with pulmonary edema. He received
vancomycin, cefepime and Levophed drip in the ER. He was intubated on 03/10/2024, and extubated on 03/13/2024. Currently on BiPAP and 2 L nasal cannula. He is status post bronchoscopy on 03/11 due to hemoptysis in the setting of pneumonia and chronic
anticoagulation. Study was unremarkable. He completed a course of antibiotic and steroid for septic shock and severe pneumonia.
Had echocardiogram done today showing 03/18/24- Left ventricular ejection fraction is 25% with global hypokinesis.
Normal right ventricular size and function.
Severe biatrial enlargement.
Mechanical MV is well seated with a mean gradient of 4 mmHg.
Moderate tricuspid regurgitation.
Estimated PASP 58 mmHg and an estimated RA 15 mmHg.
Compared to previous echo images of 03/10/2024 there has been some improvement
in LVEF from 15-20% to 25%.
Past Medical History: atrial fibrillation on Coumadin, CHF, and hypertension newly diagnosed cirrhosis, CAD, COPD, KIKI on CPAP, GERD, peptic ulcer disease, Chronic Prednisone use since 2022)
Procedure History: Bilateral Knee Replacement
Family History: not pertinent
Social History:
Functional Level Premorbidly: Independent with all activities
Functional Level Currently: Bed mobility�min assist, transfer sit to stand�min assist, ambulates 20 x 3 with rolling walker with min assist. Standing
Tobacco: Denies
Alcohol: Denies
Drug use: Denies
Lives with: Spouse
24-hour assistance available: Yes
Number of floors: multi level
# steps to enter: 3
# steps to second floor: FF
Potential First floor set up: no
Driving:
Occupation: Retired
Allergies:
Allergy/AdvReac Type Severity Reaction Status Date / Time
No Known Allergies Allergy Verified 03/09/24 09:51
Review of Systems:
Constitutional: (x) abNormal _ fatigue
Eye: (x) Normal _
Ear/Nose/Throat: (x) Normal _
Respiratory: (x) septic shock, pneumonia
Cardiovascular: (x) PAF
Gastrointestinal: (x) Normal _
Genitourinary: (x) Normal _
Musculoskeletal: (x) Normal _
Integumentary: (x) DTI sacral
Neurologic: (x) Normal _
Psychiatric: (x) Normal _
Endocrine: (x) Normal _
Hematologic/Lymphatic: (x) Normal _
Allergic/Immunologic: (x) Normal _
Medications:
Active Current Visit Medication List
Category Date Time Status
Budesonide/Formoterol 160/4.5 [Symbicort 160/4.5 Mcg Med 03/15/24 10:30 Active
Inhaler]
2 puff INH R BID
Dextrose 50%-Water [Dextrose 50% Syringe] Med 03/11/24 21:00 Active
12.5 grams IV [id number] PRN
Docusate W/Senna [Senokot-S] Med 03/14/24 12:41 Active
1 tablet PO BID
Empagliflozin [Jardiance] Med 03/14/24 12:41 Active
10 mg PO DAILY
Flush (0.9% Sodium Chloride) [Flush (Nss)] Med 03/09/24 13:00 Active
See Dose Instructions IV PER PROTOCOL
Glucagon [GlucaGen] Med 03/11/24 21:00 Active
1 mg IM PRN PRN
Ipratropium/Albuterol Sulfate [Duoneb] Med 03/13/24 11:27 Active
3 ml INH R Q4HPRN PRN
Lactulose [Duphalac/Chronulac] Med 03/16/24 11:00 Active
20 grams PO BID
Mag&Al/Sim/Diphenhyd/Lidocaine [First-Mouthwash Blm Med 03/17/24 13:45 Active
Suspension]
5 ml PO QIDPRN PRN
Pantoprazole [Protonix] Med 03/14/24 20:00 Active
40 mg PO BID
Polyethylene Glycol Powder [Miralax] Med 03/14/24 12:43 Active
17 grams PO DAILY
Tiotropium [place] 2.5 Mcg [Spiriva Respimat 2.5 Mcg] Med 03/15/24 11:00 Active
2 puff INH R DAILY
Vitals:
Temp Pulse Resp BP Pulse Ox
97.6 F 79 16 110/56 99
03/18/24 07:30 03/18/24 07:30 03/18/24 07:30 03/18/24 07:30 03/18/24 07:30
Height 5 ft 11 in
Actual Weight 81.25 kg
Body Mass Index (BMI) 25.0
Physical Exam:
General Appearance/Observation: Thin individual with muscle wasting, resting in bed, appears in no apparent distress on 3L O2
Pain/Comfort Assessment: Denies
Mood/Affect: Appropriate
Integumentary/Operative Site: Ecchymosis noted, dressing on right lateral neck
Eyes: Conjunctiva/Lids: normal ��� Pupils: pupils equal round
Ears/Nose/Throat: oral mucosa some what dry,� throat clear.������������ Lips/Teeth/Gums: normal
Neck: No muscle spasm or tenderness
Cardiovascular: Heart: regular, murmur
Pulses: dorsalis pedis 1+ bilaterally
Respiratory: Respiratory Effort/Chest Expansion: normal ���Does get winded easily.���� Auscultation: Clear to auscultation bilaterally
Gastrointestinal: abdomen not tender, no distension, normal abdominal bowel sounds
Genitourinary: No Cote
Extremities: Edema: mild bilateral feet Cyanosis: None Trophic changes: None
Neurology Exam:
Orientation: Alert, Oriented to self, Time, Place
Memory: Intact for immediate medical concerns
Repetition: Intact
Comprehension: Intact
Two step command: Intact
Naming: Intact
Cranial Nerves:
�� CNII: Pupillary light reflex: Intact
�� CN III, IV, : Extraocular muscles: Intact
�� CN V: Facial Sensation at Forehead: Intact, Maxilla: Intact, Mandible: Intact
�� CN VII: Facial movement: Symmetric
�� CN VIII: Hearing: Normal
�� CN IX/X: Speech & swallow: Normal, Position of Uvula: Midline
�� CN XI: Shoulder shrug: Symmetric
�� CN XII: Tongue protrusion: Midline
Sensory:
�� Light touch: Intact in bilateral upper and lower extremities
��
Reflexes:
�� Biceps: 2+ bilaterally
�� Brachioradialis: 2+ bilaterally
�� Triceps: 2+ bilaterally
�� Patellar: 2+ bilaterally
�� Achilles: 2+ bilaterally
�� Babinski: Down going bilaterally
�� Clonus: None
�� Iveth: Negative bilaterally
Cerebellar: Dysmetria/Ataxia:
Musculoskeletal: Motor: (Manual muscle scale 0-5)
Muscle SA EF WE EE FF FA HF KE DF EHL PF
Right� 4 5 5 5 5 5 2 5 5 5 5
Left 4 5 5 5 5 5 2 5 5 5 5
Tone: Normal in all extremities
Range of Motion: Passively within normal limits in all extremities
Lab Results:
Labs
WBC 7.6 10^3/uL (4.8-10.8) 03/18/24 05:33
RBC 3.27 10^6/uL (4.70-6.10) L 03/18/24 05:33
Hgb 10.4 g/dL (13.0-18.0) L 03/18/24 05:33
Hct 31.9 % (39.0-52.0) L 03/18/24 05:33
MCV 97.6 fL (80.0-94.0) H 03/18/24 05:33
MCH 31.8 pg (27.0-31.0) H 03/18/24 05:33
MCHC 32.6 g/dL (33.0-37.0) L 03/18/24 05:33
RDW 15.3 % (11.5-14.5) H 03/18/24 05:33
Plt Count 86 10^3/uL (130-400) L 03/18/24 05:33
Plt Count Comment Yes 03/12/24 04:33
MPV 9.9 fL (7.4-10.4) 03/18/24 05:33
Abs Immat Gran (auto) 0.1 10^3/uL (0-0.05) H 03/18/24 05:33
Absolute Neuts (auto) 6.7 10^3/uL (1.4-6.5) H 03/18/24 05:33
Absolute Lymphs (auto) 0.3 10^3/uL (1.2-3.4) L 03/18/24 05:33
Absolute Monos (auto) 0.3 10^3/uL (0.1-0.6) 03/18/24 05:33
Absolute Eos (auto) 0.1 10^3/uL (0-0.7) 03/18/24 05:33
Absolute Basos (auto) 0.0 10^3/uL (0-0.2) 03/18/24 05:33
Total Counted 100 03/12/24 04:33
Immature Gran % 1.7 % (0-0.5) H 03/18/24 05:33
Neutrophils % 88.1 % (42.2-75.2) H 03/18/24 05:33
Lymphocytes % 4.2 % (20.5-51.1) L 03/18/24 05:33
Monocytes % 4.3 % (1.7-9.3) 03/18/24 05:33
Eosinophils % 1.6 % (0-6) 03/18/24 05:33
Basophils % 0.1 % (0-2) 03/18/24 05:33
Nucleated RBC % 0 % (-) 03/18/24 05:33
Abs Neuts (Manual) 17.4 10^3/uL (1.4-6.5) H 03/12/24 04:33
Segmented Neutrophils 72 % (42-75) 03/12/24 04:33
Band Neutrophils 21 % (0-3) H D 03/12/24 04:33
Lymphocytes (Manual) 2 % (20-51) L 03/12/24 04:33
Monocytes (Manual) 5 % (2-9) 03/12/24 04:33
Metamyelocytes 6 % (-) 03/10/24 03:23
Myelocytes 1 % (-) 03/10/24 03:23
Normal RBC Morphology Yes 03/12/24 04:33
Anisocytosis Slight 03/11/24 03:06
Steven Cells 1+ 03/11/24 03:06
Acanthocytes (Spur) 1+ 03/11/24 03:06
PT 41.9 Sec (11.4-14.6) H 03/18/24 05:33
INR 4.37 03/18/24 05:33
APTT 54.5 Sec (23.4-35.0) H 03/09/24 13:02
pH 7.40 (7.35-7.45) 03/13/24 09:51
pCO2 40 mmHg (35-48) 03/13/24 09:51
pO2 141 mmHg (83-108) H 03/13/24 09:51
HCO3 24.8 mmol/L (21-28) 03/13/24 09:51
Base Excess 0 mmol/L 03/13/24 09:51
ABG O2 Sat (Measured) 99.1 % (94-98) H 03/13/24 09:51
Sodium 125 mMOL/L (136-145) L 03/12/24 21:16
Potassium 3.7 mMOL/L (3.5-5.1) 03/12/24 21:16
O2 Delivery Level 03/13/24 09:51
Sodium 131 mmol/L (135-145) L 03/18/24 05:33
Potassium 4.3 mmol/L (3.5-5.1) 03/18/24 05:33
Chloride 98 mmol/L (98-107) 03/18/24 05:33
Carbon Dioxide 33 mmol/L (22-30) H 03/18/24 05:33
BUN 40 mg/dl (9-20) H 03/18/24 05:33
Creatinine 0.9 mg/dL (0.7-1.3) 03/18/24 05:33
Estimated Creat Clear 73 ml/min 03/18/24 05:33
eGFR > 60.00 03/18/24 05:33
Glucose 108 mg/dl (70-99) H 03/18/24 05:33
Hemoglobin A1c 5.6 % (4.0-5.6) 03/12/24 04:33
Lactic Acid 1.5 mmol/L (0.7-2.0) 03/13/24 01:33
Calcium 8.6 mg/dl (8.4-10.2) 03/18/24 05:33
Ionized Calcium 1.13 mMOL/L (1.15-1.33) L 03/12/24 21:16
Phosphorus 3.1 mg/dl (2.5-4.5) 03/18/24 05:33
Magnesium 1.9 mg/dl (1.6-2.3) 03/18/24 05:33
Total Bilirubin 2.1 mg/dl (0.2-1.3) H 03/16/24 04:53
Direct Bilirubin 1.2 mg/dl (0.0-0.4) H 03/16/24 04:53
AST 32 U/L (17-59) 03/16/24 04:53
ALT 19 U/L (0-50) 03/16/24 04:53
Alkaline Phosphatase 78 U/L (38-126) 03/16/24 04:53
Troponin I 0.200 ng/ml H* 03/13/24 01:33
Sab-B-Djxrjuxblnn Pept > 09693 pg/ml 03/09/24 08:50
Total Protein 5.5 g/dl (6.3-8.2) L 03/16/24 04:53
Albumin 2.6 g/dl (3.5-5.0) L 03/16/24 04:53
Triglycerides 96 mg/dl (10-149) 03/14/24 05:18
Procalcitonin 14.84 ng/ml (0.0-0.25) H* 03/09/24 10:33
TSH (Reflex) 3.62 uIU/ml (0.47-4.68) 03/14/24 05:18
Random Cortisol 92.5 ug/dl 03/14/24 05:18
Urine Color Yellow 03/12/24 09:34
Urine Clarity Slightly cloudy (Clear) 03/12/24:34
Urine pH 5.0 (5.0-9.0) 03/12/24 09:34
Ur Specific [place] 1.015 (<1.030) 03/12/24 09:34
Urine Ketones Negative (Negative) 03/12/24 09:34
Urine Occult Blood 3+ (Negative) A 03/12/24 09:34
Urine Nitrite Negative (Negative) 03/12/24:34
Urine Bilirubin 1+ (Negative) A 03/12/24:34
Urine Urobilinogen Negative (Neg - 1+) 03/12/24 09:34
Ur Leukocyte Esterase Negative (Negative) 03/12/24 09:34
Urine RBC 3-6 /HPF (0-2) A 03/12/24 09:34
Urine WBC 0-2 /HPF (0-5) 03/12/24 09:34
Amorphous Crystals Seen 03/12/24 09:34
Urine Bacteria Few (Negative) A 03/12/24:34
Hyaline Casts 0-2 /LPF (0-2) 03/12/24 09:34
Granular Casts 6-10 /LPF (0) 03/12/24 09:34
Urine Glucose Negative (Negative) 03/12/24:34
Urine Albumin 1+ (Neg - Trace) A 03/12/24 09:34
Random Vancomycin 13.8 ug/ml 03/10/24 03:23
SARS-CoV-2 Antigen Negative (Negative) 03/10/24 09:12
POC Glucose 225 mg/dl (70-99) H 03/16/24 21:13
Diagnostic Results: as per HPI
Assessment: 78-year-old male with PMH of (atrial fibrillation on Coumadin, CHF, and hypertension newly diagnosed cirrhosis, CAD, COPD, KIKI on CPAP, GERD, peptic ulcer disease, Chronic Prednisone use since 2022) presented to ER on with a 1 day
history of fever, hemoptysis, lethargy, agitation and shortness of breath. He was found to be in acute hypoxic respiratory failure in the ER. He was then found to have septic shock from pneumonia, with pulmonary edema. He received vancomycin,
cefepime and Levophed drip in the ER. He was intubated on 03/10/2024, and extubated on 03/13/2024. Currently on BiPAP and 2 L nasal cannula. He is status post bronchoscopy on 03/11 due to hemoptysis in the setting of pneumonia and chronic
anticoagulation. Study was unremarkable. He completed a course of antibiotic and steroid for septic shock and severe pneumonia.
Plan
PT/OT to increase independence with ADLs, improve balance, coordination, endurance, strength, mobility, community reintegration, decreased burden of care on others and family education.
Deconditioning: s/p shock. pneumonia and acute on chronic heart failure. Cont PT/OT
Acute on chronic heart failure with reduced ejection fraction: Echo 06/05/2023 EF 30-35%, global hypokinesis, mechanical mitral valve, mild MR, moderate TR. 03/18/24- Left ventricular ejection fraction is 25% with global hypokinesis. Normal right
ventricular size and function. Severe biatrial enlargement. Compared to previous echo images of 03/10/2024 there has been some improvement in LVEF from 15-20% to 25%.
- Lasix Held d/t shock/hypotension
- Jardiance held d/t ADRIANA, since resumed as per Cardiology
Septic shock, Severe pneumonia: completed antibiotics and steroid course. Guaifenesin for thick secretions if needed
Acute respiratory failure with hypoxia: due to severe left sided CAP + acute pulmonary edema with right pleural effusion. (Intubated 03/10/2024, extubated 03/13/2024- on BiPAP and now on 3L NC)
Hemoptysis: In the setting of chronic anticoagulation and pneumonia. Bronchoscopy 03/11: unremarkable
Hyperglycemia: likely steroid induced. Improved since discontinuation of steroids- A1c- 5.6 non-diabetic
Paroxysmal atrial fibrillation: Mechanical aortic valve on Coumadin. Coumadin on hold due to elevated INR. BB held due to hypotension.
UT from demand ischemia vs nonischemic myocardial injury in the setting of acute illness (sepsis)
- Troponin peaked at 0.148 since trended down
Hyponatremia:
- Due to CHF, monitor
- Stable 120s improving following restart Lasix
- Since improved, at appropriate rate, to low 130s
Acute kidney injury: likely d/t shock and CHF. Initial creatine 1.5 up to to 2.1 since trended down. avoid nephrotoxic drugs/NSAIDs
Cirrhosis of the liver: Recently diagnosed. Follow-up with Dr. Saunders OP
Thrombocytopenia: Due to sepsis. Per neuro: will transfuse if <20 or <50 with active bleeding
HTN: continue medications, monitor closely
HLD: Statin
COPD: Acute exacerbation was due to respiratory failure. Steroids discontinued
Bilateral lower extremity edema: Consider TEDS as able. Increased fluid will cause more force requirement to move lower extremities which requires more strength and increases fatigue.
DTI- Sacral Pressure injury:� Vitamin C, zinc, multivitamin.� Weight shifts in wheelchair and bed.� Roho cushion.� Pressure-relief boots.� Continue local wound care.
Skin: monitor for pressure sores/rashes/lesions.
Psych: Psychology consult.� Monitor mood, adjust medications as needed.
Pain: acetaminophen or oxycodone as needed.
Bowel: Colace and Senna, PRN bisacodyl.
Bladder: Time void, PVRs, PRN straight cath.
Alcohol Abuse: Alcohol cessation education, offering of outpatient alcohol abuse program
GI Prophylaxis: Pantoprazole
DVT Prophylaxis: Mechanical. On No anticoagulation currently due to supratherapeutic INR.
Pulmonary: Incentive spirometry
Safety: Continue to reinforce assistance with all transfers.
Code Status:� Full code
Dispo (date/plan/equipment needs): Home with family care.� Social history reviewed.
Functional and Medical Goals: Modified Independent with ADL�s, ambulation, transfers
Attending Statement:
I saw and examined the patient today.� Reviewed care plan with patient, therapy, nursing, and physician or assistant.� I agree with the above subjective and physical exam, and plan as documented by FLORENCIA Cabrera with adjusts made as necessary.
A total of 60 minutes were spent with the patient preparing for the evaluation, obtaining history, performing examination and evaluation, counseling, data review, case management, care coordination, short order fry cook, and EMR documentation.
Summary of recommendations:
- Discharge Destination: Acute inpatient rehabilitation when patient is medically stable and able to tolerate 3 hours of intense therapy. Would appreciate cardiology input regarding treatment plan or intervention based on current EF, INR level, UT,
if any restrictions,etc prior to discharge/transfer.
Deconditioning: s/p shock. pneumonia and acute on chronic heart failure. Cont PT/OT
Acute on chronic heart failure with reduced ejection fraction: Echo 06/05/2023 EF 30-35%, global hypokinesis, mechanical mitral valve, mild MR, moderate TR. 03/18/24- Left ventricular ejection fraction is 25% with global hypokinesis. Normal right
ventricular size and function. Severe biatrial enlargement. Compared to previous echo images of 03/10/2024 there has been some improvement in LVEF from 15-20% to 25%.
- Lasix Held d/t shock/hypotension
- Jardiance held d/t ADRIANA, since resumed as per Cardiology
* Would appreciate cardiology input regarding treatment intervention, plans based on current EF, INR level, UT, restrictions,etc prior to discharge/transfer.
Paroxysmal atrial fibrillation: Mechanical aortic valve on Coumadin. Coumadin on hold due to elevated INR. BB held due to hypotension.
UT from demand ischemia vs nonischemic myocardial injury in the setting of acute illness (sepsis)
- Troponin peaked at 0.148 since trended down
Hyponatremia:
- Due to CHF, monitor
- Stable 120s improving following restart Lasix
- Since improved, at appropriate rate, to low 130s
Bowel: Colace and Senna, PRN bisacodyl.
Bladder: Time void, PVRs, PRN straight cath.
Thank you for allowing me to care for your patient. Please contact me with any questions or concerns.
--- NOTE | 2024-03-18 08:47 | W.PN.CD ---
Addendum entered and electronically signed by Tony Srinivasan MD 03/18/24 11:21:
new severelyt reduced EF GDMT limited by BP
Repeat TTE for eval of lv fxn
Original Note:
Today's Communication / Plan
-
IV diuresis today
Hold warfarin INR > 4 today likely resume tomorrow
Impression / Plan
-
A: 78-year-old gentleman with a past medical history of permanent atrial fibrillation, mechanical mitral valve replacement on chronic Coumadin, coronary artery disease, heart failure with reduced EF (15-20%), COPD, pulmonary hypertension
non-Hodgkin's lymphoma presents with shortness of breath and hemoptysis. Also respiratory failure 2/2 PNA requiring intubation and mechanical ventilation and shock requiring pressor support.
Shock, likely primarily septic in the setting of pneumonia (could be component of cardiogenic with severely depressed EF): improved
-now extubated and off pressors
Hemoptysis, s/p vitamin K
-Hemoptysis resolved; INR trended down, but now supratherapeutic INR after resuming warfarin (6.03-->5.11--> 5.34 -> 4.37).
-Coumadin is being held.
NICM, now with decline in LVEF, HFrEF now 15-20%, acute on chronic (prior LVEF 30-35% in 05/2023)
-Unable to resume Toprol-XL or other GDMT due to low blood pressure.
-Jardiance has been resumed
-Lasix IV 40 today
-Will repeat echo when patient closer to discharge; will need to consider cath if LVEF remains severely depressed.
ADRIANA: peak 2.1
-resolved
Permanent atrial fibrillation
-Remains rate controlled
-Oral Anticoagulation: Warfarin (mechanical mitral valve), per INR- held as above
Status post mechanical mitral valve replacement
- Goal INR 2.5�3.5
- warfarin being held per INR- as above
Abnormal troponin, likely nonischemic myocardial injury in the setting of acute illness (sepsis)
Hyponatremia, hypervolemic, follow with diuresis
CAD, nonobstructive, 20-30% pLAD stenosis by [facility] 2020
S/p Micra PPM
Cirrhosis
COPD
Former smoker, continued cessation recommended
Subjective:
Feels better every day anxious to get to rehab
TTE March 10 2024: Severely reduced left ventricular systolic function. Left ventricular ejection fraction appears 15-20%. Well seated normally functioning mechanical mitral valve. Mean gradient 5. Moderate tricuspid regurgitation with moderate
pulmonary hypertension.
Laboratory Data
07/18/21 03/10/24 03/10/24
03:59 03:23 12:26
Hgb 8.8 L
INR 3.76
Creatinine 1.0 2.1 H
03/10/24 03/11/24 03/12/24
16:23 03:06 04:33
Hgb 12.0 L
INR 2.59 1.98
Creatinine 1.9 H 1.7 H
03/12/24
04:34
Hgb
INR
Creatinine 1.3
Selected Entries
07/18/21
08:57 07/18/21
09:18
Pulse 60
Blood pressure 139/50
Generic Name Dose Route Start Last Admin
Trade Name Freq PRN Reason Stop Dose Admin
Aspirin 81 mg 07/16/21 08:00 07/18/21 07:29
Aspirin 81 Mg Chewable Tablet PO 08/13/21 07:59 Not Given
DAILY TINY
Atorvastatin Calcium 10 mg 07/16/21 18:00 07/17/21 18:13
Atorvastatin (Lipitor) 10 Mg Tablet PO 08/13/21 17:59 Not Given
QPM TINY
Furosemide 40 mg 07/17/21 08:00 07/18/21 08:57
Furosemide 40 Mg (10 Mg/Ml) 4 Ml Vial IV 08/14/21 07:59 40 mg
BID AT 0800,1600 TINY
Empagliflozin 10 mg 03/10/24 08:00 03/10/24 09:14
Empagliflozin (Jardiance) 10 Mg Tablet PO 04/07/24 07:59 Not Given
DAILY TINY
Vasopressin 20 units in 100 mls @ 0 mls/hr 03/09/24 16:45 03/12/24 05:17
Pitressin IV 100 mls
PER PROTOCOL TINY
Protocol
Per Protocol
Norepinephrine Bitartrate 8 mg 258 mls @ 0 mls/hr 03/09/24 20:00 03/12/24 07:41
/ Dextrose IV 258 mls
PER PROTOCOL TINY
Protocol
Per Protocol
Phenylephrine HCl 100 mg/ 260 mls @ 0 mls/hr 03/10/24 09:15 03/12/24 01:33
Sodium Chloride IV 260 mls
PER PROTOCOL TINY
Protocol
Per Protocol
Warfarin Sodium 2.5 mg 03/11/24 18:00 03/11/24 17:47
Warfarin 2.5 Mg Tablet PO 03/16/24 17:59 2.5 mg
QPM TINY
Physical Exam
Vital Signs/Labs
Vital Signs
Temp Pulse Resp BP Pulse Ox
97.6 F 79 16 110/56 99
03/18/24 07:30 03/18/24 07:30 03/18/24 07:30 03/18/24 07:30 03/18/24 07:30
03/17/24 03/18/24 03/19/24
06:59 06:59 06:59
Actual Weight 183 lb 6.793 oz 179 lb 2 oz
03/18/24 05:33
03/18/24 05:33
PT 41.9 Sec (11.4-14.6) H 03/18/24 05:33
INR 4.37 03/18/24 05:33
APTT 54.5 Sec (23.4-35.0) H 03/09/24 13:02
Magnesium 1.9 mg/dl (1.6-2.3) 03/18/24 05:33
Triglycerides 96 mg/dl (10-149) 03/14/24 05:18
03/09/24
08:50
Asr-E-Zwrewrzhkum Pept > 35161
Physical Exam
Constitutional: No acute distress
EENT: Anicteric
Cardiovascular: Rhythm/rate is irregular (mechanical s1/s2 ) and Pedal edema present
Respiratory: Respiratory effort normal and Lungs clear to auscul.
GI: Soft
Neuro/Psych: AO x 3
Data Reviewed
-
Date of Service: March 18, 2024
Medical Decision Making: Reviewed Test Results
EKG: Tracing Personally Visualized and interpreted (AF)
Echo: Report Reviewed by me
Labs: Labs Reviewed by me
--- NOTE | 2024-03-18 09:41 | W.PN.PUL3 ---
Today's Communication / Plan
-
Symbicort + Spiriva
PPI BID
Diet as per BATTERY CONTAINER INSPECTOR
PT/OT recommending acute rehab
Wean down O2 as tolerated while keeping SpO2 >88%
Encourage IS
Up OOB as tolerated
Assessment
-
Assessment: 78-year-old male former tobacco smoker with a past medical history of moderate COPD, moderate restrictive lung disease, history of hemoptysis, history of LLL bronchiectasis, history of left-sided pneumonia, history of aspergillus,
chronic anticoagulation for mechanical mitral valve replacement (July 2021), history of COVID-19, HFrEF with RV dysfunction, pulmonary hypertension, history of NHL s/p chemo/XRT (2003), and chronic thrombocytopenia with unremarkable bone marrow
biopsy (10/2023) who presents with shortness of breath, weakness and fever. He also has been coughing up blood which started 1 night TELEHEALTH NURSE. Patient has low-grade fever to 100.1 �F in the ER, and tachycardic to 115 bpm, tachypnea to 25 respirator,
hypotensive to 72/44, and initially was saturating 66% on room air. Saturations improved to 91% with nonrebreather. Labs showed leukopenia to 2.7 with 20% bands, anemia to 12, elevated INR 4.58, hyponatremia 130, ADRIANA to 1.5, lactic acid elevated
at 2.3, elevated troponin 0.148, increased proBNP of >27,000, and negative COVID-19 antigen; flu A/B swab also negative. Blood cultures were collected. CXR shows a 10 cm left midlung airspace opacity with acute cardiogenic pulmonary edema and a
right-sided pleural effusion with compressive atelectasis. In the ER antibiotics were given with cefepime/vancomycin, he was also given DuoNebs x 1, given IV fluids with NS 0.5L and started on Levophed due to persistent hypotension with SBP in the
80s. Due to patient's vasopressor and oxygen requirements, he is being admitted to the ICU. Critical care services now consulted for additional management/recommendations.
Chronic conditions TELEHEALTH NURSE: COPD, restrictive lung disease, history of hemoptysis, chronic anticoagulation with warfarin due to mechanical mitral valve replacement (07/2021), history of left lower lobe bronchiectasis, elevated left hemidiaphragm, KIKI on
CPAP, personal history of COVID-19, chronic atrial fibrillation on Coumadin, history of tobacco abuse with [id number] history (quit in 2018), history of HFrEF with RV dysfunction, mild�moderate pulmonary hypertension, history of GI bleed,
postnasal drip, history of non-Hodgkin's lymphoma s/p chemo/radiation (2003), history of left-sided pneumonia due to Streptococcus pneumonia, history of aspergillus, history of Vieira's esophagus, history of thrombocytopenia s/p unremarkable bone
marrow biopsy.
Transferred out of the ICU 03/15/2024. Pulmonary will continue to follow for hypoxemia.
Impression:
#Acute respiratory failure with hypoxia due to CAP + acute pulmonary edema with right pleural effusion
Intubated 03/10/2024, extubated 03/13/2024.
#Bandemia with 20% bands -due to septic shock from left sided pneumonia (shock state now resolved)
#Severe left-sided CAP
#Septic shock due to above - shock state now resolved
#Lactic acidosis - resolved as of 03/13/2024
#Acute COPD exacerbation due to above
#Hemoptysis due to pneumonia in the setting of chronic anticoagulation with supratherapeutic INR - hemoptysis now resolved
#Supratherapeutic INR (INR: 4.37 today)
#Hyponatremia
#Acute kidney injury (Cr baseline approx 1.1)
#Elevated troponin likely due to demand ischemia with type II NV
#Chronic pancytopenia
#Mechanical mitral valve replacement on Coumadin
#Chronic A-fib on Coumadin
#DM type II
#Former smoker
#Former alcohol use
Plan:
At this time, patient appears to be objectively and subjectively improved
Denies any further episodes of hemoptysis, INR 4.37, platelets trending upwards
Chest x-ray from 03/17 with persistent bibasilar infiltrate, rounded area of consolidation/effusion right base
Tolerated BiPAP overnight 10/16 bled with 3 L
Moving forward:
Continue to wean oxygen as able to maintain SpO2 >88%
Continue with nocturnal PAP, but ok to use patient's own machine and can use CPAP
Oxygen supplementation down to 2-3 L/min.
Shock has resolved
Completed course of Levaquin 03/15/2024
Chest x-ray with stable right pleuroparenchymal process
Follow clinically
Will require eventual CT chest, consider in the next 4 to [address] chest with near complete atelectasis of right lower lobe with questionable soft tissue attenuation of the right mainstem bronchus
Bronchoscopy unremarkable, no obvious airway process
Follow right pleuroparenchymal process, may require thoracentesis but can follow clinically for now
Intermittent chest x-ray as clinically indicated
Coumadin remains on hold, supratherapeutic INR noted
Hemoptysis has resolved
Cultures negative, remains off antibiotic, completed course
S/p mechanical mitral valve replacement. On warfarin with goal INR 2.5-3 5.5.
- Supratherapeutic INR as above.
- Hold anticoagulation.
- Echocardiogram 03/10/2024 noted with decreased LVEF down to 15-20 %. Last echocardiogram available 06/05/2023: Showed moderate to severe reduced left ventricular action fraction. Global hypokinesis. EF 30-35%. Mechanical mitral valve. Moderate
TR.
-Intermittent diuresis as able
Cardiology following
COPD history: Not bronchospastic on exam.
Continue Symbicort 160mcg + Spiriva 2.5mcg/act
DuoNebs as needed.
Steroids discontinued
Significant deconditioning/muscle mass loss.
Aggressive physical therapy/Occupational Therapy/nutrition
Diet as per BATTERY CONTAINER INSPECTOR - patient has difficulty swallowing still due to mouth/throat pain. He also does not like drinking ensure. I will order a multivitamin in interim to avoid vitamin deficiencies
PT/OT both recommending acute rehab
DVT ppx- SCD; trend INR as still supra-therapeutic
GI prophylaxis with Protonix
Disposition efforts
Pulmonary service will continue to follow along.
Total time spent today was 35 minutes for this encounter. Time includes reviewing laboratory test/imaging results, reviewing pertinent medical records, obtaining and reviewing medical history, performing an appropriate exam, ordering medications,
tests and procedures. Time also includes documentation of this encounter, coordinating patient care and communicating with other healthcare professionals. Total time does not include separately billed tests performed on this date of service.

Data:
CXR 03-17-2024:
1. Stable radiographic appearance of bilateral perihilar pulmonary opacities, left greater than right.
2. Moderate right and small left pleural effusions.
3. Cardiomegaly.
4. Interval removal of the right internal jugular central venous catheter.
CXR 03/13/2024:
There is moderate diffuse prominence of the bronchovascular markings throughout both lungs which more likely reflects pulmonary edema than diffuse interstitial pneumonia as there is mild cardiomegaly and small bilateral pleural effusions.
Correlation with the patient's BNP is recommended.
Chest ultrasound 03/12/2024:
Moderate right pleural effusion. Stable
CXR 03-09-2024:
1. New large 10 cm airspace opacity in the left mid and lower lung which was not present 12/05/2023. Diagnostic possibilities are (1) severe pneumonia, (2) pulmonary hemorrhage, or (3) asymmetric alveolar pulmonary edema.
2. Moderate acute interstitial cardiogenic pulmonary edema.
3. Moderate to severe bilateral upper lobe emphysema.
4. Mild cardiomegaly with evidence for previous mitral valve replacement.
5. Small right pleural effusion and adjacent moderate compressive atelectasis in the right lower lobe.
Chest CT 03/09/2024:
1. Small bilateral pleural effusions, right greater than left.
2. Near complete atelectasis of the right lower lobe with soft tissue attenuation material within bronchi to the right lower lobe which could be related to either secretions or aspiration.
3. Combination of atelectasis and dense airspace consolidation throughout the left upper and lower lobes as above. As on the right, there is soft tissue attenuation opacification of left lower lobe bronchi could be related to either secretions or
aspiration.
4. Advanced emphysematous changes.
Echo 03/10/2024:
Severely reduced left ventricular systolic function. Left ventricular ejection
fraction appears 15-20% by visual assessment.
Global hypokinesis.
Normal right ventricular size with reduced systolic function.
Well seated normally functioning mechanical mitral valve.
Moderate tricuspid regurgitation with moderate pulmonary hypertension.
Compared to the images from 06/05/2023, the left ventricular systolic function
has decreased from 30 to 35% to 15 to 20%. The right ventricle is no longer
dilated but reduced systolic function is now seen.
Subjective Data
-
Date of Service:
Date of Service: March 18, 2024
Chief Complaint: Pulmonary Follow Up
Subjective:
Patient seen and evaluated today at bedside. He feels overall much better but still weak. He has throat pain from when he was intubated in the ICU. Currently on 3 L/min nasal cannula breathing comfortably. Son at bedside and answered all of his
questions. Patient wore BiPAP overnight at 12/5 bled with 3L/min. Patient wants to wear his own CPAP tonight with sleep. Patient denies headache, chest pain, fevers or chills.
Review of Systems
General: Other (Negative unless mentioned above)
Objective Data
Data Reviewed
Vital Signs / I&O / Oxygen:
Vital Signs
Temp Pulse Resp BP Pulse Ox
97.7 F 77 18 112/48 100
03/18/24 15:45 03/18/24 18:17 03/18/24 18:17 03/18/24 15:45 03/18/24 18:17
Intake and Output
03/17/24 03/18/24 03/19/24
06:59 06:59 06:59
Intake Total 900 / 900 1380 / 1380
Output Total 1050 / 1050 1700 / 1700
Balance -1050 / -1050 -800 / -800 1380 / 1380
SaO2 [A/C] 98
SaO2 [NIV (Non Invasive 96
Ventilation)]
SaO2 100
Nasal Cannula flow liters per 3
minute
Physical Exam
General: Respiratory Distress (negative) and Comfortable
HEENT: Normocephalic and Anicteric
Cardiovascular: S1-S2 and Peripheral Edema (negative)
Respiratory: Wheeze (negative), Crackles (negative), Rhonchi (negative), Non-Labored Respirations and Other (Coarse breath sounds heard bilaterally)
GI: Soft, Non Distended and Non Tender
Neurology: Awake and Lethargic (Answering all questions appropriately)
Skin: Warm and Dry
Labs/Micro/Reports
Lab Data
03/18/24 05:33
03/18/24 05:33
Laboratory Results
03/18/24
05:33
PT 41.9 H
INR 4.37
Microbiology
03/11/24 15:19 Bronch Washing Fungal Culture - Preliminary
Yeast
03/12/24 09:35 Blood/Venous Blood Culture - Final
No Growth - Final Report
03/12/24 09:32 Blood/Venous Blood Culture - Final
No Growth - Final Report
[2024-03-18] MEDS: LASIX 40 MG IV (09:48)
--- NOTE | 2024-03-18 10:03 | W.PN.HOSP.TC ---
Today's Communication/Plan
-
await [facility] placement
IV Lasix x 1 dose today per Cards
Assessment / Plan
Assessment / Plan
HPI: 78-year-old male with a past medical history of atrial fibrillation on Coumadin, newly diagnosed cirrhosis, CAD, COPD, KIKI on CPAP, GERD, peptic ulcer disease, CHF, and hypertension presents with a 1 day history of fever, hemoptysis, and
shortness of breath. Family reports that he was coughing up blood intermittently overnight, with fever. Associated symptoms include hematemesis, lethargy, agitation. Patient was found to be in acute hypoxic respiratory failure in the ER, and
placed on a nonrebreather. He was also found to have septic shock from pneumonia, with pulmonary edema. He is getting vancomycin and cefepime in the ER, and currently on a Levophed drip. He is on prednisone 60 mg daily since June 2023, unclear
why.
Assessment:
Septic shock, present upon admission
Severe pneumonia
- completed antibiotics and steroid course
Acute respiratory failure with hypoxia due to severe left sided CAP + acute pulmonary edema with right pleural effusion
VDRF (Intubated 03/10/2024, extubated 03/13/2024)
- extubated to BiPAP and now on 2L NC
Acute COPD exacerbation due to above
- steroids discontinued
Hemoptysis due to pneumonia in the setting of chronic anticoagulation with supratherapeutic INR
- s/p bronch 03/11: unremarkable
Constipation
- Miralax/Senna/Colace
- Lactulose added to bowel regimen
Hyperglycemia likely steroid induced
- A1c appreciated 5.6 non-diabetic
- no significant hyperglycemia since discontinuation of stress steroids
Hypophosphatemia
Hypomagnesemia
Hypocalcemia
- Monitor and replete as necessary
Acute on chronic heart failure with reduced ejection fraction
- Echo 06/05/2023 EF 30-35%, global hypokinesis, mechanical mitral valve, mild MR, moderate TR
- IV Lasix per Cardiology
- Jardiance held d/t ADRIANA, since resumed as per Cardiology
Coagulopathy
Paroxysmal atrial fibrillation
Mechanical aortic valve on Coumadin
- supratherapeutic INR; currently 4.37 (goal 2.5 to 3.5)
- holding Coumadin
- holding off BB due to hypotension
Type II PA from demand ischemia vs nonischemic myocardial injury in the setting of acute illness (sepsis)
- Troponin peaked at 0.148 since trended down
Hematemesis
- Likely from swallowed blood products from hemoptysis
- Protonix 40 mg PO twice daily
- H&H stable
Hyponatremia
- Due to CHF, monitor
- Stable 120s improving following restart Lasix
- Since improved, at appropriate rate, to low 130s
Acute kidney injury likely d/t shock as above resolving
- baseline is normal, initial creatine 1.5 increased to 2.1 since trended down
- From CHF and septic shock
- Monitor creatinine, avoid nephrotoxic drugs/NSAIDs
- weaned off pressor support as above
Thrombocytopenia
- Due to sepsis, monitor
- will transfuse if <20 or <50 with active bleeding
DTI (Deep Tissue Injury) sacral pressure injury
- cont local wound care
Recently diagnosed cirrhosis
- Follows with Dr. Saunders outpatient
DVT ppx: Supratherapeutic INR
Code: Full
Dispo: Acute rehab pending bed
Anticipated Discharge: 24 - 48 hours
Subjective/Interval History
-
Date of Service: March 18, 2024
denies any new complaints presently
eager for [facility] discharge
Objective Data
-
Labs:
Laboratory Results
03/18/24
05:33
WBC 7.6
Hgb 10.4 L
Hct 31.9 L
Plt Count 86 L
PT 41.9 H
INR 4.37
Sodium 131 L
Potassium 4.3
Chloride 98
Carbon Dioxide 33 H
BUN 40 H
Creatinine 0.9
Glucose 108 H
Calcium 8.6
Vital Signs:
Vital Signs
Temp Pulse Resp BP Pulse Ox
97.6 F 79 16 110/56 99
03/18/24 07:30 03/18/24 07:30 03/18/24 07:30 03/18/24 07:30 03/18/24 07:30
I&O
03/17/24 03/18/24 03/19/24
06:59 06:59 06:59
Intake Total 900 / 900
Output Total 1050 / 1050 1700 / 1700
Balance -1050 / -1050 -800 / -800
Physical Exam
-
General: No Apparent Distress
HEENT: Normocephalic and Atraumatic
Respiratory: Negative Wheezes
Cardiac: Regular Rhythm and S1/S2
GI: Soft and Nontender
Genito-urinary: No Costovertebral Tender
Musculoskeletal: No Edema
Neuro: AO x 3
Psych: Calm
Data Reviewed
-
Total Time Spent with Patient (in minutes): 41
Labs: Labs Reviewed by me
--- NOTE | 2024-03-18 14:33 | CM ---
Case management following for d/c planning
Recommended for acute rehab
Family prefers [facility] at
[facility] - bed not available for today
Pt and family aware
Plan - [facility] rehab at
[2024-03-18] MEDS: DAILY VITAMIN/CENTRUM 15 ML PO (19:01)
[2024-03-18] MEDS: DUPHALAC/CHRONULAC PO ×2 (19:36→19:39)
[2024-03-19] VITALS (7 sets, daily range): BP systolic 102–111; BP diastolic 46–68; PULSE 76; O2SAT 97; BMI 25.0
--- NOTE | 2024-03-19 07:32 | W.PN.CD ---
Today's Communication / Plan
-
Daily INRs will need bridge once < 2.5
Cath once INR is < 2
Impression / Plan
-
A: 78-year-old gentleman with a past medical history of permanent atrial fibrillation, mechanical mitral valve replacement on chronic Coumadin, coronary artery disease, heart failure with reduced EF (15-20%), COPD, pulmonary hypertension
non-Hodgkin's lymphoma presents with shortness of breath and hemoptysis. Also respiratory failure 2/2 PNA requiring intubation and mechanical ventilation and shock requiring pressor support.
Shock, likely primarily septic in the setting of pneumonia (could be component of cardiogenic with severely depressed EF): improved
-now extubated and off pressors
Hemoptysis, s/p vitamin K
-Hemoptysis resolved; INR trended down, but now supratherapeutic INR after resuming warfarin (6.03-->5.11--> 5.34 -> 4.37).
- will need daily INR, will plan on heart cath hopefully Sunday
-Coumadin is being held.
NICM, now with decline in LVEF, HFrEF now 25%, acute on chronic (prior LVEF 30-35% in 05/2023)
-Unable to resume Toprol-XL or other GDMT due to low blood pressure.
-Jardiance has been resumed
-hold lasix today awaiting labs
-TTE yesterday with interval slight improvement of LVEF plan on cath this admission once INR <2 will need a bridge
ADRIANA: peak 2.1
-resolved
Permanent atrial fibrillation
-Remains rate controlled
-Oral Anticoagulation: Warfarin (mechanical mitral valve), per INR- held as above
Status post mechanical mitral valve replacement
- Goal INR 2.5�3.5
- warfarin being held per INR- as above
Abnormal troponin, likely nonischemic myocardial injury in the setting of acute illness (sepsis)
Hyponatremia, hypervolemic, follow with diuresis
CAD, nonobstructive, 20-30% pLAD stenosis by [facility] 2020
S/p Micra PPM
Cirrhosis
COPD
Former smoker, continued cessation recommended
Subjective:
Feels better, I discussed cath with him and he would like to go forward with this
TTE Mar 18 2024: CONCLUSIONS
Left ventricular ejection fraction is 25% with global hypokinesis.
Normal right ventricular size and function.
Severe biatrial enlargement.
Mechanical MV is well seated with a mean gradient of 4 mmHg.
Moderate tricuspid regurgitation.
Estimated PASP 58 mmHg and an estimated RA 15 mmHg.
Compared to previous echo images of 03/10/2024 there has been some improvement
in LVEF from 15-20% to 25%.
Laboratory Data
07/18/21 03/10/24 03/10/24
03:59 03:23 12:26
Hgb 8.8 L
INR 3.76
Creatinine 1.0 2.1 H
03/10/24 03/11/24 03/12/24
16:23 03:06 04:33
Hgb 12.0 L
INR 2.59 1.98
Creatinine 1.9 H 1.7 H
03/12/24
04:34
Hgb
INR
Creatinine 1.3
Selected Entries
07/18/21
08:57 07/18/21
09:18
Pulse 60
Blood pressure 139/50
Generic Name Dose Route Start Last Admin
Trade Name Freq PRN Reason Stop Dose Admin
Aspirin 81 mg 07/16/21 08:00 07/18/21 07:29
Aspirin 81 Mg Chewable Tablet PO 08/13/21 07:59 Not Given
DAILY TINY
Atorvastatin Calcium 10 mg 07/16/21 18:00 07/17/21 18:13
Atorvastatin (Lipitor) 10 Mg Tablet PO 10/02/21 17:59 Not Given
QPM TINY
Furosemide 40 mg 07/17/21 08:00 07/18/21 08:57
Furosemide 40 Mg (10 Mg/Ml) 4 Ml Vial IV 08/14/21 07:59 40 mg
BID AT 0800,1600 TINY
Empagliflozin 10 mg 03/10/24 08:00 03/10/24 09:14
Empagliflozin (Jardiance) 10 Mg Tablet PO 04/07/24 07:59 Not Given
DAILY TINY
Vasopressin 20 units in 100 mls @ 0 mls/hr 03/09/24 16:45 03/12/24 05:17
Pitressin IV 100 mls
PER PROTOCOL TINY
Protocol
Per Protocol
Norepinephrine Bitartrate 8 mg 258 mls @ 0 mls/hr 03/09/24 20:00 03/12/24 07:41
/ Dextrose IV 258 mls
PER PROTOCOL TINY
Protocol
Per Protocol
Phenylephrine HCl 100 mg/ 260 mls @ 0 mls/hr 03/10/24 09:15 03/12/24 01:33
Sodium Chloride IV 260 mls
PER PROTOCOL TINY
Protocol
Per Protocol
Warfarin Sodium 2.5 mg 03/11/24 18:00 03/11/24 17:47
Warfarin 2.5 Mg Tablet PO 03/16/24 17:59 2.5 mg
QPM TINY
Physical Exam
Vital Signs/Labs
Vital Signs
Temp Pulse Resp BP Pulse Ox
97.4 F 81 18 107/52 95
03/19/24 03:25 03/19/24 03:25 03/19/24 03:25 03/19/24 03:25 03/19/24 03:25
03/18/24 03/19/24 03/20/24
06:59 06:59 06:59
Actual Weight 179 lb 2 oz 179 lb 6.4 oz
PT 41.9 Sec (11.4-14.6) H 03/18/24 05:33
INR 4.37 03/18/24 05:33
APTT 54.5 Sec (23.4-35.0) H 03/09/24 13:02
Magnesium 1.9 mg/dl (1.6-2.3) 03/18/24 05:33
Triglycerides 96 mg/dl (10-149) 03/14/24 05:18
03/09/24
08:50
[id number] Pept > 41981
Physical Exam
Constitutional: No acute distress
EENT: Anicteric
Cardiovascular: Rhythm/rate is irregular and Pedal edema present (trivial )
Respiratory: Respiratory effort normal and Other (mild rhonchi throughout )
GI: Soft
Neuro/Psych: AO x 3
Data Reviewed
-
Date of Service: March 19, 2024
Medical Decision Making: Reviewed Test Results
EKG: Tracing Personally Visualized and interpreted (AF)
Echo: Report Reviewed by me
Labs: Labs Reviewed by me
[2024-03-19] MEDS: SENOKOT-S 1 TABLET PO ×2 (07:40→21:53)
[2024-03-19] MEDS: MIRALAX 17 GRAMS PO (07:40)
[2024-03-19] MEDS: DUPHALAC/CHRONULAC 20 GRAMS PO (07:40)
[2024-03-19] MEDS: DAILY VITAMIN/CENTRUM 15 ML PO (07:40)
[2024-03-19] MEDS: JARDIANCE 10 MG PO (07:40)
[2024-03-19] MEDS: PROTONIX 40 MG PO ×2 (07:40→21:52)
[2024-03-19] MEDS: SYMBICORT 160/4.5 MCG INHALER 2 PUFF INH ×2 (07:53→19:21)
[2024-03-19] MEDS: SPIRIVA RESPIMAT 2.5 MCG 2 PUFF INH (08:00)
[2024-03-19 08:04] LABS: PT 38.1 Sec (11.4-14.6)
[2024-03-19 08:16] LABS: ALT (SGPT) 17 U/L (0-50); AST (SGOT) 33 U/L (17-59); Albumin 2.9 g/dl (3.5-5.0); Alkaline Phosphatase 93 U/L (38-126); Blood Urea Nitrogen 36 mg/dl (9-20); Calcium 8.9 mg/dl (8.4-10.2); Carbon Dioxide 34 mmol/L (22-30); Chloride 96 mmol/L (98-107); Estimated Creatinine Clearance 94 ml/min; Glucose 107 mg/dl (70-99); Potassium 4.2 mmol/L (3.5-5.1); Sodium 133 mmol/L (135-145); Total Bilirubin 1.9 mg/dl (0.2-1.3); Total Protein 6.1 g/dl (6.3-8.2); eGFR > 60.00
[2024-03-19 08:19] LABS: % Basophils 0.3 % (0-2); % Eosinophils 1.2 % (0-6); % Immature Granulocytes 1.2 % (0-0.5); % Monocytes 5.6 % (1.7-9.3); % Neutrophils 86.7 % (42.2-75.2); Absolute Eosinophils 0.1 10^3/uL (0-0.7); Absolute Immature Granulocytes 0.1 10^3/uL (0-0.05); Absolute Lymphocytes 0.3 10^3/uL (1.2-3.4); Absolute Monocytes 0.4 10^3/uL (0.1-0.6); Absolute Neutrophils 5.7 10^3/uL (1.4-6.5); Hematocrit 33.3 % (39.0-52.0); Mean Corpuscular Hgb 31.7 pg (27.0-31.0); Nucleated Red Blood Cells % 0 % (-); Platelet Count 96 10^3/uL (130-400); Red Blood Cell Count 3.47 10^6/uL (4.70-6.10); Red Cell Dist. Width 15.3 % (11.5-14.5); White Blood Cell Count 6.6 10^3/uL (4.8-10.8)
--- NOTE | 2024-03-19 08:58 | W.PN.PUL3 ---
Today's Communication / Plan
-
Symbicort + Spiriva
PPI BID
Diet as per BOOK EDITOR
PT/OT recommending acute rehab
Wean down O2 as tolerated while keeping SpO2 >88%
Encourage IS
Up OOB as tolerated
Assessment
-
Assessment: 78-year-old male former tobacco smoker with a past medical history of moderate COPD, moderate restrictive lung disease, history of hemoptysis, history of LLL bronchiectasis, history of left-sided pneumonia, history of aspergillus,
chronic anticoagulation for mechanical mitral valve replacement (July 2021), history of COVID-19, HFrEF with RV dysfunction, pulmonary hypertension, history of NHL s/p chemo/XRT (2003), and chronic thrombocytopenia with unremarkable bone marrow
biopsy (10/2023) who presents with shortness of breath, weakness and fever. He also has been coughing up blood which started 1 night GENERAL LABOR. Patient has low-grade fever to 100.1 �F in the ER, and tachycardic to 115 bpm, tachypnea to 25 respirator,
hypotensive to 72/44, and initially was saturating 66% on room air. Saturations improved to 91% with nonrebreather. Labs showed leukopenia to 2.7 with 20% bands, anemia to 12, elevated INR 4.58, hyponatremia 130, ADRIANA to 1.5, lactic acid elevated
at 2.3, elevated troponin 0.148, increased proBNP of >27,000, and negative COVID-19 antigen; flu A/B swab also negative. Blood cultures were collected. CXR shows a 10 cm left midlung airspace opacity with acute cardiogenic pulmonary edema and a
right-sided pleural effusion with compressive atelectasis. In the ER antibiotics were given with cefepime/vancomycin, he was also given DuoNebs x 1, given IV fluids with NS 0.5L and started on Levophed due to persistent hypotension with SBP in the
80s. Due to patient's vasopressor and oxygen requirements, he is being admitted to the ICU. Critical care services now consulted for additional management/recommendations.
Chronic conditions GENERAL LABOR: COPD, restrictive lung disease, history of hemoptysis, chronic anticoagulation with warfarin due to mechanical mitral valve replacement (07/2021), history of left lower lobe bronchiectasis, elevated left hemidiaphragm, KIKI on
CPAP, personal history of COVID-19, chronic atrial fibrillation on Coumadin, history of tobacco abuse with [id number] history (quit in 2018), history of HFrEF with RV dysfunction, mild�moderate pulmonary hypertension, history of GI bleed,
postnasal drip, history of non-Hodgkin's lymphoma s/p chemo/radiation (2003), history of left-sided pneumonia due to Streptococcus pneumonia, history of aspergillus, history of Vieira's esophagus, history of thrombocytopenia s/p unremarkable bone
marrow biopsy.
Transferred out of the ICU 03/15/2024. Pulmonary will continue to follow for hypoxemia.
Impression:
#Acute respiratory failure with hypoxia due to CAP + acute pulmonary edema with right pleural effusion
Intubated 03/10/2024, extubated 03/13/2024.
#Bandemia with 20% bands -due to septic shock from left sided pneumonia (shock state now resolved)
#Severe left-sided CAP
#Septic shock due to above - shock state now resolved
#Lactic acidosis - resolved as of 03/13/2024
#Acute COPD exacerbation due to above
#Hemoptysis due to pneumonia in the setting of chronic anticoagulation with supratherapeutic INR - hemoptysis now resolved
#Supratherapeutic INR (INR: 3.8 today)
#Hyponatremia
#Acute kidney injury (Cr baseline approx 1.1)
#Elevated troponin likely due to demand ischemia with type II WA
#Chronic pancytopenia
#Mechanical mitral valve replacement on Coumadin
#Chronic A-fib on Coumadin
#DM type II
#Former smoker
#Former alcohol use
Plan:
At this time, patient appears to be objectively and subjectively improved
Denies any further episodes of hemoptysis, platelets trending upwards
Chest x-ray from 03/17 with persistent bibasilar infiltrate, rounded area of consolidation/effusion right base
Moving forward:
Continue to wean oxygen as able to maintain SpO2 >88%
Continue with nocturnal CPAP, and ok to use patient's own machine
Oxygen supplementation down to 2-3 L/min.
Shock has resolved
Completed course of Levaquin 03/15/2024
Chest x-ray with stable right pleuroparenchymal process
Follow clinically
Will require eventual CT chest, consider in the next 4 to [address] chest with near complete atelectasis of right lower lobe with questionable soft tissue attenuation of the right mainstem bronchus
Bronchoscopy unremarkable, no obvious airway process
Follow right pleuroparenchymal process, may require thoracentesis but can follow clinically for now
Intermittent chest x-ray as clinically indicated
Coumadin remains on hold, supratherapeutic INR noted
Hemoptysis has resolved
Resp and AFB cultures negative, remains off antibiotic, completed course
Fungus Cx from prior BAL on 03/11/2024 now growing Mckayla glabrata --> recommend ID consult. My intuition is to not treat this, but given his severe R-sided PNA and how ill he was, it is not prudent to consult ID and consider treatment.
S/p mechanical mitral valve replacement. On warfarin with goal INR 2.5-3 5.5.
- Supratherapeutic INR as above.
- Hold anticoagulation.
- Echocardiogram 03/10/2024 noted with decreased LVEF down to 15-20 %. Last echocardiogram available 06/05/2023: Showed moderate to severe reduced left ventricular action fraction. Global hypokinesis. EF 30-35%. Mechanical mitral valve. Moderate
TR.
-Intermittent diuresis as able
Cardiology following
COPD history: Not bronchospastic on exam.
Continue Symbicort 160mcg + Spiriva 2.5mcg/act
DuoNebs as needed.
Steroids discontinued
Significant deconditioning/muscle mass loss.
Aggressive physical therapy/Occupational Therapy/nutrition
Diet as per BOOK EDITOR - patient has difficulty swallowing still due to mouth/throat pain. He also does not like drinking ensure. Continue multivitamin in interim to avoid vitamin deficiencies
PT/OT both recommending acute rehab
DVT ppx- SCD; trend INR as still supra-therapeutic
GI prophylaxis with Protonix
Disposition efforts
Pulmonary service will continue to follow along.
Total time spent today was 35 minutes for this encounter. Time includes reviewing laboratory test/imaging results, reviewing pertinent medical records, obtaining and reviewing medical history, performing an appropriate exam, ordering medications,
tests and procedures. Time also includes documentation of this encounter, coordinating patient care and communicating with other healthcare professionals. Total time does not include separately billed tests performed on this date of service.

Data:
CXR 03-17-2024:
1. Stable radiographic appearance of bilateral perihilar pulmonary opacities, left greater than right.
2. Moderate right and small left pleural effusions.
3. Cardiomegaly.
4. Interval removal of the right internal jugular central venous catheter.
CXR 03/13/2024:
There is moderate diffuse prominence of the bronchovascular markings throughout both lungs which more likely reflects pulmonary edema than diffuse interstitial pneumonia as there is mild cardiomegaly and small bilateral pleural effusions.
Correlation with the patient's BNP is recommended.
Chest ultrasound 03/12/2024:
Moderate right pleural effusion. Stable
CXR 03-09-2024:
1. New large 10 cm airspace opacity in the left mid and lower lung which was not present 12/05/2023. Diagnostic possibilities are (1) severe pneumonia, (2) pulmonary hemorrhage, or (3) asymmetric alveolar pulmonary edema.
2. Moderate acute interstitial cardiogenic pulmonary edema.
3. Moderate to severe bilateral upper lobe emphysema.
4. Mild cardiomegaly with evidence for previous mitral valve replacement.
5. Small right pleural effusion and adjacent moderate compressive atelectasis in the right lower lobe.
Chest CT 03/09/2024:
1. Small bilateral pleural effusions, right greater than left.
2. Near complete atelectasis of the right lower lobe with soft tissue attenuation material within bronchi to the right lower lobe which could be related to either secretions or aspiration.
3. Combination of atelectasis and dense airspace consolidation throughout the left upper and lower lobes as above. As on the right, there is soft tissue attenuation opacification of left lower lobe bronchi could be related to either secretions or
aspiration.
4. Advanced emphysematous changes.
Echo 03/10/2024:
Severely reduced left ventricular systolic function. Left ventricular ejection
fraction appears 15-20% by visual assessment.
Global hypokinesis.
Normal right ventricular size with reduced systolic function.
Well seated normally functioning mechanical mitral valve.
Moderate tricuspid regurgitation with moderate pulmonary hypertension.
Compared to the images from 06/05/2023, the left ventricular systolic function
has decreased from 30 to 35% to 15 to 20%. The right ventricle is no longer
dilated but reduced systolic function is now seen.
Subjective Data
-
Date of Service:
Date of Service: March 19, 2024
Chief Complaint: Pulmonary Follow Up
Subjective:
Patient seen this afternoon. Sitting in chair in no acute distress on 2 L/min breathing comfortably. Still has overall fatigue with generalized weakness but it is better. He worked with PT today -they still recommend acute rehab. Patient denies
any cough, denies worsening shortness of breath, fevers or chills.
Review of Systems
General: Other (Negative unless mentioned above)
Objective Data
Data Reviewed
Vital Signs / I&O / Oxygen:
Vital Signs
Temp Pulse Resp BP Pulse Ox
98.3 F 79 17 111/48 97
03/19/24 11:00 03/19/24 11:00 03/19/24 11:00 03/19/24 11:00 03/19/24 11:00
Intake and Output
03/18/24 03/19/24 03/20/24
06:59 06:59 06:59
Intake Total 900 / 900 2280 / 2280
Output Total 1700 / 1700
Balance -800 / -800 2280 / 2280
SaO2 [A/C] 98
SaO2 [NIV (Non Invasive 96
Ventilation)]
SaO2 97
Nasal Cannula flow liters per 1
minute
Physical Exam
General: Respiratory Distress (negative) and Comfortable
HEENT: Normocephalic and Anicteric
Cardiovascular: S1-S2 and Peripheral Edema (+2 lower extremity edema bilaterally)
Respiratory: Wheeze (negative), Crackles (Bilaterally heard in the posterior lung shoemaker), Rhonchi (negative) and Non-Labored Respirations
GI: Soft, Non Distended and Non Tender
Neurology: AO x 3
Skin: Warm and Dry
Labs/Micro/Reports
Lab Data
03/19/24 07:43
03/19/24 07:43
Laboratory Results
03/19/24
07:43
PT 38.1 H
INR 3.80
Microbiology
03/11/24 15:19 Bronch Washing Fungal Culture - Preliminary
Mckayla glabrata (T. glab)
03/12/24 09:35 Blood/Venous Blood Culture - Final
No Growth - Final Report
03/12/24 09:32 Blood/Venous Blood Culture - Final
No Growth - Final Report
--- NOTE | 2024-03-19 09:15 | PTOTSP ---
Speech Language Pathology
Pt seen for dysphagia tx. Complaining of significant oral pain from sores with minimal ability to eat. He stated he was able to eat 1 bite of a hamburger last night and 2 bites of a peanut butter and jelly sandwich. He reports decreased pain with
pureed items. Seen with consecutive sips of thin liquid via straw with no overt signs of aspiration.
Discussed diet levels available at if pt would like modified diet for comfort. Shown menus of diet options, and pt is currently opting for IDDSI Level 5 Solids (Minced/Moist). This is for comfort only, not secondary to a dysphagia. Therefore,
pt can request upgrade back to regular solids without EYELET PUNCH OPERATOR follow up.
Recommend:
(1) IDDSI Level 5 Solids (Minced/Moist) and Thin Liquids for pt comfort (not a dysphagia)
(2) Meds as tolerated
(3) EYELET PUNCH OPERATOR to continue to follow
[2024-03-19] MEDS: LASIX 40 MG IV (12:42)
[2024-03-19 12:43] LABS: Glucose - Point of Care 186 mg/dl (70-99)
--- NOTE | 2024-03-19 12:52 | W.PN.HOSP.TC ---
Today's Communication/Plan
-
IV Lasix
wean O2 as able
monitor labs
monitor INR
Cath tentatively Sunday
Assessment / Plan
Assessment / Plan
HPI: 78-year-old male with a past medical history of atrial fibrillation on Coumadin, newly diagnosed cirrhosis, CAD, COPD, KIKI on CPAP, GERD, peptic ulcer disease, CHF, and hypertension presents with a 1 day history of fever, hemoptysis, and
shortness of breath. Family reports that he was coughing up blood intermittently overnight, with fever. Associated symptoms include hematemesis, lethargy, agitation. Patient was found to be in acute hypoxic respiratory failure in the ER, and
placed on a nonrebreather. He was also found to have septic shock from pneumonia, with pulmonary edema. He is getting vancomycin and cefepime in the ER, and currently on a Levophed drip. He is on prednisone 60 mg daily since June 2023, unclear
why.
Assessment:
Septic shock, present upon admission
Severe pneumonia
- completed antibiotics and steroid course
Acute respiratory failure with hypoxia due to severe left sided CAP + acute pulmonary edema with right pleural effusion
VDRF (Intubated 03/10/2024, extubated 03/13/2024)
- extubated to BiPAP and now on 2L NC
Acute COPD exacerbation due to above
- steroids course completed
Acute on chronic heart failure with reduced ejection fraction
- Echo 06/05/2023 EF 30-35%, global hypokinesis, mechanical mitral valve, mild MR, moderate TR
- Echo 03/10 with EF 15-20%, repeat with 25%
- IV Lasix per Cardiology
- continue Jardiance
- C Planned Sunday if INR <2.0
Hemoptysis due to pneumonia in the setting of chronic anticoagulation with supratherapeutic INR
- s/p bronch 03/11: unremarkable
Constipation
- Miralax/Senna/Colace
- Lactulose added to bowel regimen
Hyperglycemia likely steroid induced
- A1c appreciated 5.6 non-diabetic
- no significant hyperglycemia since discontinuation of stress steroids
Hypophosphatemia
Hypomagnesemia
Hypocalcemia
- Monitor and replete as necessary
Coagulopathy
Paroxysmal atrial fibrillation
Mechanical aortic valve on Coumadin
- supratherapeutic INR; currently 3.8 (goal 2.5 to 3.5). Coumadin on hold
- when <2.5; will order IV heparin bridge
- holding off BB due to hypotension
Type II IL from demand ischemia vs nonischemic myocardial injury in the setting of acute illness (sepsis)
- Troponin peaked at 0.148 since trended down
Hematemesis
- Likely from swallowed blood products from hemoptysis
- Protonix 40 mg PO twice daily
- H&H stable
Hyponatremia
- Due to CHF, monitor
- Stable 120s improving following restart Lasix
- Since improved, at appropriate rate, to low 130s
Acute kidney injury likely d/t shock as above resolving
- baseline is normal, initial creatine 1.5 increased to 2.1 since trended down
- From CHF and septic shock
- Monitor creatinine, avoid nephrotoxic drugs/NSAIDs
- weaned off pressor support as above
Thrombocytopenia
- Due to sepsis, monitor
- will transfuse if <20 or <50 with active bleeding
DTI (Deep Tissue Injury) sacral pressure injury
- cont local wound care
Recently diagnosed cirrhosis
- Follows with Dr. Saunders outpatient
DVT ppx: Supratherapeutic INR
Code: Full
Dispo: Acute rehab when stable.
Anticipated Discharge: > 48 hours
Subjective/Interval History
-
Date of Service: March 19, 2024
improving daily, tolerating pureed diet
has agreed to Cath
Objective Data
-
Labs:
Laboratory Results
03/19/24
07:43
WBC 6.6
Hgb 11.0 L
Hct 33.3 L
Plt Count 96 L
PT 38.1 H
INR 3.80
Sodium 133 L
Potassium 4.2
Chloride 96 L
Carbon Dioxide 34 H
BUN 36 H
Creatinine 0.7
Glucose 107 H
Calcium 8.9
Total Bilirubin 1.9 H
AST 33
ALT 17
Alkaline Phosphatase 93
Vital Signs:
Vital Signs
Temp Pulse Resp BP Pulse Ox
97.8 F 75 16 107/68 97
03/19/24 07:00 03/19/24 07:55 03/19/24 07:55 03/19/24 07:00 03/19/24 07:55
I&O
03/18/24 03/19/24 03/20/24
06:59 06:59 06:59
Intake Total 900 / 900 2280 / 2280
Output Total 1700 / 1700
Balance -800 / -800 2280 / 2280
Physical Exam
-
General: No Apparent Distress
HEENT: Normocephalic and Atraumatic
Respiratory: Negative Wheezes
Cardiac: Regular Rhythm and S1/S2
GI: Soft
Neuro: AO x 3
Psych: Calm
Data Reviewed
-
Total Time Spent with Patient (in minutes): 41
Labs: Labs Reviewed by me
--- NOTE | 2024-03-19 14:00 | WOUNDNOTE ---
WOC RN NOTE: Patient visited to follow up on sacral and buttock DTI. Wounds appears stable when compared to pictures from 03/13. No-sting barrier and 5 layer sacral foam applied to sacrum and buttocks. Staff should continue current wound care. Patient
is followed by dietary and patient states slightly improved appetite. Static air overly inflated on bed. Plan is for [facility] when medically stable. Will continue to follow during in-patient stay.
--- NOTE | 2024-03-19 14:00 | WOUNDNOTE ---
SACRUM AND BUTTOCKS
--- NOTE | 2024-03-19 14:52 | CM ---
Case management following for d/c planning
Chart reviewed
Diuresing, weaning oxygen, monitoring labs
Poss cardiac cath
Pt accepted to [facility] when medically ready
CM will cont to follow for d/c needs
Plan - [facility] when stable
--- NOTE | 2024-03-19 15:38 | CON.ID ---
Consultation
-
Date/Time Consultation Requested: March 19, 2024 1446
Date/Time Consultation Performed: March 19, 2024 1540
Requesting Provider: Dr. Tyrone Jaime
Performing Provider: Dr. Cecy Sotelo
Reason for Consultation: Muriel glabrata in bronch
Chief Complaint / Past History
Chief Complaint
Shortness of breath
History of Present Illness
78-year-old male with history of COPD, A-fib, mechanical mitral valve replacement, heart failure with reduced EF, PPM, CAD who presented to the hospital on March 09 with acute onset of subjective fever, shortness of breath, cough with blood-streaked
sputum. His white count was 2.7, lactic acid 3.6, hypoxic, hypotensive requiring pressor, in acute kidney failure. Chest x-ray showed almost complete collapse of the right lower lobe with atelectasis, positive airspace consolidation and
atelectasis left lung. He was started on cefepime, vancomycin, and azithromycin. Patient was intubated on March 10. Sputum culture grew usual respiratory tony. He was febrile x 1 day on 03/11. On March 11 he underwent bronchoscopy. Culture was
negative. The fungal smear negative. Fungal culture eventually resulted as Muriel glabrata. During hospital stay patient developed acute CHF/pulm edema. He was eventually extubated March 13. He completed total 7 days of antibiotic. He also
completed a course of steroid for COPD exacerbation. Infectious disease has been consulted regarding the Muriel glabrata from bronchial culture. Today patient reports he is feeling better. He still has shortness of breath. Cough is now
productive of mucus. No headache. No rhinorrhea. No diarrhea. No dysuria. He is currently on a pur�ed diet and denies aspiration.
Past History
Additional Past Medical History:
COPD
Atrial fibrillation on Coumadin
Hypertension
Recent diagnosis of cirrhosis
CAD
HFrEF
Mechanical mitral valve replacement
Pacemaker placement
Pulmonary hypertension
Sleep apnea on CPAP
Remote history of non-Hodgkin's lymphoma status post radiation and chemo 2003
Chronic back pain
Bilateral total knee replacements
Left total hip replacement
Appendectomy
L4-L5 laminectomy
Laparoscopic bilateral inguinal hernia repair
Allergy History:
No Known Allergies Allergy (Verified 03/09/24 09:51)
Medications Reviewed: Yes
Current Antibiotics:
s/p 3 d cefepime/Vancomycin/azithromycin followed by 4 days of levofloxacin
Social History
Tobacco: Former Smoker
Alcohol: Daily (2-3 glasses wine with dinner)
Drug: None
Personal:
Family History
Family History: Not Pertinent
Review of Systems
Review of Systems
General: Change in Appetite
HEENT: Negative Sinus Problems, Headache or Pharyngitis
Respiratory: Dyspnea and Cough
Gasteroenterology: Negative Nausea or Vomiting
Genital / Urological: Negative Dysuria or Flank Pain
Endocrine: Weakness
Skin / Hair / Nails: Negative Rash
Neurological: Negative Headache or Dizziness
All systems: All other systems were reviewed and were negative
Vital Signs
Temp Pulse Resp BP Pulse Ox
98.3 F 79 17 111/48 97
03/19/24 11:00 03/19/24 11:00 03/19/24 11:00 03/19/24 11:00 03/19/24 11:00
Physical Exam
Physical Exam
Head: Other (No frontal or maxillary sinus tenderness)
Eyes: No Conjunctival Hemorrhage
Pharynx: Negative Erythema
Oral: Poor Dentition and No Thrush
Cardiovascular: Regular Rate, S1/S2, Peripheral Edema (1+ BLE) and Other (PPM site without erythema)
Pulmonary: Other (decrease airway movements); Negative Wheezes, Rales or Coarse
Gastrointestinal: Soft, Non Tender, Non Distended and Normal Bowel Sounds
Genito-Urinary: Negative Cote or CVA Tenderness
Extremities: Edema (1+ BLE)
Neurological: AO x 3
Lab / Diagnostic Study Results
05/08/24 07:43
03/19/24 07:43
Abs Immat Gran (auto) 0.1 10^3/uL (0-0.05) H 03/19/24 07:43
Absolute Neuts (auto) 5.7 10^3/uL (1.4-6.5) 03/19/24 07:43
Absolute Lymphs (auto) 0.3 10^3/uL (1.2-3.4) L 03/19/24 07:43
Absolute Monos (auto) 0.4 10^3/uL (0.1-0.6) 03/19/24 07:43
Absolute Basos (auto) 0.0 10^3/uL (0-0.2) 03/19/24 07:43
Total Counted 100 03/12/24 04:33
Immature Gran % 1.2 % (0-0.5) H 03/19/24 07:43
Neutrophils % 86.7 % (42.2-75.2) H 03/19/24 07:43
Lymphocytes % 5.0 % (20.5-51.1) L 03/19/24 07:43
Monocytes % 5.6 % (1.7-9.3) 03/19/24 07:43
Eosinophils % 1.2 % (0-6) 03/19/24 07:43
Basophils % 0.3 % (0-2) 03/19/24 07:43
Abs Neuts (Manual) 17.4 10^3/uL (1.4-6.5) H 03/12/24 04:33
Segmented Neutrophils 72 % (42-75) 03/12/24 04:33
Band Neutrophils 21 % (0-3) H D 03/12/24 04:33
Lymphocytes (Manual) 2 % (20-51) L 03/12/24 04:33
PT 38.1 Sec (11.4-14.6) H 03/19/24 07:43
INR 3.80 03/19/24 07:43
Lactic Acid 1.5 mmol/L (0.7-2.0) 03/13/24 01:33
Procalcitonin 14.84 ng/ml (0.0-0.25) H* 03/09/24 10:33
Urine WBC 0-2 /HPF (0-5) 03/12/24 09:34
Microbiology Results
Micro:
03/11/24 15:19 Fungal Culture - Preliminary
Bronch Washing Muriel glabrata (T. glab)
03/12/24 09:35 Blood Culture - Final
Blood/Venous No Growth - Final Report
03/12/24 09:32 Blood Culture - Final
Blood/Venous No Growth - Final Report
03/09/24 08:50 Blood Culture - Final
Blood/Venous No Growth - Final Report
03/09/24 08:50 Blood Culture - Final
Blood/Venous No Growth - Final Report
03/11/24 15:19 Respiratory Culture - Final
Bronch Right Lower Lobe NO GROWTH
Gram Stain - Final
03/11/24 15:19 Fungal Smear - Final
Bronch Washing No yeast or fungal elements seen.
03/10/24 11:48 Respiratory Culture - Final
Tracheal Aspirate Gram Stain - Final
03/10/24 12:26 Nasal Screen MRSA (PCR) - Final
Nose MRSA not detected - performed by PCR methodology.
03/09/24 17:27 Legionella Urinary Antigen - Final
Urine Negative for Legionella pneumophila Serogroup 1 antigen.
A negative result does not rule out the possiblity of
Legionella infection due to other serogroups or species of
Legionella. Clinical correlation is recommended.
Streptococcus pneumoniae Antigen (M - Final
Negative for Streptococcus pneumoniae antigen.
A negative result does not exclude infection with
Streptococcus pneumoniae. Clinical correlation is
recommended.
03/09/24 08:50 Influenza Types A & B (RACHEL) - Final
Nasal Swab Negative for Influenza A & B, NAAT
Negative results must be combined with clinical observations
and patient history.
Nucleic Acid Amplification test (NAAT)performed on the
[employer] platform.
03/17/24 CXR: Stable radiographic appearance of bilateral perihilar pulmonary opacities, left greater than right. Moderate right and small left pleural effusions. Cardiomegaly.
03/12/24 CXR: Moderate loculated right pleural effusion. Underlying pneumonia not excluded. Small left pleural effusion. Improved. Underlying pneumonia not excluded Probable mild left perihilar pneumonia.
03/13/24 CXR: There is moderate diffuse prominence of the bronchovascular markings throughout both lungs which more likely reflects pulmonary edema than diffuse interstitial pneumonia as there is mild cardiomegaly and small bilateral pleural effusions.
03/09/[address]: Small bilateral pleural effusions, right greater than left. Near complete atelectasis of the right lower lobe with soft tissue attenuation material within bronchi to the right lower lobe which could be related to either secretions
or aspiration. Combination of atelectasis and dense airspace consolidation throughout the left upper and lower lobes as above. As on the right, there is soft tissue attenuation opacification of left lower lobe bronchi could be related to either
secretions or aspiration. Advanced emphysematous changes.
Assessment / Plan
# Bronch BAL fungal smear negative, Cx Muriel glabrata
- no need to treat muriel colonization/contamination
# s/p severe CAP completed abx
# s/p septic shock
# Acute on chronic CHF improving
ID will sign off.
[2024-03-19] MEDS: DUPHALAC/CHRONULAC PO ×2 (21:52→21:56)
[2024-03-20] VITALS (8 sets, daily range): BP systolic 107–121; BP diastolic 48–69; PULSE 81; O2SAT 97–98; BMI 23.9
--- NOTE | 2024-03-20 02:00 | PTCARENOTE ---
@0145; Monitor alarmed for 6 beat Run of VT.Pt sleeping and appears comfortable. @0150;Instructed DAV Perez on above note and magnesium ordered for the AM.
[2024-03-20 06:10] LABS: % Basophils 0.2 % (0-2); % Lymphocytes 5.6 % (20.5-51.1); % Monocytes 7.1 % (1.7-9.3); % Neutrophils 85.1 % (42.2-75.2); Absolute Eosinophils 0.1 10^3/uL (0-0.7); Absolute Immature Granulocytes 0.1 10^3/uL (0-0.05); Absolute Lymphocytes 0.3 10^3/uL (1.2-3.4); Absolute Monocytes 0.4 10^3/uL (0.1-0.6); Absolute Neutrophils 5.2 10^3/uL (1.4-6.5); Hematocrit 32.6 % (39.0-52.0); Hemoglobin 11.2 g/dL (13.0-18.0); Mean Corp Hgb Conc. 34.4 g/dL (33.0-37.0); Mean Corpuscular Volume 93.1 fL (80.0-94.0); Mean Platelet Volume 10.3 fL (7.4-10.4); Nucleated Red Blood Cells % 0 % (-); Platelet Count 91 10^3/uL (130-400); Red Cell Dist. Width 15.2 % (11.5-14.5); White Blood Cell Count 6.1 10^3/uL (4.8-10.8)
[2024-03-20 06:20] LABS: PT 30.7 Sec (11.4-14.6)
[2024-03-20 06:42] LABS: Magnesium 1.8 mg/dl (1.6-2.3)
[2024-03-20 06:45] LABS: ALT (SGPT) 19 U/L (0-50); AST (SGOT) 34 U/L (17-59); Albumin 3.1 g/dl (3.5-5.0); Alkaline Phosphatase 104 U/L (38-126); Blood Urea Nitrogen 32 mg/dl (9-20); Calcium 8.7 mg/dl (8.4-10.2); Carbon Dioxide 36 mmol/L (22-30); Chloride 94 mmol/L (98-107); Estimated Creatinine Clearance 94 ml/min; Glucose 109 mg/dl (70-99); Potassium 3.9 mmol/L (3.5-5.1); Sodium 133 mmol/L (135-145); Total Bilirubin 1.9 mg/dl (0.2-1.3); Total Protein 6.5 g/dl (6.3-8.2); eGFR > 60.00
[2024-03-20] MEDS: SPIRIVA RESPIMAT 2.5 MCG 2 PUFF INH (07:28)
[2024-03-20] MEDS: SYMBICORT 160/4.5 MCG INHALER 2 PUFF INH ×2 (07:28→20:32)
--- NOTE | 2024-03-20 07:54 | W.PN.CD ---
Today's Communication / Plan
-
npo after midnight
possible cath tomorrow
Impression / Plan
-
A: 78-year-old gentleman with a past medical history of permanent atrial fibrillation, mechanical mitral valve replacement on chronic Coumadin, coronary artery disease, heart failure with reduced EF (15-20%), COPD, pulmonary hypertension
non-Hodgkin's lymphoma presents with shortness of breath and hemoptysis. Also respiratory failure 2/2 PNA requiring intubation and mechanical ventilation and shock requiring pressor support.
Shock, likely primarily septic in the setting of pneumonia (could be component of cardiogenic with severely depressed EF): improved
-now extubated and off pressors
Hemoptysis, s/p vitamin K
-Hemoptysis resolved; INR trended down, but now supratherapeutic INR after resuming warfarin (6.03-->5.11--> 5.34 -> 4.37).
- will need daily INR, will plan on heart cath hopefully Sunday--patient made npo p , tentatively added to schedule
-Coumadin is being held.
NICM, now with decline in LVEF, HFrEF now 25%, acute on chronic (prior LVEF 30-35% in 05/2023)
-Unable to resume Toprol-XL or other GDMT due to low blood pressure.
-Jardiance has been resumed
-hold lasix
-TTE 03/18/24 with interval slight improvement of LVEF plan on cath this admission once INR <2.5 will need a bridge
ADRIANA: peak 2.1
-resolved
Permanent atrial fibrillation
-Remains rate controlled
-Oral Anticoagulation: Warfarin (mechanical mitral valve), per INR- held as above
Status post mechanical mitral valve replacement
- Goal INR 2.5�3.5
- warfarin being held per INR- as above
Abnormal troponin, likely nonischemic myocardial injury in the setting of acute illness (sepsis)
Hyponatremia, hypervolemic, follow with diuresis
CAD, nonobstructive, 20-30% pLAD stenosis by [facility] 2020
S/p Micra PPM
Cirrhosis
COPD
Former smoker, continued cessation recommended
Subjective:
Feels better, I again discussed cath with him and he would like to go forward with this, hopefully tomorrow
TTE Mar 18 2024: CONCLUSIONS
Left ventricular ejection fraction is 25% with global hypokinesis.
Normal right ventricular size and function.
Severe biatrial enlargement.
Mechanical MV is well seated with a mean gradient of 4 mmHg.
Moderate tricuspid regurgitation.
Estimated PASP 58 mmHg and an estimated RA 15 mmHg.
Compared to previous echo images of 03/10/2024 there has been some improvement
in LVEF from 15-20% to 25%.
Laboratory Data
07/18/21 03/10/24 03/10/24
03:59 03:23 12:26
Hgb 8.8 L
INR 3.76
Creatinine 1.0 2.1 H
03/10/24 03/11/24 03/12/24
16:23 03:06 04:33
Hgb 12.0 L
INR 2.59 1.98
Creatinine 1.9 H 1.7 H
03/12/24
04:34
Hgb
INR
Creatinine 1.3
Selected Entries
07/18/21
08:57 07/18/21
09:18
Pulse 60
Blood pressure 139/50
Physical Exam
Vital Signs/Labs
Vital Signs
Temp Pulse Resp BP Pulse Ox
97.5 F 76 18 113/55 92
03/20/24 03:40 03/20/24 07:32 03/20/24 07:32 03/20/24 03:40 03/20/24 07:32
03/19/24 03/20/24 03/21/24
06:59 06:59 06:59
Actual Weight 81.374 kg 77.564 kg
03/20/24 05:42
03/20/24 05:42
PT 30.7 Sec (11.4-14.6) H 03/20/24 05:43
INR 2.90 03/20/24 05:43
APTT 54.5 Sec (23.4-35.0) H 03/09/24 13:02
Magnesium 1.8 mg/dl (1.6-2.3) 03/20/24 05:42
Triglycerides 96 mg/dl (10-149) 03/14/24 05:18
03/09/24
08:50
Erj-U-Hvojaczohib Pept > 00645
Physical Exam
Constitutional: No acute distress and Comfortable
Cardiovascular: Pedal edema is absent, JVD pressure is normal, Rhythm/rate is irregular, S1S2 is normal and Other (mechanical s1)
Respiratory: Respiratory effort normal, Wheeze Absent, Crackles Absent and Crackles Present (bilaterally)
Neuro/Psych: AO x 3
Data Reviewed
-
Date of Service: March 20, 2024
EKG: Tracing Personally Visualized and interpreted and Other (tele afib rate controlled)
[2024-03-20] MEDS: DUPHALAC/CHRONULAC PO ×2 (08:11→21:18)
[2024-03-20] MEDS: MIRALAX 17 GRAMS PO (08:12)
[2024-03-20] MEDS: SENOKOT-S 1 TABLET PO ×2 (08:12→21:19)
[2024-03-20] MEDS: JARDIANCE 10 MG PO (08:12)
[2024-03-20] MEDS: PROTONIX 40 MG PO ×2 (08:12→21:19)
[2024-03-20] MEDS: DAILY VITAMIN/CENTRUM 15 ML PO (08:12)
--- NOTE | 2024-03-20 11:25 | W.PN.PUL3 ---
Today's Communication / Plan
-
Symbicort + Spiriva
PPI BID
Diet as per MANAGER UNIT
PT/OT recommending acute rehab
Wean down O2 as tolerated while keeping SpO2 >88%
Encourage IS
Up OOB as tolerated
Assessment
-
Assessment: 78-year-old male former tobacco smoker with a past medical history of moderate COPD, moderate restrictive lung disease, history of hemoptysis, history of LLL bronchiectasis, history of left-sided pneumonia, history of aspergillus,
chronic anticoagulation for mechanical mitral valve replacement (July 2021), history of COVID-19, HFrEF with RV dysfunction, pulmonary hypertension, history of NHL s/p chemo/XRT (2003), and chronic thrombocytopenia with unremarkable bone marrow
biopsy (10/2023) who presents with shortness of breath, weakness and fever. 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 Patient has low-grade fever to 100.1 �F in the ER, and tachycardic to 115 bpm, tachypnea to 25 respirator,
hypotensive to 72/44, and initially was saturating 66% on room air. Saturations improved to 91% with nonrebreather. Labs showed leukopenia to 2.7 with 20% bands, anemia to 12, elevated INR 4.58, hyponatremia 130, ADRIANA to 1.5, lactic acid elevated
at 2.3, elevated troponin 0.148, increased proBNP of >27,000, and negative COVID-19 antigen; flu A/B swab also negative. Blood cultures were collected. CXR shows a 10 cm left midlung airspace opacity with acute cardiogenic pulmonary edema and a
right-sided pleural effusion with compressive atelectasis. In the ER antibiotics were given with cefepime/vancomycin, he was also given DuoNebs x 1, given IV fluids with NS 0.5L and started on Levophed due to persistent hypotension with SBP in the
80s. Due to patient's vasopressor and oxygen requirements, he is being admitted to the ICU. Critical care services now consulted for additional management/recommendations.
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
CPAP, personal history of COVID-19, chronic atrial fibrillation on Coumadin, history of tobacco abuse with [id number] history (quit in 2018), history of HFrEF with RV dysfunction, mild�moderate pulmonary hypertension, history of GI bleed,
postnasal drip, history of non-Hodgkin's lymphoma s/p chemo/radiation (2003), history of left-sided pneumonia due to Streptococcus pneumonia, history of aspergillus, history of Vieira's esophagus, history of thrombocytopenia s/p unremarkable bone
marrow biopsy.
Transferred out of the ICU 03/15/2024. Pulmonary will continue to follow for hypoxemia.
Impression:
#Acute respiratory failure with hypoxia due to CAP + acute pulmonary edema with right pleural effusion
Intubated 03/10/2024, extubated 03/13/2024.
#Bandemia with 20% bands -due to septic shock from left sided pneumonia (shock state now resolved)
#Severe left-sided CAP
#Septic shock due to above - shock state now resolved
#Lactic acidosis - resolved as of 03/13/2024
#Acute COPD exacerbation due to above
#Acute HFrEF (LVEF: 25%) with global hypokinesis (per TTE from 03/18/2024)
#Hemoptysis due to pneumonia in the setting of chronic anticoagulation with supratherapeutic INR - hemoptysis now resolved
#Supratherapeutic INR (INR: 2.7 today)
#Hyponatremia
#Acute kidney injury (Cr baseline approx 1.1)
#Elevated troponin likely due to demand ischemia with type II CA
#Chronic pancytopenia
#Mechanical mitral valve replacement on Coumadin
#Chronic A-fib on Coumadin
#DM type II
#Former smoker
#Former alcohol use
Plan:
At this time, patient appears to be objectively and subjectively improved
Denies any further episodes of hemoptysis, platelets trending upwards
Chest x-ray from 03/17 with persistent bibasilar infiltrate, rounded area of consolidation/effusion right base
Moving forward:
Patient is NPO for [facility] tomorrow
Continue to wean oxygen as able to maintain SpO2 >88%
Continue with nocturnal CPAP, and ok to use patient's own machine; do not need to bleed any supplemental O2 into CPAP as long as SpO2 >88%
Shock has resolved
Completed course of Levaquin 03/15/2024
Chest x-ray with stable right pleuroparenchymal process
Follow clinically
Will require eventual CT chest, consider in the next 4 to [address] chest with near complete atelectasis of right lower lobe with questionable soft tissue attenuation of the right mainstem bronchus
Bronchoscopy unremarkable, no obvious airway process; C. glabrata seen --> ID consulted --> no need for treatment
Intermittent chest x-ray as clinically indicated
Coumadin remains on hold, supratherapeutic INR noted
Hemoptysis has resolved
Resp and AFB cultures negative, remains off antibiotic, completed course
Fungus Cx from prior BAL on 03/11/2024 now growing Mckayla glabrata --> ID consulted --> No Abx treatmet needed
S/p mechanical mitral valve replacement. On warfarin with goal INR 2.5-3 5.5.
- Supratherapeutic INR as above.
- Hold anticoagulation.
- Echocardiogram 03/10/2024 noted with decreased LVEF down to 15-20 %. Last echocardiogram available 06/05/2023: Showed moderate to severe reduced left ventricular action fraction. Global hypokinesis. EF 30-35%. Mechanical mitral valve. Moderate
TR.
-Intermittent diuresis as able
Cardiology following
COPD history: Not bronchospastic on exam.
Continue Symbicort 160mcg + Spiriva 2.5mcg/act
DuoNebs as needed.
Steroids discontinued
Significant deconditioning/muscle mass loss.
Aggressive physical therapy/Occupational Therapy/nutrition
Diet as per MANAGER UNIT - patient has difficulty swallowing still due to mouth/throat pain. He also does not like drinking ensure. Continue multivitamin in interim to avoid vitamin deficiencies
PT/OT both recommending acute rehab
DVT ppx- SCD; trend INR as still supra-therapeutic
GI prophylaxis with Protonix
Disposition efforts
Pulmonary service will continue to follow along.
Total time spent today was 35 minutes for this encounter. Time includes reviewing laboratory test/imaging results, reviewing pertinent medical records, obtaining and reviewing medical history, performing an appropriate exam, ordering medications,
tests and procedures. Time also includes documentation of this encounter, coordinating patient care and communicating with other healthcare professionals. Total time does not include separately billed tests performed on this date of service.

Data:
CXR 03-17-2024:
1. Stable radiographic appearance of bilateral perihilar pulmonary opacities, left greater than right.
2. Moderate right and small left pleural effusions.
3. Cardiomegaly.
4. Interval removal of the right internal jugular central venous catheter.
CXR 03/13/2024:
There is moderate diffuse prominence of the bronchovascular markings throughout both lungs which more likely reflects pulmonary edema than diffuse interstitial pneumonia as there is mild cardiomegaly and small bilateral pleural effusions.
Correlation with the patient's BNP is recommended.
Chest ultrasound 03/12/2024:
Moderate right pleural effusion. Stable
CXR 03-09-2024:
1. New large 10 cm airspace opacity in the left mid and lower lung which was not present 12/05/2023. Diagnostic possibilities are (1) severe pneumonia, (2) pulmonary hemorrhage, or (3) asymmetric alveolar pulmonary edema.
2. Moderate acute interstitial cardiogenic pulmonary edema.
3. Moderate to severe bilateral upper lobe emphysema.
4. Mild cardiomegaly with evidence for previous mitral valve replacement.
5. Small right pleural effusion and adjacent moderate compressive atelectasis in the right lower lobe.
Chest CT 03/09/2024:
1. Small bilateral pleural effusions, right greater than left.
2. Near complete atelectasis of the right lower lobe with soft tissue attenuation material within bronchi to the right lower lobe which could be related to either secretions or aspiration.
3. Combination of atelectasis and dense airspace consolidation throughout the left upper and lower lobes as above. As on the right, there is soft tissue attenuation opacification of left lower lobe bronchi could be related to either secretions or
aspiration.
4. Advanced emphysematous changes.
Echo 03/18/2024:
Left ventricular ejection fraction is 25% with global hypokinesis.
Normal right ventricular size and function.
Severe biatrial enlargement.
Mechanical MV is well seated with a mean gradient of 4 mmHg.
Moderate tricuspid regurgitation.
Estimated PASP 58 mmHg and an estimated RA 15 mmHg.
Compared to previous echo images of 03/10/2024 there has been some improvement
in LVEF from 15-20% to 25%.
Echo 03/10/2024:
Severely reduced left ventricular systolic function. Left ventricular ejection
fraction appears 15-20% by visual assessment.
Global hypokinesis.
Normal right ventricular size with reduced systolic function.
Well seated normally functioning mechanical mitral valve.
Moderate tricuspid regurgitation with moderate pulmonary hypertension.
Compared to the images from 06/05/2023, the left ventricular systolic function
has decreased from 30 to 35% to 15 to 20%. The right ventricle is no longer
dilated but reduced systolic function is now seen.
Subjective Data
-
Date of Service:
Date of Service: March 20, 2024
Chief Complaint: Pulmonary Follow Up
Subjective:
Patient seen today at bedside. Daughter at bedside. He is on 2L/min resting comfortably. He says he is not getting good sleep. Denies chest pain, N/V/f/c.
Review of Systems
General: Other (negative unless mentioned above)
Objective Data
Data Reviewed
Vital Signs / I&O / Oxygen:
Vital Signs
Temp Pulse Resp BP Pulse Ox
97.8 F 75 16 111/52 98
03/20/24 11:00 03/20/24 11:00 03/20/24 11:00 03/20/24 11:00 03/20/24 11:00
Intake and Output
03/19/24 03/20/24 03/21/24
06:59 06:59 06:59
Intake Total 2280 / 2280 720 / 720
Output Total 1435 / 1435
Balance 2280 / 2280 -715 / -715
SaO2 [A/C] 98
SaO2 [NIV (Non Invasive 96
Ventilation)]
SaO2 98
Nasal Cannula flow liters per 1
minute
Physical Exam
General: Respiratory Distress (negative) and Comfortable
HEENT: Normocephalic and Anicteric
Cardiovascular: S1-S2 and Peripheral Edema (+1 lower extremity edema bilaterally)
Respiratory: Wheeze (negative), Crackles (Bilaterally heard in the posterior lung shoemaker), Rhonchi (negative) and Non-Labored Respirations
GI: Soft, Non Distended and Non Tender
Neurology: AO x 3
Skin: Warm and Dry
Labs/Micro/Reports
Lab Data
03/20/24 05:42
03/20/24 05:42
Laboratory Results
03/20/24
05:43
PT 30.7 H
INR 2.90
Microbiology
03/11/24 15:19 Bronch Washing Fungal Culture - Preliminary
Mckayla glabrata (T. glakristine)
--- NOTE | 2024-03-20 13:14 | W.PN.HOSP.TC ---
Today's Communication/Plan
-
repeat INR this evening if <2.5 then start IV Heparin
NPO p MN for possible cath tomorrow pending AM INR
Assessment / Plan
Assessment / Plan
HPI: 78-year-old male with a past medical history of atrial fibrillation on Coumadin, newly diagnosed cirrhosis, CAD, COPD, KIKI on CPAP, GERD, peptic ulcer disease, CHF, and hypertension presents with a 1 day history of fever, hemoptysis, and
shortness of breath. Family reports that he was coughing up blood intermittently overnight, with fever. Associated symptoms include hematemesis, lethargy, agitation. Patient was found to be in acute hypoxic respiratory failure in the ER, and
placed on a nonrebreather. He was also found to have septic shock from pneumonia, with pulmonary edema. He is getting vancomycin and cefepime in the ER, and currently on a Levophed drip. He is on prednisone 60 mg daily since June 2023, unclear
why.
Assessment:
Septic shock, present upon admission
Severe pneumonia
- completed antibiotics and steroid course
Acute respiratory failure with hypoxia due to severe left sided CAP + acute pulmonary edema with right pleural effusion
VDRF (Intubated 03/10/2024, extubated 03/13/2024)
- extubated to BiPAP and now on 2L NC
Acute COPD exacerbation due to above
- steroids course completed
Acute on chronic heart failure with reduced ejection fraction
- Echo 06/05/2023 EF 30-35%, global hypokinesis, mechanical mitral valve, mild MR, moderate TR
- Echo 03/10 with EF 15-20%, repeat with 25%
- IV Lasix per Cardiology; none today
- continue Jardiance
- [facility] Planned Sunday if INR <2.0
Hemoptysis due to pneumonia in the setting of chronic anticoagulation with supratherapeutic INR
- s/p bronch 03/11: unremarkable
Constipation
- Miralax/Senna/Colace
- Lactulose added to bowel regimen
Hyperglycemia likely steroid induced
- A1c appreciated 5.6 non-diabetic
- no significant hyperglycemia since discontinuation of stress steroids
Hypophosphatemia
Hypomagnesemia
Hypocalcemia
- Monitor and replete as necessary
Coagulopathy
Paroxysmal atrial fibrillation
Mechanical aortic valve on Coumadin
- supratherapeutic INR; currently 3.8 (goal 2.5 to 3.5). Coumadin on hold
- when <2.5; will order IV heparin. repeat INR this evening.
- holding off BB due to hypotension
Type II SC from demand ischemia vs nonischemic myocardial injury in the setting of acute illness (sepsis)
- Troponin peaked at 0.148 since trended down
Hematemesis
- Likely from swallowed blood products from hemoptysis
- Protonix 40 mg PO twice daily
- H&H stable
Hyponatremia
- Due to CHF, monitor
- Stable 120s improving following restart Lasix
- Since improved, at appropriate rate, to low 130s
Acute kidney injury likely d/t shock as above resolving
- baseline is normal, initial creatine 1.5 increased to 2.1 since trended down
- From CHF and septic shock
- Monitor creatinine, avoid nephrotoxic drugs/NSAIDs
- weaned off pressor support as above
Thrombocytopenia
- Due to sepsis, monitor
- will transfuse if <20 or <50 with active bleeding
DTI (Deep Tissue Injury) sacral pressure injury
- cont local wound care
Recently diagnosed cirrhosis
- Follows with Dr. Saunders outpatient
DVT ppx: Supratherapeutic INR
Code: Full
Dispo: Acute rehab when stable.
Anticipated Discharge: > 48 hours
Subjective/Interval History
-
Date of Service: March 20, 2024
feels better daily
INR 2.9
Objective Data
-
Labs:
Laboratory Results
03/20/24 03/20/24 03/20/24
05:42 05:43 17:00
WBC 6.1
Hgb 11.2 L
Hct 32.6 L
Plt Count 91 L
PT 30.7 H Pending
INR 2.90 Pending
Sodium 133 L
Potassium 3.9
Chloride 94 L
Carbon Dioxide 36 H
BUN 32 H
Creatinine 0.7
Glucose 109 H
Calcium 8.7
Total Bilirubin 1.9 H
AST 34
ALT 19
Alkaline Phosphatase 104
Vital Signs:
Vital Signs
Temp Pulse Resp BP Pulse Ox
97.8 F 75 16 111/52 98
03/20/24 11:00 03/20/24 11:00 03/20/24 11:00 03/20/24 11:00 03/20/24 11:00
I&O
03/19/24 03/20/24 03/21/24
06:59 06:59 06:59
Intake Total 2280 / 2280 720 / 720
Output Total 1435 / 1435
Balance 2280 / 2280 -715 / -715
Physical Exam
-
General: No Apparent Distress
HEENT: Normocephalic and Atraumatic
Respiratory: Negative Wheezes
Cardiac: Regular Rhythm and S1/S2
GI: Soft
Neuro: AO x 3
Hematologic / Lymphatic: No Lymphadenopathy
Psych: Calm
Data Reviewed
-
Total Time Spent with Patient (in minutes): 42
Labs: Labs Reviewed by me
--- NOTE | 2024-03-20 14:40 | CM ---
Case management following for d/c planning
Chart reviewed
Weaned to room air
Poss cardiac cath tomorrow
Pt accepted to [facility] when medically ready
CM will cont to follow for d/c needs
Plan - [facility] when stable
[2024-03-20 17:33] LABS: INR 2.71; PT 29.1 Sec (11.4-14.6)
--- NOTE | 2024-03-20 23:00 | PTCARENOTE ---
@2219;Tele monitor alarmed for 23 beat run of VT.Pt resting in bed with CPAP on.Pt denies CP/SOB. Vital signs stable and charted.DAV Mcdermott verbally notified on above note.Mag ordered in the AM.
[2024-03-21] VITALS (13 sets, daily range): BP systolic 115–132; BP diastolic 50–66; BMI 23.5
--- NOTE | 2024-03-21 03:30 | RESPNOTE ---
called to bedside to add 2 LPM of O2 to pts cpap
--- NOTE | 2024-03-21 05:53 | PTCARENOTE ---
@0300;Pt called nurses station and was difficult to understand.Went into pt's room and pt was agitated and mumbling.Told pt to remove mask.Pt stated,'I was hallucinating and I couldn't sleep.I drop my call cheatham on the floor.So I called you.'Pulse ox
ranging 88-89% on room air.Nasal 02 2iters applied and POX increased to 94%.Respiratory TT to see pt about his CPAP and possible 02.
[2024-03-21 07:19] LABS: % Basophils 0.2 % (0-2); % Eosinophils 0.6 % (0-6); % Immature Granulocytes 0.8 % (0-0.5); % Lymphocytes 7.3 % (20.5-51.1); % Monocytes 9.2 % (1.7-9.3); % Neutrophils 81.9 % (42.2-75.2); Absolute Lymphocytes 0.4 10^3/uL (1.2-3.4); Absolute Monocytes 0.5 10^3/uL (0.1-0.6); Absolute Neutrophils 4.2 10^3/uL (1.4-6.5); Hematocrit 32.2 % (39.0-52.0); Hemoglobin 10.9 g/dL (13.0-18.0); Mean Corp Hgb Conc. 33.9 g/dL (33.0-37.0); Mean Corpuscular Hgb 32.3 pg (27.0-31.0); Mean Corpuscular Volume 95.5 fL (80.0-94.0); Mean Platelet Volume 9.8 fL (7.4-10.4); Nucleated Red Blood Cells % 0 % (-); Platelet Count 94 10^3/uL (130-400); Red Blood Cell Count 3.37 10^6/uL (4.70-6.10); Red Cell Dist. Width 15.1 % (11.5-14.5); White Blood Cell Count 5.1 10^3/uL (4.8-10.8)
[2024-03-21 07:46] LABS: INR 2.49; PT 26.8 Sec (11.4-14.6)
[2024-03-21] MEDS: SPIRIVA RESPIMAT 2.5 MCG 2 PUFF INH (07:52)
[2024-03-21] MEDS: SYMBICORT 160/4.5 MCG INHALER 2 PUFF INH ×2 (07:52→20:10)
[2024-03-21] MEDS: SENOKOT-S 1 TABLET PO ×2 (08:00→20:45)
[2024-03-21] MEDS: DUPHALAC/CHRONULAC PO (08:00)
[2024-03-21] MEDS: DAILY VITAMIN/CENTRUM 15 ML PO (08:00)
[2024-03-21] MEDS: MIRALAX 17 GRAMS PO (08:00)
[2024-03-21] MEDS: JARDIANCE 10 MG PO (08:00)
[2024-03-21] MEDS: PROTONIX 40 MG PO ×2 (08:00→20:45)
[2024-03-21 08:02] LABS: ALT (SGPT) 17 U/L (0-50); AST (SGOT) 34 U/L (17-59); Albumin 3.2 g/dl (3.5-5.0); Alkaline Phosphatase 112 U/L (38-126); Blood Urea Nitrogen 27 mg/dl (9-20); Calcium 9.2 mg/dl (8.4-10.2); Carbon Dioxide 37 mmol/L (22-30); Chloride 94 mmol/L (98-107); Estimated Creatinine Clearance 94 ml/min; Glucose 106 mg/dl (70-99); Magnesium 1.7 mg/dl (1.6-2.3); Sodium 135 mmol/L (135-145); Total Bilirubin 2.2 mg/dl (0.2-1.3); Total Protein 6.7 g/dl (6.3-8.2); eGFR > 60.00
--- NOTE | 2024-03-21 11:25 | W.PN.HOSP.TC ---
Today's Communication/Plan
-
cath today
then resume IV heparin/Coumadin
Assessment / Plan
Assessment / Plan
HPI: 78-year-old male with a past medical history of atrial fibrillation on Coumadin, newly diagnosed cirrhosis, CAD, COPD, KIKI on CPAP, GERD, peptic ulcer disease, CHF, and hypertension presents with a 1 day history of fever, hemoptysis, and
shortness of breath. Family reports that he was coughing up blood intermittently overnight, with fever. Associated symptoms include hematemesis, lethargy, agitation. Patient was found to be in acute hypoxic respiratory failure in the ER, and
placed on a nonrebreather. He was also found to have septic shock from pneumonia, with pulmonary edema. He is getting vancomycin and cefepime in the ER, and currently on a Levophed drip. He is on prednisone 60 mg daily since June 2023, unclear
why.
Assessment:
Septic shock, present upon admission
Severe pneumonia
- completed antibiotics and steroid course
Acute respiratory failure with hypoxia due to severe left sided CAP + acute pulmonary edema with right pleural effusion
VDRF (Intubated 03/10/2024, extubated 03/13/2024)
- extubated to BiPAP and now on 2L NC
Acute COPD exacerbation due to above
- steroids course completed
Acute on chronic heart failure with reduced ejection fraction
- Echo 06/05/2023 EF 30-35%, global hypokinesis, mechanical mitral valve, mild MR, moderate TR
- Echo 03/10 with EF 15-20%, repeat with 25%
- IV Lasix per Cardiology; none today with cath pending
- continue Jardiance
- LHC today (INR 2.49 and ok'd by cath attending to proceed)
Hemoptysis due to pneumonia in the setting of chronic anticoagulation with supratherapeutic INR
- s/p bronch 03/11: unremarkable
Constipation
- Miralax/Senna/Colace
- Lactulose added to bowel regimen
Hyperglycemia likely steroid induced
- A1c appreciated 5.6 non-diabetic
- no significant hyperglycemia since discontinuation of stress steroids
Hypophosphatemia
Hypomagnesemia
Hypocalcemia
- Monitor and replete as necessary
Coagulopathy
Paroxysmal atrial fibrillation
Mechanical aortic valve on Coumadin
- INR currently 2.49
- resume IV Heparin/Coumadin bridge post-cath
- holding off BB due to hypotension; resume post-cath
Type II ID from demand ischemia vs nonischemic myocardial injury in the setting of acute illness (sepsis)
- Troponin peaked at 0.148 since trended down
Hematemesis
- Likely from swallowed blood products from hemoptysis
- Protonix 40 mg PO twice daily
- H&H stable
Hyponatremia
- Due to CHF, monitor
- Stable 120s improving following restart Lasix
- Since improved, at appropriate rate, to low 130s
Acute kidney injury likely d/t shock as above resolving
- baseline is normal, initial creatine 1.5 increased to 2.1 since trended down
- From CHF and septic shock
- Monitor creatinine, avoid nephrotoxic drugs/NSAIDs
- weaned off pressor support as above
Thrombocytopenia
- Due to sepsis, monitor
- will transfuse if <20 or <50 with active bleeding
DTI (Deep Tissue Injury) sacral pressure injury
- cont local wound care
Recently diagnosed cirrhosis
- Follows with Dr. Saunders outpatient
DVT ppx: Supratherapeutic INR
Code: Full
Dispo: Acute rehab when stable.
Anticipated Discharge: > 48 hours
Subjective/Interval History
-
Date of Service: March 21, 2024
denies any complaints
for cath today
Objective Data
-
Labs:
Laboratory Results
03/21/24 03/21/24
06:53 07:35
WBC 5.1
Hgb 10.9 L
Hct 32.2 L
Plt Count 94 L
PT 26.8 H
INR 2.49
Sodium 135 Cancelled
Potassium 4.0 Cancelled
Chloride 94 L Cancelled
Carbon Dioxide 37 H Cancelled
BUN 27 H Cancelled
Creatinine 0.7 Cancelled
Glucose 106 H Cancelled
Calcium 9.2 Cancelled
Total Bilirubin 2.2 H Cancelled
AST 34 Cancelled
ALT 17 Cancelled
Alkaline Phosphatase 112 Cancelled
Vital Signs:
Vital Signs
Temp Pulse Resp BP Pulse Ox
98.4 F 74 17 128/50 99
03/21/24 11:00 03/21/24 11:00 03/21/24 11:00 03/21/24 11:00 03/21/24 11:00
I&O
03/20/24 03/21/24 03/22/24
06:59 06:59 06:59
Intake Total 720 / 720 120 / 120 240 / 240
Output Total 1435 / 1435 400 / 400 500 / 500
Balance -715 / -715 -280 / -280 -260 / -260
Physical Exam
-
General: No Apparent Distress
HEENT: Normocephalic and Atraumatic
Respiratory: Clear to Auscultation; Negative Wheezes or Rales
Cardiac: Regular Rhythm and S1/S2
Neuro: AO x 3
Hematologic / Lymphatic: No Lymphadenopathy
Psych: Calm
Data Reviewed
-
Total Time Spent with Patient (in minutes): 42
Labs: Labs Reviewed by me
--- NOTE | 2024-03-21 12:01 | CM ---
Case management following for d/c planning
Pt for cardiac cath today
PT/OT eval after cath
CM will cont to follow for d/c needs
Plan - anticipate [facility] when medically stable
--- NOTE | 2024-03-21 12:20 | W.PN.PUL3 ---
Today's Communication / Plan
-
Symbicort + Spiriva
PPI BID
Diet as per BRUSH FINISHER
PT/OT recommending acute rehab
Wean down O2 as tolerated while keeping SpO2 >88%
Encourage IS
Up OOB as tolerated
Pulmonary service to continue to briefly follow along
Assessment
-
Assessment: 78-year-old male former tobacco smoker with a past medical history of moderate COPD, moderate restrictive lung disease, history of hemoptysis, history of LLL bronchiectasis, history of left-sided pneumonia, history of aspergillus,
chronic anticoagulation for mechanical mitral valve replacement (July 2021), history of COVID-19, HFrEF with RV dysfunction, pulmonary hypertension, history of NHL s/p chemo/XRT (2003), and chronic thrombocytopenia with unremarkable bone marrow
biopsy (10/2023) who presents with shortness of breath, weakness and fever. He also has been coughing up blood which started 1 night [employer]. Patient has low-grade fever to 100.1 �F in the ER, and tachycardic to 115 bpm, tachypnea to 25 respirator,
hypotensive to 72/44, and initially was saturating 66% on room air. Saturations improved to 91% with nonrebreather. Labs showed leukopenia to 2.7 with 20% bands, anemia to 12, elevated INR 4.58, hyponatremia 130, ADRIANA to 1.5, lactic acid elevated
at 2.3, elevated troponin 0.148, increased proBNP of >27,000, and negative COVID-19 antigen; flu A/B swab also negative. Blood cultures were collected. CXR shows a 10 cm left midlung airspace opacity with acute cardiogenic pulmonary edema and a
right-sided pleural effusion with compressive atelectasis. In the ER antibiotics were given with cefepime/vancomycin, he was also given DuoNebs x 1, given IV fluids with NS 0.5L and started on Levophed due to persistent hypotension with SBP in the
80s. Due to patient's vasopressor and oxygen requirements, he is being admitted to the ICU. Critical care services now consulted for additional management/recommendations.
Chronic conditions [employer]: COPD, restrictive lung disease, history of hemoptysis, chronic anticoagulation with warfarin due to mechanical mitral valve replacement (07/2021), history of left lower lobe bronchiectasis, elevated left hemidiaphragm, KIKI on
CPAP, personal history of COVID-19, chronic atrial fibrillation on Coumadin, history of tobacco abuse with [id number] history (quit in 2018), history of HFrEF with RV dysfunction, mild�moderate pulmonary hypertension, history of GI bleed,
postnasal drip, history of non-Hodgkin's lymphoma s/p chemo/radiation (2003), history of left-sided pneumonia due to Streptococcus pneumonia, history of aspergillus, history of Vieira's esophagus, history of thrombocytopenia s/p unremarkable bone
marrow biopsy.
Transferred out of the ICU 03/15/2024. Pulmonary will continue to follow for hypoxemia.
Impression:
#Acute respiratory failure with hypoxia due to CAP + acute pulmonary edema with right pleural effusion
Intubated 03/10/2024, extubated 03/13/2024.
#Bandemia with 20% bands -due to septic shock from left sided pneumonia (shock state now resolved)
#Severe left-sided CAP
#Septic shock due to above - shock state now resolved
#Lactic acidosis - resolved as of 03/13/2024
#Acute COPD exacerbation due to above
#Acute HFrEF (LVEF: 25%) with global hypokinesis (per TTE from 03/18/2024) --> with LVEF 38% on [facility] 03/21
#Hemoptysis due to pneumonia in the setting of chronic anticoagulation with supratherapeutic INR - hemoptysis now resolved
#Supratherapeutic INR (INR: 2.7 today)
#Hyponatremia
#Acute kidney injury (Cr baseline approx 1.1)
#Elevated troponin likely due to demand ischemia with type II PR
#Chronic pancytopenia
#Mechanical mitral valve replacement on Coumadin
#Chronic A-fib on Coumadin
#DM type II
#Former smoker
#Former alcohol use
Plan:
At this time, patient appears to be objectively and subjectively improved
Denies any further episodes of hemoptysis, platelets stable
Chest x-ray from 03/17 with persistent bibasilar infiltrate, rounded area of consolidation/effusion right base
Moving forward:
Patient underwent left heart catheterization today showing mild CAD similar to prior LHC from 2020, + moderate global hypokinesis with EF 38%, which is an improvement from prior echo on 03/18/2024
Continue to wean oxygen as able to maintain SpO2 >88%
Continue with nocturnal CPAP, and ok to use patient's own machine; bleed O2 if needed to CPAP to keep SpO2 >88%
Shock has resolved
Completed course of Levaquin 03/15/2024
Chest x-ray with stable right pleuroparenchymal process
Follow clinically
Will require eventual CT chest, consider in the next 4 to [address] chest with near complete atelectasis of right lower lobe with questionable soft tissue attenuation of the right mainstem bronchus
Bronchoscopy unremarkable, no obvious airway process; C. glabrata seen --> ID consulted --> no need for treatment
Intermittent chest x-ray as clinically indicated
Coumadin now being restarted; continue heparin as bridge
Hemoptysis has resolved
Resp and AFB cultures negative, remains off antibiotic, completed course
Fungus Cx from prior BAL on 03/11/2024 now growing Mckayla glabrata --> ID consulted --> No Abx treatment needed
S/p mechanical mitral valve replacement. On warfarin with goal INR 2.5-3 5.5.
- Supratherapeutic INR as above --> INR now below goal, heparin gtt on as bridge and coumadin resumed
- Echocardiogram 03/10/2024 noted with decreased LVEF down to 15-20 %. Last echocardiogram available 06/05/2023: Showed moderate to severe reduced left ventricular action fraction. Global hypokinesis. EF 30-35%. Mechanical mitral valve. Moderate
TR.
-Intermittent diuresis as able
Cardiology following
COPD history: Not bronchospastic on exam.
Continue Symbicort 160mcg + Spiriva 2.5mcg/act
DuoNebs as needed.
Steroids discontinued
Significant deconditioning/muscle mass loss.
Aggressive physical therapy/Occupational Therapy/nutrition
Diet as per BRUSH FINISHER - patient has difficulty swallowing still due to mouth/throat pain. He also does not like drinking ensure. Continue multivitamin in interim to avoid vitamin deficiencies
PT/OT both recommending acute rehab
DVT ppx- SCD; coumadin with heparin bridge
GI prophylaxis with Protonix
Disposition efforts
Pulmonary service will continue to follow along.
Total time spent today was 35 minutes for this encounter. Time includes reviewing laboratory test/imaging results, reviewing pertinent medical records, obtaining and reviewing medical history, performing an appropriate exam, ordering medications,
tests and procedures. Time also includes documentation of this encounter, coordinating patient care and communicating with other healthcare professionals. Total time does not include separately billed tests performed on this date of service.

Data:
CXR 03-17-2024:
1. Stable radiographic appearance of bilateral perihilar pulmonary opacities, left greater than right.
2. Moderate right and small left pleural effusions.
3. Cardiomegaly.
4. Interval removal of the right internal jugular central venous catheter.
CXR 03/13/2024:
There is moderate diffuse prominence of the bronchovascular markings throughout both lungs which more likely reflects pulmonary edema than diffuse interstitial pneumonia as there is mild cardiomegaly and small bilateral pleural effusions.
Correlation with the patient's BNP is recommended.
Chest ultrasound 03/12/2024:
Moderate right pleural effusion. Stable
CXR 03-09-2024:
1. New large 10 cm airspace opacity in the left mid and lower lung which was not present 12/05/2023. Diagnostic possibilities are (1) severe pneumonia, (2) pulmonary hemorrhage, or (3) asymmetric alveolar pulmonary edema.
2. Moderate acute interstitial cardiogenic pulmonary edema.
3. Moderate to severe bilateral upper lobe emphysema.
4. Mild cardiomegaly with evidence for previous mitral valve replacement.
5. Small right pleural effusion and adjacent moderate compressive atelectasis in the right lower lobe.
Chest CT 03/09/2024:
1. Small bilateral pleural effusions, right greater than left.
2. Near complete atelectasis of the right lower lobe with soft tissue attenuation material within bronchi to the right lower lobe which could be related to either secretions or aspiration.
3. Combination of atelectasis and dense airspace consolidation throughout the left upper and lower lobes as above. As on the right, there is soft tissue attenuation opacification of left lower lobe bronchi could be related to either secretions or
aspiration.
4. Advanced emphysematous changes.
Echo 03/18/2024:
Left ventricular ejection fraction is 25% with global hypokinesis.
Normal right ventricular size and function.
Severe biatrial enlargement.
Mechanical MV is well seated with a mean gradient of 4 mmHg.
Moderate tricuspid regurgitation.
Estimated PASP 58 mmHg and an estimated RA 15 mmHg.
Compared to previous echo images of 03/10/2024 there has been some improvement
in LVEF from 15-20% to 25%.
Echo 03/10/2024:
Severely reduced left ventricular systolic function. Left ventricular ejection
fraction appears 15-20% by visual assessment.
Global hypokinesis.
Normal right ventricular size with reduced systolic function.
Well seated normally functioning mechanical mitral valve.
Moderate tricuspid regurgitation with moderate pulmonary hypertension.
Compared to the images from 06/05/2023, the left ventricular systolic function
has decreased from 30 to 35% to 15 to 20%. The right ventricle is no longer
dilated but reduced systolic function is now seen.
Subjective Data
-
Date of Service:
Date of Service: March 21, 2024
Chief Complaint: Pulmonary Follow Up
Subjective:
Patient seen today at bedside. He had just came back from his left heart catheterization which showed moderate global hypokinesis with a EF 38%. He felt well, he is on 2 L/min nasal cannula breathing comfortably. He just feels tired since his
left heart cath. Denies chest pain, headache, abdominal pain, fevers or chills.
Review of Systems
General: Other (Negative unless mentioned above)
Objective Data
Data Reviewed
Vital Signs / I&O / Oxygen:
Vital Signs
Temp Pulse Resp BP Pulse Ox
97.5 F 75 17 129/55 99
03/21/24 16:45 03/21/24 16:45 03/21/24 16:45 03/21/24 16:45 03/21/24 16:45
Intake and Output
03/20/24 03/21/24 03/22/24
06:59 06:59 06:59
Intake Total 720 / 720 120 / 120 240 / 240
Output Total 1435 / 1435 400 / 400 500 / 500
Balance -715 / -715 -280 / -280 -260 / -260
SaO2 [A/C] 98
SaO2 [NIV (Non Invasive 96
Ventilation)]
SaO2 99
Nasal Cannula flow liters per 2
minute
Physical Exam
General: Respiratory Distress (negative) and Comfortable
HEENT: Normocephalic and Anicteric
Cardiovascular: S1-S2 and Peripheral Edema (+1 lower extremity edema bilaterally)
Respiratory: Wheeze (negative), Crackles (Bibasilar), Rhonchi (negative), Non-Labored Respirations and Other (Reduced breath sounds bilaterally)
GI: Soft, Non Distended and Non Tender
Neurology: AO x 3
Skin: Warm and Dry
Labs/Micro/Reports
Lab Data
03/21/24 15:36
03/21/24 07:35
Laboratory Results
03/20/24 03/21/24 03/21/24
17:09 06:53 15:36
PT 29.1 H 26.8 H
INR 2.71 2.49
APTT 39.8 H
Microbiology
03/11/24 15:19 Bronch Washing Fungal Culture - Preliminary
Mckayla glabrata (TBelinda mcgee)
--- NOTE | 2024-03-21 13:43 | ITS.CL.CATH ---
[facility] Supervisor - Catheterization
Cardiac Catheterization
Procedure Report:
CARDIAC CATHETERIZATION REPORT
Date of Procedure: 03/21/2024
Referring: Roberth Ledesma MD, PhD
HEMODYNAMIC DATA
AO: 130/60
LV: 130/17
LEFT VENTRICULOGRAPHY: Moderate global hypokinesis with EF 38%. There is a mechanical mitral valve with good leaflet motion and no detectable MR
CORONARY ANGIOGRAPHY
Dominance: Right
Left Main: Short without focal stenosis
LAD: 40 to 50% proximal LAD stenosis similar appearance to the prior study from 2020. There are otherwise mild luminal irregularities in the LAD system
Circumflex: Mild luminal irregularities
RCA: 20-30% mid stenosis with otherwise mild luminal irregularities
Closure Device: 6F Angio RFA. Of note, the radial artery was not used as he has no palpable radial artery pulse either on the left or on the right
Radiation (mGy): 362
DAP (cm2.Gy): 28
Fluoroscopy time: 2.4 minutes
CONCLUSIONS
1: Moderate global hypokinesis with EF 38%
2: Mild CAD similar to its appearance from the 2020 study
Copy to: Tony Srinivasan MD, Kylie Liu DO
Walt Tabares MD, [facility], [facility]
[2024-03-21] MEDS: FIRST-MOUTHWASH BLM SUSPENSION 5 ML PO (15:37)
[2024-03-21 15:42] LABS: Hematocrit 31.1 % (39.0-52.0); Hemoglobin 10.4 g/dL (13.0-18.0); Mean Corp Hgb Conc. 33.4 g/dL (33.0-37.0); Mean Corpuscular Volume 95.7 fL (80.0-94.0); Mean Platelet Volume 10.1 fL (7.4-10.4); Platelet Count 83 10^3/uL (130-400); Red Blood Cell Count 3.25 10^6/uL (4.70-6.10); Red Cell Dist. Width 15.1 % (11.5-14.5); White Blood Cell Count 5.1 10^3/uL (4.8-10.8)
[2024-03-21 15:59] LABS: APTT 39.8 Sec (23.4-35.0)
[2024-03-21] MEDS: HEPARIN 25000 UNITS/250 ML IV (16:31)
[2024-03-21] MEDS: COUMADIN 1 MG PO (17:26)
[2024-03-21] MEDS: DUPHALAC/CHRONULAC 20 GRAMS PO (20:45)
[2024-03-21 23:57] LABS: APTT 88.6 Sec (23.4-35.0)
--- NOTE | 2024-03-22 03:22 | PTCARENOTE ---
patient developed hematoma while sitting in the chair. manual pressure applied. hematoma resolved. JUMA Gamboa notified and will be coming up to see patient.
[2024-03-22 03:53] VITALS: BP 117/53
--- NOTE | 2024-03-22 04:22 | W.PN.UPDATE ---
Update Note
Progress Note Update
Per nursing patient noted to have hematoma to the right groin cardiac cath site. Upon assessment, patient denies pain to the site, no hematoma noted at this time. Rx bedrest now, AM labs to be drawn early.
[2024-03-22 06:16] LABS: % Basophils 0.6 % (0-2); % Eosinophils 0.8 % (0-6); % Immature Granulocytes 0.8 % (0-0.5); % Lymphocytes 9.4 % (20.5-51.1); % Monocytes 9.2 % (1.7-9.3); % Neutrophils 79.2 % (42.2-75.2); Absolute Lymphocytes 0.5 10^3/uL (1.2-3.4); Absolute Monocytes 0.5 10^3/uL (0.1-0.6); Hematocrit 27.3 % (39.0-52.0); Hemoglobin 9.1 g/dL (13.0-18.0); Mean Corp Hgb Conc. 33.3 g/dL (33.0-37.0); Mean Corpuscular Hgb 32.4 pg (27.0-31.0); Mean Corpuscular Volume 97.2 fL (80.0-94.0); Mean Platelet Volume 10.2 fL (7.4-10.4); Nucleated Red Blood Cells % 0 % (-); Platelet Count 94 10^3/uL (130-400); Red Blood Cell Count 2.81 10^6/uL (4.70-6.10); White Blood Cell Count 5.1 10^3/uL (4.8-10.8)
[2024-03-22 06:28] LABS: INR 2.73; PT 28.8 Sec (11.4-14.6)
[2024-03-22 06:41] LABS: ALT (SGPT) 17 U/L (0-50); AST (SGOT) 35 U/L (17-59); Albumin 2.7 g/dl (3.5-5.0); Alkaline Phosphatase 85 U/L (38-126); Blood Urea Nitrogen 25 mg/dl (9-20); Calcium 8.4 mg/dl (8.4-10.2); Carbon Dioxide 38 mmol/L (22-30); Chloride 97 mmol/L (98-107); Estimated Creatinine Clearance 94 ml/min; Glucose 103 mg/dl (70-99); Potassium 4.6 mmol/L (3.5-5.1); Sodium 134 mmol/L (135-145); Total Bilirubin 1.6 mg/dl (0.2-1.3); Total Protein 5.8 g/dl (6.3-8.2); eGFR > 60.00
[2024-03-22 06:49] LABS: APTT 179.2 Sec (23.4-35.0)
[2024-03-22 07:00] VITALS: BP 108/45
[2024-03-22] MEDS: SYMBICORT 160/4.5 MCG INHALER 2 PUFF INH ×2 (08:45→19:55)
[2024-03-22] MEDS: SPIRIVA RESPIMAT 2.5 MCG 2 PUFF INH (08:46)
[2024-03-22] MEDS: PROTONIX 40 MG PO ×2 (08:53→20:09)
[2024-03-22] MEDS: DAILY VITAMIN/CENTRUM 15 ML PO (08:53)
[2024-03-22] MEDS: MIRALAX 17 GRAMS PO (08:53)
[2024-03-22] MEDS: SENOKOT-S 1 TABLET PO ×2 (08:56→20:09)
[2024-03-22] MEDS: DUPHALAC/CHRONULAC 20 GRAMS PO ×2 (08:56→20:09)
[2024-03-22] MEDS: JARDIANCE 10 MG PO (08:56)
[2024-03-22 11:00] VITALS: BP 116/55
--- NOTE | 2024-03-22 12:36 | PTCARENOTE ---
PT found this am with son giving patient something to drink. pt only at 45degrees. pt coughed for one minutes. Pt sat up to 90 degrees and attempted one more time, no coughing at 90 degrees. Pt took pills without ny difficulty. Pt appears extremely
emaciated, wasted and cachectic. pt with severe sunken in eye sockets, severe sunken cheek bones, abdomen sucken in with full visibility of rib cage. 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 Nutrition consult ordered. I spoke with speech, no n need to consult as
the coughing was not consistent with every sip of water. Pt is on minced oist diet and ate only 20% of breakfast. nutrition consulted . pt on 1500 fluid restriction. . I assisted pt OOB to chair, he was very sleepy once i got him to chair. he was
comfy in chair for one hour but noted him to be lethargic. i came in and did notice him to be much more sleepy than he was this am. I assisted him back to bed. Once i got him back to bed he was much more awake label drier did showe moderat glboal
hypokinesis and IV heparin maintained I will let MD know about his fatigue with min activity and nutrition state
--- NOTE | 2024-03-22 12:46 | W.PN.HOSP.TC ---
Today's Communication/Plan
-
stop Ativan at night
dietary consult + supplements
PT/OT
Coumadin tonight f/u INRs
DC Planning
Assessment / Plan
Assessment / Plan
HPI: 78-year-old male with a past medical history of atrial fibrillation on Coumadin, newly diagnosed cirrhosis, CAD, COPD, KIKI on CPAP, GERD, peptic ulcer disease, CHF, and hypertension presents with a 1 day history of fever, hemoptysis, and
shortness of breath. Family reports that he was coughing up blood intermittently overnight, with fever. Associated symptoms include hematemesis, lethargy, agitation. Patient was found to be in acute hypoxic respiratory failure in the ER, and
placed on a nonrebreather. He was also found to have septic shock from pneumonia, with pulmonary edema. He is getting vancomycin and cefepime in the ER, and currently on a Levophed drip. He is on prednisone 60 mg daily since June 2023, unclear
why.
Assessment:
Septic shock, present upon admission
Severe pneumonia
- completed antibiotics and steroid course
Acute respiratory failure with hypoxia due to severe left sided CAP + acute pulmonary edema with right pleural effusion
VDRF (Intubated 03/10/2024, extubated 03/13/2024)
- extubated to BiPAP and now on 2L NC
Acute COPD exacerbation due to above
- steroids course completed
Acute on chronic heart failure with reduced ejection fraction
- Echo 06/05/2023 EF 30-35%, global hypokinesis, mechanical mitral valve, mild MR, moderate TR
- Echo 03/10 with EF 15-20%, repeat with 25%
- IV Lasix per Cardiology; none today with cath pending
- continue Jardiance
- s/p LHC 03/21: Moderate global hypokinesis with EF 38%. Mild CAD similar to its appearance from the 2020 study
Hemoptysis due to pneumonia in the setting of chronic anticoagulation with supratherapeutic INR
- s/p bronch 03/11: unremarkable
Constipation
- Miralax/Senna/Colace
- Lactulose added to bowel regimen
Hyperglycemia likely steroid induced
- A1c appreciated 5.6 non-diabetic
- no significant hyperglycemia since discontinuation of stress steroids
Hypophosphatemia
Hypomagnesemia
Hypocalcemia
- Monitor and replete as necessary
Coagulopathy
Paroxysmal atrial fibrillation
Mechanical aortic valve on Coumadin
- INR currently 2.73
- redose Coumadin 1mg tonight
- stop IV Heparin drip
- holding off BB due to hypotension; resume post-cath when able
Type II IL from demand ischemia vs nonischemic myocardial injury in the setting of acute illness (sepsis)
- Troponin peaked at 0.148 since trended down
Hematemesis
- Likely from swallowed blood products from hemoptysis
- Protonix 40 mg PO twice daily
- H&H stable
Hyponatremia
- Due to CHF, monitor
- Stable 120s improving following restart Lasix
- Since improved, at appropriate rate, to low 130s
Acute kidney injury likely d/t shock as above resolving
- baseline is normal, initial creatine 1.5 increased to 2.1 since trended down
- From CHF and septic shock
- Monitor creatinine, avoid nephrotoxic drugs/NSAIDs
- weaned off pressor support as above
Thrombocytopenia
- Due to sepsis, monitor
- will transfuse if <20 or <50 with active bleeding
DTI (Deep Tissue Injury) sacral pressure injury
- cont local wound care
Recently diagnosed cirrhosis
- Follows with Dr. Saunders outpatient
DVT ppx: Supratherapeutic INR
Code: Full
Dispo: Acute rehab when stable.
Anticipated Discharge: > 48 hours
Subjective/Interval History
-
Date of Service: March 22, 2024
received ATivan for sleep last night, sleepy today
Objective Data
-
Labs:
Laboratory Results
03/22/24 03/22/24 03/22/24
06:00 06:04 06:05
WBC 5.1
Hgb 9.1 L
Hct 27.3 L
Plt Count 94 L
PT 28.8 H
INR 2.73
APTT 179.2 H*
Sodium Cancelled 134 L
Potassium Cancelled 4.6
Chloride Cancelled 97 L
Carbon Dioxide Cancelled 38 H
BUN Cancelled 25 H
Creatinine Cancelled 0.7
Glucose Cancelled 103 H
Calcium Cancelled 8.4
Total Bilirubin 1.6 H
AST 35
ALT 17
Alkaline Phosphatase 85
03/22/24 03/22/24
07:35 14:00
WBC
Hgb
Hct
Plt Count
PT Cancelled
INR Cancelled
APTT Pending
Sodium
Potassium
Chloride
Carbon Dioxide
BUN
Creatinine
Glucose
Calcium
Total Bilirubin
AST
ALT
Alkaline Phosphatase
Vital Signs:
Vital Signs
Temp Pulse Resp BP Pulse Ox
97.8 F 61 18 116/55 100
03/22/24 11:00 03/22/24 11:00 03/22/24 11:00 03/22/24 11:00 03/22/24 11:00
I&O
03/21/24 03/22/24 03/23/24
06:59 06:59 06:59
Intake Total 120 / 120 240 / 240
Output Total 400 / 400 1300 / 1300
Balance -280 / -280 -1060 / -1060
Physical Exam
-
General: No Apparent Distress
HEENT: Normocephalic and Atraumatic
Respiratory: Negative Wheezes
Cardiac: Regular Rhythm and S1/S2
GI: Soft and Nontender
Neuro: AO x 3
Psych: Calm
Data Reviewed
-
Total Time Spent with Patient (in minutes): 42
Labs: Labs Reviewed by me
--- NOTE | 2024-03-22 13:05 | W.PN.CD ---
Today's Communication / Plan
-
resume Toprol XL 25mg qHS
coumadin 1mg tonight
Impression / Plan
-
A: 78-year-old gentleman with a past medical history of permanent atrial fibrillation, mechanical mitral valve replacement on chronic Coumadin, coronary artery disease, heart failure with reduced EF (15-20%), COPD, pulmonary hypertension
non-Hodgkin's lymphoma presents with shortness of breath and hemoptysis. Also respiratory failure 2/2 PNA requiring intubation and mechanical ventilation and shock requiring pressor support.
Shock, likely primarily septic in the setting of pneumonia (could be component of cardiogenic with severely depressed EF): resolved
-now extubated and off pressors
Hemoptysis, s/p vitamin K
-resolved
NICM, now with decline in LVEF, HFrEF now 25%, acute on chronic (prior LVEF 30-35% in 05/2023)
-resume Toprol XL 25mg qHS
-Jardiance has been resumed
-holding lasix
-cath 03/21: non-obstructive CAD
Permanent atrial fibrillation
-Remains rate controlled
-Oral Anticoagulation: Warfarin (mechanical mitral valve), 1mg tonight
Status post mechanical mitral valve replacement
- Goal INR 2.5�3.5
Abnormal troponin, likely nonischemic myocardial injury in the setting of acute illness (sepsis)
Hyponatremia, hypervolemic, follow with diuresis
CAD, nonobstructive, 20-30% pLAD stenosis by [facility] 2020
S/p Micra PPM
Cirrhosis
COPD
Former smoker, continued cessation recommended
Subjective:
Feeling better each day.
TTE Mar 18 2024: CONCLUSIONS
Left ventricular ejection fraction is 25% with global hypokinesis.
Normal right ventricular size and function.
Severe biatrial enlargement.
Mechanical MV is well seated with a mean gradient of 4 mmHg.
Moderate tricuspid regurgitation.
Estimated PASP 58 mmHg and an estimated RA 15 mmHg.
Compared to previous echo images of 03/10/2024 there has been some improvement
in LVEF from 15-20% to 25%.
Physical Exam
Vital Signs/Labs
Vital Signs
Temp Pulse Resp BP Pulse Ox
97.8 F 61 18 116/55 100
03/22/24 11:00 03/22/24 11:00 03/22/24 11:00 03/22/24 11:00 03/22/24 11:00
03/21/24 03/22/24 03/23/24
06:59 06:59 06:59
Actual Weight 76.374 kg
03/22/24 06:05
03/22/24 06:04
PT Cancelled 03/22/24 07:35
INR Cancelled 03/22/24 07:35
APTT 179.2 Sec (23.4-35.0) H* 03/22/24 06:04
Magnesium 1.7 mg/dl (1.6-2.3) 03/21/24 06:53
Triglycerides 96 mg/dl (10-149) 03/14/24 05:18
03/09/24
08:50
Xky-[id number]-Saumayyqfek Pept > [id number]
Physical Exam
Constitutional: No acute distress
EENT: Moist mucous membranes
Cardiovascular: Pedal edema is absent, Rhythm/rate is irregular, JVD present and Other (+mechanical valve click)
Respiratory: Respiratory effort normal, Lungs clear to auscul. and Wheeze Absent
GI: Soft, Distention absent and Flat
Neuro/Psych: AO x 3
Data Reviewed
-
Date of Service: March 22, 2024
EKG: Other (Tele: A fib, occasional pacing)
Labs: Labs Reviewed by me
[2024-03-22 14:12] LABS: APTT 30.1 Sec (23.4-35.0)
--- NOTE | 2024-03-22 14:33 | W.PN.PUL3 ---
Today's Communication / Plan
-
Coumadin has been resumed, no hemoptysis
Has been weaned down to 2 L
PT/OT
Steroids discontinued
Follow-up chest x-ray and CT chest as outpatient
Assessment
-
Assessment: 78-year-old male former tobacco smoker with a past medical history of moderate COPD, moderate restrictive lung disease, history of hemoptysis, history of LLL bronchiectasis, history of left-sided pneumonia, history of aspergillus,
chronic anticoagulation for mechanical mitral valve replacement (July 2021), history of COVID-19, HFrEF with RV dysfunction, pulmonary hypertension, history of NHL s/p chemo/XRT (2003), and chronic thrombocytopenia with unremarkable bone marrow
biopsy (10/2023) who presents with shortness of breath, weakness and fever. He also has been coughing up blood which started 1 night [employer]. Patient has low-grade fever to 100.1 �F in the ER, and tachycardic to 115 bpm, tachypnea to 25 respirator,
hypotensive to 72/44, and initially was saturating 66% on room air. Saturations improved to 91% with nonrebreather. Labs showed leukopenia to 2.7 with 20% bands, anemia to 12, elevated INR 4.58, hyponatremia 130, ADRIANA to 1.5, lactic acid elevated
at 2.3, elevated troponin 0.148, increased proBNP of >27,000, and negative COVID-19 antigen; flu A/B swab also negative. Blood cultures were collected. CXR shows a 10 cm left midlung airspace opacity with acute cardiogenic pulmonary edema and a
right-sided pleural effusion with compressive atelectasis. In the ER antibiotics were given with cefepime/vancomycin, he was also given DuoNebs x 1, given IV fluids with NS 0.5L and started on Levophed due to persistent hypotension with SBP in the
80s. Due to patient's vasopressor and oxygen requirements, he is being admitted to the ICU. Critical care services now consulted for additional management/recommendations.
Chronic conditions [employer]: COPD, restrictive lung disease, history of hemoptysis, chronic anticoagulation with warfarin due to mechanical mitral valve replacement (07/2021), history of left lower lobe bronchiectasis, elevated left hemidiaphragm, KIKI on
CPAP, personal history of COVID-19, chronic atrial fibrillation on Coumadin, history of tobacco abuse with [id number] history (quit in 2018), history of HFrEF with RV dysfunction, mild�moderate pulmonary hypertension, history of GI bleed,
postnasal drip, history of non-Hodgkin's lymphoma s/p chemo/radiation (2003), history of left-sided pneumonia due to Streptococcus pneumonia, history of aspergillus, history of Vieira's esophagus, history of thrombocytopenia s/p unremarkable bone
marrow biopsy.
Transferred out of the ICU 03/15/2024. Pulmonary will continue to follow for hypoxemia.
Impression:
#Acute respiratory failure with hypoxia due to CAP + acute pulmonary edema with right pleural effusion
Intubated 03/10/2024, extubated 03/13/2024.
#Bandemia with 20% bands -due to septic shock from left sided pneumonia (shock state now resolved)
#Severe left-sided CAP
#Septic shock due to above - shock state now resolved
#Lactic acidosis - resolved as of 03/13/2024
#Acute COPD exacerbation due to above
#Acute HFrEF (LVEF: 25%) with global hypokinesis (per TTE from 03/18/2024) --> with LVEF 38% on [facility] 03/21
#Hemoptysis due to pneumonia in the setting of chronic anticoagulation with supratherapeutic INR - hemoptysis now resolved
#Supratherapeutic INR (INR: 2.7 today)
#Hyponatremia
#Acute kidney injury (Cr baseline approx 1.1)
#Elevated troponin likely due to demand ischemia with type II WI
#Chronic pancytopenia
#Mechanical mitral valve replacement on Coumadin
#Chronic A-fib on Coumadin
#DM type II
#Former smoker
#Former alcohol use
Plan:
At this time, patient appears to be objectively and subjectively improved
Denies any further episodes of hemoptysis, platelets stable
Chest x-ray from 03/17 with persistent bibasilar infiltrate, rounded area of consolidation/effusion right base
98% on 2 L
Moving forward:
Patient underwent left heart catheterization showing mild CAD similar to prior [facility] from 2020, + moderate global hypokinesis with EF 38%, which is an improvement from prior echo on 03/18/2024
Continue to wean oxygen as able to maintain SpO2 >88%
Continue with nocturnal CPAP, and ok to use patient's own machine; bleed O2 if needed to CPAP to keep SpO2 >88%
Shock has resolved
Completed course of Levaquin 03/15/2024
Chest x-ray with stable right pleuroparenchymal process
Follow clinically
Will require eventual CT chest, consider in the next 4 to [address] chest with near complete atelectasis of right lower lobe with questionable soft tissue attenuation of the right mainstem bronchus
Bronchoscopy unremarkable, no obvious airway process; C. glabrata seen --> ID consulted --> no need for treatment
Intermittent chest x-ray as clinically indicated
Coumadin now being restarted; continue heparin as bridge
Hemoptysis has resolved
Resp and AFB cultures negative, remains off antibiotic, completed course
Fungus Cx from prior BAL on 03/11/2024 now growing Mckayla glabrata --> ID consulted --> No Abx treatment needed
S/p mechanical mitral valve replacement. On warfarin with goal INR 2.5-3 5.5.
- Supratherapeutic INR as above --> INR now below goal, heparin gtt on as bridge and coumadin resumed
- Echocardiogram 03/10/2024 noted with decreased LVEF down to 15-20 %. Last echocardiogram available 06/05/2023: Showed moderate to severe reduced left ventricular action fraction. Global hypokinesis. EF 30-35%. Mechanical mitral valve. Moderate
TR.
-Intermittent diuresis as able
Cardiology following
COPD history: Not bronchospastic on exam.
Continue Symbicort 160mcg + Spiriva 2.5mcg/act
DuoNebs as needed.
Steroids discontinued
Significant deconditioning/muscle mass loss.
Aggressive physical therapy/Occupational Therapy/nutrition
Diet as per PEARL PELLER - patient has difficulty swallowing still due to mouth/throat pain. He also does not like drinking ensure. Continue multivitamin in interim to avoid vitamin deficiencies
PT/OT both recommending acute rehab
DVT ppx- SCD; coumadin with heparin bridge
GI prophylaxis with Protonix
Disposition efforts

Data:
CXR 03-17-2024:
1. Stable radiographic appearance of bilateral perihilar pulmonary opacities, left greater than right.
2. Moderate right and small left pleural effusions.
3. Cardiomegaly.
4. Interval removal of the right internal jugular central venous catheter.
CXR 03/13/2024:
There is moderate diffuse prominence of the bronchovascular markings throughout both lungs which more likely reflects pulmonary edema than diffuse interstitial pneumonia as there is mild cardiomegaly and small bilateral pleural effusions.
Correlation with the patient's BNP is recommended.
Chest ultrasound 03/12/2024:
Moderate right pleural effusion. Stable
CXR 03-09-2024:
1. New large 10 cm airspace opacity in the left mid and lower lung which was not present 12/05/2023. Diagnostic possibilities are (1) severe pneumonia, (2) pulmonary hemorrhage, or (3) asymmetric alveolar pulmonary edema.
2. Moderate acute interstitial cardiogenic pulmonary edema.
3. Moderate to severe bilateral upper lobe emphysema.
4. Mild cardiomegaly with evidence for previous mitral valve replacement.
5. Small right pleural effusion and adjacent moderate compressive atelectasis in the right lower lobe.
Chest CT 03/09/2024:
1. Small bilateral pleural effusions, right greater than left.
2. Near complete atelectasis of the right lower lobe with soft tissue attenuation material within bronchi to the right lower lobe which could be related to either secretions or aspiration.
3. Combination of atelectasis and dense airspace consolidation throughout the left upper and lower lobes as above. As on the right, there is soft tissue attenuation opacification of left lower lobe bronchi could be related to either secretions or
aspiration.
4. Advanced emphysematous changes.
Echo 03/18/2024:
Left ventricular ejection fraction is 25% with global hypokinesis.
Normal right ventricular size and function.
Severe biatrial enlargement.
Mechanical MV is well seated with a mean gradient of 4 mmHg.
Moderate tricuspid regurgitation.
Estimated PASP 58 mmHg and an estimated RA 15 mmHg.
Compared to previous echo images of 03/10/2024 there has been some improvement
in LVEF from 15-20% to 25%.
Echo 03/10/2024:
Severely reduced left ventricular systolic function. Left ventricular ejection
fraction appears 15-20% by visual assessment.
Global hypokinesis.
Normal right ventricular size with reduced systolic function.
Well seated normally functioning mechanical mitral valve.
Moderate tricuspid regurgitation with moderate pulmonary hypertension.
Compared to the images from 06/05/2023, the left ventricular systolic function
has decreased from 30 to 35% to 15 to 20%. The right ventricle is no longer
dilated but reduced systolic function is now seen.
Subjective Data
-
Date of Service:
Date of Service: March 22, 2024
Chief Complaint: Pulmonary Follow Up
Subjective:
Patient examined earlier this morning. Late entry. He denies shortness of breath, chest pain, any further hemoptysis. He states he is using his home BiPAP. Remains on oxygen
Objective Data
Data Reviewed
Vital Signs / I&O / Oxygen:
Vital Signs
Temp Pulse Resp BP Pulse Ox
97.8 F 61 18 116/55 100
03/22/24 11:00 03/22/24 11:00 03/22/24 11:00 03/22/24 11:00 03/22/24 11:00
Intake and Output
03/21/24 03/22/24 03/23/24
06:59 06:59 06:59
Intake Total 120 / 120 240 / 240
Output Total 400 / 400 1300 / 1300
Balance -280 / -280 -1060 / -1060
SaO2 [A/C] 98
SaO2 [NIV (Non Invasive 96
Ventilation)]
SaO2 100
Nasal Cannula flow liters per 2
minute
Physical Exam
General: Comfortable (Cachectic)
HEENT: Normocephalic and Anicteric
Cardiovascular: S1-S2, Regular Rhythm, Murmur (n), Peripheral Edema (+1 lower extremity edema bilaterally) and Other (Mechanical heart sounds)
Respiratory: Wheeze (negative), Crackles (Minimal at base), Rhonchi (negative), Non-Labored Respirations, Stridor (n) and Other (Reduced breath sounds bilaterally)
GI: Soft, Non Distended and Non Tender
Neurology: Lethargic (But arousable, following commands)
Skin: Cyanosis (n), Jaundice (n), Rash (n) and Other (Well-healed sternal incision)
Labs/Micro/Reports
Lab Data
03/22/24 06:05
03/22/24 06:04
Laboratory Results
03/21/24 03/21/24 03/22/24
15:36 23:31 06:04
PT 28.8 H
INR 2.73
APTT 39.8 H 88.6 H 179.2 H*
03/22/24 03/22/24
07:35 13:56
PT Cancelled
INR Cancelled
APTT 30.1
Microbiology
03/11/24 15:19 Bronch Washing Fungal Culture - Preliminary
Mckayla glabrata (Beronica mcgee)
[2024-03-22 15:00] VITALS: BP 122/49
[2024-03-22] MEDS: COUMADIN 1 MG PO (18:13)
[2024-03-22 19:00] VITALS: BP 102/45
--- NOTE | 2024-03-22 19:26 | PTCARENOTE ---
pt wtih new black bruise noted on arm. Hg stable, left elbow elevated on MD glenys aware and ordered ok to give coumadin
[2024-03-22] MEDS: TOPROL XL 25 MG PO (21:21)
[2024-03-22 23:00] VITALS: BP 108/51
[2024-03-23] VITALS (10 sets, daily range): BP systolic 96–122; BP diastolic 40–54
--- NOTE | 2024-03-23 02:34 | PTCARENOTE ---
Pt. had 14 beat run of v-tach. Pt. asymptomatic. DAV Mcdermott notified. Plan of care ongoing.
[2024-03-23 08:40] LABS: INR 2.61; PT 27.8 Sec (11.4-14.6)
[2024-03-23] MEDS: SENOKOT-S 1 TABLET PO (08:49)
[2024-03-23] MEDS: PROTONIX 40 MG PO ×2 (08:49→21:11)
[2024-03-23] MEDS: MIRALAX 17 GRAMS PO (08:49)
[2024-03-23] MEDS: FIRST-MOUTHWASH BLM SUSPENSION 5 ML PO (08:49)
[2024-03-23] MEDS: DAILY VITAMIN/CENTRUM 15 ML PO (08:49)
[2024-03-23] MEDS: DUPHALAC/CHRONULAC 20 GRAMS PO (08:49)
[2024-03-23] MEDS: JARDIANCE 10 MG PO (08:51)
[2024-03-23 08:54] LABS: ALT (SGPT) 16 U/L (0-50); AST (SGOT) 38 U/L (17-59); Albumin 2.7 g/dl (3.5-5.0); Alkaline Phosphatase 89 U/L (38-126); Blood Urea Nitrogen 24 mg/dl (9-20); Calcium 8.6 mg/dl (8.4-10.2); Carbon Dioxide 37 mmol/L (22-30); Chloride 95 mmol/L (98-107); Estimated Creatinine Clearance 82 ml/min; Glucose 96 mg/dl (70-99); Potassium 4.9 mmol/L (3.5-5.1); Sodium 132 mmol/L (135-145); Total Bilirubin 1.5 mg/dl (0.2-1.3); Total Protein 5.9 g/dl (6.3-8.2); eGFR > 60.00
[2024-03-23] MEDS: SPIRIVA RESPIMAT 2.5 MCG 2 PUFF INH (08:57)
[2024-03-23] MEDS: SYMBICORT 160/4.5 MCG INHALER 2 PUFF INH ×2 (08:57→18:09)
[2024-03-23 09:15] LABS: Hematocrit 24.6 % (39.0-52.0); Hemoglobin 7.7 g/dL (13.0-18.0); Mean Corp Hgb Conc. 31.3 g/dL (33.0-37.0); Mean Corpuscular Hgb 31.8 pg (27.0-31.0); Mean Corpuscular Volume 101.7 fL (80.0-94.0); Platelet Count 85 10^3/uL (130-400); Red Blood Cell Count 2.42 10^6/uL (4.70-6.10); Red Cell Dist. Width 15.2 % (11.5-14.5)
--- NOTE | 2024-03-23 12:21 | W.PN.HOSP.TC ---
Today's Communication/Plan
-
1 unit PRBC, type/screen/consented
CT to eval for RP bleed postcath
Assessment / Plan
Assessment / Plan
HPI: 78-year-old male with a past medical history of atrial fibrillation on Coumadin, newly diagnosed cirrhosis, CAD, COPD, KIKI on CPAP, GERD, peptic ulcer disease, CHF, and hypertension presents with a 1 day history of fever, hemoptysis, and
shortness of breath. Family reports that he was coughing up blood intermittently overnight, with fever. Associated symptoms include hematemesis, lethargy, agitation. Patient was found to be in acute hypoxic respiratory failure in the ER, and
placed on a nonrebreather. He was also found to have septic shock from pneumonia, with pulmonary edema. He is getting vancomycin and cefepime in the ER, and currently on a Levophed drip. He is on prednisone 60 mg daily since June 2023, unclear
why.
Assessment:
Septic shock, present upon admission
Severe pneumonia
- completed antibiotics and steroid course
Acute respiratory failure with hypoxia due to severe left sided CAP + acute pulmonary edema with right pleural effusion
VDRF (Intubated 03/10/2024, extubated 03/13/2024)
- extubated to BiPAP and now on 2L NC
Acute COPD exacerbation due to above
- steroids course completed
Acute on chronic heart failure with reduced ejection fraction
- Echo 06/05/2023 EF 30-35%, global hypokinesis, mechanical mitral valve, mild MR, moderate TR
- Echo 03/10 with EF 15-20%, repeat with 25%
- s/p IV Lasix course
- continue Jardiance
- s/p LHC 03/21: Moderate global hypokinesis with EF 38%. Mild CAD similar to its appearance from the 2020 study
Hemoptysis due to pneumonia in the setting of chronic anticoagulation with supratherapeutic INR
- s/p bronch 03/11: unremarkable
Constipation
- Miralax/Senna/Colace
- Lactulose added to bowel regimen
Hyperglycemia likely steroid induced
- A1c appreciated 5.6 non-diabetic
- no significant hyperglycemia since discontinuation of stress steroids
Hypophosphatemia
Hypomagnesemia
Hypocalcemia
- Monitor and replete as necessary
Coagulopathy
Paroxysmal atrial fibrillation
Mechanical aortic valve on Coumadin
- INR currently 2.61
- redose Coumadin 1mg tonight
- follow INRs
- holding off BB due to hypotension; resume post-cath when able
Acute blood loss anemia
- likely post-cath, but with significant drop. check CT for RP bleed
- no suggestion of cath site hematoma
- 1 unit PRBC ordered
Type II RI from demand ischemia vs nonischemic myocardial injury in the setting of acute illness (sepsis)
- Troponin peaked at 0.148 since trended down
Hematemesis
- Likely from swallowed blood products from hemoptysis
- Protonix 40 mg PO twice daily
- H&H stable
Hyponatremia
- Due to CHF, monitor
- Stable 120s improving following restart Lasix
- Since improved, at appropriate rate, to low 130s
Acute kidney injury likely d/t shock as above resolving
- baseline is normal, initial creatine 1.5 increased to 2.1 since trended down
- From CHF and septic shock
- Monitor creatinine, avoid nephrotoxic drugs/NSAIDs
- weaned off pressor support as above
Thrombocytopenia
- Due to sepsis, monitor
- will transfuse if <20 or <50 with active bleeding
DTI (Deep Tissue Injury) sacral pressure injury
- cont local wound care
Recently diagnosed cirrhosis
- Follows with Dr. Saunders outpatient
DVT ppx: Coumadin
Code: Full
Dispo: Acute rehab when stable.
Anticipated Discharge: > 48 hours
Subjective/Interval History
-
Date of Service: March 23, 2024
feels more fatigued
Hb 7.7, no evidence of bleeding externally
Objective Data
-
Labs:
Laboratory Results
03/23/24 03/23/24
08:13 08:55
WBC 5.0
Hgb 7.7 L
Hct 24.6 L
Plt Count 85 L
PT 27.8 H
INR 2.61
Sodium 132 L
Potassium 4.9
Chloride 95 L
Carbon Dioxide 37 H
BUN 24 H
Creatinine 0.8
Glucose 96
Calcium 8.6
Total Bilirubin 1.5 H
AST 38
ALT 16
Alkaline Phosphatase 89
Vital Signs:
Vital Signs
Temp Pulse Resp BP Pulse Ox
97.8 F 72 18 102/44 94
03/23/24 11:45 03/23/24 11:45 03/23/24 11:45 03/23/24 11:45 03/23/24 11:45
I&O
03/22/24 03/23/24 03/24/24
06:59 06:59 06:59
Intake Total 240 / 240 480 / 480
Output Total 1300 / 1300 780 / 780
Balance -1060 / -1060 -300 / -300
Physical Exam
-
General: No Apparent Distress
HEENT: Normocephalic and Atraumatic
Respiratory: Negative Wheezes
Cardiac: Regular Rhythm and S1/S2
GI: Soft
Genito-urinary: No Costovertebral Tender
Musculoskeletal: No Edema
Neuro: AO x 3
Hematologic / Lymphatic: No Lymphadenopathy
Psych: Calm
Data Reviewed
-
Total Time Spent with Patient (in minutes): 44
Labs: Labs Reviewed by me
[2024-03-23 13:09] LABS: Hematocrit 24.2 % (39.0-52.0); Hemoglobin 7.8 g/dL (13.0-18.0)
--- NOTE | 2024-03-23 13:37 | W.PN.PUL3 ---
Today's Communication / Plan
-
Await abdominal CT findings regarding bleed
Significant improvement in left-sided pneumonia per abdominal images per my review, lung parenchyma
Hemoptysis has resolved, COVID and therapeutic
Would recommend follow-up CT chest in 4 weeks with pulmonary follow-up given possibly of endobronchial process
We will sign off. Please call with questions
Assessment
-
Assessment: 78-year-old male former tobacco smoker with a past medical history of moderate COPD, moderate restrictive lung disease, history of hemoptysis, history of LLL bronchiectasis, history of left-sided pneumonia, history of aspergillus,
chronic anticoagulation for mechanical mitral valve replacement (July 2021), history of COVID-19, HFrEF with RV dysfunction, pulmonary hypertension, history of NHL s/p chemo/XRT (2003), and chronic thrombocytopenia with unremarkable bone marrow
biopsy (10/2023) who presents with shortness of breath, weakness and fever. He also has been coughing up blood which started 1 night [employer]. Patient has low-grade fever to 100.1 �F in the ER, and tachycardic to 115 bpm, tachypnea to 25 respirator,
hypotensive to 72/44, and initially was saturating 66% on room air. Saturations improved to 91% with nonrebreather. Labs showed leukopenia to 2.7 with 20% bands, anemia to 12, elevated INR 4.58, hyponatremia 130, ADRIANA to 1.5, lactic acid elevated
at 2.3, elevated troponin 0.148, increased proBNP of >27,000, and negative COVID-19 antigen; flu A/B swab also negative. Blood cultures were collected. CXR shows a 10 cm left midlung airspace opacity with acute cardiogenic pulmonary edema and a
right-sided pleural effusion with compressive atelectasis. In the ER antibiotics were given with cefepime/vancomycin, he was also given DuoNebs x 1, given IV fluids with NS 0.5L and started on Levophed due to persistent hypotension with SBP in the
80s. Due to patient's vasopressor and oxygen requirements, he is being admitted to the ICU. Critical care services now consulted for additional management/recommendations.
Chronic conditions [employer]: COPD, restrictive lung disease, history of hemoptysis, chronic anticoagulation with warfarin due to mechanical mitral valve replacement (07/2021), history of left lower lobe bronchiectasis, elevated left hemidiaphragm, KIKI on
CPAP, personal history of COVID-19, chronic atrial fibrillation on Coumadin, history of tobacco abuse with [id number] history (quit in 2018), history of HFrEF with RV dysfunction, mild�moderate pulmonary hypertension, history of GI bleed,
postnasal drip, history of non-Hodgkin's lymphoma s/p chemo/radiation (2003), history of left-sided pneumonia due to Streptococcus pneumonia, history of aspergillus, history of Vieira's esophagus, history of thrombocytopenia s/p unremarkable bone
marrow biopsy.
Transferred out of the ICU 03/15/2024. Pulmonary will continue to follow for hypoxemia.
Impression:
#Acute respiratory failure with hypoxia due to CAP + acute pulmonary edema with right pleural effusion
Intubated 03/10/2024, extubated 03/13/2024.
#Bandemia with 20% bands -due to septic shock from left sided pneumonia (shock state now resolved)
#Severe left-sided CAP
#Septic shock due to above - shock state now resolved
#Lactic acidosis - resolved as of 03/13/2024
#Acute COPD exacerbation due to above
#Acute HFrEF (LVEF: 25%) with global hypokinesis (per TTE from 03/18/2024) --> with LVEF 38% on [facility] 03/21
#Hemoptysis due to pneumonia in the setting of chronic anticoagulation with supratherapeutic INR - hemoptysis now resolved
#Supratherapeutic INR (INR: 2.7 today)
#Hyponatremia
#Acute kidney injury (Cr baseline approx 1.1)
#Elevated troponin likely due to demand ischemia with type II [place]
#Chronic pancytopenia
#Mechanical mitral valve replacement on Coumadin
#Chronic A-fib on Coumadin
#DM type II
#Former smoker
#Former alcohol use
Plan:
At this time, patient appears to be objectively and subjectively improved
Denies any further e
pisodes of hemoptysis, platelets stable
Chest x-ray from 03/17 with persistent bibasilar infiltrate, rounded area of consolidation/effusion right base
98% on 2 L
INR Therapeutic
Abdominal CT with significant improvement in parenchymal disease, report pending
Hemoglobin drop noted
Moving forward:
Patient underwent left heart catheterization showing mild CAD similar to prior LHC from 2020, + moderate global hypokinesis with EF 38%, which is an improvement from prior echo on 03/18/2024
Continue to wean oxygen as able to maintain SpO2 >88%
Continue with nocturnal CPAP, and ok to use patient's own machine; bleed O2 if needed to CPAP to keep SpO2 >88%
Completed course of Levaquin 03/15/2024
Chest x-ray with stable right pleuroparenchymal process
Follow clinically
Abdominal CT obtained per primary service. Significant improvement in left parenchymal process. There is still mild right lower lobe nodular atelectasis, consolidation which also has improved but not resolved
Admission CT chest with near complete atelectasis of right lower lobe with questionable soft tissue attenuation of the right mainstem bronchus
Bronchoscopy unremarkable, no obvious airway process; C. glabrata seen --> ID consulted --> no need for treatment
Abdominal CT imaging 03/23 is encouraging but would recommend follow-up CT chest in about 4 weeks with pulmonary follow-up
Coumadin now being restarted; therapeutic
Hemoptysis has resolved
Hemoglobin drop noted. Abdominal CT ordered, report pending
Resp and AFB cultures negative, remains off antibiotic, completed course
Fungus Cx from prior BAL on 03/11/2024 now growing Mckayla glabrata --> ID consulted --> No Abx treatment needed
S/p mechanical mitral valve replacement. On warfarin with goal INR 2.5-3 5.5.
- Supratherapeutic INR as above --> INR now below goal, heparin gtt on as bridge and coumadin resumed
- Echocardiogram 03/10/2024 noted with decreased LVEF down to 15-20 %. Last echocardiogram available 06/05/2023: Showed moderate to severe reduced left ventricular action fraction. Global hypokinesis. EF 30-35%. Mechanical mitral valve. Moderate
TR.
-Intermittent diuresis as able
Cardiology following
COPD history: Not bronchospastic on exam.
Continue Symbicort 160mcg + Spiriva 2.5mcg/act
DuoNebs as needed.
Steroids discontinued
Significant deconditioning/muscle mass loss.
Aggressive physical therapy/Occupational Therapy/nutrition
Diet as per [employer] - patient has difficulty swallowing still due to mouth/throat pain. He also does not like drinking ensure. Continue multivitamin in interim to avoid vitamin deficiencies
PT/OT both recommending acute rehab
DVT ppx- SCD; coumadin with heparin bridge
GI prophylaxis with Protonix
Disposition efforts
We will sign off. Please call with questions

Data:
CXR 03-17-2024:
1. Stable radiographic appearance of bilateral perihilar pulmonary opacities, left greater than right.
2. Moderate right and small left pleural effusions.
3. Cardiomegaly.
4. Interval removal of the right internal jugular central venous catheter.
CXR 03/13/2024:
There is moderate diffuse prominence of the bronchovascular markings throughout both lungs which more likely reflects pulmonary edema than diffuse interstitial pneumonia as there is mild cardiomegaly and small bilateral pleural effusions.
Correlation with the patient's BNP is recommended.
Chest ultrasound 03/12/2024:
Moderate right pleural effusion. Stable
CXR 03-09-2024:
1. New large 10 cm airspace opacity in the left mid and lower lung which was not present 12/05/2023. Diagnostic possibilities are (1) severe pneumonia, (2) pulmonary hemorrhage, or (3) asymmetric alveolar pulmonary edema.
2. Moderate acute interstitial cardiogenic pulmonary edema.
3. Moderate to severe bilateral upper lobe emphysema.
4. Mild cardiomegaly with evidence for previous mitral valve replacement.
5. Small right pleural effusion and adjacent moderate compressive atelectasis in the right lower lobe.
Chest CT 03/09/2024:
1. Small bilateral pleural effusions, right greater than left.
2. Near complete atelectasis of the right lower lobe with soft tissue attenuation material within bronchi to the right lower lobe which could be related to either secretions or aspiration.
3. Combination of atelectasis and dense airspace consolidation throughout the left upper and lower lobes as above. As on the right, there is soft tissue attenuation opacification of left lower lobe bronchi could be related to either secretions or
aspiration.
4. Advanced emphysematous changes.
Echo 03/18/2024:
Left ventricular ejection fraction is 25% with global hypokinesis.
Normal right ventricular size and function.
Severe biatrial enlargement.
Mechanical MV is well seated with a mean gradient of 4 mmHg.
Moderate tricuspid regurgitation.
Estimated PASP 58 mmHg and an estimated RA 15 mmHg.
Compared to previous echo images of 03/10/2024 there has been some improvement
in LVEF from 15-20% to 25%.
Echo 03/10/2024:
Severely reduced left ventricular systolic function. Left ventricular ejection
fraction appears 15-20% by visual assessment.
Global hypokinesis.
Normal right ventricular size with reduced systolic function.
Well seated normally functioning mechanical mitral valve.
Moderate tricuspid regurgitation with moderate pulmonary hypertension.
Compared to the images from 06/05/2023, the left ventricular systolic function
has decreased from 30 to 35% to 15 to 20%. The right ventricle is no longer
dilated but reduced systolic function is now seen.
Subjective Data
-
Date of Service:
Date of Service: March 23, 2024
Chief Complaint: Pulmonary Follow Up
Subjective:
Patient is without complaints. He is anxious for discharge. Denies any further hemoptysis. Denies chest pain. INR is therapeutic on Coumadin
Objective Data
Data Reviewed
Vital Signs / I&O / Oxygen:
Vital Signs
Temp Pulse Resp BP Pulse Ox
97.8 F 72 18 102/44 94
03/23/24 11:45 03/23/24 11:45 03/23/24 11:45 03/23/24 11:45 03/23/24 11:45
Intake and Output
03/22/24 03/23/24 03/24/24
06:59 06:59 06:59
Intake Total 240 / 240 480 / 480
Output Total 1300 / 1300 780 / 780
Balance -1060 / -1060 -300 / -300
SaO2 [A/C] 98
SaO2 [NIV (Non Invasive 96
Ventilation)]
SaO2 94
Nasal Cannula flow liters per 2
minute
Physical Exam
General: Comfortable (Cachectic)
HEENT: Normocephalic and Anicteric
Cardiovascular: S1-S2, Regular Rhythm, Murmur (n), Peripheral Edema (+1 lower extremity edema bilaterally) and Other (Mechanical heart sounds)
Respiratory: Wheeze (negative), Crackles (Minimal at base), Rhonchi (negative), Non-Labored Respirations, Stridor (n) and Other (Reduced breath sounds bilaterally)
GI: Soft, Non Distended and Non Tender
Neurology: Awake, Alert and No Motor Deficits (Generally weak, moves all extremities)
Skin: Cyanosis (n), Jaundice (n), Rash (n) and Other (Well-healed sternal incision)
Labs/Micro/Reports
Lab Data
03/23/24 12:53
03/23/24 08:13
Laboratory Results
03/22/24 03/23/24
13:56 08:13
PT 27.8 H
INR 2.61
APTT 30.1
--- NOTE | 2024-03-23 15:39 | W.PN.CD ---
Today's Communication / Plan
-
pRBC, then IV lasix
1mg coumadin
Impression / Plan
-
A: 78-year-old gentleman with a past medical history of permanent atrial fibrillation, mechanical mitral valve replacement on chronic Coumadin, coronary artery disease, heart failure with reduced EF (15-20%), COPD, pulmonary hypertension
non-Hodgkin's lymphoma presents with shortness of breath and hemoptysis. Also respiratory failure 2/2 PNA requiring intubation and mechanical ventilation and shock requiring pressor support.
Shock, likely primarily septic in the setting of pneumonia (could be component of cardiogenic with severely depressed EF): resolved
-now extubated and off pressors
Hemoptysis, s/p vitamin K
-resolved
Anemia: acute on chronic
-high risk: on OAC for mechanical MVR; monitor Hgb closely
-no evidence of RP bleed on CT today
-agree with pRBC today
NICM, now with decline in LVEF, HFrEF now 25%, acute on chronic (prior LVEF 30-35% in 05/2023)
-cath 03/21: non-obstructive CAD
-resumed Toprol XL 25mg qHS 03/22
-Jardiance has been resumed previously
-BP borderline: will add entresto if improves this admission
-lasix x1 today with pRBC, then assess for daily lasix tomorrow
Permanent atrial fibrillation
-Remains rate controlled on Toprol
-Oral Anticoagulation: Warfarin (mechanical mitral valve), 1mg tonight
Status post mechanical mitral valve replacement
- Goal INR 2.5�3.5
Abnormal troponin, likely nonischemic myocardial injury in the setting of acute illness (sepsis)
Hyponatremia, hypervolemic, follow with diuresis
CAD, nonobstructive, 20-30% pLAD stenosis by [facility] 2020
S/p Micra PPM
Cirrhosis
COPD
Former smoker, continued cessation recommended
Subjective:
Feeling better each day.
TTE Mar 18 2024: CONCLUSIONS
Left ventricular ejection fraction is 25% with global hypokinesis.
Normal right ventricular size and function.
Severe biatrial enlargement.
Mechanical MV is well seated with a mean gradient of 4 mmHg.
Moderate tricuspid regurgitation.
Estimated PASP 58 mmHg and an estimated RA 15 mmHg.
Compared to previous echo images of 03/10/2024 there has been some improvement
in LVEF from 15-20% to 25%.
Physical Exam
Vital Signs/Labs
Vital Signs
Temp Pulse Resp BP Pulse Ox
97.8 F 78 20 98/50 96
03/23/24 15:24 03/23/24 15:24 03/23/24 15:24 03/23/24 15:24 03/23/24 15:04
03/23/24 12:53
03/23/24 08:13
PT 27.8 Sec (11.4-14.6) H 03/23/24 08:13
INR 2.61 03/23/24 08:13
APTT 30.1 Sec (23.4-35.0) 03/22/24 13:56
Magnesium 1.7 mg/dl (1.6-2.3) 03/21/24 06:53
Triglycerides 96 mg/dl (10-149) 03/14/24 05:18
03/09/24
08:50
[id number] Pept > [id number]
Physical Exam
Constitutional: No acute distress and Comfortable
EENT: Moist mucous membranes
Cardiovascular: Rhythm/rate is irregular, Pedal edema present, JVD present and Other (+mechanical valve click)
Respiratory: Respiratory effort normal and Lungs clear to auscul.
GI: Soft, Distention absent and Flat
Neuro/Psych: AO x 3
Data Reviewed
-
Date of Service: March 23, 2024
EKG: Other (Tele: A fib, occasional V pacing)
Labs: Labs Reviewed by me
[2024-03-23] MEDS: COUMADIN 1 MG PO (17:09)
[2024-03-23] MEDS: LASIX 40 MG IV (18:18)
[2024-03-23 18:23] LABS: Urine Albumin Trace (Neg - Trace); Urine Bilirubin 1+ (Negative); Urine Character Clear (Clear); Urine Color Yellow; Urine Glucose 3+ (Negative); Urine Ketone Trace (Negative); Urine Leukocyte Trace (Negative); Urine Nitrite Negative (Negative); Urine Occult Blood Negative (Negative); Urine Specific Gravity 1.015 (<1.030); Urine Urobilinogen 2+ (Neg - 1+)
[2024-03-23 18:59] LABS: Urine Squamous Cell >30 /LPF (Few)
[2024-03-23 19:00] LABS: Urine Bacteria Few (Negative); Urine Red Blood Cell None Seen /HPF (0-2); Urine Yeast Few (Negative)
[2024-03-23] MEDS: TOPROL XL PO (21:06)
[2024-03-23] MEDS: DUPHALAC/CHRONULAC PO (21:10)
[2024-03-23] MEDS: SENOKOT-S PO (21:11)
[2024-03-24] VITALS (8 sets, daily range): BP systolic 95–119; BP diastolic 41–58; PULSE 74; O2SAT 96–98; BMI 23.6
--- NOTE | 2024-03-24 05:53 | W.PN.HOSP.TC ---
Today's Communication/Plan
-
PT/OT
increased coumadin to 2.5 mg QPM, bridging with Lovenox while INR subtherapeutic
daily INR checks
monitor H&H
Diuresis Aldactone as per cardio
discharge planning.
Assessment / Plan
Assessment / Plan
Physical Exam
General: No Apparent Distress
HEENT: Normocephalic and Atraumatic
Respiratory: Negative Wheezes
Cardiac: Irregular irregular
GI: Soft
Genito-urinary: No Costovertebral Tender
Ext: Lower ext pitting edema +2 b/l
Neuro: AO x 3
Hematologic / Lymphatic: No Lymphadenopathy
Psych: Calm
HPI: 78-year-old male with a past medical history of atrial fibrillation on Coumadin, newly diagnosed cirrhosis, CAD, COPD, KIKI on CPAP, GERD, peptic ulcer disease, CHF, and hypertension presents with a 1 day history of fever, hemoptysis, and
shortness of breath. Family reports that he was coughing up blood intermittently overnight, with fever. Associated symptoms include hematemesis, lethargy, agitation. Patient was found to be in acute hypoxic respiratory failure in the ER, and
placed on a nonrebreather. He was also found to have septic shock from pneumonia, with pulmonary edema. He is getting vancomycin and cefepime in the ER, and currently on a Levophed drip. He is on prednisone 60 mg daily since June 2023, unclear
why.
Assessment:
Septic shock, present upon admission
Severe pneumonia
- completed antibiotics and steroid course
Acute respiratory failure with hypoxia due to severe left sided CAP + acute pulmonary edema with right pleural effusion
VDRF (Intubated 03/10/2024, extubated 03/13/2024)
- extubated to BiPAP since weaned off oxygen supplementation to room air
Acute COPD exacerbation due to above
- steroids course completed
Acute on chronic heart failure with reduced ejection fraction
- Echo 06/05/2023 EF 30-35%, global hypokinesis, mechanical mitral valve, mild MR, moderate TR
- Echo 03/10 with EF 15-20%, repeat with 25%
Cardio eval appreciated
- s/p IV Lasix course, home lasix to resume 03/25/24, Aldactone to be started instead of restarting potassium supplementation
- continue Jardiance
- s/p LHC 03/21: Moderate global hypokinesis with EF 38%. Mild CAD similar to its appearance from the 2020 study
Hemoptysis due to pneumonia in the setting of chronic anticoagulation with supratherapeutic INR
- s/p bronch 03/11: unremarkable
Constipation
- Miralax/Senna/Colace
- Lactulose added to bowel regimen
Hyperglycemia likely steroid induced
- A1c appreciated 5.6 non-diabetic
- no significant hyperglycemia since discontinuation of stress steroids
Hypophosphatemia
Hypomagnesemia
Hypocalcemia
- Monitor and replete as necessary
Coagulopathy
Paroxysmal atrial fibrillation
Mechanical aortic valve on Coumadin
- INR goal 2.5-3.5
- cont Coumadin dosing, increased back to home dosage 2.5 mg QPM, bridging with Lovenox when INR subtherapeutic
- BB held due to hypotension since resumed
Acute blood loss anemia
- likely post-cath, but with significant drop. CT neg for RP bleed, hyperdensity in bladder concerning for hemorrhagic products, mod fecal material colon, Increased Gallstones, Moderate right small left pleural effusions stable from prior CXR. New
mild right lower lobe and grossly stable right middle lobe consolidation (stable respiratory status on room air recently completed course of abx), Enlarged fluid collection supraumbilical region anterior wall possibly d/t hernia or sebaceous cyst.
- no suggestion of cath site hematoma
- received 1 unit PRBC with appropriate response to transfusion noted 7.8 increased to 8.5
Type II CO from demand ischemia vs nonischemic myocardial injury in the setting of acute illness (sepsis)
- Troponin peaked at 0.148 since trended down
Hematemesis
- Likely from swallowed blood products from hemoptysis
- Protonix 40 mg PO twice daily
- H&H stable
-since resolved
Hyponatremia
- Due to CHF, monitor
- Stable 120s improving following restart Lasix
- Since improved, at appropriate rate, to low 130s
-stable
Acute kidney injury likely d/t shock as above resolved
- baseline is normal, initial creatine 1.5 increased to 2.1 since trended down
- From CHF and septic shock
- Monitor creatinine, avoid nephrotoxic drugs/NSAIDs
- weaned off pressor support as above
Thrombocytopenia
- Due to sepsis, monitor
- will transfuse if <20 or <50 with active bleeding
-stable at this time 80s-90s, will cont to monitor
DTI (Deep Tissue Injury) sacral pressure injury
- cont local wound care
Recently diagnosed cirrhosis
- Follows with Dr. Saunders outpatient
DVT ppx: Coumadin
Code: Full
PT/OT
discussed with patient, patient's son Eber, and patient's Connie
I spent a total of 57 minutes with the patient or on the floor. More than 50% of this time involved counseling and coordination of care.
Anticipated Discharge: 24 - 48 hours
Subjective/Interval History
-
Date of Service: March 24, 2024
Seen and examined at bedside in no acute distress sitting up comfortably in chair on room air non-labored respiration. Reports overall feeling well. Denies new acute issues at this time.
Objective Data
-
Labs:
Laboratory Results
03/24/24
06:00
WBC Pending
Hgb Pending
Hct Pending
Plt Count Pending
PT Pending
INR Pending
Sodium Pending
Potassium Pending
Chloride Pending
Carbon Dioxide Pending
BUN Pending
Creatinine Pending
Glucose Pending
Calcium Pending
Vital Signs:
Vital Signs
Temp Pulse Resp BP Pulse Ox
97.8 F 91 17 119/45 96
03/24/24 03:21 03/24/24 03:21 03/24/24 03:21 03/24/24 03:21 03/24/24 03:21
I&O
03/22/24 03/23/24 03/24/24
06:59 06:59 06:59
Intake Total 240 / 240 480 / 480 670 / 670
Output Total 1300 / 1300 780 / 780 850 / 850
Balance -1060 / -1060 -300 / -300 -180 / -180
[2024-03-24] MEDS: SPIRIVA RESPIMAT 2.5 MCG 2 PUFF INH (07:52)
[2024-03-24] MEDS: SYMBICORT 160/4.5 MCG INHALER 2 PUFF INH ×2 (07:53→18:41)
[2024-03-24 08:24] LABS: INR 2.19; PT 24.2 Sec (11.4-14.6)
[2024-03-24 08:27] LABS: Hematocrit 25.6 % (39.0-52.0); Hemoglobin 8.5 g/dL (13.0-18.0); Mean Corp Hgb Conc. 33.2 g/dL (33.0-37.0); Mean Corpuscular Volume 96.2 fL (80.0-94.0); Mean Platelet Volume 9.7 fL (7.4-10.4); Platelet Count 88 10^3/uL (130-400); Red Blood Cell Count 2.66 10^6/uL (4.70-6.10); Red Cell Dist. Width 15.5 % (11.5-14.5)
[2024-03-24] MEDS: DAILY VITAMIN/CENTRUM 15 ML PO (08:30)
[2024-03-24] MEDS: FIRST-MOUTHWASH BLM SUSPENSION 5 ML PO ×2 (08:30→18:14)
[2024-03-24] MEDS: DUPHALAC/CHRONULAC PO ×2 (08:31→20:52)
[2024-03-24] MEDS: MIRALAX 17 GRAMS PO (08:31)
[2024-03-24] MEDS: SENOKOT-S PO ×2 (08:31→20:52)
[2024-03-24] MEDS: PROTONIX 40 MG PO ×2 (08:31→20:52)
[2024-03-24] MEDS: JARDIANCE 10 MG PO (08:33)
[2024-03-24 08:41] LABS: Procalcitonin 0.12 ng/ml (0.0-0.25)
[2024-03-24 08:55] LABS: Blood Urea Nitrogen 26 mg/dl (9-20); Calcium 8.7 mg/dl (8.4-10.2); Carbon Dioxide 38 mmol/L (22-30); Chloride 91 mmol/L (98-107); Estimated Creatinine Clearance 73 ml/min; Glucose 110 mg/dl (70-99); Potassium 4.1 mmol/L (3.5-5.1); Sodium 134 mmol/L (135-145); eGFR > 60.00
--- NOTE | 2024-03-24 09:49 | W.PN.CD ---
Today's Communication / Plan
-
- Will resume usual furosemide on 03/25/2024
- With resumption of Furosemide will NOT RESUME KCl and instead add MRA (Aldactone)
- Later add back ARNI
- Later increase meds to goal/max tolerated doses
- Will need BMP 1 and 3 weeks with new MRA
Impression / Plan
-
A: 78-year-old gentleman with a past medical history of permanent atrial fibrillation, mechanical mitral valve replacement on chronic Coumadin, coronary artery disease, heart failure with reduced EF (15-20%), COPD, pulmonary hypertension
non-Hodgkin's lymphoma presents with shortness of breath and hemoptysis. Also respiratory failure 2/2 PNA requiring intubation and mechanical ventilation and shock requiring pressor support.
Nonischemic cardiomyopathy,
- Echo EF 25%, cath EF 38%, prior LVEF 30-35% in 05/2023)
� � � � � - Back on HF BB and SGLT inhibitor
- Will resume usual furosemide on 03/25/2024
- With resumption of Furosemide will NOT RESUME KCl and instead add MRA (Aldactone)
- Later add back ARNI
- Later increase meds to goal/max tolerated doses
- Will need BMP 1 and 3 weeks with new MRA
Resolved shock, cultures negative
Resolved Hemoptysis
s/p vitamin K => back on warfarin
Mild CAD at cath this admit
Anemia: acute on chronic, s/p 1 U prbc
Permanent atrial fibrillation
Status post mechanical mitral valve replacement
- Goal INR 2.5�3.5
Abnormal troponin, likely nonischemic myocardial injury in the setting of acute illness (sepsis)
S/p Micra PPM
Cirrhosis
COPD
Former smoker, continued cessation recommended
Mod TR
Subjective:
Feeling better each day.
Physical Exam
Vital Signs/Labs
Vital Signs
Temp Pulse Resp BP Pulse Ox
97.4 F 69 16 111/43 100
03/24/24 07:00 03/24/24 08:00 03/24/24 08:00 03/24/24 07:00 03/24/24 08:00
03/23/24 03/24/24 03/25/24
06:59 06:59 06:59
Actual Weight 76.799 kg
03/24/24 07:36
03/24/24 07:36
PT 24.2 Sec (11.4-14.6) H 03/24/24 07:36
INR 2.19 03/24/24 07:36
APTT 30.1 Sec (23.4-35.0) 03/22/24 13:56
Magnesium 1.7 mg/dl (1.6-2.3) 03/21/24 06:53
Triglycerides 96 mg/dl (10-149) 03/14/24 05:18
03/09/24
08:50
Yvk-K-Wdgcdojrzax Pept > 51815
Physical Exam
Constitutional: No acute distress
EENT: Anicteric
Cardiovascular: Rhythm/rate is irregular and S1S2 is normal ([facility] S1)
Respiratory: Lungs clear to auscul.
GI: Soft
Neuro/Psych: Alert
Data Reviewed
-
Date of Service: March 24, 2024
--- NOTE | 2024-03-24 11:50 | PTOTSP ---
ST Follow-Up
Pt continues to present with mild oropharyngeal and esophageal dysphagia characterized by need for small bite sizes and slow intake for swallow initiations as well as possibly reduced airway protection.
Recommendations:
- Upgrade pt's PO diet to SOFT BITE SIZED SOLIDS, continue with regular thin liquids, and continue meds with liquids as tolerated.
- Continue with aspiration precautions: HOB upright for ALL PO intake and for at least 60 minutes after PO intake; take small bites and chew thoroughly; utilize liquid wash for dry foods; alternate liquids and solids.
- [employer] will continue to follow to ensure safe consumption of diet upgrade and re-assess candidacy for further diet upgrades.
--- NOTE | 2024-03-24 14:53 | CM ---
Case management following for d/c planning
Post cardiac cath on 03/21
For acute rehab - will need updated PT/OT eval
CM will continue to follow for d/c needs
Plan - Acute rehab - [facility], when medically stable - no auth needed
[2024-03-24] MEDS: COUMADIN 1 MG PO (17:09)
--- NOTE | 2024-03-24 17:50 | PTCARENOTE ---
clarified coumadin order with attending. additional dose and lovenox added
[2024-03-24] MEDS: COUMADIN 1.5 MG PO (18:13)
[2024-03-24] MEDS: LOVENOX 80 MG SC (18:24)
[2024-03-24] MEDS: TOPROL XL 25 MG PO (22:08)
[2024-03-25 03:00] VITALS: BP 125/60
[2024-03-25] MEDS: LOVENOX 80 MG SC (05:55)
[2024-03-25 07:00] VITALS: BP 114/51
--- NOTE | 2024-03-25 07:31 | W.PN.HOSP.TC ---
Today's Communication/Plan
-
discharge
Assessment / Plan
Assessment / Plan
Physical Exam
General: No Apparent Distress
HEENT: Normocephalic and Atraumatic
Respiratory: Negative Wheezes
Cardiac: Irregular irregular
GI: Soft
Genito-urinary: No Costovertebral Tender
Ext: Lower ext pitting edema +2 b/l
Neuro: AO x 3
Hematologic / Lymphatic: No Lymphadenopathy
Psych: Calm
HPI: 78-year-old male with a past medical history of atrial fibrillation on Coumadin, newly diagnosed cirrhosis, CAD, COPD, KIKI on CPAP, GERD, peptic ulcer disease, CHF, and hypertension presents with a 1 day history of fever, hemoptysis, and
shortness of breath. Family reports that he was coughing up blood intermittently overnight, with fever. Associated symptoms include hematemesis, lethargy, agitation. Patient was found to be in acute hypoxic respiratory failure in the ER, and
placed on a nonrebreather. He was also found to have septic shock from pneumonia, with pulmonary edema. He is getting vancomycin and cefepime in the ER, and currently on a Levophed drip. He is on prednisone 60 mg daily since June 2023, unclear
why.
Assessment:
Septic shock, present upon admission
Severe pneumonia
- completed antibiotics and steroid course
Acute respiratory failure with hypoxia due to severe left sided CAP + acute pulmonary edema with right pleural effusion
VDRF (Intubated 03/10/2024, extubated 03/13/2024)
- extubated to BiPAP since weaned off oxygen supplementation to room air
Acute COPD exacerbation due to above
- steroids course completed
Acute on chronic heart failure with reduced ejection fraction
- Echo 06/05/2023 EF 30-35%, global hypokinesis, mechanical mitral valve, mild MR, moderate TR
- Echo 03/10 with EF 15-20%, repeat with 25%
Cardio eval appreciated
- s/p IV Lasix course, home lasix resumed 03/25/24, Aldactone started instead of restarting potassium supplementation as per Cardio, home lasix also increased to 40 mg daily
- continue Jardiance
- s/p LHC 03/21: Moderate global hypokinesis with EF 38%. Mild CAD similar to its appearance from the 2020 study
Hemoptysis due to pneumonia in the setting of chronic anticoagulation with supratherapeutic INR
- s/p bronch 03/11: unremarkable
Constipation
- Miralax/Senna/Colace
- Lactulose added to bowel regimen
Hyperglycemia likely steroid induced
- A1c appreciated 5.6 non-diabetic
- no significant hyperglycemia since discontinuation of stress steroids
Hypophosphatemia
Hypomagnesemia
Hypocalcemia
- Monitor and replete as necessary
Coagulopathy
Paroxysmal atrial fibrillation
Mechanical aortic valve on Coumadin
- INR goal 2.5-3.5
- cont Coumadin dosing, increased back to home dosage 2.5 mg QPM, bridging with Lovenox when INR subtherapeutic
- BB held due to hypotension since resumed
Acute blood loss anemia
- likely post-cath, but with significant drop. CT neg for RP bleed, hyperdensity in bladder concerning for hemorrhagic products, mod fecal material colon, Increased Gallstones, Moderate right small left pleural effusions stable from prior CXR. New
mild right lower lobe and grossly stable right middle lobe consolidation (stable respiratory status on room air recently completed course of abx), Enlarged fluid collection supraumbilical region anterior wall possibly d/t hernia or sebaceous cyst.
- no suggestion of cath site hematoma
- received 1 unit PRBC with appropriate response to transfusion noted 7.8 increased to 8.5, remains stable since transfusion >8
-outpatient follow up hematology recommended
Type II IN from demand ischemia vs nonischemic myocardial injury in the setting of acute illness (sepsis)
- Troponin peaked at 0.148 since trended down
Hematemesis
- Likely from swallowed blood products from hemoptysis
- Protonix 40 mg PO twice daily
- H&H stable
-since resolved
Hyponatremia
- Due to CHF, monitor
- Stable 120s improving following restart Lasix
- Since improved, at appropriate rate, to low 130s
-stable
Acute kidney injury likely d/t shock as above resolved
- baseline is normal, initial creatine 1.5 increased to 2.1 since trended down
- From CHF and septic shock
- Monitor creatinine, avoid nephrotoxic drugs/NSAIDs
- weaned off pressor support as above
Thrombocytopenia
- Due to sepsis vs cirrhosis, monitor
- will transfuse if <20 or <50 with active bleeding
-stable at this time 80s-90s
-outpt follow up hematology recommended
DTI (Deep Tissue Injury) sacral pressure injury
- cont local wound care
Recently diagnosed cirrhosis
- Follows with Dr. Saunders outpatient
DVT ppx: Coumadin Lovenox bridge while INR subtherapeutic
Code: Full
PT/OT appreciated functional status improved, appropriate for home services
Medically stable for discharge home with home services and outpatient follow up recommendations.
discussed with patient and patient's son Eber,
I spent a total of 57 minutes with the patient or on the floor. More than 50% of this time involved counseling and coordination of care.
Anticipated Discharge: Today
Subjective/Interval History
-
Date of Service: March 25, 2024
Seen and examined at bedside in no acute distress sitting up comfortably in chair. Improved functional status on PT/OT assessments noted. Patient reports feeling well. Denies new acute issues at this time. Eager to go home.
Objective Data
-
Labs:
Laboratory Results
03/25/24
07:05
WBC Pending
Hgb Pending
Hct Pending
Plt Count Pending
PT Pending
INR Pending
Sodium Pending
Potassium Pending
Chloride Pending
Carbon Dioxide Pending
BUN Pending
Creatinine Pending
Glucose Pending
Calcium Pending
Vital Signs:
Vital Signs
Temp Pulse Resp BP Pulse Ox
97.7 F 60 14 125/60 96
03/25/24 03:00 03/25/24 03:00 03/25/24 03:00 03/25/24 03:00 03/25/24 03:00
I&O
03/24/24 03/25/24 03/26/24
06:59 06:59 06:59
Intake Total 670 / 670 120 / 120
Output Total 1575 / 1575 300 / 300
Balance -905 / -905 -180 / -180
[2024-03-25 07:58] LABS: Hematocrit 24.9 % (39.0-52.0); Hemoglobin 8.3 g/dL (13.0-18.0); Mean Corp Hgb Conc. 33.3 g/dL (33.0-37.0); Mean Corpuscular Hgb 32.8 pg (27.0-31.0); Mean Corpuscular Volume 98.4 fL (80.0-94.0); Mean Platelet Volume 10.1 fL (7.4-10.4); Platelet Count 80 10^3/uL (130-400); Red Blood Cell Count 2.53 10^6/uL (4.70-6.10); Red Cell Dist. Width 15.4 % (11.5-14.5); White Blood Cell Count 3.9 10^3/uL (4.8-10.8)
[2024-03-25] MEDS: DAILY VITAMIN/CENTRUM 15 ML PO (08:03)
[2024-03-25] MEDS: ALDACTONE 25 MG PO (08:03)
[2024-03-25] MEDS: FIRST-MOUTHWASH BLM SUSPENSION 5 ML PO (08:03)
[2024-03-25] MEDS: JARDIANCE 10 MG PO (08:04)
[2024-03-25] MEDS: SENOKOT-S PO (08:05)
[2024-03-25] MEDS: MIRALAX PO (08:05)
[2024-03-25] MEDS: DUPHALAC/CHRONULAC PO (08:05)
[2024-03-25] MEDS: LASIX 20 MG PO (08:05)
[2024-03-25] MEDS: PROTONIX 40 MG PO (08:05)
[2024-03-25 08:06] LABS: INR 2.32; PT 25.4 Sec (11.4-14.6)
[2024-03-25] MEDS: SYMBICORT 160/4.5 MCG INHALER 2 PUFF INH (08:08)
[2024-03-25] MEDS: SPIRIVA RESPIMAT 2.5 MCG 2 PUFF INH (08:08)
[2024-03-25 08:13] LABS: Blood Urea Nitrogen 25 mg/dl (9-20); Calcium 8.6 mg/dl (8.4-10.2); Chloride 90 mmol/L (98-107); Estimated Creatinine Clearance 73 ml/min; Glucose 95 mg/dl (70-99); Magnesium 1.7 mg/dl (1.6-2.3); Phosphorus 3.4 mg/dl (2.5-4.5); Potassium 4.2 mmol/L (3.5-5.1); Sodium 134 mmol/L (135-145); eGFR > 60.00
[2024-03-25 08:29] LABS: Carbon Dioxide 37 mmol/L (22-30)
--- NOTE | 2024-03-25 08:29 | W.PN.CD ---
Today's Communication / Plan
-
Increase outpt Lasix to 40 mg daily
Cont medications, will need outpatient titration
INR 2.3 Lovenox shots until therapeutic
Adamant about going home
Impression / Plan
-
A: 78-year-old gentleman with a past medical history of permanent atrial fibrillation, mechanical mitral valve replacement on chronic Coumadin, coronary artery disease, heart failure with reduced EF (15-20%), COPD, pulmonary hypertension
non-Hodgkin's lymphoma presents with shortness of breath and hemoptysis. Also respiratory failure 2/2 PNA requiring intubation and mechanical ventilation and shock requiring pressor support. He is now s/p cath which showed no significant new CAD.
Nonischemic cardiomyopathy,
- Echo EF 25%, cath EF 38%, prior LVEF 30-35% in 05/2023)
� � � � � - Back on HF BB and SGLT inhibitor
- Cont lasix, spironolactone 25 mg and jardiance
- Later add back ARNI
- Later increase meds to goal/max tolerated doses
- Will need BMP 1 and 3 weeks with new MRA
Resolved shock, cultures negative
Resolved Hemoptysis
s/p vitamin K => back on warfarin
Mild CAD at cath this admit
Anemia: acute on chronic, s/p 1 U prbc
Permanent atrial fibrillation
Status post mechanical mitral valve replacement INR March 14 2.3
- Goal INR 2.5�3.5
Abnormal troponin, likely nonischemic myocardial injury in the setting of acute illness (sepsis)
S/p Micra PPM
Cirrhosis
COPD
Former smoker, continued cessation recommended
Mod TR
Subjective:
Feels good today adamant about leaving says he will f/u in office, overall feeling well
Physical Exam
Vital Signs/Labs
Vital Signs
Temp Pulse Resp BP Pulse Ox
97.4 F 68 16 114/51 96
03/25/24 07:00 03/25/24 08:15 03/25/24 08:15 03/25/24 08:03 03/25/24 08:15
03/24/24 03/25/24 03/26/24
06:59 06:59 06:59
Actual Weight 169 lb 5 oz
03/25/24 07:05
03/25/24 07:05
PT 25.4 Sec (11.4-14.6) H 03/25/24 07:05
INR 2.32 03/25/24 07:05
APTT 30.1 Sec (23.4-35.0) 03/22/24 13:56
Magnesium 1.7 mg/dl (1.6-2.3) 03/25/24 07:05
Triglycerides 96 mg/dl (10-149) 03/14/24 05:18
03/09/24
08:50
Bcl-Q-Xautlrezjhx Pept > 51976
Physical Exam
Constitutional: No acute distress
EENT: Anicteric
Cardiovascular: Rhythm/rate is irregular and Pedal edema present (R>L )
Respiratory: Respiratory effort normal and Lungs clear to auscul.
GI: Soft
Neuro/Psych: AO x 3
Data Reviewed
-
Date of Service: March 25, 2024
EKG: Tracing Personally Visualized and interpreted (paced irregular )
Echo: Report Reviewed by me
Labs: Labs Reviewed by me
[2024-03-25 09:38] VITALS: BP 121/53; BP 122/53; PULSE 65; O2SAT 99
[2024-03-25 11:00] VITALS: BP 107/48
--- NOTE | 2024-03-25 11:03 | CM ---
Case management following for d/c planning
Pt for d/c today
CM consult for VN
Discussed with pt - has no preference
Referred to [facility] - TT sent to Liaison
Reports will have ride home with or son
Discussed IMM
Plan - anticipate home with [facility]
[2024-03-25 13:35] LABS: Iron 71 ug/dl (49-181)
[2024-03-25 13:45] LABS: Percent Saturation 31 % (20-50); Total Iron Binding Capacity 226 ug/dl (261-462)
--- NOTE | 2024-03-25 14:14 | VNURNOTE ---
Home Health Liaison met with patient at 1115 to discuss [facility] nurse/therapy, visits, schedule and homebound status. Patient is agreeable and understands that visits at home will be 2-3 x per week to assess and teach medical management.
[facility] brochure provided with contact information. Patient is aware that [facility] will contact him for start of care in 1-2 days after discharge from .
[facility] referral completed in [facility].
--- NOTE | 2024-03-25 14:27 | W.DCSUMMARY ---
Discharge Summary
Discharge Data
Date of Admission: 03/09/24
Date of Discharge: 03/25/24
-
Pending Results: No
Additional Pending Results:
B12 folate levels
Discharge Plan
-
Patient Disposition: Home with Home Care
Discharge Diagnosis/Procedures: Septic Shock Pneumonia Resolved, Acute Kidney Injury Resolved, Acute Hypoxic Respiratory Failure requiring mechanical ventilation since extubated resolved, Mild Coronary Artery Disease, Anemia, Thrombocytopenia,
Cirrhosis, Acute on Chronic Heart Failure with Reduced Ejection Fraction, Hyponatremia, Permanent Atrial Fibrillation, History Mechanical mitral Valve on Coumadin, Subtherapeutic INR, COPD exacerbation, Hemoptysis due to Pneumonia resolved,
Unremarkable Bronchoscopy 03/11
Condition: Fair
Additional Diets: 50 oz fluid restriction, soft bite size diet
Activity: As tolerated and With Walker
Driving Restrictions: Not until seen by your Dr
Bathing Restrictions: None
Blood Work: obtain outpatient CBC and BMP lab tests in 2 days of discharge. Results to be forwarded to your primary care provider and health economist. Script has been provided to facilitate.
Continue with your daily INR checks at home. Continue with prescribed Lovenox and Coumadin when INR is <2.5.
Ok to discontinue Lovenox and continue with Coumadin alone if INR is at goal 2.5-3.5.
If INR >3.5, do not take Coumadin or Lovenox and contact your primary care provider and/or health economist for further recommendations.
Others Tests: Repeat CT chest with pulmonology in 4 weeks of discharge.
Other Services: VN, PT, OT and ST
Specialty Instructions: Weigh Daily- Call MD for wt gain/loss 3 lbs overnight/5 lbs in 1 week
Activity Restrictions/Additional Instructions:
Wound Care Instructions Sacral Wound (DTI)- Clean with saline or soap and water. Apply no-sting barrier and sacral silicone foam and change Q 48 hours and PRN if loose or soiled.
Follow up at wound care center call for an appointment.
Please follow up with Primary care provider in 1 week of discharge, health economist and Accounts Payable Professional in 2-4 weeks of discharge, Sheet Manager in 4 weeks of discharge, and GI in 1 month discharge
warfarin 2.5 mg tablet (Jantoven) 2.5 mg PO DAILY for mechanical mitral valve and atrial fibrillation
fluticasone fur. 100 mcg-umeclid 62.5 mcg-vilant 25 mcg inhalat.powder (Trelegy Ellipta) 1 inh inhalation Q24H For COPD
empagliflozin 10 mg tablet (Jardiance) 10 mg PO DAILY for Heart Failure
omeprazole 20 mg capsule,delayed release 40 mg PO DAILY Gastrointestinal Issue
New Medications
enoxaparin 80 mg/0.8 mL subcutaneous syringe 80 mg (0.8 mL) SC Q12H for bridging while on coumadin until goal INR 2.5-3.5 reached
furosemide 40 mg tablet 40 mg PO DAILY for heart failure
metoprolol succinate 25 mg tablet,extended release 24 hr 25 mg PO HS for heart failure atrial fibrillation
spironolactone 25 mg tablet 25 mg PO DAILY for Heart Failure
Please take medications as prescribed/recommended and follow up with primary care provider and/or other healthcare provider involved in your care for refills and/or further adjustment to your medication regimen as necessary.
Referrals:
Noé Roque DO [Active] - in two to four weeks
Joe Simpson MD [Active] - in three to four weeks
([address] chest without contrast
Hemoptysis and possible endobronchial lesion on the right)
Tony Srinivasan MD [Active] - in two to four weeks
Deann Saunders MD [Active] - in one month
Kylie Liu DO [Family Provider] - in one week
Prescriptions:
New
furosemide 40 mg Tablet
40 mg PO DAILY 30 Days Qty: 30 0RF
spironolactone 25 mg Tablet
25 mg PO DAILY 30 Days Qty: 30 0RF
enoxaparin 80 mg/0.8 mL Syringe
80 mg SC Q12H Qty: 8 0RF
Rx Instructions:
Continue till INR is therapeutic 2.5-3.5
metoprolol succinate 25 mg Tablet Extended Release 24 Hr
25 mg PO HS 30 Days Qty: 30 0RF
Continued
warfarin [Jantoven] 2.5 MG tablet
2.5 mg PO DAILY
Trelegy Ellipta 100-62.5-25 mcg Blister With Device
1 inh INHALATION Q24H
omeprazole 20 mg Capsule,Delayed Release(Dr/Ec)
40 mg PO DAILY
Jardiance 10 mg Tablet
10 mg PO DAILY
Discontinued
metoprolol succinate 50 MG tablet extended release 24 hr
25 mg PO DAILY
furosemide 20 MG tablet
20 mg PO DAILY
potassium chloride [Klor-Con M20] 20 mEq Tablet,Er Particles/Crystals
20 meq PO DAILY
Discharge Orders:
Discharge Patient (As Directed); Ordered 03/25/24
Ordered By: Kimber Rice
Discharge Date and Time
Print Language: THAI
[2024-03-25 15:04] LABS: Folate 5.3 ng/ml (2.76-20); Vitamin B12 988 pg/ml (239-931)
== END 2024-03-25 16:10 | disposition home health service (06) | DRG 871 ==
LOC: 3 WEST ACU 11:07
PROVIDERS: Internal Medicine; Internal Medicine Cardiovascular Disease; Internal Medicine Critical Care Medicine; Nurse Practitioner Family; Nurse Practitioner Gerontology; Nurse Practitioner Primary Care; Radiology Vascular & Interventional Radiology; ADMITTING PHYSICIAN Family Medicine; ATTENDING PHYSICIAN Internal Medicine; CONSULT PHYSICIAN Physical Medicine & Rehabilitation; EMERGENCY PHYSICIAN Emergency Medicine; FAMILY PHYSICIAN Family Medicine; OTHER PHYSICIAN Internal Medicine Cardiovascular Disease; OTHER PHYSICIAN Internal Medicine Critical Care Medicine; OTHER PHYSICIAN Internal Medicine Infectious Disease
PROC: 02HV33Z Insertion of Infusion Device into Superior Vena Cava, Percutaneous Approach (ICD-10-PCS; 2024-03-09)
PROC: 0BH17EZ Insertion of Endotracheal Airway into Trachea, Via Natural or Artificial Opening (ICD-10-PCS; 2024-03-10)
PROC: 5A1945Z Respiratory Ventilation, 24-96 Consecutive Hours (ICD-10-PCS; 2024-03-10)
PROC: 03HY32Z Insertion of Monitoring Device into Upper Artery, Percutaneous Approach (ICD-10-PCS; 2024-03-10)
PROC: 0BC78ZZ Extirpation of Matter from Left Main Bronchus, Via Natural or Artificial Opening Endoscopic (ICD-10-PCS; 2024-03-11)
PROC: 0B968ZZ Drainage of Right Lower Lobe Bronchus, Via Natural or Artificial Opening Endoscopic (ICD-10-PCS; 2024-03-11)
PROC: 0BC38ZZ Extirpation of Matter from Right Main Bronchus, Via Natural or Artificial Opening Endoscopic (ICD-10-PCS; 2024-03-11)
PROC: 5A09357 Assistance with Respiratory Ventilation, Less than 24 Consecutive Hours, Continuous Positive Airway Pressure (ICD-10-PCS; 2024-03-13)
PROC: 4A023N7 Measurement of Cardiac Sampling and Pressure, Left Heart, Percutaneous Approach (ICD-10-PCS; 2024-03-21)
PROC: B2151ZZ Fluoroscopy of Left Heart using Low Osmolar Contrast (ICD-10-PCS; 2024-03-21)
PROC: B2111ZZ Fluoroscopy of Multiple Coronary Arteries using Low Osmolar Contrast (ICD-10-PCS; 2024-03-21)
PROC: 30233N1 Transfusion of Nonautologous Red Blood Cells into Peripheral Vein, Percutaneous Approach (ICD-10-PCS; 2024-03-23)
DX: A41.89 Other specified sepsis (principal); I21.A1 Myocardial infarction type 2; J96.01 Acute respiratory failure with hypoxia; R65.21 Severe sepsis with septic shock; J18.9 Pneumonia, unspecified organism; I50.23 Acute on chronic systolic (congestive) heart failure; I48.21 Permanent atrial fibrillation; J44.0 Chronic obstructive pulmonary disease with (acute) lower respiratory infection; R04.2 Hemoptysis; E87.1 Hypo-osmolality and hyponatremia; N17.9 Acute kidney failure, unspecified; J44.1 Chronic obstructive pulmonary disease with (acute) exacerbation; E87.29 Other acidosis; J98.11 Atelectasis; D68.32 Hemorrhagic disorder due to extrinsic circulating anticoagulants; D61.818 Other pancytopenia; R64 Cachexia; K74.60 Unspecified cirrhosis of liver; I25.10 Atherosclerotic heart disease of native coronary artery without angina pectoris; G47.33 Obstructive sleep apnea (adult) (pediatric); K21.9 Gastro-esophageal reflux disease without esophagitis; I27.20 Pulmonary hypertension, unspecified; T45.515A Adverse effect of anticoagulants, initial encounter; I11.0 Hypertensive heart disease with heart failure; E11.65 Type 2 diabetes mellitus with hyperglycemia; G89.29 Other chronic pain; E78.5 Hyperlipidemia, unspecified; F10.10 Alcohol abuse, uncomplicated; L89.159 Pressure ulcer of sacral region, unspecified stage; Z11.52 Encounter for screening for COVID-19; Z79.01 Long term (current) use of anticoagulants; Z85.72 Personal history of non-Hodgkin lymphomas; Z87.11 Personal history of peptic ulcer disease; Z87.891 Personal history of nicotine dependence; Z92.21 Personal history of antineoplastic chemotherapy; Z92.3 Personal history of irradiation; Z95.2 Presence of prosthetic heart valve; Z86.16 Personal history of COVID-19; Z68.23 Body mass index [BMI] 23.0-23.9, adult; Z79.52 Long term (current) use of systemic steroids; Z79.899 Other long term (current) drug therapy; Z95.0 Presence of cardiac pacemaker; K59.00 Constipation, unspecified; E83.39 Other disorders of phosphorus metabolism; E83.42 Hypomagnesemia; E83.51 Hypocalcemia
CPT/HCPCS: 93308; 36556; 36600; 71045; 71250; 74018; 74176; 76604; 76937; 80048; 80053; 80076; 80202; 81003; 81015; 82248; 82330; 82533; 82607; 82746; 82805; 82962; 83036; 83540; 83550; 83605; 83735; 83880; 84100; 84132; 84145; 84302; 84443; 84478; 84484; 85014; 85018; 85025; 85027; 85610; 85730; 86850; 86870; 86880; 86900; 86901; 86920; 86922; 87040; 87070; 87102; 87106; 87205; 87206; 87449; 87502; 87641; 87811; 87899; 92526; 92610; 93005; 93306; 93458; 94002; 94003; 94640; 94660; 96374; 96375; 97116; 97163; 97167; 97530; 97535; 99291; C1751; C1760; C1894; P9016; P9047; Q9967

== ENCOUNTER → 2024-03-27 16:44 | Outpatient (REF) | payer MEDICARE, BC, SELFPAY ==
[2024-03-27 17:23] LABS: % Basophils 0.4 % (0-2); % Eosinophils 0.9 % (0-6); % Immature Granulocytes 0.7 % (0-0.5); % Lymphocytes 12.6 % (20.5-51.1); % Neutrophils 76.4 % (42.2-75.2); Absolute Lymphocytes 0.6 10^3/uL (1.2-3.4); Absolute Monocytes 0.4 10^3/uL (0.1-0.6); Absolute Neutrophils 3.5 10^3/uL (1.4-6.5); Hematocrit 24.9 % (39.0-52.0); Hemoglobin 8.4 g/dL (13.0-18.0); Mean Corp Hgb Conc. 33.7 g/dL (33.0-37.0); Mean Corpuscular Hgb 32.6 pg (27.0-31.0); Mean Corpuscular Volume 96.5 fL (80.0-94.0); Mean Platelet Volume 9.9 fL (7.4-10.4); Nucleated Red Blood Cells % 0 % (-); Platelet Count 83 10^3/uL (130-400); Red Blood Cell Count 2.58 10^6/uL (4.70-6.10); Red Cell Dist. Width 16.1 % (11.5-14.5); White Blood Cell Count 4.5 10^3/uL (4.8-10.8)
[2024-03-27 17:44] LABS: Blood Urea Nitrogen 21 mg/dl (9-20); Calcium 8.7 mg/dl (8.4-10.2); Carbon Dioxide 37 mmol/L (22-30); Chloride 86 mmol/L (98-107); Glucose 110 mg/dl (70-99); Potassium 3.9 mmol/L (3.5-5.1); Sodium 129 mmol/L (135-145); eGFR > 60.00
== END ==
LOC: CLAB 16:44
PROVIDERS: ATTENDING PHYSICIAN Family Medicine; FAMILY PHYSICIAN Internal Medicine Cardiovascular Disease
DX: I50.30 Unspecified diastolic (congestive) heart failure (principal)
CPT/HCPCS: 36415; 80048; 85025

== ENCOUNTER 2024-03-28 20:34 | Inpatient (IN) | payer MEDICARE, BC, SELFPAY ==
[2024-03-28] VITALS (13 sets, daily range): BP systolic 95–115; BP diastolic 45–61
--- NOTE | 2024-03-28 16:38 | ED.GENMED ---
History of Present Illness
<Kellie Chilel PA-C - Last Filed: 03/28/24 21:30>
General
Chief Complaint: Blood Pressure Problem
Source: patient and family
Exam Limitations: none
Time Seen by Provider: 03/28/24 15:51
Travel History
Have you had any contact with someone who has COVID-19?: No
Do you have any symptoms of coronavirus? Fever > 100 degrees, chills, cough, shortness of breath, sore throat, loss of taste or smell, muscle aches, or headache?: No
History of Present Illness
History of Present Illness:
78 y/o M
with h'/o afib on coumadin
chf with EF 25% on furosemide
just hospitalized for hemotpysis secondary to PNA causing sepsis requiring intubation 03/09-03/25
pt had not slept during hospital stay and his PCP prescribed ativan yesterday so he took 0.5 mg at 3 pm and 0.5 mg at 10 pm and slept all night
woke up and had PT first appt
for the PT, pt's bp was 88/50
they still did 1 hour of PT, walking around
pt felt soewhat tired but has been tired this whole time, and doesn't feel any differently than usual
he is upset about being here and wants to go home
has chronic LE edema, chronic SOB, no chest pain, fever, chills, nauesa, vomiting
has not been eating
Past History
<Kellie Chilel PA-C - Last Filed: 03/28/24 21:30>
Past History
ED Past Medical History: Arrthythmia (Atrial fibrillation), CAD, COPD, GERD, HTN and Other (History of sleep apnea, diverticulosis, stomach ulcers, back pain, degenerative joint disease,); Negative NIDDM
ED Past Surgical History: Tonsilectomy and Other (Recent surgery for bilateral knee replacements, multiple cardioversions, right wrist carpal total surgery, L4-L5 laminectomy)
Social History
Tobacco: Former smoker
Alcohol: Occasional
Drug: None
Personal:
Living: alone
Employment: Employed
Family History
Family History: Other (Father with cancer of the pancreas)
Review of Systems
<Kellie Chilel PA-C - Last Filed: 03/28/24 21:30>
Review of Systems
Allergies reviewed?: Yes
All Other Systems: Not applicable
Phy Exam
<Kellie Chilel PA-C - Last Filed: 03/28/24 21:30>
Physical Exam
Physical Exam:
GENERAL: Alert , chronically ill
EYE: pupils equal and reactive
NECK: Supple
ENT: o/p clr, mmm.
CARDIAC: Regular rate and rhythm .moderate edema B/L LE
LUNGS: Clear breath sounds bilaterally, no acute respiratory distress, no wheezes/rales/rhonchi
ABDOMEN: Soft, without focal tenderness, no r/g, no cvat, normal bowel sounds
NEUROLOGICAL: Alert and oriented, no focal neuro deficits
SKIN: Warm and dry, skin intact.
MUSCULOSKELETAL: moderate edema, hyperpigmentation. neg rachael's sign
PSYCH: Normal and appropriate interaction.
Course
<Kellie Chilel PA-C - Last Filed: 03/28/24 21:30>
Orders/Labs/Results
Orders:
Orders
03/28/24 16:30
Electrocardiogram (*1) Urgent
Reason for Study: Shortness of Breath
EKG- Treatment ONCE
CR Chest - 2 Views Urgent
Comment:
Reason For Exam: chf, pna
03/28/24 16:41
Complete Blood Count/With Diff Urgent
Comprehensive Metabolic Panel Urgent
Lactic Acid Urgent
NT-proBNP Urgent
PTT Urgent
Prothrombin Time Urgent
Troponin I Urgent
Comment: ADD ON
Blood Culture Q30M
JAMIN Source: Blood/Venous
Specimen Description:
Blood Culture Q30M
JAMIN Source: Blood/Venous
Specimen Description:
03/28/24 16:53
0.9% Sodium Chloride 250 ml [Nss] 250 ml IV BOLUS
03/28/24 19:09
Add On- LAB Urgent
Tests Added?: troponin
03/28/24 19:30
Albumin Human 25% 100 ml [Flexbumin] 25 grams in 100 ml IV TODAY
03/28/24 20:22
Admit/Transfer Patient As Directed
Co-Sign Provider:
Level of Care: Inpatient admission
Assign to:: IMU- Intermediate Care
Physician / Group: bess
Diagnosis: hypotension
Reason for Hospitalization: hypotension
Expected length of stay greater than two midnights?: Yes
ELOS- Estimated Length of Stay in days: 3
I certify the patient meets the requirements for IP care: Yes
03/28/24 20:24
Code Status As Directed
Resuscitation Status: Full Code
Abnormal Lab Results
03/28/24
16:41
RBC 2.56 L 10^6/uL
(4.70-6.10)
Hgb 8.3 L g/dL
(13.0-18.0)
Hct 24.5 L %
(39.0-52.0)
MCV 95.7 H fL
(80.0-94.0)
MCH 32.4 H pg
(27.0-31.0)
RDW 16.5 H %
(11.5-14.5)
Plt Count 73 L 10^3/uL
(130-400)
Absolute Lymphs (auto) 0.6 L 10^3/uL
(1.2-3.4)
Immature Gran % 0.6 H %
(0-0.5)
Neutrophils % 75.9 H %
(42.2-75.2)
Lymphocytes % 12.5 L %
(20.5-51.1)
Monocytes % 9.8 H %
(1.7-9.3)
PT 34.8 H Sec
(11.4-14.6)
APTT 50.5 H Sec
(23.4-35.0)
Sodium 128 L mmol/L
(135-145)
Chloride 87 L mmol/L
(98-107)
Carbon Dioxide 36 H mmol/L
(22-30)
BUN 22 H mg/dl
(9-20)
Glucose 106 H mg/dl
(70-99)
Total Bilirubin 2.0 H mg/dl
(0.2-1.3)
AST 60 H U/L
(17-59)
Albumin 3.0 L g/dl
(3.5-5.0)
03/28/24 16:41
03/28/24 16:41
Vital Signs
Initial and Last Documented VS:
Initial Vital Signs
Temp Pulse Resp BP Pulse Ox
98.0 F 70 20 99/50 96
03/28/24 14:55 03/28/24 14:55 03/28/24 14:55 03/28/24 14:55 03/28/24 14:55
Last Documented Vital Signs
Temp Pulse Resp BP Pulse Ox
98 F 66 23 104/45 92
03/28/24 19:53 03/28/24 21:00 03/28/24 21:00 03/28/24 21:00 03/28/24 21:00
<Trevor Hensley, DO - Last Filed: 03/28/24 19:13>
Orders/Labs/Results
Orders:
Orders
03/28/24 16:30
Electrocardiogram (*1) Urgent
Reason for Study: Shortness of Breath
EKG- Treatment ONCE
CR Chest - 2 Views Urgent
Comment:
Reason For Exam: chf, pna
03/28/24 16:41
Complete Blood Count/With Diff Urgent
Comprehensive Metabolic Panel Urgent
Lactic Acid Urgent
NT-proBNP Urgent
PTT Urgent
Prothrombin Time Urgent
Troponin I Urgent
Comment: ADD ON
Blood Culture Q30M
JAMIN Source: Blood/Venous
Specimen Description:
Blood Culture Q30M
JAMIN Source: Blood/Venous
Specimen Description:
03/28/24 16:53
0.9% Sodium Chloride 250 ml [Nss] 250 ml IV BOLUS
03/28/24 19:09
Add On- LAB Urgent
Tests Added?: troponin
03/28/24 19:30
Albumin Human 25% 100 ml [Flexbumin] 25 grams in 100 ml IV TODAY
03/28/24 20:22
Admit/Transfer Patient As Directed
Co-Sign Provider:
Level of Care: Inpatient admission
Assign to:: IMU- Intermediate Care
Physician / Group: bess
Diagnosis: hypotension
Reason for Hospitalization: hypotension
Expected length of stay greater than two midnights?: Yes
ELOS- Estimated Length of Stay in days: 3
I certify the patient meets the requirements for IP care: Yes
03/28/24 20:24
Code Status As Directed
Resuscitation Status: Full Code
Abnormal Lab Results
03/28/24
16:41
RBC 2.56 L 10^6/uL
(4.70-6.10)
Hgb 8.3 L g/dL
(13.0-18.0)
Hct 24.5 L %
(39.0-52.0)
MCV 95.7 H fL
(80.0-94.0)
MCH 32.4 H pg
(27.0-31.0)
RDW 16.5 H %
(11.5-14.5)
Plt Count 73 L 10^3/uL
(130-400)
Absolute Lymphs (auto) 0.6 L 10^3/uL
(1.2-3.4)
Immature Gran % 0.6 H %
(0-0.5)
Neutrophils % 75.9 H %
(42.2-75.2)
Lymphocytes % 12.5 L %
(20.5-51.1)
Monocytes % 9.8 H %
(1.7-9.3)
PT 34.8 H Sec
(11.4-14.6)
APTT 50.5 H Sec
(23.4-35.0)
Sodium 128 L mmol/L
(135-145)
Chloride 87 L mmol/L
(98-107)
Carbon Dioxide 36 H mmol/L
(22-30)
BUN 22 H mg/dl
(9-20)
Glucose 106 H mg/dl
(70-99)
Total Bilirubin 2.0 H mg/dl
(0.2-1.3)
AST 60 H U/L
(17-59)
Albumin 3.0 L g/dl
(3.5-5.0)
03/28/24 16:41
03/28/24 16:41
Vital Signs
Initial and Last Documented VS:
Initial Vital Signs
Temp Pulse Resp BP Pulse Ox
98.0 F 70 20 99/50 96
03/28/24 14:55 03/28/24 14:55 03/28/24 14:55 03/28/24 14:55 03/28/24 14:55
Last Documented Vital Signs
Temp Pulse Resp BP Pulse Ox
98 F 66 23 104/45 92
03/28/24 19:53 03/28/24 21:00 03/28/24 21:00 03/28/24 21:00 03/28/24 21:00
<Kellie Chilel PA-C - Last Filed: 03/28/24 21:30>
MDM/Problems Addressed
Differential Diagnosis Includes:
sepsis, hypotension, overdiuresis
MDM/Problems Addressed:
78 y/o M
recent hospitalization for hemoptysis secondary to PNA, sepsis,acute hypoxic resp failure requiring intubation, CHF recent cardiac cath
here for low bp readings at home today with home PT
pt was just d/c'd 2 days ago
hasn't been eating
has had persistent LE edema
no chest pain
persistent chronic SOB
pt appears chornically ill, mildly sob, bps are 100s/50s
he has significant LE edema, mild crackles
labs show hyponatremia, hypoalbuminemia, elevated bnp but lower than during admission
ekg new t wave inv v1, v2;
will admit for trending trop, gentle hydration, albumin
<Kellie Chilel PA-C - Last Filed: 03/28/24 21:30>
*Critical Care Note
Total Time (30-74mins, 75-104mins- exclusive of procedures): Not Applicable
ED Attending Note
<Kellie Chilel PA-C - Last Filed: 03/28/24 21:30>
-
Portions of this chart may have been created with voice recognition software.� Occasional wrong word or��sound alike� substitutions may have occurred due to the inherent limitations of voice recognition software.
<Trevor Hensley DO - Last Filed: 03/28/24 19:13>
ED Attending Note
Patient seen and examined by attending physician: Yes
I performed the substantive portion of visit, reviewed & personally made and approve the management plan that is documented in note by myself or ADIS.: Yes
ED Attending Note:
I have seen and evaluated the patient with a [id number] encounter. I have spoken to the advance practicer provider and involved in the medical history, the physical exam, medical decision making.
Evaluation and management service: agree unless noted differently below.
Results interpretation: agree unless noted differently below.
Focused HPI: 78-year-old male presenting with generalized weakness and fatigue. Patient has significant CHF and has been short of breath. Physical therapy today noted low blood pressure which is confirmed on arrival. Patient was recently
discharged after several weeks day for CHF
Physical exam: Weak and frail. Facial muscle wasting noted. Pitting edema noted to bilateral legs
Medical Decision Making: Patient found to have new T wave inversions. Patient did have a recent cardiac catheterization. He has chronic coronary artery disease. Although it is less likely he has ACS, he could have heart strain from significant
CHF. Chest x-ray confirms pulmonary edema. Will give albumin and admit for troponin
Discharge Plan
Departure
Patient Disposition: Admit
Date of Disposition: 03/28/24
Time of Disposition: 19:10
Admit to: Telemetry
Presentation/result/management discussed w/ accepting MD/DO: Hospitalist
Patient with high blood pressure during this ER visit?: No
Condition: Fair
Covid-19: Not Applicable
Discharge Problem:
Dehydration, Pulmonary edema, Anemia, Acute electrocardiogram changes
Interventions
Interventions:
*Risk Screen - Suicide Last Done: 03/28/24 16:25
*General Assessment Last Done: 03/28/24 16:25
*Neglect/Abuse Screening Last Done: 03/28/24 16:25
ED- Fall Risk Assessment Last Done: 03/28/24 16:25
*ED COVID-19 Vaccine History Last Done: 03/28/24 14:55
ED- Cardiac Assessment Last Done: 03/28/24 19:25
ED- Neurological Assessment Last Done: 03/28/24 19:25
ED- Pulmonary Assessment Last Done: 03/28/24 19:25
[2024-03-28 16:57] LABS: % Basophils 0.2 % (0-2); % Immature Granulocytes 0.6 % (0-0.5); % Lymphocytes 12.5 % (20.5-51.1); % Monocytes 9.8 % (1.7-9.3); % Neutrophils 75.9 % (42.2-75.2); Absolute Eosinophils 0.1 10^3/uL (0-0.7); Absolute Lymphocytes 0.6 10^3/uL (1.2-3.4); Absolute Monocytes 0.5 10^3/uL (0.1-0.6); Absolute Neutrophils 3.6 10^3/uL (1.4-6.5); Hematocrit 24.5 % (39.0-52.0); Hemoglobin 8.3 g/dL (13.0-18.0); Mean Corp Hgb Conc. 33.9 g/dL (33.0-37.0); Mean Corpuscular Hgb 32.4 pg (27.0-31.0); Mean Corpuscular Volume 95.7 fL (80.0-94.0); Mean Platelet Volume 9.8 fL (7.4-10.4); Nucleated Red Blood Cells % 0 % (-); Platelet Count 73 10^3/uL (130-400); Red Blood Cell Count 2.56 10^6/uL (4.70-6.10); Red Cell Dist. Width 16.5 % (11.5-14.5); White Blood Cell Count 4.8 10^3/uL (4.8-10.8)
[2024-03-28 17:00] LABS: ALT (SGPT) 21 U/L (0-50); AST (SGOT) 60 U/L (17-59); Alkaline Phosphatase 95 U/L (38-126); Blood Urea Nitrogen 22 mg/dl (9-20); Calcium 8.5 mg/dl (8.4-10.2); Carbon Dioxide 36 mmol/L (22-30); Chloride 87 mmol/L (98-107); Glucose 106 mg/dl (70-99); Potassium 4.2 mmol/L (3.5-5.1); Sodium 128 mmol/L (135-145); Total Protein 6.3 g/dl (6.3-8.2); eGFR > 60.00
[2024-03-28] MEDS: NSS 250 IV (17:07)
[2024-03-28 17:16] LABS: Lactic Acid 1.1 mmol/L (0.7-2.0)
[2024-03-28 17:26] LABS: NT-proBNP 16100 pg/ml
[2024-03-28 17:36] LABS: INR 3.45; PT 34.8 Sec (11.4-14.6)
[2024-03-28 17:37] LABS: APTT 50.5 Sec (23.4-35.0)
--- NOTE | 2024-03-28 19:16 | EDRN ---
Called pharmacy for albumin
[2024-03-28] MEDS: FLEXBUMIN 100 IV (19:38)
--- NOTE | 2024-03-28 19:41 | HPS.HSE ---
Family Physician
-
Family Physician: Kylie Liu DO
Chief Complaint
-
hypotension
History of Present Illness
78 y/o M with h'/o afib on Coumadin,chf with EF 25% on furosemide ,CPOD, GERD< HTN, sleep apnea, Cirrhosis presented to us with hypotension. patient was admitted here in the hospital with pneumonia requiring intubation, discharged on 03/25.pt had
not slept during hospital stay and his PCP prescribed ativan yesterday so he took 0.25 mg at 3 pm and 0.5 mg at 10 pm and slept very well last night. today morning, PT checked his BP and found to be low (88/50). denied dizzy, ANDRADE or syncopal episode.
denied fever, chills, congestion, cough. denied chest pain. patient has chronic sob. denied abdominal pain, n,v,d. denied dysuria or hematuria. patient complained of b/l LE edema which worse since the discharge.
on arrival patient was hypotensive. recieved albumin and fluids in ER. admitting for further management.
Medical History
Past Medical History
Past Medical History: Reports Other
Additional Past Medical History:
atrial fibrillation
ascites, cirrhosis
heart failure
gastric ulcer
mitral valve insufficiency
anemia
copd
KIKI
pulmonary hypertension
incisional hernia
GERD
pleural effusion
barrets esophagus
cardiomyopathy
Past Surgical History: Reports Other
Additional Past Surgical History:
mitral valve replacement
pacemaker placement
CABG
lap repair of b/l inguinal hernias
b/l knee replacement
hip surgery
tonsillectomy
laminectomy
Social History
Tobacco: Former Smoker
Alcohol: Former
Drug: None
Living: With Family
Family History
Family History: Not pertinent
Allergies / Home Medications
Allergies reflects when Allergies were last updated in [facility].
Home Medications with original date entered in [facility]
Allergy/Medication List:
Allergies
Allergy/AdvReac Type Severity Reaction Status Date / Time
No Known Allergies Allergy Verified 03/28/24 14:56
Home Medications
warfarin 2.5 mg tablet (Jantoven) 2.5 mg PO QPM Blood clot prevention/tx 07/13/21
fluticasone fur. 100 mcg-umeclid 62.5 mcg-vilant 25 mcg inhalat.powder (Trelegy Ellipta) 1 inh inhalation R DAILY Lung/Breathing Issues 10/23/22
empagliflozin 10 mg tablet (Jardiance) 10 mg PO DAILY Heart Failure 07/26/23
omeprazole 20 mg capsule,delayed release 40 mg PO DAILY Gastrointestinal Issue 07/26/23
furosemide 40 mg tablet 40 mg PO DAILY 30 days #30 tabs 03/25/24
metoprolol succinate 25 mg tablet,extended release 24 hr 25 mg PO HS 30 days #30 tabs 03/25/24
spironolactone 25 mg tablet 25 mg PO DAILY 30 days #30 tabs 03/25/24
lorazepam 0.5 mg tablet 0.25 - 0.5 mg PO Q8H PRN anxiety 03/28/24
Review of Systems
-
Constitutional: Reports Fatigue
EENT: Reports No Symptoms
Respiratory: Reports Trouble Breathing
Cardiac: Reports No Symptoms
Abdomen/GI: Reports No Symptoms
: Reports No Symptoms
Musculoskeletal: Reports Other (b/l LE edema)
Skin: Reports No Symptoms
Neurological: Reports No Symptoms
Endocrine: Reports No Symptoms
Hematologic/Lymphatic: Reports No Symptoms
Psych: Reports No Symptoms
Physical Exam
Vital Signs
Vital Signs
Temp Pulse Resp BP Pulse Ox
97.8 F 66 20 100/55 94
03/28/24 19:22 03/28/24 19:22 03/28/24 19:22 03/28/24 19:22 03/28/24 19:22
Physical Exam
General: Well Developed, Well Nourished and No Apparent Distress
HEENT: NormoCephalic, Moist mucous membranes and Atraumatic
Respiratory: Decreased Breath Sounds
Cardiac: S1/S2, Regular Rhythm and Peripheral Edema; No Murmur or Rub
GI: Soft, Non Tender, Non Distended and Normal Bowel Sounds; No Organomegaly
Rectal: Deferred by Provider
Musculoskeletal: No Clubbing, No Cyanosis and No Edema
Skin: No Rash
Neuro: Nonfocal/grossly intact
Laboratory Results
-
03/28/24 16:41
03/28/24 16:41
Laboratory Results
PT 34.8 Sec (11.4-14.6) H 03/28/24 16:41
INR 3.45 03/28/24 16:41
APTT 50.5 Sec (23.4-35.0) H 03/28/24 16:41
Lactic Acid 1.1 mmol/L (0.7-2.0) 03/28/24 16:41
Total Bilirubin 2.0 mg/dl (0.2-1.3) H 03/28/24 16:41
AST 60 U/L (17-59) H 03/28/24 16:41
ALT 21 U/L (0-50) 03/28/24 16:41
Alkaline Phosphatase 95 U/L (38-126) 03/28/24 16:41
Impression/Plan
-
#hypotension/weakness/fatigue likely from dehydration likely from increased diuretics and added spironolactone
-albumin ordered in ER
-received fluids in ER
-continue to monitor BP
-hold Lasix and spironolactone
-continue to monitor BP
-PT/OT consulted
#anemia of chronic disease/thrombocytopenia
-hgb stable at 8.3,platelets 73
-no active bleeding
-ctm
#hyponatremia likely dehydration/diuretics
-na 128
-ctm
#chronic heart failure with reduced ejection fraction
- Echo 06/05/2023 EF 30-35%, global hypokinesis, mechanical mitral valve, mild MR, moderate TR
- Echo 03/10 with EF 15-20%, repeat with 25%
-strict I &O
-daily weight
-hold diuretics
#hxt of COPD
-Trelegy continued
#Paroxysmal atrial fibrillation
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
- INR3.45
- cont Coumadin dosing
-BB continued
#DTI (Deep Tissue Injury) sacral pressure injury
- cont local wound care
#Recently diagnosed cirrhosis
- Follows with Dr. Saunders outpatient
#DVT ppx: Coumadin
Code: Full
[2024-03-28 19:57] LABS: Troponin I 0.027 ng/ml
--- NOTE | 2024-03-28 20:18 | W.PN.UPDATE ---
Update Note
Progress Note Update
This is an addendum to the H&P written by JUMA Abraham on 03/28/2024.
Patient seen and examined independently with FINAL INSPECTOR SHUTTLE. 78-year-old male past medical history of atrial fibrillation, mechanical mitral valve on Coumadin, newly diagnosed cirrhosis, CAD, COPD, obstructive sleep apnea, GERD, peptic ulcer disease, CHF,
hypertension, recently discharged 3 days ago after being admitted for septic shock secondary to pneumonia and acute respiratory failure secondary to pneumonia and CHF exacerbation and COPD exacerbation requiring intubation and mechanical ventilation
back again for inability to sleep and increased lethargy and low blood pressure in 80s systolics today.
No signs or symptoms of infectious etiology. Low blood pressures likely due to addition of spironolactone and increasing dose of Lasix which are being used to manage volume overload and third spacing secondary to cirrhosis. IV fluids, albumin
given in ER. Hold Lasix and spironolactone and Jardiance. Will likely need to restart Lasix at lower dosage after improvement in blood pressure.
--- NOTE | 2024-03-28 22:31 | PTCARENOTE ---
Rec'd pt from ED RN, VSS most recent BP 115/58, V -paced rhythm, AAOx3 and denies lightheadedness, SOB, dyspnea, etc. Pt requests ativan and states that he hadn't slept for days during previous admission. States that ativan will make him sleep. This
RN educated pt about concern for additional episodes of hypotension d/t ativan use. DAV Yang ordered 3mg melatonin. Call [facility] within reach.
[2024-03-28] MEDS: COUMADIN 2.5 MG PO (22:50)
[2024-03-28] MEDS: MELATONIN 3 MG PO (22:51)
[2024-03-28] MEDS: TOPROL XL 25 MG PO (22:51)
[2024-03-29] VITALS (11 sets, daily range): BP systolic 94–115; BP diastolic 45–89; BMI 23.3
[2024-03-29 03:36] LABS: Hematocrit 23.2 % (39.0-52.0); Hemoglobin 8.1 g/dL (13.0-18.0); Mean Corp Hgb Conc. 34.9 g/dL (33.0-37.0); Mean Corpuscular Hgb 32.5 pg (27.0-31.0); Mean Corpuscular Volume 93.2 fL (80.0-94.0); Mean Platelet Volume 10.2 fL (7.4-10.4); Platelet Count 58 10^3/uL (130-400); Red Blood Cell Count 2.49 10^6/uL (4.70-6.10); White Blood Cell Count 3.6 10^3/uL (4.8-10.8)
[2024-03-29 03:52] LABS: INR 3.14; PT 32.2 Sec (11.4-14.6)
[2024-03-29 04:07] LABS: Blood Urea Nitrogen 20 mg/dl (9-20); Calcium 8.6 mg/dl (8.4-10.2); Carbon Dioxide 34 mmol/L (22-30); Chloride 88 mmol/L (98-107); Estimated Creatinine Clearance 82 ml/min; Glucose 110 mg/dl (70-99); Potassium 3.9 mmol/L (3.5-5.1); Sodium 129 mmol/L (135-145); eGFR > 60.00
[2024-03-29] MEDS: SPIRIVA RESPIMAT 2.5 MCG 2 PUFF INH (07:26)
[2024-03-29] MEDS: SYMBICORT 80/4.5 MCG INHALER 2 PUFF INH ×2 (07:26→19:17)
[2024-03-29] MEDS: ATIVAN 0.25 MG PO ×3 (08:12→21:36)
[2024-03-29] MEDS: PROTONIX 40 MG PO (08:12)
--- NOTE | 2024-03-29 08:23 | PTCARENOTE ---
During change of shift rounds, pt sitting edge of bed- agitated and tachypneic. Pt verbalizing frustration with plan of care. He states he was promised by two doctors that he would receive a low dose of Ativan last night to help with his insomnia
and it was never ordered. Pt extremely upset. Call then received from Son Eber, also upset at the situation. Emotional support provided to both pt and son. During chart checks, low dose of Ativan noted to have been ordered this morning. Medication
administered, see MAR. This RN spoke with Nursing Associate Store Director, requesting a phone call to son Eber, she states she will reach out to him.
--- NOTE | 2024-03-29 09:10 | PTCARENOTE ---
During nursing assessment, pt noted to have extensive bruising on the posterior R thigh, with swelling noted. Dr. Rice notified, order received for US.
--- NOTE | 2024-03-29 10:28 | CON.CAR ---
Addendum entered and electronically signed by Tony Srinivasan MD 03/29/24 12:17:
I saw and examined the patient.
The YOGA COORDINATOR's note was reviewed and I agree with the note.
Comment: 78-year-old male with nonischemic cardiomyopathy, permanent atrial fibrillation, mechanical mitral valve replacement (on warfarin), moderate tricuspid regurgitation, Micra PPM, cirrhosis, COPD, mild nonobstructive CAD, and chronic anemia
with recent hospitalization 03/09/2024 - 03/25/2024 with septic shock complicated by ADRIANA, acute hypoxic respiratory failure requiring mechanical ventilation, HFrEF, and anemia/thrombocytopenia who presented back to the emergency department with a
chief complaint of insomnia. This a.m. feeling better and would like to leave.
We have decreased Lasix and spironolactone by half. He will then follow-up in the office.
We will sign off please call with questions/concerns.
Original Note:
Consultation
Consultation Request
Date/Time Consultation Requested: 03/29/2024 09:15
Date/Time Consultation Performed: 03/29/2024 10:15
Requesting Provider: Dr. Rice
Performing Provider: DAV Veras for Dr. Srinivasan
Reason for Consultation: Optimization of cardiac medical therapy
Medical History
-
Chief Complaint: Insomnia
History of Present Illness:
Kiki Burroughs is a 78-year-old male with nonischemic cardiomyopathy, permanent atrial fibrillation, mechanical mitral valve replacement (on warfarin), moderate tricuspid regurgitation, Micra PPM, cirrhosis, COPD, mild nonobstructive CAD, and
chronic anemia with recent hospitalization 03/09/2024 - 03/25/2024 with septic shock complicated by ADRIANA, acute hypoxic respiratory failure requiring mechanical ventilation, HFrEF, and anemia/thrombocytopenia who presented back to the emergency
department with a chief complaint of insomnia. He reports not sleeping during his lengthy hospital stay and being unable to sleep at home despite 2 doses of lorazepam. He also reported low blood pressure with physical therapy at home. He received
albumin and IV fluid in the ER. No systolic blood pressures documented under 90 mmHg. He reported feeling unchanged. He admits to poor oral intake since arriving home.
HPI is limited as the patient preferred to sleep and preferred a very brief consultation. Extensive review of medical records completed.
Past Medical History
Past Medical History: Arrhythmias (Permanent atrial fibrillation), CAD, CHF (HFrEF), COPD, Valvular Disease (Mechanical mitral valve, moderate tricuspid regurgitation) and Other (Cirrhosis, chronic anemia)
Past Surgical History: Cardiac, Orthopedic and Tonsilectomy
Social History
Tobacco: Former Smoker
Alcohol: None
Drug: None
Living: With Family
Employment: Retired
Family History
Family History: Reviewed & Not Pertinent
Allergies / Home Medications
Allergy/AdvReac Type Severity Reaction Status Date / Time
No Known Allergies Allergy Verified 03/28/24 14:56
�Medication �Instructions �Recorded �Confirmed �Type
warfarin 2.5 mg tablet (Jantoven) 2.5 mg PO QPM Blood clot 07/13/21 03/28/24 History
prevention/tx
fluticasone fur. 100 mcg-umeclid 1 inh inhalation R DAILY 10/23/22 03/28/24 History
62.5 mcg-vilant 25 mcg Lung/Breathing Issues
inhalat.powder (Trelegy Ellipta)
empagliflozin 10 mg tablet 10 mg PO DAILY Heart Failure 07/26/23 03/28/24 History
(Jardiance)
omeprazole 20 mg capsule,delayed 40 mg PO DAILY Gastrointestinal 07/26/23 03/28/24 History
release Issue
furosemide 40 mg tablet 40 mg PO DAILY 30 days #30 tabs 03/25/24 03/28/24 Rx
metoprolol succinate 25 mg 25 mg PO HS 30 days #30 tabs 03/25/24 03/28/24 Rx
tablet,extended release 24 hr
spironolactone 25 mg tablet 25 mg PO DAILY 30 days #30 tabs 03/25/24 03/28/24 Rx
lorazepam 0.5 mg tablet 0.25 - 0.5 mg PO Q8H PRN anxiety 05/17/24 05/17/24 History
Review of Systems
-
History Source: Patient
All other systems: Negative unless noted
Constitutional: Fatigue and Sleep Disturbance
Respiratory: No Symptoms
Cardiac: No Symptoms
Abdomen/GI: No Symptoms
: No Symptoms
Physical Exam
Vital Signs
Temp Pulse Resp BP Pulse Ox
97.5 F 64 22 99/51 94
03/29/24 07:15 03/29/24 08:00 03/29/24 08:00 03/29/24 08:00 03/29/24 08:33
Lab Results
03/29/24 03:30
03/29/24 03:30
Troponin I 0.027 ng/ml 03/28/24 16:41
Bmf-[id number]-[id number] Pept 40242 pg/ml 03/28/24 16:41
Physical Exam
General: Well Developed, Well Nourished, No Apparent Distress and Comfortable
HEENT: Normocephalic, Anicteric and Moist Mucous Membranes
Respiratory: Clear and Non Labored Respirations
Cardiac: S1/S2 and Irregular Rhythm
GI: Soft, Non Tender, Non Distended and Normal Bowel Sounds
Rectal: Deferred by Provider
Genito-urinary: No Costovertebral Tender
Musculoskeletal: No Clubbing, No Cyanosis and No Edema
Skin: Warm and Dry
Neuro: AO x 3
Hematologic/Lymphatic: No Lymphadenopathy
Psych: Calm
Impression / Plan
-
Hypotension
-Likely in the setting of mild dehydration, reduce furosemide and spironolactone by 50%
-Can consider midodrine
HFrEF (LVEF 25%), chronic
Nonischemic cardiomyopathy
-He is not in acute/decompensated heart failure
-Weight slightly lower than discharge and he endorses poor oral intake
-GDMT is limited by hypotension
-MRA: Spironolactone 12.5 mg daily, decreased from 25 mg
-SGLT2: Jardiance 10 mg daily
-ARNI: BP will not support
-Heart failure education
Coronary artery disease
-Stable without chest pain
-Cardiac catheterization prior admission without obstructive CAD
Mechanical aortic valve, on warfarin, goal INR 2.5�3.5, INR 3.14 this morning
Permanent atrial fibrillation, on warfarin for mechanical aortic valve as above
Fatigue, this is likely in the setting of his recent hospitalization and acute exacerbation on his multiple chronic conditions
Insomnia, per primary
Micra PPM, followed in our outpatient device clinic
Anemia with thrombocytopenia, chronic, per primary
COPD, no acute exacerbation
Cirrhosis
Data Reviewed
-
EKG: Report Reviewed by me
Radiology: Report Reviewed by me (CXR: Decrease in perihilar alveolar pulmonary edema. Decrease in left lower airspace consolidation. Resolution of left pleural effusion. Small right pleural effusion.)
Medical Tests (Nuc Med, Echo etc): Report Reviewed by me (Prior echocardiogram and cardiac catheterization as above)
Labs: Labs Reviewed by me
Old Records: Reviewed
--- NOTE | 2024-03-29 10:38 | W.PN.HOSP.TC ---
Today's Communication/Plan
-
ativan prn anxiety sleep
Daily INR checks, coumadin dosing briefly held evaluation possible bleed RLE ruled out on CT, ok to resume Coumadin
ST/PT/OT eval
reduced dose Lasix Aldactone with holding parameters
Monitor H&H Platelet
Assessment / Plan
Assessment / Plan
Physical Exam
General: Well Developed, Well Nourished and No Apparent Distress
HEENT: NormoCephalic, Moist mucous membranes and Atraumatic
Respiratory: Decreased Breath Sounds, mild bibasilar crackles no wheezing
Cardiac: S1/S2, Regular Rhythm and Peripheral Edema; No Murmur or Rub
GI: Soft, Non Tender, Non Distended and Normal Bowel Sounds; No Organomegaly
Musculoskeletal: No Clubbing, No Cyanosis, +2 pitting edema Lower ext's b/l LLE thinner compared to left
Skin: Ecchymosis RLE thigh flank
Neuro: Aox3
78M afib on Coumadin HFrEF, CPOD, GERD HTN, KIKI CPAP, Cirrhosis recent hospitalization here for pneumonia septic shock Vent dependent respiratory failure since extubated, completed abx treatment, patient was discharged a few days ago home with home
services, returns due to concerns hypotension and insomnia. Reportedly bp 88/50, asymptomatic, noted at home by PT prompting referral to ED. Initial bp on ED evaluation was noted 99/50. Troponin neg chest pain free BNP elevated but significantly
improved from prior value. BP responded well to albumin and small IVF bolus, brief hold lasix aldactone since resumed at reduced dose. Patient's primary complaint was poor sleep insomnia for which he was recently prescribed prn ativan by his
primary care provider with good affect.
#hypotension/weakness/fatigue physically deconditioned chronically ill
-received albumin IVF in ER
-continue to monitor BP
-Lasix and spironolactone briefly held, resumed at reduced dosages 20 mg daily and 12.5 mg daily (respectively)
-continue to monitor BP
-ST/PT/OT consults
#anxiety/insomnia
0.25 mg Q8Hprn anxiety
0.5 mg HSPRN sleep
#anemia of chronic disease/thrombocytopenia
-Stable Hgb Platelets
-Monitor
#Chronic Hyponatremia
-stable, mild
-continue fluid restriction
-resume lasix reduced dose as above
-monitor
#chronic heart failure with reduced ejection fraction
- Echo 06/05/2023 EF 30-35%, global hypokinesis, mechanical mitral valve, mild MR, moderate TR
- Echo 03/10 with EF 15-20%, repeat with 25%
-strict I &O
-daily weight
-resumed lasix as above
-Cardio Eval appreciated
#hxt of COPD
-Trelegy continued
#Paroxysmal atrial fibrillation
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
- INR therapeutic
- cont Coumadin dosing
-BB continued
#DTI (Deep Tissue Injury) sacral pressure injury
- cont local wound care
#Recently diagnosed cirrhosis
- Follows with Dr. Saunders outpatient
RLE ecchymosis thigh flank
RLE US appreciated hematomas 4.7 cm anterolateral, right common femoral artery, 5 cm anterior proximal right thigh, and 5.4 cm fluid collection in soft tissues of the right flank
Coumadin briefly held pending CT abd/pelvis with aorta runoff rule out active bleeding, since resumed with rule out
Vascular eval appreciated, outpatient follow up recommended
CT abd/pelvis aorta runoff appreciated:
1. Moderate cardiomegaly with evidence for right heart failure.
2. Moderate-sized right and small left pleural effusions.
3. Mild to moderate emphysema.
4. Mild cardiogenic pulmonary edema.
5. Mild cardiogenic cirrhosis.
6. Small volume of abdominal and pelvic ascites.
7. Cholelithiasis.
8. Severe diverticulosis in the descending and sigmoid colon.
9. Severe discogenic degenerative disease and facet joint arthrosis in the lumbar spine.
ABDOMINAL AORTA:
1. Moderate calcific atherosclerotic plaque in the abdominal aorta without evidence for aneurysmal dilatation.
2. Less than 50% diameter stenoses in the celiac, superior mesenteric, and bilateral renal arteries.
RIGHT LOWER EXTREMITY:
1. 4.4 cm acute soft tissue hematoma anterior to the right femoral artery bifurcation.
2. 3.9 cm acute soft tissue hematoma lateral to the proximal right superficial femoral artery.
3. No CTA evidence for active arterial extravasation or pseudoaneurysm.
4. Mild calcific atherosclerotic plaque in the right iliac and common femoral arteries without evidence for stenosis.
5. Severe infrapopliteal calcific atherosclerotic disease with severe multilevel stenoses and occlusion of the distal right anterior tibial artery. Two-vessel runoff to the right foot.
6. Severe subcutaneous edema throughout the right lower extremity.
LEFT LOWER EXTREMITY:
1. Mild calcific atherosclerotic plaque in the left iliac and common femoral arteries.
2. Moderate calcific atherosclerotic plaque in the mid and distal left superficial femoral artery.
3. Severe infrapopliteal calcific atherosclerotic disease with severe multilevel stenoses and complete occlusion of the distal left anterior tibial artery.
PVD, PAD
pain relatively well controlled, ambulates with walker
Cont PT/OT
outpt follow-up recommended
#DVT ppx: Coumadin
Code: Full
discussed with patient, patient's Connie, and son Eber
I spent a total of 50 minutes with the patient or on the floor. More than 50% of this time involved counseling and coordination of care.
Anticipated Discharge: Within 24 hours
Subjective/Interval History
-
Date of Service: March 29, 2024
mild agitation anxiety reports poor sleep. Significant ecchymosis RLE thigh flank also noted nontender.
Objective Data
-
Labs:
Laboratory Results
03/29/24
03:30
WBC 3.6 L
Hgb 8.1 L
Hct 23.2 L
Plt Count 58 L D
PT 32.2 H
INR 3.14
Sodium 129 L
Potassium 3.9
Chloride 88 L
Carbon Dioxide 34 H
BUN 20
Creatinine 0.8
Glucose 110 H
Calcium 8.6
Vital Signs:
Vital Signs
Temp Pulse Resp BP Pulse Ox
97.5 F 64 22 99/51 94
03/29/24 07:15 03/29/24 08:00 03/29/24 08:00 03/29/24 08:00 03/29/24 08:33
I&O
03/28/24 03/29/24 03/30/24
06:59 06:59 06:59
Output Total 300 / 300
Balance -300 / -300
--- NOTE | 2024-03-29 11:03 | PTCARENOTE ---
Pt for Aldactone and EKG- pt upset with being disturbed repeatedly. D/w DAV Wren, okay to wait until patient wakes up.
[2024-03-29] MEDS: ALDACTONE 12.5 MG PO (11:58)
--- NOTE | 2024-03-29 13:00 | PTCARENOTE ---
Pt agreeable for US and EKG. To US via stretcher, EKG obtained. Pt's at bedside, updated on plan of care.
--- NOTE | 2024-03-29 18:17 | W.PN.VS ---
Today's Communication / Plan
-
await official cta report
if negative, ok for discharge and follow up as outpatient
Assessment/Plan
-
right thigh eccymosis
- CT reviewed, I do not see active extrav. await official report
- no pain or tenderness on exam
- no findings ti indicate pseudo
- ok for discharge from vasc standpoint
followup to kassandra sure no changes
call with questions
Subjective Data
-
Date of Service: March 29, 2024
Asked to eval patient for right thigh pain
Patient denies any right thigh pain
Reports cath via right groin recently
no pain, slight ecchymosis. Reports never had any pain
he is eager to go home
Objective Data
-
Vital Signs
Temp Pulse Resp BP Pulse Ox
97.5 F 63 29 102/55 90
03/29/24 11:15 03/29/24 18:00 03/29/24 18:00 03/29/24 18:00 03/29/24 18:00
Intake and Output
03/28/24 03/29/24 03/30/24
06:59 06:59 06:59
Intake Total 120 / 120
Output Total 300 / 300 100 / 100
Balance -300 / -300 20 / 20
Intake:
Oral fluids 120 / 120
Output:
Urine, Voided 300 / 300 100 / 100
Lab Results
03/29/24 03:30
03/29/24 03:30
Calcium 8.6 mg/dl (8.4-10.2) 03/29/24 03:30
Total Bilirubin 2.0 mg/dl (0.2-1.3) H 03/28/24 16:41
AST 60 U/L (17-59) H 03/28/24 16:41
ALT 21 U/L (0-50) 03/28/24 16:41
Alkaline Phosphatase 95 U/L (38-126) 03/28/24 16:41
Total Protein 6.3 g/dl (6.3-8.2) 03/28/24 16:41
Albumin 3.0 g/dl (3.5-5.0) L 03/28/24 16:41
Physical Exam
-
rrr
ctab
nt,nd,soft
2+ femoral plses bilat
+ DP pulse Right foot
2+ edema
slight ecchymosis right thigh
no mass
no tenderness
[2024-03-29 20:12] LABS: Urine Albumin Trace (Neg - Trace); Urine Bilirubin Negative (Negative); Urine Character Clear (Clear); Urine Color Yellow; Urine Glucose 3+ (Negative); Urine Ketone Negative (Negative); Urine Leukocyte Negative (Negative); Urine Nitrite Negative (Negative); Urine Occult Blood Negative (Negative); Urine Urobilinogen 1+ (Neg - 1+)
[2024-03-29] MEDS: COUMADIN 2.5 MG PO (21:36)
[2024-03-29] MEDS: TOPROL XL 25 MG PO (21:36)
[2024-03-30] VITALS (19 sets, daily range): BP systolic 84–120; BP diastolic 42–93; PULSE 75; O2SAT 97; BMI 23.2
[2024-03-30 04:57] LABS: INR 3.41; PT 34.4 Sec (11.4-14.6)
[2024-03-30 04:59] LABS: Hematocrit 25.8 % (39.0-52.0); Hemoglobin 8.9 g/dL (13.0-18.0); Mean Corp Hgb Conc. 34.5 g/dL (33.0-37.0); Mean Corpuscular Hgb 32.7 pg (27.0-31.0); Mean Corpuscular Volume 94.9 fL (80.0-94.0); Platelet Count 75 10^3/uL (130-400); Red Blood Cell Count 2.72 10^6/uL (4.70-6.10); Red Cell Dist. Width 17.1 % (11.5-14.5); White Blood Cell Count 3.6 10^3/uL (4.8-10.8)
[2024-03-30 05:07] LABS: Blood Urea Nitrogen 19 mg/dl (9-20); Calcium 8.8 mg/dl (8.4-10.2); Carbon Dioxide 32 mmol/L (22-30); Chloride 92 mmol/L (98-107); Estimated Creatinine Clearance 82 ml/min; Glucose 95 mg/dl (70-99); Potassium 4.8 mmol/L (3.5-5.1); Sodium 130 mmol/L (135-145); eGFR > 60.00
--- NOTE | 2024-03-30 07:10 | W.PN.HOSP.TC ---
Today's Communication/Plan
-
discharge
Assessment / Plan
Assessment / Plan
Physical Exam
General: Well Developed, Well Nourished and No Apparent Distress
HEENT: NormoCephalic, Moist mucous membranes and Atraumatic
Respiratory: Decreased Breath Sounds, mild bibasilar crackles no wheezing
Cardiac: S1/S2, Regular Rhythm and Peripheral Edema; No Murmur or Rub
GI: Soft, Non Tender, Non Distended and Normal Bowel Sounds; No Organomegaly
Musculoskeletal: No Clubbing, No Cyanosis, +2 pitting edema Lower ext's b/l LLE thinner compared to RLE
Skin: Ecchymosis RLE thigh flank
Neuro: Aox3
78M afib on Coumadin HFrEF, CPOD, GERD HTN, KIKI CPAP, Cirrhosis recent hospitalization here for pneumonia septic shock Vent dependent respiratory failure since extubated, completed abx treatment, patient was discharged a few days ago home with home
services, returns due to concerns hypotension and insomnia. Reportedly bp 88/50, asymptomatic, noted at home by PT prompting referral to ED. Initial bp on ED evaluation was noted 99/50. Troponin neg chest pain free BNP elevated but significantly
improved from prior value. BP responded well to albumin and small IVF bolus, brief hold lasix aldactone since resumed at reduced dose. Patient's primary complaint was poor sleep insomnia for which he was recently prescribed prn ativan by his
primary care provider with good affect.
#hypotension/weakness/fatigue physically deconditioned chronically ill
-received albumin IVF in ER
-continue to monitor BP
-Lasix and spironolactone briefly held, resumed at reduced dosages 20 mg daily and 12.5 mg daily (respectively)
-Hypotension systolic 90s however persists in morning, though asymptomatic, additional IVF albumin bolus given with good response, continuing with Lasix 20 mg daily at this time with hold on aldactone (outpatient follow up to determine when safe to
resume)
-ST appreciated appropriate regular diet thin liquids
#anxiety/insomnia
0.25 mg Q8Hprn anxiety
0.5 mg HSPRN sleep
#anemia of chronic disease/thrombocytopenia
-Stable Hgb Platelets
-Monitor
#Chronic Hyponatremia
-stable, mild
-continue fluid restriction
-resume lasix reduced dose as above
-monitor
#chronic heart failure with reduced ejection fraction
- Echo 06/05/2023 EF 30-35%, global hypokinesis, mechanical mitral valve, mild MR, moderate TR
- Echo 03/10 with EF 15-20%, repeat with 25%
-strict I &O
-daily weight
-resumed lasix as above
-hold on aldactone at this time, outpatient follow up to determine when safe to resume.
-Cardio Eval appreciated
#hxt of COPD
-Trelegy continued
#Paroxysmal atrial fibrillation
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
- INR therapeutic
- cont Coumadin dosing
-BB continued
#DTI (Deep Tissue Injury) sacral pressure injury
- cont local wound care
#Recently diagnosed cirrhosis
- Follows with Dr. Saunders outpatient
RLE ecchymosis thigh flank
RLE US appreciated hematomas 4.7 cm anterolateral, right common femoral artery, 5 cm anterior proximal right thigh, and 5.4 cm fluid collection in soft tissues of the right flank
Coumadin briefly held pending CT abd/pelvis with aorta runoff rule out active bleeding, since resumed with rule out
Vascular eval appreciated, outpatient follow up recommended
CT abd/pelvis aorta runoff appreciated:
1. Moderate cardiomegaly with evidence for right heart failure.
2. Moderate-sized right and small left pleural effusions.
3. Mild to moderate emphysema.
4. Mild cardiogenic pulmonary edema.
5. Mild cardiogenic cirrhosis.
6. Small volume of abdominal and pelvic ascites.
7. Cholelithiasis.
8. Severe diverticulosis in the descending and sigmoid colon.
9. Severe discogenic degenerative disease and facet joint arthrosis in the lumbar spine.
ABDOMINAL AORTA:
1. Moderate calcific atherosclerotic plaque in the abdominal aorta without evidence for aneurysmal dilatation.
2. Less than 50% diameter stenoses in the celiac, superior mesenteric, and bilateral renal arteries.
RIGHT LOWER EXTREMITY:
1. 4.4 cm acute soft tissue hematoma anterior to the right femoral artery bifurcation.
2. 3.9 cm acute soft tissue hematoma lateral to the proximal right superficial femoral artery.
3. No CTA evidence for active arterial extravasation or pseudoaneurysm.
4. Mild calcific atherosclerotic plaque in the right iliac and common femoral arteries without evidence for stenosis.
5. Severe infrapopliteal calcific atherosclerotic disease with severe multilevel stenoses and occlusion of the distal right anterior tibial artery. Two-vessel runoff to the right foot.
6. Severe subcutaneous edema throughout the right lower extremity.
LEFT LOWER EXTREMITY:
1. Mild calcific atherosclerotic plaque in the left iliac and common femoral arteries.
2. Moderate calcific atherosclerotic plaque in the mid and distal left superficial femoral artery.
3. Severe infrapopliteal calcific atherosclerotic disease with severe multilevel stenoses and complete occlusion of the distal left anterior tibial artery.
PVD, PAD
pain relatively well controlled, ambulates with walker
Cont PT/OT
outpt vascular follow-up recommended
#DVT ppx: Coumadin
Code: Full
Medically stable for discharge home with home services and outpatient follow up recommendations.
discussed with patient and patient's son Eber
Total Time Preparing Discharge ___50____ minutes including examination of the patient, summary of the hospital stay, instructions for continuing care to all relevant caregivers; and preparation of discharge records, prescriptions, and referral
forms if necessary.
Anticipated Discharge: Today
Subjective/Interval History
-
Date of Service: March 30, 2024
Seen and examined at bedside in no acute distress sitting up comfortably in bed. Reports overall feeling well, slept well last night, denies new acute issues at this time. Eager to go home. Blood pressure noted low though MAP 65. Asymptomatic
denies lightheadedness. once albumin bolus given for blood pressure support.
Objective Data
-
Labs:
Laboratory Results
03/30/24
04:06
WBC 3.6 L
Hgb 8.9 L
Hct 25.8 L
Plt Count 75 L D
PT 34.4 H
INR 3.41
Sodium 130 L
Potassium 4.8
Chloride 92 L
Carbon Dioxide 32 H
BUN 19
Creatinine 0.8
Glucose 95
Calcium 8.8
Vital Signs:
Vital Signs
Temp Pulse Resp BP Pulse Ox
97.0 F 62 24 106/59 97
03/30/24 03:00 03/30/24 06:00 03/30/24 06:00 03/30/24 06:00 03/30/24 06:00
I&O
03/29/24 03/30/24 03/31/24
06:59 06:59 06:59
Intake Total 240 / 240
Output Total 300 / 300 600 / 600
Balance -300 / -300 -360 / -360
[2024-03-30] MEDS: SPIRIVA RESPIMAT 2.5 MCG 2 PUFF INH (07:45)
[2024-03-30] MEDS: SYMBICORT 80/4.5 MCG INHALER 2 PUFF INH (07:46)
[2024-03-30] MEDS: ALDACTONE PO (09:12)
--- NOTE | 2024-03-30 10:13 | PTOTSP ---
SPEECH THERAPY SWALLOW EVALUATION:
Patient exhibits clinical signs of oropharyngeal dysphagia, likely acutely related to recent pneumonia/deconditioning/COPD/CHF exacerbation and subsequent intubation during prior admission. Patient with improving CXR, WBC low. Oriented x4. Recommend
Regular texture diet, thin liquids. Meds whole with liquid one at a time. Aspiration precautions including: Upright positioning; Small single sips; Small bites; Slow rate of intake; Remain upright 30 minutes after eating/drinking. Speech therapy to
follow briefly, assess diet tolerance and modify as appropriate, and provide education regarding aspiration risks/precautions.
RECOMMEND:
1) Regular texture diet, thin liquids
2) Meds whole with liquid one at a time
3) Aspiration precautions including: Upright positioning; Small single sips; Small bites; Slow rate of intake; Remain upright 30 minutes after eating/drinking
4) Speech therapy to follow briefly
[2024-03-30] MEDS: JARDIANCE 10 MG PO (10:14)
[2024-03-30] MEDS: PROTONIX 40 MG PO (10:14)
[2024-03-30] MEDS: FLEXBUMIN 100 IV (10:32)
[2024-03-30] MEDS: LASIX 20 MG PO (11:46)
--- NOTE | 2024-03-30 13:16 | W.DCSUMMARY ---
Discharge Summary
Discharge Data
Date of Admission: 03/28/24
Date of Discharge: 03/30/24
-
Pending Results: No
Hospital Course
78M afib on Coumadin HFrEF, COPD, GERD HTN, KIKI CPAP, Cirrhosis recent hospitalization here for pneumonia septic shock Vent dependent respiratory failure since extubated, completed abx treatment, patient was discharged a few days ago home with home
services, returned due to concerns hypotension and insomnia. Reportedly bp 88/50, asymptomatic, noted at home by PT prompting referral to ED. Initial bp on ED evaluation was noted 99/50. Troponin neg chest pain free BNP elevated but
significantly improved from prior value. BP responded well to albumin and small IVF bolus, brief hold Lasix and Aldactone. Patient's primary complaint was poor sleep insomnia for which he was recently prescribed prn ativan by his primary care
provider with good affect. Hypotension/weakness/fatigue physically deconditioned chronically ill, Lasix and spironolactone briefly held, resumed at reduced dosages 20 mg daily and 12.5 mg daily (respectively). Hypotension systolic low 90s however
persisted in morning, though asymptomatic, additional IVF albumin bolus given with good response, continued with Lasix 20 mg daily and hold on Aldactone (outpatient follow up to determine when safe to resume). ST appreciated appropriate regular
diet. Anxiety/insomnia was treated with 0.25 mg Q8Hprn anxiety and 0.5 mg HSPRN sleep. Cardio evaluated and assisted in treatment during this hospital stay. RLE ecchymosis thigh flank was noted. RLE US appreciated hematomas 4.7 cm anterolateral,
right common femoral artery, 5 cm anterior proximal right thigh, and 5.4 cm fluid collection in soft tissues of the right flank. CT abd/pelvis with aorta runoff ruled out active bleeding. CT abd/pelvis aorta runoff appreciated:
1. Moderate cardiomegaly with evidence for right heart failure.
2. Moderate-sized right and small left pleural effusions.
3. Mild to moderate emphysema.
4. Mild cardiogenic pulmonary edema.
5. Mild cardiogenic cirrhosis.
6. Small volume of abdominal and pelvic ascites.
7. Cholelithiasis.
8. Severe diverticulosis in the descending and sigmoid colon.
9. Severe discogenic degenerative disease and facet joint arthrosis in the lumbar spine.
ABDOMINAL AORTA:
1. Moderate calcific atherosclerotic plaque in the abdominal aorta without evidence for aneurysmal dilatation.
2. Less than 50% diameter stenoses in the celiac, superior mesenteric, and bilateral renal arteries.
RIGHT LOWER EXTREMITY:
1. 4.4 cm acute soft tissue hematoma anterior to the right femoral artery bifurcation.
2. 3.9 cm acute soft tissue hematoma lateral to the proximal right superficial femoral artery.
3. No CTA evidence for active arterial extravasation or pseudoaneurysm.
4. Mild calcific atherosclerotic plaque in the right iliac and common femoral arteries without evidence for stenosis.
5. Severe infrapopliteal calcific atherosclerotic disease with severe multilevel stenoses and occlusion of the distal right anterior tibial artery. Two-vessel runoff to the right foot.
6. Severe subcutaneous edema throughout the right lower extremity.
LEFT LOWER EXTREMITY:
1. Mild calcific atherosclerotic plaque in the left iliac and common femoral arteries.
2. Moderate calcific atherosclerotic plaque in the mid and distal left superficial femoral artery.
3. Severe infrapopliteal calcific atherosclerotic disease with severe multilevel stenoses and complete occlusion of the distal left anterior tibial artery.
PVD, PAD, pain relatively well controlled, ambulates with walker. CT findings, clinical case, were discussed with vascular and outpatient follow up was recommended. Medically tania, patient was discharged home with home services and outpatient
follow up recommendations.
Discharge Plan
-
Patient Disposition: Home with Home Care
Discharge Diagnosis/Procedures: Peripheral Arterial Disease
hypotension/weakness/fatigue physically deconditioned chronically ill
anxiety/insomnia
anemia of chronic disease/thrombocytopenia
Chronic Hyponatremia
chronic heart failure with reduced ejection fraction
COPD
Paroxysmal atrial fibrillation
Mechanical aortic valve on Coumadin
Cirrhosis
Peripheral Vascular Disease, Peripheral Arterial Disease
Condition: Fair
Diet: Other diet
Additional Diets: 50 oz fluid restriction
Activity: With assistance, As tolerated and With Walker
Driving Restrictions: No driving
Bathing Restrictions: None
Other Services: VN, PT and OT
Specialty Instructions: Weigh Daily- Call MD for wt gain/loss 3 lbs overnight/5 lbs in 1 week
Activity Restrictions/Additional Instructions:
Please follow up with Primary care provider in 1 week of discharge, domestic cleaner and Smutter in 2-4 weeks of discharge, Yard Switch Operator in 4 weeks of discharge, and GI and vascular surgeon in 1 month discharge
Home medications
warfarin 2.5 mg tablet (Jantoven) 2.5 mg PO QPM Blood clot prevention/tx Mechanical Valve
fluticasone fur. 100 mcg-umeclid 62.5 mcg-vilant 25 mcg inhalat.powder (Trelegy Ellipta) 1 inh inhalation R DAILY Lung/Breathing Issues COPD
empagliflozin 10 mg tablet (Jardiance) 10 mg PO DAILY Heart Failure
omeprazole 20 mg capsule,delayed release 40 mg PO DAILY Gastrointestinal Issue
metoprolol succinate 25 mg tablet,extended release 24 hr 25 mg PO HS for Heart Failure
lorazepam 0.5 mg tablet 0.25 - 0.5 mg PO Q8H PRN anxiety/sleep
Home furosemide, for heart failure, has been reduced from 40 mg to 20 mg PO DAILY due to concerns hypotension
spironolactone, also for heart failure, has been placed on hold due to hypotension, please follow up with primary care provider cardiology and/or other healthcare provider involved in your care to determine when safe to resume.
Please take medications as prescribed/recommended and follow up with primary care provider and/or other healthcare provider involved in your care for refills and/or further adjustment to your medication regimen as necessary.
Instructions: Heart Failure, Adult (DC), Diet for Cirrhosis
Referrals:
Noé Roque DO [Active] - in two to four weeks
Tolu Keane MD [Active] - in one month
Joe Simpson MD [Active] - in three to four weeks
Tony Srinivasan MD [Active] - in two to four weeks
Deann Saunders MD [Active] - in one month
Kylie Liu DO [Family Provider] - in one week
Prescriptions:
New
furosemide 20 mg Tablet
20 mg PO DAILY 30 Days Qty: 30 0RF
Continued
warfarin [Jantoven] 2.5 MG tablet
2.5 mg PO QPM
Trelegy Ellipta 100-62.5-25 mcg Blister With Device
1 inh INHALATION R DAILY
omeprazole 20 mg Capsule,Delayed Release(Dr/Ec)
40 mg PO DAILY
Jardiance 10 mg Tablet
10 mg PO DAILY
metoprolol succinate 25 mg Tablet Extended Release 24 Hr
25 mg PO HS 30 Days Qty: 30 0RF
lorazepam 0.5 mg tablet
0.25 - 0.5 mg PO Q8H PRN (Reason: anxiety)
Patient Comments:
03/28/2024: last filled 03/27/24, 15 tabs for 5 days from [facility]#[id number]
Held
spironolactone 25 mg Tablet
25 mg PO DAILY 30 Days Qty: 30 0RF
Hold Instructions: Hold further aldactone (spironolactone) use due to concern hypotension. Follow up with primary care provider cardiology or other healthcare provider involved in your care to determine when safe to resume.
Discontinued
furosemide 40 mg Tablet
40 mg PO DAILY 30 Days Qty: 30 0RF
Discharge Orders:
Discharge Patient (As Directed); Ordered 03/30/24
Ordered By: Kimber Rice
Discharge Date and Time
Discharge Date/Time: 03/30/24 15:16
Print Language: TURKISH
--- NOTE | 2024-03-30 14:22 | CM ---
Cm met with pt at bedside.
CM recieved consult for home VN, PT/OT. Offered pt choice of agency. Pt reports already being open with [facility] for VN and preference is to resume with [facility].
CM to send referral now via [facility] for resumption of care.
== END 2024-03-30 15:16 | disposition home health service (06) | DRG 300 ==
LOC: IMU 20:34
PROVIDERS: Emergency Medicine; Physician Assistant; Registered Nurse; ADMITTING PHYSICIAN Hospitalist; ATTENDING PHYSICIAN Internal Medicine; CONSULT PHYSICIAN Internal Medicine Cardiovascular Disease; EMERGENCY PHYSICIAN Student in an Organized Health Care Education/Training Program; FAMILY PHYSICIAN Family Medicine
DX: I73.9 Peripheral vascular disease, unspecified (principal); E87.1 Hypo-osmolality and hyponatremia; I50.22 Chronic systolic (congestive) heart failure; J44.0 Chronic obstructive pulmonary disease with (acute) lower respiratory infection; I48.21 Permanent atrial fibrillation; Z87.891 Personal history of nicotine dependence; F41.9 Anxiety disorder, unspecified; D69.6 Thrombocytopenia, unspecified; G47.00 Insomnia, unspecified; E86.0 Dehydration; I95.9 Hypotension, unspecified
CPT/HCPCS: 71046; 75635; 76882; 80048; 80053; 81003; 83605; 83880; 84484; 85025; 85027; 85610; 85730; 87040; 92610; 93005; 94640; 96361; 96374; 97163; 97166; 99285; P9047; Q9967

== ENCOUNTER → 2024-04-25 13:47 | Outpatient (REF) | payer MEDICARE, BC, SELFPAY | LOC: RAD 13:47 | PROVIDERS: ATTENDING PHYSICIAN Nurse Practitioner Adult Health; FAMILY PHYSICIAN Family Medicine | DX: J44.9 Chronic obstructive pulmonary disease, unspecified (principal); J47.9 Bronchiectasis, uncomplicated | CPT/HCPCS: 71250 ==

== ENCOUNTER → 2024-07-28 11:18 | Outpatient (REF) | payer MEDICARE, BC, SELFPAY | LOC: RAD 11:18 | PROVIDERS: ATTENDING PHYSICIAN Internal Medicine Critical Care Medicine; FAMILY PHYSICIAN Family Medicine | DX: R06.00 Dyspnea, unspecified (principal); J98.6 Disorders of diaphragm; J90 Pleural effusion, not elsewhere classified | CPT/HCPCS: 71046 ==

== ENCOUNTER → 2024-08-19 11:27 | Outpatient (REF) | payer MEDICARE, BC, SELFPAY ==
[2024-08-19 15:13] LABS: TSH 3.47 uIU/ml (0.47-4.68)
== END ==
LOC: REG 11:27
PROVIDERS: ATTENDING PHYSICIAN Internal Medicine Cardiovascular Disease; FAMILY PHYSICIAN Family Medicine
DX: I50.20 Unspecified systolic (congestive) heart failure (principal)
CPT/HCPCS: 36415; 84443

== ENCOUNTER → 2024-09-03 14:22 | Outpatient (REF) | payer MEDICARE, BC, SELFPAY | LOC: RAD 14:22 | PROVIDERS: ATTENDING PHYSICIAN Family Medicine | DX: R05.3 Chronic cough (principal) | CPT/HCPCS: 71046 ==

== ENCOUNTER → 2024-09-12 13:12 | Outpatient (REF) | payer MEDICARE, BC, SELFPAY ==
[2024-09-12 14:58] LABS: PT 34.3 Sec (11.4-14.6)
[2024-09-12 14:59] LABS: % Basophils 0.9 % (0-2); % Eosinophils 3.2 % (0-6); % Immature Granulocytes 0.5 % (0-0.5); % Lymphocytes 10.4 % (20.5-51.1); Absolute Eosinophils 0.1 10^3/uL (0-0.7); Absolute Lymphocytes 0.5 10^3/uL (1.2-3.4); Absolute Monocytes 0.3 10^3/uL (0.1-0.6); Absolute Neutrophils 3.4 10^3/uL (1.4-6.5); Hematocrit 37.3 % (39.0-52.0); Hemoglobin 12.4 g/dL (13.0-18.0); Mean Corp Hgb Conc. 33.2 g/dL (33.0-37.0); Mean Corpuscular Hgb 31.9 pg (27.0-31.0); Mean Corpuscular Volume 95.9 fL (80.0-94.0); Mean Platelet Volume 10.5 fL (7.4-10.4); Nucleated Red Blood Cells % 0 % (-); Platelet Count 94 10^3/uL (130-400); Red Blood Cell Count 3.89 10^6/uL (4.70-6.10); Red Cell Dist. Width 16.3 % (11.5-14.5); White Blood Cell Count 4.4 10^3/uL (4.8-10.8)
[2024-09-12 15:14] LABS: ALT (SGPT) 16 U/L (0-50); AST (SGOT) 37 U/L (17-59); Albumin 3.6 g/dl (3.5-5.0); Alkaline Phosphatase 98 U/L (38-126); Blood Urea Nitrogen 27 mg/dl (9-20); Carbon Dioxide 36 mmol/L (22-30); Chloride 95 mmol/L (98-107); GGTP 31 U/L (15-73); Glucose 90 mg/dl (70-99); Potassium 4.2 mmol/L (3.5-5.1); Sodium 138 mmol/L (135-145); Total Protein 6.7 g/dl (6.3-8.2); eGFR > 60.00
[2024-09-12 15:45] LABS: AFP Male/Tumor Marker 1.99 ng/ml
== END ==
LOC: REG 13:12
PROVIDERS: ATTENDING PHYSICIAN Internal Medicine Transplant Hepatology; FAMILY PHYSICIAN Family Medicine
DX: K74.69 Other cirrhosis of liver (principal)
CPT/HCPCS: 36415; 80053; 82105; 82977; 85025; 85610

== ENCOUNTER → 2024-09-30 09:07 | Outpatient (REF) | payer MEDICARE, BC, SELFPAY ==
[2024-09-30 12:35] LABS: INR 3.82; PT 37.3 Sec (11.4-14.6)
== END ==
LOC: REG 09:07
PROVIDERS: ATTENDING PHYSICIAN Internal Medicine Cardiovascular Disease; FAMILY PHYSICIAN Family Medicine
DX: Z95.2 Presence of prosthetic heart valve (principal)
CPT/HCPCS: 36415; 85610

== ENCOUNTER 2025-03-05 16:56 | Emergency (ER) | payer MEDICARE, BC, SELFPAY ==
[2025-03-05 16:59] VITALS: BP 95/58
[2025-03-05 17:33] LABS: % Basophils 0.9 % (0-2); % Eosinophils 2.1 % (0-6); % Immature Granulocytes 0.3 % (0-0.5); % Lymphocytes 12.3 % (20.5-51.1); % Monocytes 9.4 % (1.7-9.3); Absolute Eosinophils 0.1 10^3/uL (0-0.7); Absolute Lymphocytes 0.4 10^3/uL (1.2-3.4); Absolute Monocytes 0.3 10^3/uL (0.1-0.6); Absolute Neutrophils 2.6 10^3/uL (1.4-6.5); Hematocrit 33.8 % (39.0-52.0); Hemoglobin 11.2 g/dL (13.0-18.0); Mean Corp Hgb Conc. 33.1 g/dL (33.0-37.0); Mean Corpuscular Hgb 32.5 pg (27.0-31.0); Mean Platelet Volume 10.5 fL (7.4-10.4); Nucleated Red Blood Cells % 0 % (-); Platelet Count 86 10^3/uL (130-400); Red Blood Cell Count 3.45 10^6/uL (4.70-6.10); Red Cell Dist. Width 15.4 % (11.5-14.5); White Blood Cell Count 3.4 10^3/uL (4.8-10.8)
[2025-03-05 17:34] LABS: INR 2.03; PT 23.4 Sec (11.4-14.6)
[2025-03-05 17:45] LABS: ALT (SGPT) 16 U/L (0-50); AST (SGOT) 34 U/L (17-59); Albumin 3.2 g/dl (3.5-5.0); Alkaline Phosphatase 89 U/L (38-126); Blood Urea Nitrogen 30 mg/dl (9-20); Calcium 8.5 mg/dl (8.4-10.2); Carbon Dioxide 36 mmol/L (22-30); Chloride 94 mmol/L (98-107); Glucose 123 mg/dl (70-99); Sodium 136 mmol/L (135-145); Total Protein 6.1 g/dl (6.3-8.2); eGFR > 60.00
[2025-03-05 18:07] LABS: Troponin I 0.031 ng/ml
[2025-03-05 19:05] VITALS: BP 108/66
[2025-03-05 19:06] VITALS: BMI 25.2
--- NOTE | 2025-03-05 19:38 | ED.GENMED ---
History of Present Illness
General
Chief Complaint: Fall
Source: patient and spouse
Time Seen by Provider: 03/05/25 19:07
History of Present Illness
History of Present Illness:
79-year-old male presents for evaluation after fall on Sunday. Patient states that he had a fall few weeks ago and was seen at [facility]. He then fell again on Sunday. Patient states he fell from standing walking from 1
room to the next. In general for the last several weeks he has been just weak. He states most notably over the last 1 to 2 weeks. He did have an endoscopy on Sunday at [facility]. Patient states that he had to hold his Coumadin
for 2 days but that night after endoscopy shortly after restarting the Coumadin his headache started. He states since then he has had a headache. He is on Coumadin. States he really cannot take anything because of his. The patient denies chest
pain or shortness of breath. No cough or fevers. states that in the past he was diagnosed with pneumonia after feeling weak and request a chest x-ray. Patient denies chest pain. He denies palpitations. On exam the patient does have noted
temporal wasting. I asked if he had lost weight recently and states he lost about 100 pounds over a few years but nothing significant recently. They attributed that to his heart disease and not eating well.
Past History
Past History
ED Past Medical History: Arrthythmia (Atrial fibrillation), CAD, COPD, GERD, HTN and Other (History of sleep apnea, diverticulosis, stomach ulcers, back pain, degenerative joint disease,); Negative NIDDM
ED Past Surgical History: Tonsilectomy and Other (Recent surgery for bilateral knee replacements, multiple cardioversions, right wrist carpal total surgery, L4-L5 laminectomy)
Social History
Tobacco: Former smoker
Alcohol: Occasional
Drug: None
Personal:
Living: alone
Employment: Employed
Family History
Family History: Other (Father with cancer of the pancreas)
Phy Exam
Physical Exam
Physical Exam:
CONSTITUTIONAL Patient alert and oriented to person, place and time. Temporal wasting noted. Vital signs reviewed.
HEAD right periorbital and right forehead ecchymosis noted, healing wound noted to the right forehead.
EYES eyelids normal to inspection, Extraocular muscles intact, Conjunctiva normal, Sclera normal.
NECK normal range of motion, Trachea midline, no jugular venous distention.
RESPIRATORY CHEST No respiratory distress noted, Chest expansion equal, Bilateral breath sounds clear.
CARDIOVASCULAR regular rate and rhythm, valvular click noted
ABDOMEN abdomen nontender, Bowel sounds normal. No distention.
BACK normal inspection, no obvious deformities
UPPER EXTREMITY range of motion normal, Motor strength normal, no cyanosis, no edema.
LOWER EXTREMITY range of motion normal, Motor strength normal, no cyanosis, bilateral lower extremity edema noted with some skin breakdown..
NEURO Speech normal, No focal motor deficits, Beatriz coma scale 15, Memory normal, Cranial Nerves intact to screening exam. No pronator drift.
SKIN skin warm, dry, and normal in color.
Course
Orders/Labs/Results
Orders:
Orders
03/05/25 17:03
Electrocardiogram (*1) Urgent
Reason for Study: Fatigue / Weakness
EKG- Treatment ONCE
03/05/25 17:15
CMP [Comprehensive Metabolic Panel] Urgent
Complete Blood Count/With Diff Urgent
INR [Prothrombin Time] Urgent
Troponin I Urgent
03/05/25 19:35
CT Head W/o Iv Contrast Urgent
Comment:
Reason For Exam: recent fall, on coumadin
03/05/25 20:10
CT Cervical Spine W/o Iv Contr Urgent
Comment:
Reason For Exam: fall
Abnormal Lab Results
03/05/25
17:15
WBC 3.4 L 10^3/uL
(4.8-10.8)
RBC 3.45 L 10^6/uL
(4.70-6.10)
Hgb 11.2 L g/dL
(13.0-18.0)
Hct 33.8 L %
(39.0-52.0)
MCV 98.0 H fL
(80.0-94.0)
MCH 32.5 H pg
(27.0-31.0)
RDW 15.4 H %
(11.5-14.5)
Plt Count 86 L 10^3/uL
(130-400)
MPV 10.5 H fL
(7.4-10.4)
Absolute Lymphs (auto) 0.4 L 10^3/uL
(1.2-3.4)
Lymphocytes % 12.3 L %
(20.5-51.1)
Monocytes % 9.4 H %
(1.7-9.3)
PT 23.4 H Sec
(11.4-14.6)
Chloride 94 L mmol/L
(98-107)
Carbon Dioxide 36 H mmol/L
(22-30)
BUN 30 H mg/dl
(9-20)
Glucose 123 H mg/dl
(70-99)
Total Protein 6.1 L g/dl
(6.3-8.2)
Albumin 3.2 L g/dl
(3.5-5.0)
03/05/25 17:15
03/05/25 17:15
Vital Signs
Initial and Last Documented VS:
Initial Vital Signs
Temp Pulse Resp BP Pulse Ox
98.1 F 84 16 95/58 96
03/05/25 16:59 03/05/25 16:59 03/05/25 16:59 03/05/25 16:59 03/05/25 16:59
Last Documented Vital Signs
Temp Pulse Resp BP Pulse Ox
98.1 F 60 22 108/90 95
03/05/25 16:59 03/05/25 20:45 03/05/25 20:45 03/05/25 20:00 03/05/25 20:30
MDM/Problems Addressed
MDM/Problems Addressed:
Head injury, temporal wasting, acute subdural hematoma
*Radiology
Radiology exam reviewed: preliminary read by ED provider (Acute subdural)
*Pulse Oximetry
Patient hypoxic: no
*EKG
Interpreted by ED Provider?: Yes
Interpretation: abnormal
Rate: normal
Rhythm: ventricular paced
Ischemia: non-specific ST changes
*[employer] Interpretation
Rate: normal
Interpretation: abnormal
Rhythm: ventricular paced
*Critical Care Note
Total Time (30-74mins, 75-104mins- exclusive of procedures): 40 minutes
Data Reviewed
Review of Other/Old Records Reveals: Labs (Prior labs reviewed, prior troponins trended)
Source: patient
Prescriptions/Medications Considered But Not Given:
Considered Kcentra but patient has mechanical valve. Will discuss with trauma surgery/neurosurgery
Patient Management
Discussion with other providers: Therapeutic Riding Instructor (Case discussed with trauma surgery) and Radiologist
Escalation/DeEscalation of care consider admission/obs:
79 Male who fell several days ago. Patient states his headache started shortly after restart Coumadin after his endoscopy. Patient states his headache has been somewhat constant since Sunday. Difficult in light of the fact that he is on Coumadin
for mechanical valve. Question whether this has been stable for few days as the symptoms have not changed. He is awake and alert his GCS is 15. Difficult decision as to whether to reverse his INR and put him at risk in light of his mechanical
valve or to hold for now. Case was discussed with trauma x 2. Since we are able to transfer him quickly we will hold off for now pending their bedside evaluation and repeat CT urgently. Neurosurgery to evaluate him upon arrival to the [facility]
[facility]. We will watch closely if there is any symptoms that progress in any way we will reverse him immediately.
ED Attending Note
-
Portions of this chart may have been created with voice recognition software.� Occasional wrong word or��sound alike� substitutions may have occurred due to the inherent limitations of voice recognition software.
Discharge Plan
Departure
Patient Disposition: Acute Care Hospital
Date of Disposition: 03/05/25
Time of Disposition: 20:25
Discharge Problem:
Acute subdural hematoma
Prescriptions:
No Action
warfarin [Jantoven] 2.5 MG tablet
2.5 mg PO QPM
Trelegy Ellipta 100-62.5-25 mcg Blister With Device
1 inh INHALATION R DAILY
omeprazole 20 mg Capsule,Delayed Release(Dr/Ec)
40 mg PO DAILY
Jardiance 10 mg Tablet
10 mg PO DAILY
spironolactone 25 mg Tablet
25 mg PO DAILY 30 Days Qty: 30 0RF
metoprolol succinate 25 mg Tablet Extended Release 24 Hr
25 mg PO HS 30 Days Qty: 30 0RF
lorazepam 0.5 mg tablet
0.25 - 0.5 mg PO Q8H PRN (Reason: anxiety)
Patient Comments:
03/28/2024: last filled 03/27/24, 15 tabs for [address] [id number]
furosemide 20 mg Tablet
20 mg PO DAILY 30 Days Qty: 30 0RF
Referrals:
Noah Mendez MD [Family Provider] -
Hospital Transfer
Other hospital: [facility]
I certify that the patient requires transfer: Yes
Discussed case with accepting physician: Yoel
Reason for transfer: specialties available
Interventions
Interventions:
*Risk Screen - Suicide Last Done: 03/05/25 16:59
*General Assessment Last Done: 03/05/25 19:07
*Neglect/Abuse Screening Last Done: 03/05/25 16:59
*ED- Fall Risk Assessment Last Done: 03/05/25 19:07
*ED COVID-19 Vaccine History Last Done: 03/05/25 21:04
*Nursing Disposition Last Done: 03/05/25 21:04
ED-Musculoskeletal Assessment Last Done: 03/05/25 19:07
ED- Neurological Assessment Last Done: 03/05/25 19:09
ED-Skin Assessment Last Done: 03/05/25 19:07
Discharge Date and Time
Discharge Date/Time: 03/05/25 21:05
Print Language: PRYDEINIG
[2025-03-05 20:00] VITALS: BP 108/90
== END 2025-03-05 21:05 | disposition short-term general hospital (02) ==
LOC: EMR 16:56
PROVIDERS: Emergency Medicine; EMERGENCY PHYSICIAN Emergency Medicine; FAMILY PHYSICIAN Student in an Organized Health Care Education/Training Program
DX: S06.5XAA Traumatic subdural hemorrhage with loss of consciousness status unknown, initial encounter (principal); W19.XXXA Unspecified fall, initial encounter; J90 Pleural effusion, not elsewhere classified; I10 Essential (primary) hypertension; G47.30 Sleep apnea, unspecified; I25.10 Atherosclerotic heart disease of native coronary artery without angina pectoris; I48.91 Unspecified atrial fibrillation; J44.9 Chronic obstructive pulmonary disease, unspecified; Z87.891 Personal history of nicotine dependence; Z79.01 Long term (current) use of anticoagulants; Z95.0 Presence of cardiac pacemaker
CPT/HCPCS: 99291; 70450; 72125; 80053; 84484; 85025; 85610; 93005